=== PATIENT | male | born 1945 | race Caucasian/White ===

== ENCOUNTER → 2017-10-16 14:14 | Outpatient (CLI) | payer OTHER, MEDICARE, SELFPAY ==
[2017-10-16 16:21] LABS: Absolute Neutrophil Count 2.8 X10^3/uL (2.0-7.7); Basophil# 0.02 X10^3/uL; Basophil% 0.5 % (0-1); Eosinophil# 0.13 X10^3/uL; Hematocrit 41.5 % (40-54); Hemoglobin 13.9 g/dl (13.0-16.5); Lymphocyte % 20.7 % (19-41); Mean Corp Hgb Conc 33.5 g/gl (32-36); Mean Corpuscular Hgb 29.8 pg (27.0-32.0); Mean Corpuscular Volume 88.9 fL (80-94); Mean Platelet Vol. 9.4 fl (6.2-12.0); Monocyte# 0.48 X10^3/uL; Monocyte% 11.1 % (0-10); Neutrophil % 64.5 % (47-70); Platelet Count 232 K/mm3 (150-450); RBC Distribution Width CV 12.9 % (11.6-14.6); RBC Distribution Width SD 41.5 fl (35.1-43.9); Red Blood Count 4.67 M/mm3 (4.6-6.2); White Blood Count 4.3 K/mm3 (4.4-11.0)
[2017-10-16 16:22] LABS: POSITIVE COUNT NO; POSITIVE DIFFERENTIAL NO; POSITIVE MORPHOLOGY NO
[2017-10-16 16:47] LABS: AST(SGOT) 19 U/L (15-37); Alanine Aminotransfer ALT/SGPT 27 U/L (16-61); Albumin, Serum 3.6 g/dL (3.2-5.0); Alkaline Phosphatase 62 U/L (45-117); Anion Gap 8 (5-15); BUN 16 mg/dL (7-18); BUN/Creat Ratio 16.2 RATIO (10-20); Calcium,Total 8.7 mg/dL (8.5-10.1); Chloride 110 mmol/L (98-107); Creatinine, Serum 0.99 mg/dL (0.70-1.30); EST Glomerular Filtration Rate 79 mL/min (>60); Est Glom Filt Rate - Afr Amer 96 mL/min (>60); Globulin 3.5 g/dL (2.2-4.2); Glucose 104 mg/dL (74-106); Potassium 3.7 mmol/L (3.5-5.1); Protein, Total 7.1 g/dL (6.4-8.2); Sodium Level 140 mmol/L (136-145); Thyroid Stim Hormone (TSH) 0.13 uIU/mL (0.358-3.74)
[2017-10-17 10:00] LABS: Vitamin D,25 Hydroxy 25.1 ng/mL (29.95-100.01)
== END ==
PROVIDERS: Family Provider Family Medicine Geriatric Medicine; PCP Family Medicine Geriatric Medicine; Visit Provider Family Medicine Geriatric Medicine
DX: E55.9 Vitamin D deficiency, unspecified (principal); R53.83 Other fatigue
CPT/HCPCS: 36415; 80053; 82306; 84443; 85025

== ENCOUNTER 2017-10-19 15:37 | Emergency (ER) | payer OTHER, MEDICARE, SELFPAY ==
[2017-10-19 15:37] VITALS: BP 152/96; PULSE 114; RESP 16; TEMP 37; O2SAT 100; BMI 22.8
--- NOTE | 2017-10-19 15:43 | ED.VISSUMM ---
- ER Visit Summary Date of Service: 10/19/17 Chief Complaint: Left second finger laceration History of Present Illness: The patient is a 72 M presents to the emergency department with left second finger laceration. The patient is right-hand dominant. He was working with a back grinder and it slipped. It incised the dorsum of his left index finger over the mid phalanges. He states that it would not stop bleeding. His tetanus is up-to-date. The patient has had prior tracheostomy. He denies any other injury. The patient is otherwise healthy. Physical Examination: Patient has a 1 cm full-thickness laceration the dorsum. It does not involve the joint. Extension is preserved. Sensation is preserved to light touch. There is no injury to the nailbed. Test Results: [] Emergency Department Course and Treatment: Laceration was cleaned and prepped in a sterile fashion. It was anesthetized with lidocaine locally. It was irrigated with 250 cc of normal saline. It was explored. There is no evidence of tendinous involvement. It was closed with 4 simple 5-0 suture. Patient tolerated this without issue. Bacitracin dressing was applied. He will be discharged home with wound care instructions. Treatment Plan: [] Disposition: Discharge Impression: 1. 1 cm left second finger laceration with repair This note was generated with [employer] dictation software. It may contain incorrect words, spelling, and punctuation that were not noted in review of the chart prior to signing ED Disposition - Plan for ED Patient: Chief Complaint: Laceration Instructions: ED Laceration Hand Referrals: Andreas Evangelista Chi, MD [Primary Care Provider] - 7 Days for suture removal
== END 2017-10-19 16:15 | disposition home or self-care (01) ==
LOC: ED 15:46
PROVIDERS: Emergency Provider Emergency Medicine; Family Provider Family Medicine Geriatric Medicine; PCP Family Medicine Geriatric Medicine
DX: S61.211A Laceration without foreign body of left index finger without damage to nail, initial encounter (principal); I10 Essential (primary) hypertension; E78.00 Pure hypercholesterolemia, unspecified; Z79.899 Other long term (current) drug therapy; W29.8XXA Contact with other powered hand tools and household machinery, initial encounter; Y93.89 Activity, other specified; Y92.009 Unspecified place in unspecified non-institutional (private) residence as the place of occurrence of the external cause; Y99.8 Other external cause status
CPT/HCPCS: 12001; 99283

== ENCOUNTER → 2018-04-23 10:55 | Outpatient (CLI) | payer OTHER, MEDICARE, SELFPAY ==
[2018-04-23 12:42] LABS: Absolute Lymphocyte Count 1.14 X10^3/ul (0.83-4.51); Absolute Neutrophil Count 2.5 X10^3/uL (2.0-7.7); Basophil# 0.04 X10^3/uL; Basophil% 0.9 % (0-1); Eosinophil# 0.11 X10^3/uL; Eosinophils% 2.5 % (0-5); Hematocrit 42.4 % (40-54); Lymphocyte # 1.14 X10^3/ul (4.0); Lymphocyte % 25.6 % (19-41); Mean Corpuscular Hgb 29.9 pg (27.0-32.0); Mean Corpuscular Volume 90.4 fL (80-94); Mean Platelet Vol. 10.1 fl (6.2-12.0); Monocyte# 0.64 X10^3/uL; Monocyte% 14.4 % (0-10); Neutrophil # 2.51 X10^3/uL (2.7-7.7); Neutrophil % 56.4 % (47-70); Platelet Count 246 K/mm3 (150-450); RBC Distribution Width CV 13.7 % (11.6-14.6); Red Blood Count 4.69 M/mm3 (4.6-6.2); White Blood Count 4.5 K/mm3 (4.4-11.0)
[2018-04-23 12:48] LABS: POSITIVE COUNT NO; POSITIVE DIFFERENTIAL NO; POSITIVE MORPHOLOGY NO
[2018-04-23 12:55] LABS: BUN 13 mg/dL (7-18); Creatinine, Serum 0.97 mg/dL (0.70-1.30); Glucose 94 mg/dL (74-106)
[2018-04-23 12:56] LABS: ALB/GLOB Ratio 1.1 RATIO (0.9-2.4); AST(SGOT) 25 U/L (15-37); Alanine Aminotransfer ALT/SGPT 28 U/L (16-61); Albumin, Serum 3.7 g/dL (3.2-5.0); Alkaline Phosphatase 68 U/L (45-117); Anion Gap 9 (5-15); BUN/Creat Ratio 13.4 RATIO (10-20); Calcium,Total 8.6 mg/dL (8.5-10.1); Chloride 111 mmol/L (98-107); EST Glomerular Filtration Rate 81 mL/min (>60); Est Glom Filt Rate - Afr Amer 97 mL/min (>60); Globulin 3.5 g/dL (2.2-4.2); Potassium 4.1 mmol/L (3.5-5.1); Protein, Total 7.2 g/dL (6.4-8.2); Sodium Level 145 mmol/L (136-145); Thyroid Stim Hormone (TSH) 0.11 uIU/mL (0.358-3.74); Vitamin D,25 Hydroxy 20.7 ng/mL (29.95-100.01)
== END ==
PROVIDERS: Family Provider Family Medicine Geriatric Medicine; PCP Family Medicine Geriatric Medicine; Visit Provider Family Medicine Geriatric Medicine
DX: E55.9 Vitamin D deficiency, unspecified (principal); R53.83 Other fatigue
CPT/HCPCS: 36415; 80053; 82306; 84443; 85025

== ENCOUNTER 2018-05-28 17:33 | Emergency (ER) | payer OTHER, MEDICARE, SELFPAY ==
[2018-05-28 17:34] VITALS: BP 134/92; PULSE 109; RESP 20; TEMP 36.9; O2SAT 97; BMI 220.2
--- NOTE | 2018-05-28 17:46 | RAD_ITS ---
STUDY: X-RAY - RIGHT SHOULDER REASON FOR EXAM: Male, 73 years old. Pain, decreased range of motion TECHNIQUE: 4 view(s) of the shoulder. COMPARISON: None. FINDINGS: There is moderate degenerative arthrosis of the glenohumeral articulation. There is degenerative arthrosis of the acromioclavicular joint without inferior osseous spur formation. Normal acromion. Normal humeral head and visualized proximal humerus. The soft tissue structures are unremarkable. Normal visualized pulmonary apex. RAD/Shoulder min 2 Views IMPRESSION: Degenerative arthrosis, no demonstrated fracture or suspicious osseous lesion Electronically Signed: Santo Gould MD at 18:32 EST , Service support ,
--- NOTE | 2018-05-28 17:46 | ED.VISSUMM ---
- ER Visit Summary Date of Service: 05/28/18 Chief Complaint: Right shoulder injury History of Present Illness: The patient is a 73 M mechanical fall 3 hours prior to arrival. Slipped on ice direct shoulder injury. No head or neck injury. No loss of conscious. Pain worse with movement. History of jaw fracture in the past. No history of gastric ulcers or kidney injury. 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 No chest pains or shortness of breath. No nausea or vomiting. Physical Examination: General: Alert and oriented ?3, no acute distress HEENT: Normocephalic, atraumatic. Moist mucosa membranes Neck: supple, nontender. Tracheostomy orifice patent clean, dry, intact Cardiovascular: Regular rate and rhythm, no murmurs Respiratory: Normal breath sounds, symmetric, no distress Abdomen: Soft, nontender, nondistended Extremities: Right upper extremity: No deformities. There is tender palpation of the AC joint. No proximal shoulder pain. Passive full range of motion of the shoulder. No elbow pain. Skin intact. Neurovascular intact distally. Neuro: no focal neurological deficits. Test Results: Right shoulder x-ray: No fracture or dislocation. AC joint aligned Emergency Department Course and Treatment: Patient tender at the AC joint. X-ray shoulder including clavicle reviewed shows no fracture dislocation. Discussed with patient likely grade 1 strain. Shoulder sling. Was given Motrin and tramadol for comfort. Ice was placed. Discussed removing sling 3-4 times a day with movement. Prescription for symptom control and follow-up with his PCP. OARRS report check. Treatment Plan: [] Disposition: Discharged Impression: 1. Right acromioclavicular ligament sprain This note was generated with [employer] dictation software. It may contain incorrect words, spelling, and punctuation that were not noted in review of the chart prior to signing ED Disposition - Plan for ED Patient: Disposition: Home or Assisted Living Diagnosis: Sprain of right acromioclavicular joint, initial encounter Instructions: ED Sprain AC Joint Prescriptions: traMADol [Ultram] 50 mg PO Q6H PRN PRN 3 Days #12 tablet PRN Reason: Pain Ibuprofen [Motrin] 400 mg PO Q6H PRN #20 tablet PRN Reason: Pain Referrals: Andreas Evangelista Chi, MD [Primary Care Provider] - 5-7 Days
[2018-05-28] MEDS: Ibuprofen 200 MG Tablet 400 MG PO (18:00)
[2018-05-28] MEDS: traMADol 50 MG Tablet PO (18:01)
== END 2018-05-28 18:23 | disposition home or self-care (01) ==
PROVIDERS: Emergency Provider Emergency Medicine; Family Provider Family Medicine Geriatric Medicine; PCP Family Medicine Geriatric Medicine
DX: S43.51XA Sprain of right acromioclavicular joint, initial encounter (principal); K21.9 Gastro-esophageal reflux disease without esophagitis; E78.00 Pure hypercholesterolemia, unspecified; Z85.21 Personal history of malignant neoplasm of larynx; Z79.899 Other long term (current) drug therapy; W00.0XXA Fall on same level due to ice and snow, initial encounter; Y93.89 Activity, other specified; Y92.89 Other specified places as the place of occurrence of the external cause; Y99.8 Other external cause status
CPT/HCPCS: 73030; 99284

== ENCOUNTER → 2018-10-22 | Outpatient (CLI) | payer OTHER, MEDICARE, SELFPAY ==
[2018-10-22 12:48] LABS: Absolute Lymphocyte Count 1.03 X10^3/ul (0.83-4.51); Absolute Neutrophil Count 3.2 X10^3/uL (2.0-7.7); Basophil# 0.03 X10^3/uL; Basophil% 0.6 % (0-1); Eosinophil# 0.11 X10^3/uL; Eosinophils% 2.2 % (0-5); Hematocrit 40.3 % (40-54); Hemoglobin 13.2 g/dl (13.0-16.5); Lymphocyte # 1.03 X10^3/ul (4.0); Lymphocyte % 20.4 % (19-41); Mean Corp Hgb Conc 32.8 g/gl (32-36); Mean Corpuscular Hgb 28.9 pg (27.0-32.0); Mean Corpuscular Volume 88.4 fL (80-94); Mean Platelet Vol. 10.4 fl (6.2-12.0); Monocyte# 0.72 X10^3/uL; Monocyte% 14.2 % (0-10); Neutrophil # 3.16 X10^3/uL (2.7-7.7); Neutrophil % 62.4 % (47-70); Platelet Count 254 K/mm3 (150-450); RBC Distribution Width CV 14.2 % (11.6-14.6); RBC Distribution Width SD 45.9 fl (35.1-43.9); Red Blood Count 4.56 M/mm3 (4.6-6.2); White Blood Count 5.1 K/mm3 (4.4-11.0)
[2018-10-22 12:52] LABS: POSITIVE COUNT NO; POSITIVE DIFFERENTIAL NO; POSITIVE MORPHOLOGY NO
[2018-10-22 13:06] LABS: Vitamin D,25 Hydroxy 16.5 ng/mL (29.95-100.01)
[2018-10-22 13:09] LABS: AST(SGOT) 19 U/L (15-37); Alanine Aminotransfer ALT/SGPT 28 U/L (16-61); Albumin, Serum 3.6 g/dL (3.2-5.0); Alkaline Phosphatase 87 U/L (45-117); Anion Gap 5 (5-15); BUN 16 mg/dL (7-18); BUN/Creat Ratio 15.8 RATIO (10-20); Calcium,Total 8.7 mg/dL (8.5-10.1); Chloride 110 mmol/L (98-107); Creatinine, Serum 1.01 mg/dL (0.70-1.30); EST Glomerular Filtration Rate 77 mL/min (>60); Est Glom Filt Rate - Afr Amer 93 mL/min (>60); Globulin 3.7 g/dL (2.2-4.2); Glucose 98 mg/dL (74-106); Potassium 4.1 mmol/L (3.5-5.1); Protein, Total 7.3 g/dL (6.4-8.2); Sodium Level 139 mmol/L (136-145); Thyroid Stim Hormone (TSH) < 0.01 uIU/mL (0.358-3.74)
== END | disposition home or self-care (01) ==
PROVIDERS: Family Provider Family Medicine Geriatric Medicine; PCP Family Medicine Geriatric Medicine; Visit Provider Family Medicine Geriatric Medicine
DX: E55.9 Vitamin D deficiency, unspecified (principal); R53.83 Other fatigue
CPT/HCPCS: 36415; 80053; 82306; 84443; 85025

== ENCOUNTER → 2019-04-26 11:34 | Outpatient (CLI) | payer OTHER, MEDICARE, SELFPAY ==
[2019-04-26 13:01] LABS: Absolute Lymphocyte Count 1.04 X10^3/uL (0.83-4.51); Absolute Neutrophil Count 6.5 X10^3/uL (2.0-7.7); Basophil# 0.07 X10^3/uL; Basophil% 0.8 % (0-1); Eosinophil# 0.13 X10^3/uL; Eosinophils% 1.5 % (0-5); Hematocrit 42.3 % (40-54); Hemoglobin 13.6 g/dL (13.0-16.5); Lymphocyte # 1.04 X10^3/ul (4.0); Lymphocyte % 12.2 % (19-41); Mean Corp Hgb Conc 32.2 g/dL (32-36); Mean Corpuscular Hgb 28.5 pg (27.0-32.0); Mean Corpuscular Volume 88.5 fL (80-94); Mean Platelet Vol. 10.7 fl (6.2-12.0); Monocyte% 9.4 % (0-10); NRBC Flagged by Analyzer 0 % (0-5); Neutrophil # 6.45 X10^3/uL (2.7-7.7); Platelet Count 244 K/mm3 (150-450); RBC Distribution Width CV 13.6 % (11.6-14.6); RBC Distribution Width SD 44.1 fl (35.1-43.9); Red Blood Count 4.78 M/mm3 (4.6-6.2); White Blood Count 8.5 K/mm3 (4.4-11.0)
[2019-04-26 13:26] LABS: Vitamin D,25 Hydroxy 18.1 ng/mL (29.95-100.01)
[2019-04-26 13:34] LABS: ALB/GLOB Ratio 0.9 RATIO (0.9-2.4); AST(SGOT) 20 U/L (15-37); Alanine Aminotransfer ALT/SGPT 27 U/L (16-61); Albumin, Serum 3.7 g/dL (3.2-5.0); Alkaline Phosphatase 80 U/L (45-117); Anion Gap 5 (5-15); BUN 14 mg/dL (7-18); Calcium,Total 8.8 mg/dL (8.5-10.1); Chloride 108 mmol/L (98-107); Creatinine, Serum 1.08 mg/dL (0.70-1.30); EST Glomerular Filtration Rate 71 mL/min (>60); Est Glom Filt Rate - Afr Amer 86 mL/min (>60); Globulin 3.9 g/dL (2.2-4.2); Glucose 91 mg/dL (74-106); PSA,Total - Annual Screen 7.53 ng/mL (0.00-4.00); Potassium 4.2 mmol/L (3.5-5.1); Protein, Total 7.6 g/dL (6.4-8.2); Sodium Level 140 mmol/L (136-145); Thyroid Stim Hormone (TSH) 0.12 uIU/mL (0.358-3.74)
== END ==
PROVIDERS: Family Provider Family Medicine Geriatric Medicine; PCP Family Medicine Geriatric Medicine; Visit Provider Family Medicine Geriatric Medicine
DX: E55.9 Vitamin D deficiency, unspecified (principal); R53.83 Other fatigue; Z12.5 Encounter for screening for malignant neoplasm of prostate
CPT/HCPCS: 36415; 80053; 82306; 84153; 84443; 85025; G0103

== ENCOUNTER 2019-05-08 13:52 | Observation (INO) | payer OTHER, MEDICARE, SELFPAY ==
[2019-05-08] VITALS (23 sets, daily range): BP systolic 92–174; BP diastolic 64–125; PULSE 72–118; RESP 13–28; TEMP 36.2–37.1; O2SAT 91–99; BMI 23.3; BMI 22.0; BMI 21.9
--- NOTE | 2019-05-08 13:54 | RAD_ITS ---
STUDY: X-RAY CHEST REASON FOR EXAM: Male, 74 years old. Aspiration TECHNIQUE: Frontal view of the chest COMPARISON: 11/07/2017 FINDINGS: There is no radiodense foreign body. There is linear opacity in the lower lobes which likely represents atelectasis. The lungs are otherwise clear. There are no pleural effusions. There is no pneumothorax. The heart is normal in size. The visualized osseous structures are within normal limits. RAD/Chest 1 View (Portable) IMPRESSION: Linear opacity in the lower lobes which likely represent atelectasis. Otherwise, clear lungs. No radiodense foreign body. Electronically Signed: Deepak Barrow, at 14:18 EST Tel , Service support ,
--- NOTE | 2019-05-08 14:07 | CT_ITS ---
We are attempting to reach an attending provider to discuss findings. An addendum with communication details will be sent when the communication is complete. STUDY: CT CHEST WITHOUT CONTRAST REASON FOR EXAM: Male, 74 years old. Evaluate for foreign body (piece of tracheostomy tube RADIATION DOSAGE (If Supplied By Facility): CTDIvol = ( 10.19 ) mGy, DLP = ( 346.19 ) mGycm TECHNIQUE: Transaxial imaging was performed without the administration of intravenous contrast material. Coronal and sagittal reformatted images were created. Individualized dose optimization techniques were used for this CT. COMPARISON: 05/10/2017. FINDINGS: There is a tracheostomy tube in place. There is a 1 cm cylindrical foreign body in the right lower lobe bronchus which likely represents a piece of the patient''s tracheostomy tube. There are mild emphysematous changes. There is dependent opacity noted in the lower lobes which likely represents atelectasis. There are no pleural effusions. There is no pneumothorax. The heart and pericardium are within normal limits. There are coronary artery calcifications. There is no thoracic lymphadenopathy. There is no evidence of thoracic aortic aneurysm. Images through the upper abdomen demonstrate a small hiatal hernia. There are no destructive osseous lesions. CT/Chest without Contrast IMPRESSION: 1 cm cylindrical foreign body in the right lower lobe bronchus which likely represents a piece of the patient''s tracheostomy tube. Dependent opacity in the lower lobes which likely represents atelectasis. Otherwise, clear lungs. Coronary artery disease. Small hiatal hernia. Electronically Signed: Deepak Barrow, at 15:12 EST Tel , Service support ,
--- NOTE | 2019-05-08 14:16 | ED.VISSUMM ---
- ER Visit Summary Date of Service: 05/08/19 Chief Complaint: Aspirated foreign body History of Present Illness: The patient is a 74 M who comes in stating that he aspirated a foreign body into his bronchus. 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 He states that he aspirated into his airway. He has a history of throat cancer and has had this since 2010. He states he took a breath then and it went down into his airway. He feels some pain on the right side of his chest. Is worse when he breathes in. He has been producing a lot of phlegm through his stoma in his neck. This is never happened before. Physical Examination: Vital signs are reviewed. HEENT exam reveals a stoma in the neck with a lot of mucus surrounding. There is no bleeding. His heart is tachycardic and regular without murmurs. Lungs have wheezing on the right-hand side only. His abdomen is soft nontender. Extremities have no edema. GCS 15. Normal strength and sensation bilaterally. Test Results: Chest x-ray shows no evidence of foreign body. CT chest without contrast reveals the foreign body in the right lower lobe bronchus Emergency Department Course and Treatment: Patient's airway is being maintained. His saturations are normal. No fevers at this time. I spoke with Dr. Castro and he requested the patient be admitted to the hospitalist and he will arrange to have a bronchoscopy completed Treatment Plan: [] Disposition: Admit Impression: Right lower lobe bronchus foreign body This note was generated with [employer] dictation software. It may contain incorrect words, spelling, and punctuation that were not noted in review of the chart prior to signing ED Disposition - Plan for ED Patient: Referrals: Andreas Evangelista Chi, MD [Primary Care Provider] -
--- NOTE | 2019-05-08 15:45 | PCM.HP.STD ---
<Yovani Lewis - Last Filed: 05/08/19 15:45> Problem List (1) Foreign body in airway Status: Acute (2) Tracheostomy complication Status: Acute (3) Laryngeal cancer Status: Chronic (4) Hypothyroidism Status: Chronic (5) HLD (hyperlipidemia) Status: Chronic History of Present Illness Date of Admission: 05/08/19 Chief Complaint: foreign body in airway The patient is a 74 year old M with pmhx of laryngeal cancer in remission s/p laryngectomy and transesophageal tracheostomy placement (in remission since 2010), also with hx of HLD, hypothyroidism, who presented to the ER with a foreign body in the airway. The patient has a size 12 trach that was functioning normally when it spontaneously came loose and went down his trachea when he took a breath while going about his day. This was approximately 1/2 hour prior to coming to the ER. The part in his bronchi is the long plastic blue lumen that broke off of the string. He is tolerating the foreign body for the time being. He has no SOB and no increased cough. He does have some right sided chest pain when he takes a deep breath. He is resting comfortably in bed and is able to talk through his trach. His surgeon is Dr. Herrera at [facility]. He has not smoked since 2013. [] Past Medical History Past Medical History (Chronic Problems): Chronic Problems Laryngeal cancer (Chronic) Hypothyroidism (Chronic) HLD (hyperlipidemia) (Chronic) Allergies amoxicillin Allergy (Verified 05/08/19 13:55) Rash Penicillins Allergy (Verified 05/08/19 13:55) Unknown Sulfa (Sulfonamide Antibiotics) Allergy (Verified 05/08/19 13:55) BP drops Home Medications: Ambulatory Orders Medication Instructions Recorded Atorvastatin Calcium [Lipitor] 40 mg PO QHS 05/10/17 Levothyroxine [Synthroid] 88 mcg PO DAILY 05/10/17 Omeprazole 40 mg PO DAILY 05/10/17 Ibuprofen [Motrin] 400 mg PO Q6H PRN #20 tablet 05/28/18 Surgical History: - - tracheostomy, laryngectomy Psychiatric History: No pertinent psych hx Lives: Spouse/ Significant Other Smoking Status: Former smoker Tobacco Use: Non-smoker Alcohol: None Drugs: None - *Family History Maternal History Items: No pertinent history - denies cancer, heart disease, stroke Paternal History Items: Cancer Review of Systems Constitutional: Denies: Chills, Fever, Weight Change HEENT: Denies: Head Aches, Sinus Congestion, Sinus Drainage Cardiovascular: Denies: Chest Pain, Palpitations Respiratory: Reports: Pleuritic Pain. Denies: Cough, Shortness of Breath, Shortness of breath at rest, Sputum production Gastrointestinal: Denies: Abdominal Pain, Nausea, Vomiting Genitourinary: Denies: Dysuria Musculoskeletal: Denies: Joint Pain, Joint Tenderness Skin: Denies: Rash, Wounds Neurological: Denies: Numbness, Tingling, Focal weakness Psychiatric: Denies: Anxiety, Depression, Homicidal Ideations, Suicidal Ideations Hematologic/ Lymphatic: Denies: Easy Bruising, Easy Bleeding VTE Information - Inpt Only VTE Present on Admission: No VTE Mechan Device Prophylaxis: None VTE Pharm Prophylaxis ordered?: Yes Patient Problems: Active and Suspected Problems Foreign body in airway (Acute) Tracheostomy complication (Acute) - Physical Exam Vitals/I&O's: Vital Signs Temp Pulse Resp BP Pulse Ox 97.9 F 103 H 14 135/104 H 94 05/08/19 13:52 05/08/19 15:10 05/08/19 15:10 05/08/19 15:10 05/08/19 15:10 Oxygen Delivery Method Room Air Weight: 151 lb 7.321 oz Body Mass Index (BMI) 23.3 General: Alert, Oriented x3, Cooperative HEENT: Atraumatic, PERRLA, EOMI, Normocephalic, - - tracheostomy Neck: Supple, No JVD, Negative Carotid Bruits Lungs: Clear to auscultation, Normal air movement Cardiovascular: Regular rate, No murmurs Abdomen: Bowel Sounds Present, Soft, Non Tender Extremities: No edema, Capillary Refill Less than 3 Seconds Skin: No rashes, No breakdown Musculoskeletal: No Tenderness to Palpation of Joints or Extremities Neurological: Cranial nerves II-XII grossly intact Psych/Mental Status: Normal Affect, Appropriate, Alert and oriented to time, place, person, mood and affect Assessment/Plan All Active Problems Foreign body in airway (Acute) Tracheostomy complication (Acute) 1. Foreign body in airway - confirmed via ct. This is the long blue plastic lumen that broke off of his transesophageal trach. He has chest pain with deep breath (right side). Pulmonary medicine consulted for removal. Respiratory status is stable at this time. Pt will be placed in the ICU in the meantime. 2. Hx Laryngeal cancer - s/p laryngectomy - follows surgeon Dr. Herrera at [facility]. In remission since 2013. 3. Hypothyroidism, hld - oral meds on hold for OR DVT ppx: SCDs This patient was seen by Yovani Lewis PA-C under the supervision of Dr. Mathews <Bryce Mathews - Last Filed: 05/08/19 16:17> History of Present Illness The patient is a 74 year old M was doing well and then part of his tracheostomy apparatus broke off and went into his lungs. Patient brought in sample to show what actually went into his lungs not the actual part that broke off. Patient does not have any shortness of breath but he does have some right-sided chest pain when he takes in a deep breath. This is never happened to him before. Pulmonary team, with Dr. Castro, was contacted and though the patient is stable at this time he was advised that this be removed soon as possible. He is mobilizing the endoscopy team to be present and the patient admitted to the ICU for further monitoring. [] Past Medical History Allergies amoxicillin Allergy (Verified 05/08/19 13:55) Rash Penicillins Allergy (Verified 05/08/19 13:55) Unknown Sulfa (Sulfonamide Antibiotics) Allergy (Verified 05/08/19 13:55) BP drops Surgical History: - Psychiatric History: No pertinent psych hx Lives: Spouse/ Significant Other Smoking Status: Former smoker Tobacco Use: Non-smoker Alcohol: None Drugs: None - *Family History Maternal History Items: No pertinent history Review of Systems Constitutional: Denies: Chills, Fever, Weight Change HEENT: Denies: Head Aches, Sinus Congestion, Sinus Drainage Cardiovascular: Reports: Chest Pain - With respirations on the right side. Denies: Palpitations Respiratory: Reports: Pleuritic Pain. Denies: Cough, Shortness of Breath, Shortness of breath at rest, Sputum production Gastrointestinal: Denies: Abdominal Pain, Nausea Genitourinary: Denies: Dysuria Musculoskeletal: Denies: Joint Pain, Joint Tenderness Skin: Denies: Rash, Wounds Neurological: Denies: Focal weakness, Numbness, Tingling Psychiatric: Denies: Anxiety, Depression, Homicidal Ideations, Suicidal Ideations Hematologic/ Lymphatic: Denies: Easy Bruising, Easy Bleeding - Physical Exam Vitals/I&O's: Vital Signs Temp Pulse Resp BP Pulse Ox 36.6 C 96 20 H 140/104 H 97 05/08/19 13:52 05/08/19 15:53 05/08/19 15:53 05/08/19 15:53 05/08/19 15:53 Oxygen Flow Rate (L/min) 3 Oxygen Delivery Method Trach Collar Weight: 68.7 kg Body Mass Index (BMI) 23.3 Assessment/Plan Patient seen and examined independently. Data reviewed. I agree with the above note by the physician surgical assistant. 1. Foreign body in airway: Patient had a blue plastic piece that broke off and is in his bronchus currently. Currently stable at this time but given its location and potential for further complications it is advised that this be removed soon as possible. Contacted Dr. Castro about getting this removed today and he is currently mobilizing the endoscopy team to come in and so that he may do a bronchoscopy later this afternoon and evening to remove it. In the meantime, patient will be admitted to the ICU for further monitoring. Patient will be n.p.o. in the interim. Code Visit OBSV E&M: 13613 Initial observation care L3
[2019-05-08 17:09] LABS: Absolute Lymphocyte Count 0.95 X10^3/uL (0.83-4.51); Absolute Neutrophil Count 6.6 X10^3/uL (2.0-7.7); Basophil# 0.05 X10^3/uL; Basophil% 0.6 % (0-1); Eosinophil# 0.07 X10^3/uL; Eosinophils% 0.9 % (0-5); Hemoglobin 14.4 g/dL (13.0-16.5); Lymphocyte # 0.95 X10^3/ul (4.0); Lymphocyte % 11.7 % (19-41); Mean Corp Hgb Conc 32.7 g/dL (32-36); Mean Corpuscular Hgb 28.6 pg (27.0-32.0); Mean Corpuscular Volume 87.5 fL (80-94); Mean Platelet Vol. 9.6 fl (6.2-12.0); Monocyte# 0.51 X10^3/uL; Monocyte% 6.3 % (0-10); NRBC Flagged by Analyzer 0 % (0-5); Neutrophil # 6.55 X10^3/uL (2.7-7.7); Neutrophil % 80.3 % (47-70); Platelet Count 289 K/mm3 (150-450); RBC Distribution Width CV 13.3 % (11.6-14.6); RBC Distribution Width SD 42.5 fl (35.1-43.9); Red Blood Count 5.03 M/mm3 (4.6-6.2); White Blood Count 8.2 K/mm3 (4.4-11.0)
[2019-05-08] MEDS: 0.9% Normal Saline 1,000 ML 15 ML IV (17:10)
[2019-05-08 17:13] LABS: Partial Thromboplast Time 35.2 Seconds (24.1-36.2); Prothrombin Time (Protime)PT. 13.2 SECONDS (11.7-14.9)
[2019-05-08] MEDS: Lidocaine 2% Jelly 1 APPLIC Tube (17:15)
[2019-05-08] MEDS: fentaNYL 100 MCG/2 ML Ampul IV (17:17)
[2019-05-08] MEDS: Midazolam 5 MG/ML Syringe IV (17:17)
[2019-05-08 17:20] LABS: Anion Gap 6 (5-15); BUN 13 mg/dL (7-18); BUN/Creat Ratio 12.1 RATIO (10-20); Calcium,Total 8.9 mg/dL (8.5-10.1); Chloride 110 mmol/L (98-107); Creatinine, Serum 1.07 mg/dL (0.70-1.30); EST Glomerular Filtration Rate 72 mL/min (>60); Est Glom Filt Rate - Afr Amer 87 mL/min (>60); Estimated Creatinine Clearance 56.11 ml/min; Glucose 100 mg/dL (74-106); Potassium 3.9 mmol/L (3.5-5.1); Sodium Level 142 mmol/L (136-145)
--- NOTE | 2019-05-08 17:24 | CON.PCM_ITS ---
Problem List (1) Foreign body in airway Status: Acute (2) Tracheostomy complication Status: Acute Qualifiers: Tracheostomy complication: other Qualified Code(s): J95.09 - Other tracheostomy complication (3) Laryngeal cancer Status: Chronic (4) Hypothyroidism Status: Chronic (5) HLD (hyperlipidemia) Status: Chronic Reason for Consult Date of Consultation: 05/08/19 Reason for Consultation: Foreign body History of Present Illness: The patient is a 74 year old M, with past medical history listed below, who presented [facility] 05/08/2019 secondary to aspirating a foreign body into his bronchus. Patient has a tracheoesophageal prosthesis and stated he had aspirated into his airway. This is not happened previously. Patient states he had throat cancer and had a laryngectomy in 2010. Patient states he took a breath and it went down into his airway. Patient had felt some pain on the right side of his chest that was worse with inhalation. Patient had noted some increased phlegm through the stoma. In the ER, patient was noted to have some mucus around the stoma. No bleeding was reported. Patient was tachycardic. Patient had some wheezing on the right side. Patient had a chest x-ray that was unremarkable, but CT scan of the chest shows a foreign body in the right lower lobe bronchus. Bronchoscopy was originally planned for 9 AM tomorrow, but after review from the hospitalist, emergent removal was noted. On my arrival, patient was doing well on trach collar. Patient states he does not use supplemental oxygen at baseline. Patient had had more secretions, but s tates otherwise he was comfortable. Patient did have a sensation of something in his right chest. Patient did not have any nausea or vomiting associated with this event. Patient otherwise has been of his usual health. Review of systems otherwise negative from a constitutional, HEENT, respiratory, cardiovascular, GI, genitourinary, musculoskeletal, skin, neurologic, psychiatric and hematologic system unless stated above. Past Medical History Past Medical History (Chronic Problems): Chronic Problems Laryngeal cancer (Chronic) Hypothyroidism (Chronic) HLD (hyperlipidemia) (Chronic) Allergies amoxicillin Allergy (Verified 05/08/19 13:55) Rash Penicillins Allergy (Verified 05/08/19 13:55) Unknown Sulfa (Sulfonamide Antibiotics) Allergy (Verified 05/08/19 13:55) BP drops Home Medications: Ambulatory Orders Medication Instructions Recorded Atorvastatin Calcium [Lipitor] 40 mg PO QHS 05/10/17 Levothyroxine [Synthroid] 88 mcg PO DAILY 05/10/17 Omeprazole 40 mg PO DAILY 05/10/17 Ibuprofen [Motrin] 400 mg PO Q6H PRN #20 tablet 05/28/18 Surgical History: - Psychiatric History: No pertinent psych hx Lives: Spouse/ Significant Other Smoking Status: Former smoker Tobacco Use: Non-smoker Alcohol: None Drugs: None - *Family History Maternal History Items: No pertinent history Paternal History Items: Cancer Review of Systems Comment: See HPI Patient Problems: Active and Suspected Problems Foreign body in airway (Acute) Tracheostomy complication (Acute) Objective: All imaging was personally reviewed. Chest x-ray was relatively unremarkable, but CT scan did show a right lower lobe foreign body. Patient was given 2 mg of Versed and 50 mcg of fentanyl following informed consent. Lidocaine was introduced into the airway and foreign body was removed. Total procedure time 5 minutes. See procedure report for further details. - Physical Exam Vitals/I&O's: Vital Signs Temp Pulse Resp BP Pulse Ox 36.6 C 96 20 H 140/104 H 97 05/08/19 13:52 05/08/19 15:53 05/08/19 15:53 05/08/19 15:53 05/08/19 15:53 Oxygen Flow Rate (L/min) 3 Oxygen Delivery Method Trach Collar Weight: 65.5 kg Body Mass Index (BMI) 21.9 General: Alert, Oriented x3, Cooperative, No apparent distress, Well developed, Well nourished, - - Able to vocalize with finger obstruction HEENT: Atraumatic, PERRLA, EOMI, Normocephalic, - - No scleral icterus or injection noted Oral: Moist Mucosa, No Gingival or Mucosal Lesions/ Ulcerations Neck: Supple, No JVD, No Nodes, Trachea Midline, - - Tracheotomy was clean, dry and intact Lungs: No rhonchi, No rales, Diminished, Wheezes - Right base Cardiovascular: Regular rate, Regular Rhythm, Normal S1, Normal S2, No murmurs, No rub noted, No Gallop Abdomen: Bowel Sounds Present, Soft, Non Tender, Non-Distended Extremities: No clubbing, No cyanosis, No edema, Capillary Refill Less than 3 Seconds Skin: No rashes, No breakdown Musculoskeletal: No Tenderness to Palpation of Joints or Extremities Lymphatic: No Cervical, Supraclavicular, or Inguinal Adenopathy Neurological: Cranial nerves II-XII grossly intact, Neuro grossly intact, Motor Exam 5/5 strength throughout Psych/Mental Status: Alert and oriented to time, place, person, mood and affect Laboratory Results 05/08/19 16:45: WBC 8.2, RBC 5.03, Hgb 14.4, Hct 44.0, MCV 87.5, MCH 28.6, MCHC 32.7, RDW Std Deviation 42.5, RDW Coeff of Chucho 13.3, Plt Count 289, MPV 9.6, Immature Gran % (Auto) 0.200, Neut % (Auto) 80.3 H, Lymph % (Auto) 11.7 L, [place] % (Auto) 6.3, Eos % (Auto) 0.9, Baso % (Auto) 0.6, Absolute Neuts (auto) 6.6, Absolute Lymphs (auto) 0.95, Nucleated RBC % 0 05/08/19 16:45: PT 13.2, INR 1.0, APTT 35.2 05/08/19 16:45: Sodium 142, Potassium 3.9, Chloride 110 H, Carbon Dioxide 26.0, Anion Gap 6, BUN 13, Creatinine 1.07, Estim Creat Clear Calc 56.11, Est GFR (MDRD) Af Amer 87, Est GFR (MDRD) Non-Af 72, BUN/Creatinine Ratio 12.1, Glucose 100, Calcium 8.9 Current Medications Sodium Chloride () 1,000 mls @ 15 mls/hr IV .Q48H SOILA Clinical Impression(s) from Imaging Studies Chest X-Ray 05/08/19 13:54 IMPRESSION: Linear opacity in the lower lobes which likely represent atelectasis. Otherwise, clear lungs. No radiodense foreign body. Electronically Signed: Deepak Barrow, at 14:18 EST Tel , Service support , Chest CT 05/08/19 14:07 IMPRESSION: 1 cm cylindrical foreign body in the right lower lobe bronchus which likely represents a piece of the patient''s tracheostomy tube. Dependent opacity in the lower lobes which likely represents atelectasis. Otherwise, clear lungs. Coronary artery disease. Small hiatal hernia. Electronically Signed: Deepak Barrow, at 15:12 EST Tel , Service support , ADDENDUM: 05/08/19 1521 IMPRESSION: 1 cm cylindrical foreign body in the right lower lobe bronchus which likely represents a piece of the patient''s tracheostomy tube. Dependent opacity in the lower lobes which likely represents atelectasis. Otherwise, clear lungs. Coronary artery disease. Small hiatal hernia. N.B. : The above information has been verbally conveyed by Deepak Barrow to Miguel Coronel MD, on 05/08/2019 15:14:58 (ET). Electronically Signed: Deepak Barrow, at 15:12 EST Tel , Service support , Assessment/Plan All Active Problems Foreign body in airway (Acute) Tracheostomy complication (Acute) RECOMMENDATIONS: 1. Recover from conscious sedation 2. Consider initiation for aspiration pneumonia if patient develops fever 3. Okay to continue baseline medications from my perspective 4. Initiate as needed bronchodilators IMPRESSIONS: 1. Aspiration of foreign body Foreign body removed easily and without complication. Patient may have some bronchospasm for which bronchodilators can be used, but doubt aspiration pneumonia. Could place patient on antibiotics, but if does not develop fever will likely do okay. Patient needs to be recovered from the bronchoscopy. 2. Hypothyroidism/hyperlipidemia/GERD/history of laryngeal cancer Complicates care, management, recovery and prognosis. Code Visit Inpatient E&M: 64127 Init Hosp L2
--- NOTE | 2019-05-08 18:14 | NURSING ---
1710 - Dr. Castro and endo staff occupational therapist's at bedside for bronchoscopy 1717 - 2 mg versed IVP and 50 mcg fentanyl IVP given by this RN per physician order 1722 - Bronchoscopy complete with foreign object removed per Dr. Castro, pt tolerated well, on 3L through trach collar, VS stable 1800 - Pt awake, but drowsy, follows commands, answers questions appropriately, able to cough and deep breathe, VS remain stable
[2019-05-09] VITALS (12 sets, daily range): BP systolic 97–147; BP diastolic 63–88; PULSE 61–93; RESP 10–21; TEMP 36.7; O2SAT 93–99
--- NOTE | 2019-05-09 06:48 | PCM.PN.INT ---
Subjective: Patient did well overnight. No acute issues were reported. Patient is reporting that he is back to his baseline. Patient denies any productive cough overnight. No fevers been reported. Patient was able to take some p.o. soup overnight and tolerated well. General: Alert, Oriented x3, Cooperative, No apparent distress, Well developed, Well nourished, - - Thin build. HEENT: Atraumatic, PERRLA, EOMI, Normocephalic, - - No scleral icterus or injection noted Oral: Moist Mucosa, No Gingival or Mucosal Lesions/ Ulcerations Neck: Supple, No JVD, No Nodes, Trachea Midline, - - Tracheostomy is clean, dry and intact Lungs: Clear to auscultation, Normal air movement, No rhonchi, No wheeze, No rales, - - Symmetric expansion. No dullness to percussion. Cardiovascular: Regular rate, Regular Rhythm, Normal S1, Normal S2, No murmurs, No rub noted, No Gallop Abdomen: Bowel Sounds Present, Soft, Non Tender, Non-Distended Extremities: No clubbing, No cyanosis, No edema Skin: No rashes, No breakdown Musculoskeletal: No Tenderness to Palpation of Joints or Extremities Lymphatic: No Cervical, Supraclavicular, or Inguinal Adenopathy Neurological: Cranial nerves II-XII grossly intact, Neuro grossly intact, Motor Exam 5/5 strength throughout Psych/Mental Status: Alert and oriented to time, place, person, mood and affect Vital Signs Temp Pulse Resp BP Pulse Ox 36.7 C 62 10 L 99/66 94 05/09/19 00:00 05/09/19 06:00 05/09/19 06:00 05/09/19 06:00 05/09/19 06:00 Oxygen Flow Rate (L/min) 3 Oxygen Delivery Method Room Air Weight: 61.7 kg Body Mass Index (BMI) 21.9 Intake and Output for Last 24 Hours 05/07/19 05/08/19 05/09/19 23:59 23:59 23:59 Intake Total 577.25 / 577.25 213.5 / 213.5 Output Total 570 / 570 270 / 270 Balance 7.25 / 7.25 -56.5 / -56.5 Labs (Last 48 Hours) 01/11/20 01/11/20 01/11/20 16:45 16:45 16:45 WBC 8.2 RBC 5.03 Hgb 14.4 Hct 44.0 MCV 87.5 MCH 28.6 MCHC 32.7 RDW Std Deviation 42.5 RDW Coeff of Chucho 13.3 Plt Count 289 MPV 9.6 Immature Gran % (Auto) 0.200 Neut % (Auto) 80.3 H Lymph % (Auto) 11.7 L [place] % (Auto) 6.3 Eos % (Auto) 0.9 Baso % (Auto) 0.6 Absolute Neuts (auto) 6.6 Absolute Lymphs (auto) 0.95 Nucleated RBC % 0 PT 13.2 INR 1.0 APTT 35.2 Sodium 142 Potassium 3.9 Chloride 110 H Carbon Dioxide 26.0 Anion Gap 6 BUN 13 Creatinine 1.07 Estim Creat Clear Calc 56.11 Est GFR (MDRD) Af Amer 87 Est GFR (MDRD) Non-Af 72 BUN/Creatinine Ratio 12.1 Glucose 100 Calcium 8.9 Clinical Impression(s) from Imaging Studies Chest X-Ray 05/08/19 13:54 IMPRESSION: Linear opacity in the lower lobes which likely represent atelectasis. Otherwise, clear lungs. No radiodense foreign body. Electronically Signed: Deepak Barrow, at 14:18 EST Tel , Service support , Chest CT 05/08/19 14:07 IMPRESSION: 1 cm cylindrical foreign body in the right lower lobe bronchus which likely represents a piece of the patient''s tracheostomy tube. Dependent opacity in the lower lobes which likely represents atelectasis. Otherwise, clear lungs. Coronary artery disease. Small hiatal hernia. Electronically Signed: Deepak Barrow, at 15:12 EST Tel , Service support , ADDENDUM: 05/08/19 1521 IMPRESSION: 1 cm cylindrical foreign body in the right lower lobe bronchus which likely represents a piece of the patient''s tracheostomy tube. Dependent opacity in the lower lobes which likely represents atelectasis. Otherwise, clear lungs. Coronary artery disease. Small hiatal hernia. N.B. : The above information has been verbally conveyed by Deepak Barrow to Miguel Coronel MD, on 05/08/2019 15:14:58 (ET). Electronically Signed: Deepak Barrow, at 15:12 EST Tel , Service support , Medical Necessity - Tobacco Use Smoking Status: Former smoker Tobacco Use: Non-smoker Assessment/Plan All Active Problems Foreign body in airway (Acute) Tracheostomy complication (Acute) RECOMMENDATIONS: 1. Okay to resume regular diet this morning 2. No antibiotics or bronchodilators required on discharge 3. Okay to continue baseline medications from my perspective 4. Okay to discharge from my perspective IMPRESSIONS: 1. Aspiration of foreign body Foreign body removed easily and without complication. Patient is not had any bronchospasm or fever overnight. Likely no indication for steroids, bronchodilators or antibiotics from a respiratory perspective. Okay to discharge. No pulmonary follow-up is indicated. 2. Hypothyroidism/hyperlipidemia/GERD/history of laryngeal cancer Complicates care, management, recovery and prognosis. Okay to resume baseline medications. Code Visit Inpatient E&M: 59668 Subs Hosp L2
--- NOTE | 2019-05-09 08:50 | PCM.DC ---
- Discharge Diagnoses Current Active Problems: Current Active and Chronic Problems Foreign body in airway (Acute) Tracheostomy complication (Acute) Laryngeal cancer (Chronic) Hypothyroidism (Chronic) HLD (hyperlipidemia) (Chronic) You will use the following diet at home:: No restrictions Your food should be the consistency of: Regular Your liquids should be the consistency of: Regular/Thin Discharge Activity: Return to Normal Activity Allergies/Adverse Reactions: Allergies amoxicillin Allergy (Verified 05/08/19 13:55) Rash Penicillins Allergy (Verified 05/08/19 13:55) Unknown Sulfa (Sulfonamide Antibiotics) Allergy (Verified 05/08/19 13:55) BP drops Medications to take at Discharge Atorvastatin Calcium [Lipitor] 40 mg PO QHS 05/10/17 Levothyroxine [Synthroid] 88 mcg PO DAILY 05/10/17 Omeprazole 40 mg PO DAILY 05/10/17 Ibuprofen [Motrin] 400 mg PO Q6H PRN #20 tablet 05/28/18 Primary Care Physician: Andreas Evangelista Chi, MD [Primary Care Provider] - Please follow up with your Primary Care Physician in: 1-2 weeks Test Results: Test results from this visit will be discussed in further detail at your follow-up appointment, if applicable. Please Follow Up With: Dr. Herrera - your [facility] surgeon When: 1-2 weeks Proposed Discharge Date: 05/09/19
--- NOTE | 2019-05-09 12:08 | PCM.DC.SUM ---
<Yovani Lewis - Last Filed: 05/09/19 12:08> Discharge Date and Diagnosis Date of Admission: 05/08/19 Date of Discharge: 05/09/19 - Primary Discharge Diagnosis Foreign body in airway Tracheostomy Laryngeal cancer in remission s/p laryngectomy Former nicotine abuse hypothyroidism hld - Secondary Discharge Diagnosis Chronic Problems Laryngeal cancer (Chronic) Hypothyroidism (Chronic) HLD (hyperlipidemia) (Chronic) Hospital Course and Treatment Imaging Results: RAD/Chest 1 View (Portable) IMPRESSION: Linear opacity in the lower lobes which likely represent atelectasis. Otherwise, clear lungs. No radiodense foreign body. CT/Chest without Contrast IMPRESSION: 1 cm cylindrical foreign body in the right lower lobe bronchus which likely represents a piece of the patient''s tracheostomy tube. Dependent opacity in the lower lobes which likely represents atelectasis. Otherwise, clear lungs. Coronary artery disease. Small hiatal hernia. Consultation: Matthew - pulmonology Operations: None Procedures: Bronchoscopy Summary of Care Provided: Hospital Course: The patient is a 74 year old M with pmhx notable for tracheostomy due to prior laryngeal cancer s/p laryngectomy in remission who presented to the ER with c/o foreign body in the lungs. He took an inspiratory breath and his tracheostomy device came loose and went down his trachea. He had no respiratory distress. He had mild chest pain on inspiration. Presence of the foreign body was confirmed with CT. He was admitted to the ICU. That night he underwent bronchoscopy with successful retrieval. He remained stable following this. He had no evidence of aspiration pneumonia. He was discharged home in stable condition. He will need follow up with his PCP in 1-2 week and his surgeon in 1-2 weeks. This patient was seen by Yovani Lewis PA-C under the supervision of Dr. Brooks[] - Physical Exam Vitals/I&O's: Vital Signs Temp Pulse Resp BP Pulse Ox 98.1 F 93 21 H 147/85 H 97 05/09/19 00:00 05/09/19 09:00 05/09/19 09:00 05/09/19 09:00 05/09/19 09:00 Oxygen Flow Rate (L/min) 3 Oxygen Delivery Method Room Air Weight: 136 lb 0.403 oz Body Mass Index (BMI) 21.9 Intake and Output for Last 24 Hours 05/07/19 05/08/19 05/09/19 23:59 23:59 23:59 Intake Total 577.25 / 577.25 267.25 / 267.25 Output Total 570 / 570 270 / 270 Balance 7.25 / 7.25 -2.75 / -2.75 General: Alert, Oriented x3, Cooperative HEENT: Atraumatic, PERRLA, EOMI, Normocephalic Neck: Supple, No JVD, Negative Carotid Bruits Lungs: Normal air movement, No rales - BL bases Cardiovascular: Regular rate, No murmurs Abdomen: Bowel Sounds Present, Soft, Non Tender Extremities: No edema, Capillary Refill Less than 3 Seconds Skin: No rashes, No breakdown Musculoskeletal: No Tenderness to Palpation of Joints or Extremities Neurological: Cranial nerves II-XII grossly intact Psych/Mental Status: Normal Affect, Appropriate, Alert and oriented to time, place, person, mood and affect Laboratory Results 05/08/19 16:45: WBC 8.2, RBC 5.03, Hgb 14.4, Hct 44.0, MCV 87.5, MCH 28.6, MCHC 32.7, RDW Std Deviation 42.5, RDW Coeff of Chucho 13.3, Plt Count 289, MPV 9.6, Immature Gran % (Auto) 0.200, Neut % (Auto) 80.3 H, Lymph % (Auto) 11.7 L, [place] % (Auto) 6.3, Eos % (Auto) 0.9, Baso % (Auto) 0.6, Absolute Neuts (auto) 6.6, Absolute Lymphs (auto) 0.95, Nucleated RBC % 0 05/08/19 16:45: PT 13.2, INR 1.0, APTT 35.2 05/08/19 16:45: Sodium 142, Potassium 3.9, Chloride 110 H, Carbon Dioxide 26.0, Anion Gap 6, BUN 13, Creatinine 1.07, Estim Creat Clear Calc 56.11, Est GFR (MDRD) Af Amer 87, Est GFR (MDRD) Non-Af 72, BUN/Creatinine Ratio 12.1, Glucose 100, Calcium 8.9 Discharge Diet: No Restrictions Discharge Activity: Return to Normal Activity Home Medications: Medications to take at Discharge Atorvastatin Calcium [Lipitor] 40 mg PO QHS 05/10/17 Levothyroxine [Synthroid] 88 mcg PO DAILY 05/10/17 Omeprazole 40 mg PO DAILY 05/10/17 Ibuprofen [Motrin] 400 mg PO Q6H PRN #20 tablet 05/28/18 Primary Care Physician: Andreas Evangelista Chi, MD [Primary Care Provider] - Please follow up with your Primary Care Physician in: 1-2 weeks Please Follow Up With: Dr. Herrera - your [facility] surgeon When: 1-2 weeks Disposition: Home Minutes spent on discharge:: 35 Patient Condition:: Stable Medical Necessity - Tobacco Use Smoking Status: Former smoker Tobacco Use: Non-smoker Meaningful Use Info Meaningful Use Diagnoses (Choose all that apply): None applicable <Destinee Brooks E - Last Filed: 05/09/19 13:02> Discharge Date and Diagnosis - Secondary Discharge Diagnosis Chronic Problems Laryngeal cancer (Chronic) Hypothyroidism (Chronic) HLD (hyperlipidemia) (Chronic) Hospital Course and Treatment Summary of Care Provided: Hospitalist note: Discharge summary above reviewed and I concur with the above discharge treatment plan. Patient presented to the emergency room complaining that there is a foreign body went down to his tracheostomy tube. He mentioned that he took a breath and his tracheostomy came loose and went down to his trachea. He had no significant ocular distress or shortness of breath. CT scan chest done and revealed 1 cm cylindrical foreign body in the right lower lobe bronchus. Patient was admitted to ICU, underwent bronchoscopy with removal of the foreign body. Afterwards, patient did very well, respiratory status remained stable. There was no evidence of pneumonia. His routine blood work was unremarkable. Patient discharged home in a stable medical condition, discharged on his previous home medications without any changes recommended from with PCP in 1 to 2 weeks. - Physical Exam General: Alert, Oriented x3, Cooperative, No apparent distress. HEENT: Atraumatic, PERRLA, EOMI. Neck: Supple, No JVD, Negative Carotid Bruits, Trachea Midline, Thyroid Normal, tracheostomy opening. Lungs: Clear to auscultation, Normal air movement, No rhonchi, No wheeze, No rales. Cardiovascular: Regular rate, Regular Rhythm, Normal S1, Normal S2, PMI Normal. Abdomen: Bowel Sounds Present, Soft, Non Tender, Non-Distended, No Hepato-splenomegaly. Extremities: No clubbing, No cyanosis, No edema Skin: No rashes, No breakdown Neurological: Cranial nerves are intact, neuro grossly intact Vital Signs are stable. This note was generated with [employer] dictation software. It may contain incorrect words, spelling, and punctuation that were not noted in checking the note before signing. - Physical Exam Vitals/I&O's: Vital Signs Temp Pulse Resp BP Pulse Ox 98.1 F 93 21 H 147/85 H 97 05/09/19 00:00 05/09/19 09:00 05/09/19 09:00 05/09/19 09:00 05/09/19 09:00 Oxygen Flow Rate (L/min) 3 Oxygen Delivery Method Room Air Weight: 136 lb 0.403 oz Body Mass Index (BMI) 21.9 Intake and Output for Last 24 Hours 05/07/19 05/08/19 05/09/19 23:59 23:59 23:59 Intake Total 577.25 / 577.25 267.25 / 267.25 Output Total 570 / 570 270 / 270 Balance 7.25 / 7.25 -2.75 / -2.75 Laboratory Results 05/08/19 16:45: WBC 8.2, RBC 5.03, Hgb 14.4, Hct 44.0, MCV 87.5, MCH 28.6, MCHC 32.7, RDW Std Deviation 42.5, RDW Coeff of Chucho 13.3, Plt Count 289, MPV 9.6, Immature Gran % (Auto) 0.200, Neut % (Auto) 80.3 H, Lymph % (Auto) 11.7 L, [place] % (Auto) 6.3, Eos % (Auto) 0.9, Baso % (Auto) 0.6, Absolute Neuts (auto) 6.6, Absolute Lymphs (auto) 0.95, Nucleated RBC % 0 05/08/19 16:45: PT 13.2, INR 1.0, APTT 35.2 05/08/19 16:45: Sodium 142, Potassium 3.9, Chloride 110 H, Carbon Dioxide 26.0, Anion Gap 6, BUN 13, Creatinine 1.07, Estim Creat Clear Calc 56.11, Est GFR (MDRD) Af Amer 87, Est GFR (MDRD) Non-Af 72, BUN/Creatinine Ratio 12.1, Glucose 100, Calcium 8.9 Disposition: Home Minutes spent on discharge:: 27 Patient Condition:: Stable Meaningful Use Info Meaningful Use Diagnoses (Choose all that apply): None applicable Code Visit OBSV E&M: 31912 Observation care discharge
--- NOTE | 2019-05-12 10:41 | OP.BRONCH_ITS ---
Patient Name: Madhav Shook Procedure Date: 05/08/2019 5:03 PM Date of : 1945 Age: 74 Procedure: Bronchoscopy Indications: Bronchus foreign body Providers: Tariq Castro MD Referring MD: Bryce Mathews DO Medicines: Lidocaine 2% Nebulizer 2.5 mL, Fentanyl 50 mcg IV, Midazolam 2 mg IV Complications: No immediate complications. Estimated blood loss: None. No pneumothorax Procedure: Pre-Anesthesia Assessment: - A History and Physical has been performed. The patient's medications, allergies and sensitivities have been reviewed. - The risks and benefits of the procedure and the sedation options and risks were discussed with the patient. All questions were answered and informed consent was obtained. - Patient identification and proposed procedure were verified prior to the procedure by the physician and the nurse. The procedure was verified in the procedure room at 17:10 PM. After I obtained informed consent, the scope was passed under direct vision. Throughout the procedure, the patient's blood pressure, pulse, and oxygen saturations were monitored continuously. The bronchoscope was introduced through the tracheostomy and advanced to the tracheobronchial tree. The procedure was accomplished without difficulty. The patient tolerated the procedure well. The total duration of the procedure was 0 hours and 5 minutes. Moderate Sedation: Moderate (conscious) sedation was administered by the endoscopy nurse and supervised by the endoscopist. The following parameters were monitored: oxygen saturation, heart rate, blood pressure, and response to care. Total physician intraservice time was 5 minutes. Findings: The endotracheal tube is well positioned via the tracheostomy. The visualized portion of the trachea is of normal caliber. The boaz is sharp. The tracheobronchial tree of the left lung was examined to at least the first subsegmental level. Bronchial mucosa and anatomy are normal; there are no endobronchial lesions, and no secretions. 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 The foreign body was successfully removed using alligator forceps. Impression: - Bronchus foreign body - The airway examination of the left lung was normal. 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 - Foreign body removal was successful. Recommendation: - Observe patient in ICU over night for observation. Procedure Code(s): --- Professional --- 48565, Bronchoscopy, rigid or flexible, including fluoroscopic guidance, when performed; with removal of foreign body Diagnosis Code(s): --- Professional --- T17.508A, Unspecified foreign body in bronchus causing other injury, initial encounter CPT copyright 2017 [employer]. All rights reserved. The codes documented in this report are preliminary and upon cosmetics demonstrator review may be revised to meet current compliance requirements. MD Tariq Jeffery MD 05/08/2019 5:39:56 PM This report has been signed electronically. Number of Addenda: 0 Note Initiated On: 05/08/2019 5:03 PM
== END 2019-05-09 09:40 | disposition home or self-care (01) ==
LOC: ED 14:22 → ICU 16:22
PROVIDERS: Internal Medicine Critical Care Medicine; Physician Assistant; Emergency Provider Emergency Medicine; Family Provider Family Medicine Geriatric Medicine; PCP Family Medicine Geriatric Medicine; Visit Provider Hospitalist
PROC: 0BJ08ZZ Inspection of Tracheobronchial Tree, Via Natural or Artificial Opening Endoscopic (ICD-10-PCS; CPT 31622; principal; 2019-05-08 17:00)
DX: J95.09 Other tracheostomy complication (principal); T17.598A Other foreign object in bronchus causing other injury, initial encounter; X58.XXXA Exposure to other specified factors, initial encounter; Y83.8 Other surgical procedures as the cause of abnormal reaction of the patient, or of later complication, without mention of misadventure at the time of the procedure; E78.5 Hyperlipidemia, unspecified; E03.9 Hypothyroidism, unspecified; Z79.899 Other long term (current) drug therapy; Z85.819 Personal history of malignant neoplasm of unspecified site of lip, oral cavity, and pharynx; Z87.891 Personal history of nicotine dependence; I25.10 Atherosclerotic heart disease of native coronary artery without angina pectoris; K44.9 Diaphragmatic hernia without obstruction or gangrene; R40.2410 Glasgow coma scale score 13-15, unspecified time
CPT/HCPCS: 31635; 71045; 71250; 80048; 85025; 85610; 85730; 99152; 99153; 99218; 99283; J7030; A4216; G0378

== ENCOUNTER 2019-05-16 22:29 | Emergency (ER) | payer OTHER, MEDICARE, SELFPAY ==
[2019-05-08 16:31] VITALS: BMI 21.9
[2019-05-16 22:29] VITALS: BP 150/89; PULSE 99; RESP 18; TEMP 37.2; O2SAT 95; BMI 22.0
--- NOTE | 2019-05-16 23:01 | ED.DCSUM_ITS ---
- ER Visit Summary Date of Service: 05/16/19 Chief Complaint: [Fall with laceration to right hand] History of Present Illness: The patient is a 74 M [presents to the emergency sustaining a fall on the ice this evening. Patient states that he caught himself with his right hand and left elbow and rolled onto his back. He did not strike his head. He denies neck pain. He denies chest pain. Denies abdominal pain. He has been ambulatory since. Patient is up-to-date on tetanus. Patient has history of hypothyroidism prior history of laryngeal cancer.] Physical Examination: [HEENT-PERRLA, EOMI. Cranial nerves II through XII grossly intact. TMs clear. Mucous membranes moist. No adenopathy. No external evidence of trauma to his head. He has no C-spine tenderness on palpation. Patient does have a tracheostomy. Cardiovascular-regular rate and rhythm without murmur or ectopy Lungs-clear to auscultation, chest wall stable without crepitus or subcu emphysema Abdomen-normoactive bowel sounds, soft, nontender, no rebound or rigidity, no peritoneal signs. Extremities-intact ?4, normal range of motion, normal pulses. Right hand- patient has a 2 cm flap-like superficial laceration over the thenar eminence at the base of the right hand. He has no bony tenderness on exam. There is no deformity. He is neurovascular intact distally. Left forearm-patient has a very superficial abrasion to the proximal posterior forearm and elbow with no bony tenderness on exam. Abnormal range of motion. Neurovascular intact.] Test Results: [None indicated] Emergency Department Course and Treatment: [Duration repair-wound sterilely draped and prepped. Wound anesthetized locally with 1% lidocaine total of 4 cc. Wound cleansed with Shur-Clens and irrigated with copious saline. Using 5-0 nylon a total of 3 single ruptured sutures placed with good wound edge approximation. Patient tired procedure well. Clean dressing applied.] Treatment Plan: [Suture removal in 10 days with primary care physician. Patient advised to return if increasing pain, redness, swelling, purulent drainage, or conditions worsen anyway.] Disposition: [Discharged home in stable condition.] Impression: [Mechanical fall Right hand laceration 2 cm-simple repair] This note was generated with [employer] software. It may contain incorrect words, spelling, and punctuation that were not noted in review of the chart prior to signing ED Disposition - Plan for ED Patient: Referrals: Andreas Evangelista Chi, MD [Primary Care Provider] -
--- NOTE | 2019-05-16 23:04 | ED.DEP ---
ED Disposition - Plan for ED Patient: Instructions: LACERATION, Hand Referrals: Andreas Evangelista Chi, MD [Primary Care Provider] - 10 Day for suture removal
[2019-05-16 23:12] VITALS: RESP 16
== END 2019-05-16 23:13 | disposition home or self-care (01) ==
LOC: ED 22:50
PROVIDERS: Emergency Provider Emergency Medicine; PCP Family Medicine Geriatric Medicine
DX: S61.411A Laceration without foreign body of right hand, initial encounter (principal); E03.9 Hypothyroidism, unspecified; Z85.21 Personal history of malignant neoplasm of larynx; Z79.899 Other long term (current) drug therapy; W00.0XXA Fall on same level due to ice and snow, initial encounter; Y93.01 Activity, walking, marching and hiking; Y92.89 Other specified places as the place of occurrence of the external cause; Y99.8 Other external cause status
CPT/HCPCS: 12001; 99282

== ENCOUNTER → 2019-06-08 | Outpatient (CLI) | payer OTHER, MEDICARE, SELFPAY ==
[2019-05-16 22:29] VITALS: BMI 22.0
--- NOTE | 2019-06-08 | PROSBIL_PTH ---
PATIENT: CORA PRESTON LOC: [facility] U#:[id number] AGE/SX: 74/M ROOM: RE06/08/[address]: Dr. Brendan Russell MD : 1945 BED: DIS: 06/08/2019 SPEC #: [id number] RECD: 06/08/19 11:23 STATUS: PRUDENCIO RECinthya #: [id number] JORGE ALBERTO: 06/08/19 00:[address]: Brendan Russell DEPT: SURGICAL PATHOLOGY RECD BY: César Avila ENTERED: 06/08/19 14:02 SP TYPE: PROST BX GONZALO DR: Dr. Andreas Evangelista MD Tissues: A - PROSTATE RIGHT B - PROSTATE RIGHT C - PROSTATE RIGHT D - PROSTATE LEFT E - PROSTATE LEFT F - PROSTATE LEFT Procedures: PROSTATE BX HEADER OPERATION: Prostate biopsy PRE-OP DIAGNOSIS: Elevated PSA TISSUE SUBMITTED: A - Right apex, B - Right mid, C - Right base, D - Left apex, E - Left mid, F - Left base MICROSCOPIC DIAGNOSIS A. Right prostate, apex, core biopsy: Prostatic adenocarcinoma. Donaldo grade: 3+3=6 Number of cores involved: 1/1 Proportion of tissue involved: ~70% Perineural invasion: Not identified. Greatest tumor length: 0.8 cm B. Right prostate, mid, core biopsy: Prostatic adenocarcinoma. Milton grade: 3+4=7 Number of cores involved: 2/2 Proportion of tissue involved: >95% Perineural invasion: Present. Greatest tumor length: 1.1 cm C. Right prostate, base, core biopsy: Prostatic adenocarcinoma. Milton grade: 3+4=7 Number of cores involved: 2/2 Proportion of tissue involved: ~80% Perineural invasion: Present. Greatest tumor length: 1.1 cm D. Left prostate, apex, core biopsy: Prostatic tissue, negative for malignancy. E. Left prostate, mid, core biopsy: Prostatic tissue, negative for malignancy. F. Left prostate, base, core biopsy: Prostatic tissue, negative for malignancy. KRISTIN:lilly 06/09/19 COMMENT Case has been reviewed in consultation with Dr. Orr who concurs with the above diagnosis. IDC:AM MICROSCOPIC DESCRIPTION Slides are reviewed. GROSS DESCRIPTION A - Received is one container designated prostate, right apex. The specimen consists of one elongated fragment of light andrew-white soft tissue measuring 1.3 cm in length and 0.1 cm in diameter. The specimen is totally submitted in one cassette. B - Received is one container designated prostate, right mid. The specimen consists of two elongated fragments of light andrew-white soft tissue each measuring 1.5 cm in length and 0.1 cm in diameter. The specimen is totally submitted in one cassette. C - Received is one container designated prostate, right base. The specimen consists of two elongated fragments of light andrew-white soft tissue each measuring 1.5 cm in length and 0.1 cm in diameter. The specimen is totally submitted in one cassette. D - Received is one container designated prostate, left apex. The specimen consists of one elongated fragment of light andrew-white soft tissue measuring 1.5 cm in length and 0.1 cm in diameter. The specimen is totally submitted in one cassette. E - Received is one container designated prostate, left mid. The specimen consists of two elongated fragments of light andrew-white soft tissue each measuring 1.5 cm in length and 0.1 cm in diameter. The specimen is totally submitted in one cassette. F - Received is one container designated prostate, left base. The specimen consists of two elongated fragments of light andrew-white soft tissue measuring 0.8 and 1.7 cm in length and 0.1 cm in diameter. The specimen is totally submitted in one cassette. / SJ:rg 06/08/19 TC:0 CPT: G0146
== END | disposition home or self-care (01) ==
PROVIDERS: PCP Family Medicine Geriatric Medicine; Visit Provider Urology
DX: R97.20 Elevated prostate specific antigen [PSA] (principal)
CPT/HCPCS: 88305; G0416

== ENCOUNTER 2019-07-14 08:59 | Day surgery (SDC) | payer OTHER, MEDICARE, SELFPAY ==
[2019-07-14] VITALS (7 sets, daily range): BP systolic 113–133; BP diastolic 63–90; PULSE 70–84; RESP 16–18; TEMP 36.3–37.1; O2SAT 94–96; BMI 22.6
[2019-07-14] MEDS: Lactated Ringers 1,000 ML 100 ML IV (09:25)
[2019-07-14] MEDS: Cefazolin 2 GM in 0.9% Normal Saline 100 ML IV (09:58)
--- NOTE | 2019-07-14 10:12 | DCINST_ITS ---
Discharge Diet: Light diet - advance as tolerated Discharge Activity: Return to Normal Activity Additional Activity Instructions:: Please be aware that pain medications may cause nausea. You should typically eat light foods as you take your pain medication. Pain medication may cause constipation, if this is a problem for you, please discuss with your doctor. Allergies/Adverse Reactions: Allergies amoxicillin Allergy (Verified 07/14/19 09:16) Rash Penicillins Allergy (Verified 07/14/19 09:16) Unknown Sulfa (Sulfonamide Antibiotics) Allergy (Verified 07/14/19 09:16) BP drops Medications to take at Discharge Atorvastatin Calcium [Lipitor] 40 mg PO QHS 05/10/17 Levothyroxine [Synthroid] 88 mcg PO DAILY 05/10/17 Omeprazole 40 mg PO DAILY 05/10/17 Ibuprofen [Motrin] 400 mg PO Q6H PRN #20 tablet 05/28/18 Tamsulosin HCl [Flomax] 0.4 mg PO DAILY 07/07/19 Primary Care Physician: Andreas Evangelista Chi, MD [Primary Care Provider] - Test Results: Test results from this visit will be discussed in further detail at your follow- up appointment, if applicable. Please Follow Up With: Brendan Russell MD When: in 2 weeks, please call to make an appointment.
--- NOTE | 2019-07-14 10:15 | PCM.OPRPT ---
Report of Operation Date of Procedure: 07/14/19 Pre-Operative Diagnosis: Prostate cancer Post-Operative Diagnosis: Same Surgery/Procedure Performed:: Transrectal ultrasound peritoneal placement of gold fiducial markers, transrectal ultrasound-guided placement of spacer organ at gel risk. Description of Surgical Findings:: Patient is a male with prostate cancer who is elected to undergo radiation therapy. Today he presents for an outpatient procedure for placement of gold fiducial markers for radiation planning and also placement of spacer organ at risk gel matrix. Patient was advised as to the risk and benefits to the procedure including the risk of bleeding, migration of the gold markers, infection, the risk of anesthesia, the risk of treatment of his prostate cancer with radiation and associated risks of radiation therapy for prostate cancer. We also discussed the risk that the gel matrix may not offer protection as discussed. Patient was given ample time to answer all his questions and he signed a consent form before taken back for procedure. Patient was taken back to the operating room after induction of anesthesia he was placed in dorsolithotomy position. A digital rectal exam was performed. The perineum was shaved prepped and draped in the usual sterile fashion. His legs were placed in high lithotomy. We then placed a ultrasound probe, biplanar into the rectum and performed ultrasonography of the prostate evaluating the prostate anatomy the apex, the base, the Denonvilliers' fascia was identified, and the seminal vesicles. The first gold fiducial marker was then introduced through the perineum into the prostate at the right base the stylette within the needle was pushed and the gold fiducial marker was deployed and then the entire needle was removed intact. Ultrasound was then used to confirm the placement of the first fiducial marker. Subsequently 2 more fiducial markers were placed in the same technique at the left base and left apex. The spacer gel matrix was then prepared in the back table using the glass unloading equipment tender's instructions. Once the matrix was prepared we used a needle bevel down with a marker and came into the midline peritoneum below the prostate until entered into the space of Denonvilliers' fascia. A small injection of normal saline was used to confirm our location in the midline prostate above the rectum. And then over a course of 10 to 12 seconds, 10 cc of the gel matrix was slowly injected into the space between the prostate and the rectum and there was separation of the rectum off the prostate creating a 1.5 cm gap between the rectum and the prostate. The entire needle and preparation was then removed ultrasonography was again performed to confirm the placement of the gel matrix in the appropriate position. The patient's anesthetic was reversed patient was cleaned taken out of stirrups and taken back to the recovery room in good condition. Type of Anesthesia:: Local MAC Drains: none - Admit VTE Documentation VTE Present on Admission: No VTE Mechan Device Prophylaxis: SCD's
== END 2019-07-14 12:55 | disposition home or self-care (01) ==
LOC: SDC 08:59 → AC 09:01
PROVIDERS: PCP Family Medicine Geriatric Medicine; Referring Provider Urology; Visit Provider Urology
PROC: (CPT 55874; principal; 2019-07-14 11:00)
DX: C61 Malignant neoplasm of prostate (principal); N40.3 Nodular prostate with lower urinary tract symptoms; K21.9 Gastro-esophageal reflux disease without esophagitis; E03.9 Hypothyroidism, unspecified; E78.00 Pure hypercholesterolemia, unspecified; Z85.21 Personal history of malignant neoplasm of larynx; Z79.899 Other long term (current) drug therapy; Z87.891 Personal history of nicotine dependence
CPT/HCPCS: 55874; 55876; J7120

== ENCOUNTER → 2019-07-27 | Outpatient (CLI) | payer OTHER, MEDICARE, SELFPAY ==
[2019-07-14 09:17] VITALS: BMI 22.6
[2019-07-26 10:31] LABS: Absolute Lymphocyte Count 0.86 X10^3/uL (0.83-4.51); Absolute Neutrophil Count 2.8 X10^3/uL (2.0-7.7); Basophil# 0.05 X10^3/uL; Basophil% 1.1 % (0-1); Eosinophil# 0.14 X10^3/uL; Eosinophils% 3.2 % (0-5); Hemoglobin 13.9 g/dL (13.0-16.5); Lymphocyte # 0.86 X10^3/ul (4.0); Lymphocyte % 19.7 % (19-41); Mean Corp Hgb Conc 33.1 g/dL (32-36); Mean Corpuscular Volume 90.5 fL (80-94); Mean Platelet Vol. 10.2 fl (6.2-12.0); Monocyte# 0.51 X10^3/uL; Monocyte% 11.7 % (0-10); NRBC Flagged by Analyzer 0 % (0-5); Neutrophil % 64.1 % (47-70); Platelet Count 207 K/mm3 (150-450); RBC Distribution Width CV 13.8 % (11.6-14.6); RBC Distribution Width SD 44.6 fl (35.1-43.9); Red Blood Count 4.64 M/mm3 (4.6-6.2); White Blood Count 4.4 K/mm3 (4.4-11.0)
[2019-07-26 11:02] LABS: Creatinine, Serum 1.03 mg/dL (0.70-1.30); EST Glomerular Filtration Rate 75 mL/min (>60); Est Glom Filt Rate - Afr Amer 91 mL/min (>60); PSA,Total- Diagnostic 7.36 ng/mL (0.0-4.0)
--- NOTE | 2019-07-27 14:33 | CT_ITS ---
STUDY: CT PELVIS WITH CONTRAST REASON FOR EXAM: Male, 74 years old. Prostate cancer, radiation treatment planning RADIATION DOSAGE (If Supplied By Facility): CTDIvol = ( 23.57 ) mGy, DLP = ( 755.14 ) mGycm TECHNIQUE: Transaxial imaging of the pelvis was performed without oral contrast. Was administered intravenously. Individualized dose optimization techniques were used for this CT. COMPARISON: None. FINDINGS: The prostate measures 3.6 cm by 4.8 cm. Metallic seeds are seen within the prostate. Central calcifications are seen. This causes indentation at the bladder base. The bladder itself is unremarkable. Small amount of free fluid is seen in the cul-de-sac. Normal visualized small intestine. There appears to be diffuse circumferential wall thickening of the rectum. There is no pelvic lymphadenopathy or mass lesion. There is diffuse atherosclerotic calcification of the pelvic arteries. There is a left inguinal hernia containing fat. There are diffuse degenerative changes of the visualized lumbar spine. CT/CT Pelvis W/CONT Therapy IMPRESSION: Enlargement of the prostate with indentation at the bladder base. Central prostatic calcifications. Metallic seeds are seen within the prostate. Diffuse circumferential wall thickening of the rectum. Small amount of free fluid is seen in the pelvis. Electronically Signed: Calvin Lima, at 15:12 EDT , Service support ,
== END | disposition home or self-care (01) ==
LOC: CT 14:32
PROVIDERS: PCP Family Medicine Geriatric Medicine; Referring Provider Radiology Radiation Oncology; Visit Provider Radiology Radiation Oncology
DX: Z01.818 Encounter for other preprocedural examination (principal); C61 Malignant neoplasm of prostate
CPT/HCPCS: 36415; 51600; 72193; 82565; 84153; 85025; Q9965; Q9967

== ENCOUNTER → 2019-08-26 | Outpatient (CLI) | payer OTHER, MEDICARE, SELFPAY ==
[2019-07-14 09:17] VITALS: BMI 22.6
[2019-08-26 13:38] LABS: Absolute Lymphocyte Count 0.52 X10^3/uL (0.83-4.51); Absolute Neutrophil Count 3.1 X10^3/uL (2.0-7.7); Basophil# 0.04 X10^3/uL; Basophil% 0.9 % (0-1); Eosinophil# 0.13 X10^3/uL; Hematocrit 41.4 % (40-54); Hemoglobin 13.3 g/dL (13.0-16.5); Lymphocyte # 0.52 X10^3/ul (4.0); Lymphocyte % 11.8 % (19-41); Mean Corp Hgb Conc 32.1 g/dL (32-36); Mean Corpuscular Hgb 28.5 pg (27.0-32.0); Mean Corpuscular Volume 88.7 fL (80-94); Mean Platelet Vol. 10.4 fl (6.2-12.0); Monocyte# 0.53 X10^3/uL; NRBC Flagged by Analyzer 0 % (0-5); Neutrophil # 3.14 X10^3/uL (2.7-7.7); Neutrophil % 71.4 % (47-70); POSITIVE DIFFERENTIAL YES; Platelet Count 205 K/mm3 (150-450); RBC Distribution Width SD 45.1 fl (35.1-43.9); Red Blood Count 4.67 M/mm3 (4.6-6.2); White Blood Count 4.4 K/mm3 (4.4-11.0)
[2019-08-26 13:56] LABS: Differential Indicated SCAN CRITERIA MET
[2019-08-26 14:33] LABS: Anisocytosis RARE; Platelet Estimate ADEQUATE (ADEQ); Red Cell Morphology N CHROM NORMAL (NORM C&C)
== END | disposition home or self-care (01) ==
LOC: LABSPEC 12:54
PROVIDERS: PCP Family Medicine Geriatric Medicine; Referring Provider Radiology Radiation Oncology; Visit Provider Radiology Radiation Oncology
DX: C61 Malignant neoplasm of prostate (principal)
CPT/HCPCS: 85025

== ENCOUNTER → 2019-10-26 | Outpatient (CLI) | payer OTHER, MEDICARE, SELFPAY ==
[2019-07-14 09:17] VITALS: BMI 22.6
[2019-10-26 12:09] LABS: Absolute Lymphocyte Count 0.48 X10^3/uL (0.83-4.51); Absolute Neutrophil Count 2.8 X10^3/uL (2.0-7.7); Basophil# 0.04 X10^3/uL; Eosinophil# 0.11 X10^3/uL; Eosinophils% 2.7 % (0-5); Hemoglobin 12.7 g/dL (13.0-16.5); Lymphocyte # 0.48 X10^3/ul (4.0); Lymphocyte % 11.9 % (19-41); Mean Corp Hgb Conc 32.6 g/dL (32-36); Mean Corpuscular Hgb 29.6 pg (27.0-32.0); Mean Corpuscular Volume 90.9 fL (80-94); Mean Platelet Vol. 10.6 fl (6.2-12.0); Monocyte# 0.59 X10^3/uL; Monocyte% 14.6 % (0-10); NRBC Flagged by Analyzer 0 % (0-5); Neutrophil # 2.81 X10^3/uL (2.7-7.7); Neutrophil % 69.6 % (47-70); POSITIVE DIFFERENTIAL YES; Platelet Count 198 K/mm3 (150-450); RBC Distribution Width CV 14.5 % (11.6-14.6); RBC Distribution Width SD 48.9 fl (35.1-43.9); Red Blood Count 4.29 M/mm3 (4.6-6.2)
[2019-10-26 12:12] LABS: Differential Indicated SCAN CRITERIA MET
[2019-10-26 12:22] LABS: Vitamin D,25 Hydroxy 31.5 ng/mL
[2019-10-26 12:42] LABS: ALB/GLOB Ratio 1.1 RATIO (0.9-2.4); AST(SGOT) 16 U/L (15-37); Alanine Aminotransfer ALT/SGPT 22 U/L (16-61); Albumin, Serum 3.8 g/dL (3.2-5.0); Alkaline Phosphatase 74 U/L (45-117); Anion Gap 6 (5-15); BUN 24 mg/dL (7-18); Calcium,Total 8.8 mg/dL (8.5-10.1); Chloride 113 mmol/L (98-107); Creatinine, Serum 1.09 mg/dL (0.70-1.30); EST Glomerular Filtration Rate 70 mL/min (>60); Est Glom Filt Rate - Afr Amer 85 mL/min (>60); Globulin 3.6 g/dL (2.2-4.2); Glucose 74 mg/dL (74-106); Potassium 4.2 mmol/L (3.5-5.1); Protein, Total 7.4 g/dL (6.4-8.2); Sodium Level 144 mmol/L (136-145); Thyroid Stim Hormone (TSH) 0.78 uIU/mL (0.358-3.74)
[2019-10-28 10:23] LABS: Pathologist Review Reviewed
== END | disposition home or self-care (01) ==
LOC: POLAB3 10:58
PROVIDERS: Family Provider Family Medicine Geriatric Medicine; PCP Family Medicine Geriatric Medicine; Visit Provider Family Medicine Geriatric Medicine
DX: E03.9 Hypothyroidism, unspecified (principal); E55.9 Vitamin D deficiency, unspecified; R53.83 Other fatigue
CPT/HCPCS: 36415; 80053; 82306; 84443; 85025

== ENCOUNTER 2020-02-27 15:01 | Inpatient (IN) | payer OTHER, MEDICARE, SELFPAY ==
[2019-07-14 09:17] VITALS: BMI 22.6
[2020-02-27 15:02] VITALS: BP 103/70; PULSE 102; RESP 19; TEMP 36.2; O2SAT 98; BMI 22.8
--- NOTE | 2020-02-27 15:40 | EKG12_ITS ---
Test Reason : SOB Blood Pressure : / mmHG Vent. Rate : 088 BPM Atrial Rate : 088 BPM P-R Int : 146 ms QRS Dur : 092 ms QT Int : 378 ms P-R-T Axes : 061 042 034 degrees QTc Int : 457 ms Normal sinus rhythm Normal ECG Confirmed by MAGGIE CHOU, BO ([id number]), editor publications AZALIA TELLEZ ([id number]) on 02/29/2020 11:30:46 AM Referred By: EJ Confirmed By:BO SERRANO MD
--- NOTE | 2020-02-27 15:40 | RAD_ITS ---
STUDY: X-RAY CHEST REASON FOR EXAM: Male, 75 years old. increased shortness of breath, stoma du to CA TECHNIQUE: Single frontal view of the chest. COMPARISON: 05/08/2019 FINDINGS: Clips in the neck. Left basilar atelectasis. There is no demonstrated pleural abnormality. Normal size heart. Normal mediastinum and jinny. Normal visualized pulmonary arteries. Normal visualized aortic arch and descending thoracic aorta. Normal visualized thoracic spine. Normal visualized ribs, clavicles, and shoulders. There is no demonstrated abnormality of the visualized soft tissue structures of the upper abdomen. RAD/Chest 1 View (Portable) IMPRESSION: Left basilar atelectasis. Electronically Signed: Luis Taylor MD at 17:07 EST Tel , Service support ,
--- NOTE | 2020-02-27 15:42 | ED.DCSUM_ITS ---
- ER Visit Summary Date of Service: 02/27/20 Chief Complaint: Increased sputum production. I feel like crap History of Present Illness: The patient is a 75 M history of COPD but not on oxygen at home also prior laryngeal CA with a tracheostomy and prostate CA. Patient states for the last week or so he has been generally weak and increased sputum production but he said it is clear. He denies any fever or chills. Denies any chest pain or abdominal pain. Said some mild diarrhea but no vomiting. His is in the emergency department tonight also and she is known Covid positive. Physical Examination: Elderly male vital signs are stable. Pulse ox 98% on room air no hypoxia. Afebrile. Does not look septic or toxic. H EENT exam unremarkable moist with membranes. Neck no lymphadenopathy. Nontender. Tracheostomy. Clear sputum production from the trach. No hemoptysis. Lungs coarse breath sounds bilaterally. Heart regular rhythm rate about 100 no murmur. Abdomen soft nontender normal bowel sounds no peritoneal signs. Moving all 4 extremities. Calves nontender no edema. Neurologically is awake alert moving all 4 extremities without any motor deficits. Test Results: CBC shows a white count 2.9 hemoglobin 13. Base of unremarkable electrolytes unremarkable normal gap creatinine. Chest x-ray chronic changes no acute process atelectasis read both by myself the radiologist a portable chest x-ray 1 view. EKG sinus rhythm rate 88 no acute change from prior EKG from 2018. Emergency Department Course and Treatment: Older male with known COPD and tracheostomy. Prior laryngeal CA. Complaining of increased sputum production. Said he just generally does not feel well. Denies any dysuria. Treatment Plan: Due to the patient's continued hypoxia he is in need of O2 I will speak to hospitalist about admission. Disposition: admit Impression: Viarl syndrome Covid with hypoxia History of COPD with tracheostomy This note was generated with [employer] dictation software. It may contain incorrect words, spelling, and punctuation that were not noted in review of the chart prior to signing ED Disposition - Plan for ED Patient: Referrals: Andreas Evangelista Chi, MD [Primary Care Provider] -
[2020-02-27 16:13] VITALS: BP 106/67; PULSE 81; RESP 12; TEMP 36.2; O2SAT 88; O2SAT 97; O2SAT 98
[2020-02-27] MEDS: 0.9% Normal Saline 1,000 ML 1000 ML IV (16:18)
[2020-02-27 16:31] LABS: Absolute Lymphocyte Count 0.32 X10^3/uL (0.83-4.51); Absolute Neutrophil Count 2.2 X10^3/uL (2.0-7.7); Basophil# 0.01 X10^3/uL; Basophil% 0.3 % (0-1); Eosinophil# 0.03 X10^3/uL; Hematocrit 40.3 % (40-54); Lymphocyte # 0.32 X10^3/ul (4.0); Mean Corp Hgb Conc 32.3 g/dL (32-36); Mean Corpuscular Hgb 29.7 pg (27.0-32.0); Mean Corpuscular Volume 92.2 fL (80-94); Monocyte# 0.39 X10^3/uL; Monocyte% 13.4 % (0-10); NRBC Flagged by Analyzer 0 % (0-5); Neutrophil # 2.15 X10^3/uL (2.7-7.7); POSITIVE DIFFERENTIAL YES; Platelet Count 168 K/mm3 (150-450); RBC Distribution Width CV 13.2 % (11.6-14.6); Red Blood Count 4.37 M/mm3 (4.6-6.2); White Blood Count 2.9 K/mm3 (4.4-11.0)
[2020-02-27 16:40] LABS: Differential Indicated SCAN CRITERIA MET
[2020-02-27 16:47] LABS: Anion Gap 4 (5-15); BUN 14 mg/dL (7-18); BUN/Creat Ratio 12.5 RATIO (10-20); Calcium,Total 8.6 mg/dL (8.5-10.1); Chloride 111 mmol/L (98-107); Creatinine, Serum 1.12 mg/dL (0.70-1.30); EST Glomerular Filtration Rate 68 mL/min (>60); Est Glom Filt Rate - Afr Amer 82 mL/min (>60); Estimated Creatinine Clearance 54.84 ml/min; Glucose 93 mg/dL (74-106); Potassium 3.9 mmol/L (3.5-5.1); Sodium Level 140 mmol/L (136-145)
[2020-02-27 17:14] VITALS: BP 119/74; PULSE 81; RESP 18; O2SAT 100
[2020-02-27 18:49] VITALS: BP 151/89; PULSE 93; RESP 17; TEMP 37.1; O2SAT 96
--- NOTE | 2020-02-27 19:29 | HP.PCM_ITS ---
Problem List (1) Pneumonia due to COVID-19 virus Status: Acute (2) Laryngeal cancer Status: Chronic (3) Hypothyroidism Status: Chronic (4) HLD (hyperlipidemia) Status: Chronic History of Present Illness Date of Admission: 02/27/20 Chief Complaint: Increased sputum production through tracheostomy opening, shortness of breath. The patient is a 75 year old M with past medical history as mentioned above presented to the emergency room because of increased sputum production through the tracheostomy opening as well as shortness of breath. Her symptoms started 4 days ago with increasing phlegm production through the tracheostomy tube, clear sputum, associated with mild shortness of breath, mainly exertional, aggravated by more activity and relieved with rest and no other associated symptoms. He denied fever or chills. He reported generalized body aches and pains as well as malaise. His was diagnosed with COVID-19 and she was admitted to the hospital today. He had a history of laryngeal cancer status post laryngectomy, tracheostomy which was removed and now, he is in remission. He had a history of hypothyroidism and he has been on levothyroxine. He had a history of prostate cancer status post placement of gold fiducial markers on June, and he has been following up with urology. In the emergency department, patient was afebrile, blood pressure arterial stable, pulse ox was 88% on room air upon arrival, currently requiring 6 L of oxygen through trach collar. Routine blood work was remarkable for leukopenia and lymphopenia, otherwise normal. Chest x- ray revealed questionable bilateral basilar infiltrate, more prominent on the left base versus atelectasis. COVID-19 PCR came back positive. He is being admitted acute COVID-19 infection and acute hypoxic respiratory failure. Past Medical History Past Medical History (Chronic Problems): Chronic Problems Laryngeal cancer (Chronic) Hypothyroidism (Chronic) HLD (hyperlipidemia) (Chronic) Allergies amoxicillin Allergy (Verified 02/27/20 15:02) Rash Penicillins Allergy (Verified 02/27/20 15:02) Unknown Sulfa (Sulfonamide Antibiotics) Allergy (Verified 02/27/20 15:02) BP drops Home Medications: Ambulatory Orders Medication Instructions Recorded Atorvastatin Calcium [Lipitor] 40 mg PO QHS 05/10/17 Levothyroxine [Synthroid] 75 mcg PO DAILY 05/10/17 Omeprazole 40 mg PO DAILY 01/13/18 Doxazosin Mesylate [Cardura] 2 mg PO BID 02/27/20 Surgical History: - - Laryngectomy. Tracheostomy. Psychiatric History: No pertinent psych hx Lives: Spouse/ Significant Other Smoking Status: Former smoker Alcohol: None Drugs: None - *Family History Maternal History Items: No pertinent history Paternal History Items: Cancer Review of Systems Constitutional: Reports: Anorexia, Malaise, Weakness. Denies: Chills, Fever Eyes: Denies: Blurred vision, Double vision, Drainage, Redness HEENT: Denies: Difficulty Hearing, Ear Pain, Eye Pain, Nasal Congestion, Sore Throat Cardiovascular: Denies: Chest Pain, Chest Pressure, Edema, Heaviness, Palpitations, Syncope Respiratory: Reports: Cough, Shortness of Breath, Sputum production. Denies: Wheezing Gastrointestinal: Denies: Abdominal Pain, Constipation, Diarrhea, Nausea, Vomiting Genitourinary: Denies: Dysuria, Frequency, Hematuria Musculoskeletal: Denies: Arm Pain, Back Pain, Foot Pain Skin: Denies: Dryness, Rash Neurological: Denies: Balance problems, Double vision, Slurred speech, Confusion, Headaches, Incoordination Psychiatric: Denies: Anxiety, Depression Endocrine: Denies: Change in Body Habitus, Polydipsia, Polyuria VTE Information - Inpt Only VTE Present on Admission: No VTE Mechan Device Prophylaxis: None VTE Pharm Prophylaxis ordered?: Yes Patient Problems: Active and Suspected Problems Pneumonia due to COVID-19 virus (Acute) - Physical Exam Vitals/I&O's: Vital Signs Temp Pulse Resp BP Pulse Ox 98.7 F 93 17 151/89 H 96 02/27/20 18:49 02/27/20 18:49 02/27/20 18:49 02/27/20 18:49 02/27/20 18:49 Oxygen Flow Rate (L/min) 6 Oxygen Delivery Method Simple Mask Weight: 150 lb Body Mass Index (BMI) 22.8 Intake and Output for Last 24 Hours 02/25/20 02/26/20 02/27/20 23:59 23:59 22:59 Intake Total 1000 / 1000 Balance 1000 / 1000 General: Alert, Oriented x3, Cooperative, No apparent distress HEENT: Atraumatic, PERRLA, EOMI, Normocephalic, - - Tracheostomy opening, no tube Oral: Moist Mucosa, No Gingival or Mucosal Lesions/ Ulcerations Neck: Supple, No JVD, Negative Carotid Bruits, Trachea Midline, Thyroid Normal Size and Texture Lungs: Clear to auscultation, Normal air movement, No rhonchi, No wheeze, No rales, Diminished Cardiovascular: Regular rate, Regular Rhythm, Normal S1, Normal S2, PMI Normal Abdomen: Bowel Sounds Present, Soft, Non Tender, Non-Distended, No Hepato- splenomegaly Extremities: No clubbing, No cyanosis, No edema Skin: No rashes Lymphatic: No Cervical, Supraclavicular, or Inguinal Adenopathy Neurological: Cranial nerves II-XII grossly intact, Motor Exam 5/5 strength throughout Psych/Mental Status: Normal Affect, Appropriate, Alert and oriented to time, place, person, mood and affect Laboratory Results 02/27/20 16:00: COVID-19 (GABRIELLA) Detected 02/27/20 16:15: WBC 2.9 L, RBC 4.37 L, Hgb 13.0, Hct 40.3, MCV 92.2, MCH 29.7, MCHC 32.3, RDW Std Deviation 45.0 H, RDW Coeff of Chucho 13.2, Plt Count 168, MPV 11.0, Immature Gran % (Auto) 0.300, Neut % (Auto) 74.0 H, Lymph % (Auto) 11.0 L, [place] % (Auto) 13.4 H, Eos % (Auto) 1.0, Baso % (Auto) 0.3, Absolute Neuts (auto) 2.2, Absolute Lymphs (auto) 0.32 L, Nucleated RBC % 0, Diff Path Review August02/27/20 16:15: Sodium 140, Potassium 3.9, Chloride 111 H, Carbon Dioxide 25.0, Anion Gap 4 L, BUN 14, Creatinine 1.12, Estim Creat Clear Calc 54.84, Est GFR (MDRD) Af Amer 82, Est GFR (MDRD) Non-Af 68, BUN/Creatinine Ratio 12.5, Glucose 93, Calcium 8.6 Clinical Impression(s) from Imaging Studies Chest X-Ray 02/27/20 15:40 IMPRESSION: Left basilar atelectasis. Electronically Signed: Luis Taylor MD at 17:07 EST Tel , Service support , Assessment/Plan All Active Problems Pneumonia due to COVID-19 virus (Acute) This is a 75 years old male patient presented to the emergency room because of increased sputum production through tracheostomy opening, malaise and shortness of breath and he tested positive for COVID-19, found to have questionable bilateral basilar infiltrate and he is being admitted for treatment. #1 acute COVID-19 infection: Chest x-ray reviewed, showed questionable bilateral basilar infiltrate versus atelectasis, more prominent on the left base. Currently, patient is on oxygen at 6 L by trach collar. EKG reviewed, was unremarkable. Plan: Admit to [facility] COVID-19 floor, isolation precautions, start IV Decadron, continue oxygen by trach collar, infectious disease and pulmonology consult, check serum troponin, BNP, CPK, D-dimer, LDH, LFT, procalcitonin, repeat CBC and BMP after tomorrow, PT OT evaluation and treatment. #2 acute hypoxic respiratory failure: Patient not on home oxygen, he does have tracheostomy opening. Currently, he is on oxygen by trach collar at 6 L. Plan as above. #3 history of laryngeal cancer: Status post laryngectomy, in remission, stable. #4 history of prostate cancer: status post placement of gold fiducial markers on June, and he has been following up with urology. #5 hypothyroidism: Stable, continue levothyroxine. #6 hyperlipidemia: Continue statins. #7 CODE STATUS: Full code, patient wanted endotracheal intubation, mechanical ventilation and CPR. #8 DVT prophylaxis: Subcu Lovenox. This note was generated with [employer] dictation software. It may contain incorrect words, spelling, and punctuation that were not noted in checking the note before signing. Inpatient E&M: 93771 Init Hosp L3
[2020-02-27 20:54] VITALS: BMI 21.8
[2020-02-27 21:01] VITALS: BP 142/78; PULSE 82; RESP 18; TEMP 37.2; O2SAT 98
[2020-02-27 21:06] VITALS: BMI 21.9
[2020-02-27 21:46] LABS: AST(SGOT) 22 U/L (15-37); Alanine Aminotransfer ALT/SGPT 28 U/L (16-61); Albumin, Serum 3.6 g/dL (3.2-5.0); Alkaline Phosphatase 74 U/L (45-117); CPK Total, Creatine Kinase 133 U/L (39-308); Globulin 3.8 g/dL (2.2-4.2); LDH 249 U/L (87-241); Protein, Total 7.4 g/dL (6.4-8.2)
[2020-02-27 22:00] LABS: Procalcitonin < 0.01 ng/mL (0.00-0.09)
[2020-02-27 22:16] LABS: BNP,B-Type NATRIURETIC PEPTIDE 22.6 pg/mL (0-100); Prothrombin Time (Protime)PT. 13.1 SECONDS (11.7-14.9)
[2020-02-27 22:19] LABS: D-Dimer Quantitative (DVT/PE) 1.19 FEU/ug/m (0.27-0.49)
[2020-02-27] MEDS: Doxazosin 1 MG Tablet 2 MG PO (23:39)
[2020-02-27] MEDS: dexAMETHasone 10 MG/ML Vial 6 MG IV (23:40)
[2020-02-27] MEDS: Enoxaparin 40 MG/0.4 ML Syringe SC (23:40)
[2020-02-27] MEDS: 0.9% Saline Lock 10 ML Syringe IV (23:40)
[2020-02-27 23:47] VITALS: BP 103/69; PULSE 85; RESP 20; TEMP 37.1; O2SAT 94
[2020-02-28] VITALS (8 sets, daily range): BP systolic 101–132; BP diastolic 62–77; PULSE 72–95; RESP 18–24; TEMP 36.7–36.9; O2SAT 91–98
[2020-02-28] MEDS: Enoxaparin 40 MG/0.4 ML Syringe SC ×2 (09:58→23:23)
[2020-02-28] MEDS: Pantoprazole Sodium 40 MG Tablet PO (09:58)
--- NOTE | 2020-02-28 10:29 | NURSING ---
cps in and attempting to suction pt's stoma. pt reports that feels like is plugged up unable to ease the feeling of this and pt attempted to clear on own. spo2 when off o2 88% on ra. pt now with humdity to trach collar at 6l and up to 94% while on. pt a&ox3 and denies pain
[2020-02-28] MEDS: dexAMETHasone 10 MG/ML Vial 6 MG IV (10:48)
[2020-02-28] MEDS: Doxazosin 1 MG Tablet 2 MG PO ×2 (10:48→23:24)
[2020-02-28] MEDS: Levothyroxine 75 MCG Tablet PO (10:48)
--- NOTE | 2020-02-28 11:20 | CASEMGMT ---
RN VAISHALI spoke with patient's for initial transition planning/care coordination assessment. HAI TOM introduced self and role at [facility]. willing to participate in assessment and is able to answer all questions appropriately. Care providers, pharmacy, and demographics verified. wishes for patient to discharge home, denies need for home health at this time. states she has no further needs or concerns at this time. CM to follow for discharge planning needs that may arise. PCP: Jean Carlos Specialists: none Preferred Pharmacy: [facility] with [facility] retail at discharge Insurance: MM, [facility] Prescription Benefit: yes Living Will/HPOA: none LNOK: Living Arrangements: Patient lives with and grandson in a 1 story home with no steps to enter. Patient is independent at home. Transportation: self, , grandson DME/HHC: denies any DME for patient. Would like [employer] for DME if patient will need home oxygen at discharge. Disposition Plan: Patient to discharge home with family support and follow-up plans in place. Sherri FRENCH, RN, CM
[2020-02-28 12:18] LABS: Pathologist Review Reviewed
--- NOTE | 2020-02-28 13:35 | CON.PCM_ITS ---
Problem List (1) Pneumonia due to COVID-19 virus Status: Acute (2) Laryngeal cancer Status: Chronic (3) Hypothyroidism Status: Chronic Qualifiers: Hypothyroidism type: postoperative Qualified Code(s): E89.0 - Postprocedural hypothyroidism (4) HLD (hyperlipidemia) Status: Chronic Reason for Consult Date of Consultation: 02/28/20 Reason for Consultation: Shortness of breath, COVID-19 History of Present Illness: The patient is a 75 year old M, with past medical history listed below and known to me from hospitalization in April, who presented [facility] on 02/27/2020 secondary to increased sputum production and feeling like crap. Patient has had a history of laryngeal cancer and has a tracheotomy. Patient states for the last week or so he felt generalized weak and had increase sputum that he describes as clear. Patient denied any fevers or chills, chest pain or abdominal pain. Patient has had some loose bowel movements, but no vomiting. Patient states his had suspected Covid positive earlier in the week. On presentation to the ER, patient was 98% on room air. CBC showed no leukocytosis and electrolytes were relatively unremarkable. Chest x-ray showed some atelectasis in the bilateral bases. Patient reportedly desaturated with ambulation, so was admitted to the floor for further evaluation. Patient reports that he became sick approximately 6 days ago. Patient states that his has been sick since Friday and is also admitted at this time. Patient does carry a diagnosis of COPD, but he is unclear on the exact severity of his disease. Patient did have a tracheostomy in the past for laryngeal cancer and currently uses a speaking valve. Patient states he has had to clean this out frequently to help with phonation. Patient does report occasional headaches. Overall, patient feels subjectively unchanged since being admitted. Review of systems otherwise negative from a constitutional, HEENT, respiratory, cardiovascular, GI, genitourinary, musculoskeletal, skin, neurologic, psyc hiatric and hematologic system unless stated above. Past Medical History Past Medical History (Chronic Problems): Chronic Problems Laryngeal cancer (Chronic) Hypothyroidism (Chronic) HLD (hyperlipidemia) (Chronic) Allergies amoxicillin Allergy (Verified 02/27/20 15:02) Rash Penicillins Allergy (Verified 02/27/20 15:02) Unknown Sulfa (Sulfonamide Antibiotics) Allergy (Verified 02/27/20 15:02) BP drops Home Medications: Ambulatory Orders Medication Instructions Recorded Atorvastatin Calcium [Lipitor] 40 mg PO DAILY 05/10/17 Levothyroxine [Synthroid] 75 mcg PO DAILY 05/10/17 Omeprazole 40 mg PO DAILY 05/10/17 Doxazosin Mesylate [Cardura] 2 mg PO BID 02/27/20 Surgical History: - - Laryngectomy. Tracheostomy. Psychiatric History: No pertinent psych hx Lives: Spouse/ Significant Other Smoking Status: Former smoker Alcohol: None Drugs: None - *Family History Maternal History Items: No pertinent history Paternal History Items: Cancer Review of Systems Comment: See HPI Patient Problems: Active and Suspected Problems Pneumonia due to COVID-19 virus (Acute) - Physical Exam Vitals/I&O's: Vital Signs Temp Pulse Resp BP Pulse Ox 36.8 C 95 20 H 110/64 97 02/28/20 10:45 02/28/20 10:45 02/28/20 10:45 02/28/20 10:45 02/28/20 10:45 Oxygen Flow Rate (L/min) 5 Oxygen Delivery Method Trach Collar Weight: 65.2 kg Body Mass Index (BMI) 21.8 Intake and Output for Last 24 Hours 02/27/20 02/27/20 02/28/20 00:59 23:59 23:59 Intake Total 220 / 220 Balance 220 / 220 General: Alert, Oriented x3, Cooperative, No apparent distress, - - Unable to vocalize secondary to clogged valve HEENT: PERRLA, EOMI, Normocephalic Oral: Moist Mucosa, No Gingival or Mucosal Lesions/ Ulcerations Neck: Supple, No JVD, No Nodes, - - Tracheotomy Lungs: No rales, Rhonchi - Right greater than left, Wheezes - right base Cardiovascular: Regular rate, Regular Rhythm, Normal S1, Normal S2, No murmurs, No rub noted, No Gallop Abdomen: Bowel Sounds Present, Soft, Non Tender, Non-Distended Extremities: No clubbing, No cyanosis, No edema, Capillary Refill Less than 3 Seconds Skin: No rashes, No breakdown Musculoskeletal: No Tenderness to Palpation of Joints or Extremities Lymphatic: No Cervical, Supraclavicular, or Inguinal Adenopathy Neurological: Cranial nerves II-XII grossly intact, Neuro grossly intact, Motor Exam 5/5 strength throughout Psych/Mental Status: Alert and oriented to time, place, person, mood and affect Laboratory Results 02/27/20 16:00: COVID-19 (GABRIELLA) Detected 02/27/20 16:15: WBC 2.9 L, RBC 4.37 L, Hgb 13.0, Hct 40.3, MCV 92.2, MCH 29.7, MCHC 32.3, RDW Std Deviation 45.0 H, RDW Coeff of Chucho 13.2, Plt Count 168, MPV 11.0, Immature Gran % (Auto) 0.300, Neut % (Auto) 74.0 H, Lymph % (Auto) 11.0 L, [place] % (Auto) 13.4 H, Eos % (Auto) 1.0, Baso % (Auto) 0.3, Absolute Neuts (auto) 2.2, Absolute Lymphs (auto) 0.32 L, Nucleated RBC % 0, Diff Path Review Reviewed 02/27/20 16:15: Sodium 140, Potassium 3.9, Chloride 111 H, Carbon Dioxide 25.0, Anion Gap 4 L, BUN 14, Creatinine 1.12, Estim Creat Clear Calc 54.84, Est GFR (MDRD) Af Amer 82, Est GFR (MDRD) Non-Af 68, BUN/Creatinine Ratio 12.5, Glucose 93, Calcium 8.6 02/27/20 16:15: PT 13.1, INR 1.0, D-Dimer Quant (PE/DVT) 1.19 H* 02/27/20 16:15: Total Bilirubin 0.40, Direct Bilirubin 0.10, AST 22, ALT 28, Alkaline Phosphatase 74, Lactate Dehydrogenase 249 H, Total Creatine Kinase 133, Troponin I < 0.015, Total Protein 7.4, Albumin 3.6, Globulin 3.8 02/27/20 16:15: B-Natriuretic Peptide 22.6 02/27/20 16:15: Procalcitonin < 0.01 Current Medications Acetaminophen (Acetaminophen 325 Mg Tablet) 650 mg PO Q6H PRN PRN PRN Reason: Pain Score 1-10/Temp > 100.7 F Albuterol Sulfate (Albuterol Sulfate 18 Gm Inhaler (200 Puffs)) 2 puff IH Q4H PRN PRN PRN Reason: Shortness of breath, wheezing Atorvastatin Calcium (Atorvastatin Calcium 40 Mg Tablet) 40 mg PO QHS SOILA Last Admin: 02/28/20 00:57 Dose: Not Given Documented by: Dexamethasone Sodium Phosphate (Dexamethasone 10 Mg/Ml Vial) 6 mg IV DAILY [facility] Last Admin: 02/28/20 10:48 Dose: 6 mg Documented by: Doxazosin Mesylate (Doxazosin 1 Mg Tablet) 2 mg PO BID [facility] Last Admin: 02/28/20 10:48 Dose: 2 mg Documented by: Enoxaparin Sodium (Enoxaparin 40 Mg/0.4 Ml Syringe) 40 mg SC BID [facility] Last Admin: 02/28/20 09:58 Dose: 40 mg Documented by: Levothyroxine Sodium (Levothyroxine 75 Mcg Tablet) 75 mcg PO DAILY [facility] Last Admin: 02/28/20 10:48 Dose: 75 mcg Documented by: Miscellaneous Information (Inhaler, Assist Devices 1 Each Spacer) 1 each INHALATION PRN PRN PRN Reason: WITH ALBUTEROL MDI Ondansetron HCl (Ondansetron 4 Mg/2 Ml Vial) 4 mg IV Q8H PRN PRN PRN Reason: NAUSEA/VOMITING Pantoprazole Sodium (Pantoprazole Sodium 40 Mg Tablet) 40 mg PO DAILY [facility] Last Admin: 02/28/20 09:58 Dose: 40 mg Documented by: Senna/Docusate Sodium (Senna/Docusate Sodium 1 Tablet) 2 tablet PO BID PRN PRN PRN Reason: Constipation Sodium Chloride (0.9% Saline Lock 10 Ml Syringe) 10 - 40 ml IV UD PRN PRN Reason: SALINE FLUSH Last Admin: 02/27/20 23:40 Dose: 10 ml Documented by: Zolpidem Tartrate (Zolpidem Tartrate 5 Mg Tablet) 5 mg PO QHS PRN PRN PRN Reason: INSOMNIA Clinical Impression(s) from Imaging Studies Chest X-Ray 02/27/20 15:40 IMPRESSION: Left basilar atelectasis. Electronically Signed: Luis Taylor MD at 17:07 EST Tel , Service support , Assessment/Plan All Active Problems Pneumonia due to COVID-19 virus (Acute) RECOMMENDATIONS: 1. Continue anticoagulation and decadron 2. Defer Remdesivir and convalescent serum to infectious disease 3. Await ENT recommendations on valve 4. Wean oxygen as tolerated 5. Continue moisture to avoid mucous plugging. Consider initiation of mucolytic IMPRESSIONS: 1. Acute Hypoxic Respiratory Insufficiency secondary to COVID-19 pneumonia Patient with acute COVID-19 infection and need for supplemental oxygen. Patient is appropriate anticoagulation and Decadron therapy. Given onset less than 2 weeks ago, patient may be a candidate for remdesivir and convalescent serum, but will defer to infectious disease. Respiratory management will be complicated given his history of laryngectomy and use of a speaking valve. This can easily become clogged with secretions and lead to adverse events. Patient is adverse to removal, but ENT will be consulted. Continue with aggressive pulmonary toileting. 2. Laryngeal cancer s/p Laryngectomy Patient with a valve to allow for phonation. This is currently obstructed and the patient wishes to use tweezers to clean it. This may need to be removed, but the patient is resistant. Concern for obstruction given probable increased secretions. Patient should be monitored with continuous pulse ox if it is left in place. Will consult ENT for an opinion. 3. Advanced age/Hyperlipidemia/Hypothyroidism Complicates care, managment, recovery and prognosis. Ok to continue bas lenny medications from my perspective. Inpatient E&M: 25290 Init Hosp L3
--- NOTE | 2020-02-28 16:09 | PCM.PN.HOSP ---
Patient Problems: Active and Suspected Problems Pneumonia due to COVID-19 virus (Acute) Subjective: Patient seen and examined. He had no active complaints. He says shortness of breath was getting better. Systems otherwise negative. He is on 4 L of oxygen. Vitals/I&O's: Vital Signs Temp Pulse Resp BP Pulse Ox 98.0 F 89 24 H 115/76 95 02/28/20 14:15 02/28/20 14:15 02/28/20 14:15 02/28/20 14:15 02/28/20 14:15 Oxygen Flow Rate (L/min) 4 Oxygen Delivery Method Trach Collar Weight: 143 lb 11.862 oz Body Mass Index (BMI) 21.8 Intake and Output for Last 24 Hours 02/27/20 02/27/20 02/28/20 00:59 23:59 23:59 Intake Total 580 / 580 Balance 580 / 580 General: Alert, Oriented x3, Cooperative, No apparent distress HEENT: Atraumatic, PERRLA, EOMI, Normocephalic, - - Has a tracheostomy in place. Receiving oxygen via trach. Oral: Dry Mucosa Neck: Supple, No JVD, Negative Carotid Bruits Lungs: - - Diabetes resolved bibasilarly. No wheezing or crackles. On 4 L of oxygen via trach. Cardiovascular: Regular rate, Regular Rhythm, Normal S1, Normal S2, No murmurs Abdomen: Bowel Sounds Present, Soft, Non Tender Extremities: No clubbing, No cyanosis, No edema, Capillary Refill Less than 3 Seconds Skin: No rashes, No breakdown Musculoskeletal: No Tenderness to Palpation of Joints or Extremities Lymphatic: No Cervical, Supraclavicular, or Inguinal Adenopathy Neurological: Cranial nerves II-XII grossly intact, Neuro grossly intact, Motor Exam 5/5 strength throughout Psych/Mental Status: Normal Affect, Appropriate, Alert and oriented to time, place, person, mood and affect Laboratory Results 02/27/20 16:00: COVID-19 (GABRIELLA) Detected 02/27/20 16:15: WBC 2.9 L, RBC 4.37 L, Hgb 13.0, Hct 40.3, MCV 92.2, MCH 29.7, MCHC 32.3, RDW Std Deviation 45.0 H, RDW Coeff of Chucho 13.2, Plt Count 168, MPV 11.0, Immature Gran % (Auto) 0.300, Neut % (Auto) 74.0 H, Lymph % (Auto) 11.0 L, [place] % (Auto) 13.4 H, Eos % (Auto) 1.0, Baso % (Auto) 0.3, Absolute Neuts (auto) 2.2, Absolute Lymphs (auto) 0.32 L, Nucleated RBC % 0, Diff Path Review Reviewed 02/27/20 16:15: Sodium 140, Potassium 3.9, Chloride 111 H, Carbon Dioxide 25.0, Anion Gap 4 L, BUN 14, Creatinine 1.12, Estim Creat Clear Calc 54.84, Est GFR (MDRD) Af Amer 82, Est GFR (MDRD) Non-Af 68, BUN/Creatinine Ratio 12.5, Glucose 93, Calcium 8.6 02/27/20 16:15: PT 13.1, INR 1.0, D-Dimer Quant (PE/DVT) 1.19 H* 02/27/20 16:15: Total Bilirubin 0.40, Direct Bilirubin 0.10, AST 22, ALT 28, Alkaline Phosphatase 74, Lactate Dehydrogenase 249 H, Total Creatine Kinase 133, Troponin I < 0.015, Total Protein 7.4, Albumin 3.6, Globulin 3.8 02/27/20 16:15: B-Natriuretic Peptide 22.6 02/27/20 16:15: Procalcitonin < 0.01 02/28/20 14:48: Blood Type Pending Diagnostic Data Chest X-Ray 02/27/20 15:40 IMPRESSION: Left basilar atelectasis. Electronically Signed: Luis Taylor MD at 17:07 EST Tel , Service support , Current Medications Acetaminophen (Acetaminophen 325 Mg Tablet) 650 mg PO Q6H PRN PRN PRN Reason: Pain Score 1-10/Temp > 100.7 F Albuterol Sulfate (Albuterol Sulfate 18 Gm Inhaler (200 Puffs)) 2 puff IH Q4H PRN PRN PRN Reason: Shortness of breath, wheezing Atorvastatin Calcium (Atorvastatin Calcium 40 Mg Tablet) 40 mg PO QHS [facility] Last Admin: 02/28/20 00:57 Dose: Not Given Documented by: Dexamethasone (Dexamethasone 4 Mg Tablet) 6 mg PO DAILY [facility] Stop: 03/07/20 10:01 Doxazosin Mesylate (Doxazosin 1 Mg Tablet) 2 mg PO BID [facility] Last Admin: 02/28/20 10:48 Dose: 2 mg Documented by: Enoxaparin Sodium (Enoxaparin 40 Mg/0.4 Ml Syringe) 40 mg SC BID [facility] Last Admin: 02/28/20 09:58 Dose: 40 mg Documented by: Remdesivir 100 mg/ Sodium (Chloride) 250 mls @ 125 mls/hr IV DAILY [facility]; Protocol Stop: 03/03/20 11:59 Remdesivir 200 mg/ Sodium (Chloride) 250 mls @ 125 mls/hr IV [facility]; Protocol Stop: 02/28/20 17:59 Levothyroxine Sodium (Levothyroxine 75 Mcg Tablet) 75 mcg PO DAILY [facility] Last Admin: 02/28/20 10:48 Dose: 75 mcg Documented by: Miscellaneous Information (Inhaler, Assist Devices 1 Each Spacer) 1 each INHALATION PRN PRN PRN Reason: WITH ALBUTEROL MDI Ondansetron HCl (Ondansetron 4 Mg/2 Ml Vial) 4 mg IV Q8H PRN PRN PRN Reason: NAUSEA/VOMITING Pantoprazole Sodium (Pantoprazole Sodium 40 Mg Tablet) 40 mg PO DAILY [facility] Last Admin: 02/28/20 09:58 Dose: 40 mg Documented by: Senna/Docusate Sodium (Senna/Docusate Sodium 1 Tablet) 2 tablet PO BID PRN PRN PRN Reason: Constipation Sodium Chloride (0.9% Saline Lock 10 Ml Syringe) 10 - 40 ml IV UD PRN PRN Reason: SALINE FLUSH Last Admin: 02/27/20 23:40 Dose: 10 ml Documented by: Zolpidem Tartrate (Zolpidem Tartrate 5 Mg Tablet) 5 mg PO QHS PRN PRN PRN Reason: INSOMNIA STROKE Vital Signs/Narrative: Vital Signs Temp Pulse Resp BP Pulse Ox 02/28/20 14:15 98.0 F 89 24 H 115/76 95 Medical Necessity - Tobacco Use Smoking Status: Former smoker Assessment/Plan All Active Problems Pneumonia due to COVID-19 virus (Acute) # Acute hypoxic respiratory failure due to COVID 19 infection Currently on 4 L of oxygen. Pulmonology on board. Oxygen to maintain saturation above 90%. On PO Decadron. On breathing treatments with bronchodilators. #COVID 19 infection: As above. D-dimer was elevated so we will check CT of the chest. #History of laryngeal cancer s/p laryngectomy: Has trach in place. Stable. #Hypothyroidism: On Synthroid #Hyperlipidemia: On statins. #History of prostate cancer: S/p placement of gold fiducial markers ED June 2019 and has been following up with urology. #DVT prophylaxis: Lovenox #CODE STATUS: Full code Inpatient E&M: 18339 Subs Hosp L3
--- NOTE | 2020-02-28 16:16 | CT_ITS ---
STUDY: CTA CHEST REASON FOR EXAM: Male, 75 years old. COVID, ELEVATED D-DIMER, LARYNGEAL CA-LARYNGECTOMY, PROSTATE CA RADIATION DOSAGE (If Supplied By Facility): CTDIvol = ( 4.975 ) mGy, DLP = ( 248.91 ) mGycm TECHNIQUE: The examination was performed with the intravenous administration of IV 100mL [id number]. Post-processing of the angiographic images was performed, with multiplanar reformation and 3D reconstruction. Individualized dose optimization techniques were used for this CT. COMPARISON: Chest x-ray 02/27/[address] chest 05/08/2019 FINDINGS: Normal enhancement of the main pulmonary artery and right and left pulmonary arteries. Normal enhancement of the bilateral peripheral pulmonary arteries. There is no demonstrated pulmonary embolism. Normal thoracic aorta and visualized great vessels. There is no demonstrated aortic dissection. Normal heart and pericardium. Calcific coronary artery disease. Normal mediastinum. Normal hilar regions. 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 Small segment of tracheostomy tube is noted near the tracheostomy site. Previously noted fragment in the right lower bronchus is no longer evident. Lungs are hyperaerated. There is bibasilar subsegmental atelectasis. Centrilobular and paraseptal emphysema noted. Small residual interstitial infiltrate in the right upper lobe. Bibasilar interstitial infiltrates have resolved. Normal pleura. Normal chest wall structures. Normal osseous structures. Normal visualized upper abdomen. CT/CTA Chest W/WO Contrast IMPRESSION: Small nonspecific interstitial infiltrate right upper lobe. Follow-up recommended in 3 months. COPD. New Small trach tube noted in tracheostomy. Coronary artery disease. Electronically Signed: Kingsley Harrison MD at 19:00 EST , Service support ,
--- NOTE | 2020-02-28 17:35 | PCM.PN.BLA ---
Progress Note Asked to see the patient the request of Dr. 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 He is done well with his tracheoesophageal puncture for years. He was admitted with COVID-19 for shortness of breath and fatigue. Physical exam: A photograph of the patient's prosthesis was sent from the patient's room. His stoma is wide open. There is no crusting surrounding the stoma. The TEP valve is in place and seated perfectly. There is some dried mucus at the opening of the valve. A: s/p total laryngectomy with a TEP for phonation COVID 19 P: I would leave the valve in place. He should continue to clean the valve on his own as he does regularly. If the valve becomes non functional because of secretions, I would leave it in place (even though he will be aphonic) and he could then have it changed once he is out of the hospital and no longer contagious. To remove the valve at this point would require him to be aphonic, and we would have to sew a red rubber catheter in to keep the fistula open (this would require rigid esophagoscopy in the OR). Please call with any questions or concerns. STROKE Vital Signs/Narrative: Vital Signs Temp Pulse Resp BP Pulse Ox 02/28/20 14:15 98.0 F 89 24 H 115/76 95
--- NOTE | 2020-02-28 20:18 | PCM.HP.ID ---
Problem List (1) Pneumonia due to COVID-19 virus Status: Acute Reason for Consult: covid Consulted by: Dr. Brooks History of Present Illness: The patient is a 75 year old M with h/o laryngeal cancer, s/p trach, presented with sx starting 02/21 with fever, headache, cough, SOB, aches, and diarrhea. No change in taste or smell. also sick and in H. Hypoxic, admitted on dex. Feeling a little better today. Full ROS performed and neg except as noted above. - Medical History Past Medical History (Chronic Problems): Chronic Problems Laryngeal cancer (Chronic) Hypothyroidism (Chronic) HLD (hyperlipidemia) (Chronic) Allergies/Adverse Reactions: Allergies amoxicillin Allergy (Verified 02/27/20 15:02) Rash Penicillins Allergy (Verified 02/27/20 15:02) Unknown Sulfa (Sulfonamide Antibiotics) Allergy (Verified 02/27/20 15:02) BP drops Home Medications: Ambulatory Orders Medication Instructions Recorded Atorvastatin Calcium [Lipitor] 40 mg PO DAILY 05/10/17 Levothyroxine [Synthroid] 75 mcg PO DAILY 05/10/17 Omeprazole 40 mg PO DAILY 05/10/17 Doxazosin Mesylate [Cardura] 2 mg PO BID 02/27/20 - Social History SMOKING STATUS:: Former smoker Vital Signs Temp Pulse Resp BP Pulse Ox 98.5 F 77 18 132/70 H 92 02/28/20 16:15 02/28/20 16:15 02/28/20 16:15 02/28/20 16:15 02/28/20 16:15 Oxygen Flow Rate (L/min) 4 Oxygen Delivery Method Room Air Weight: 65.2 kg Body Mass Index (BMI) 21.8 Laboratory Tests Past 24 Hrs 02/27/20 02/27/20 02/27/20 16:15 16:15 16:15 Diff Path Review Reviewed PT 13.1 INR 1.0 D-Dimer Quant (PE/DVT) 1.19 H* Total Bilirubin 0.40 Direct Bilirubin 0.10 AST 22 ALT 28 Alkaline Phosphatase 74 Lactate Dehydrogenase 249 H Total Creatine Kinase 133 Troponin I < 0.015 B-Natriuretic Peptide Total Protein 7.4 Albumin 3.6 Globulin 3.8 Procalcitonin Blood Type 02/27/20 02/27/20 02/28/20 16:15 16:15 14:48 Diff Path Review PT INR D-Dimer Quant (PE/DVT) Total Bilirubin Direct Bilirubin AST ALT Alkaline Phosphatase Lactate Dehydrogenase Total Creatine Kinase Troponin I B-Natriuretic Peptide 22.6 Total Protein Albumin Globulin Procalcitonin < 0.01 Blood Type O POSITIVE - Other Studies Radiology: [] reviewed Other Studies: [] Route of nutrition/ use of supplements: [] Nutritional Intake: [] IV Site: [] Mann Catheter: [] - Physical Exam General: Alert, Oriented x3, Cooperative, No apparent distress HEENT: Atraumatic, PERRLA, EOMI Neck: Supple, - - tracheostomy in place Lungs: Diminished Cardiovascular: Regular rate, Regular Rhythm Abdomen: Soft, Non Tender, Non-Distended Extremities: No edema Skin: No rashes IV Site: Peripheral, without redness Musculoskeletal: No Tenderness to Palpation of Joints or Extremities Neurological: Cranial nerves II-XII grossly intact - Assessment/Plan Antibiotics: [] Assessment/Plan: [] Active and Suspected Problems Pneumonia due to COVID-19 virus (Acute) Hypoxic, on 6L. On lovenox 40mg bid for proph with elevated d-dimer. Reviewed EUA and discussed risks/benefits of convalescent plasma, we agree to start it. Will also start remdesivir. Cont dex, will change to po. Will follow, thank you
[2020-02-28] MEDS: Atorvastatin Calcium 40 MG Tablet PO (23:23)
[2020-02-28] MEDS: 0.9% Saline Lock 10 ML Syringe IV (23:24)
[2020-02-29 01:37] VITALS: BP 120/74; PULSE 68; RESP 18; TEMP 36.8; O2SAT 95
[2020-02-29 06:40] VITALS: BP 105/64; PULSE 66; RESP 16; TEMP 36.6; O2SAT 97
[2020-02-29 07:41] LABS: Hematocrit 36.7 % (40-54); Hemoglobin 11.9 g/dL (13.0-16.5); Mean Corp Hgb Conc 32.4 g/dL (32-36); Mean Corpuscular Hgb 29.2 pg (27.0-32.0); Mean Platelet Vol. 10.6 fl (6.2-12.0); Platelet Count 155 K/mm3 (150-450); RBC Distribution Width SD 43.5 fl (35.1-43.9); Red Blood Count 4.08 M/mm3 (4.6-6.2); White Blood Count 5.4 K/mm3 (4.4-11.0)
[2020-02-29 08:08] LABS: ALB/GLOB Ratio 0.9 RATIO (0.9-2.4); AST(SGOT) 16 U/L (15-37); Alanine Aminotransfer ALT/SGPT 23 U/L (16-61); Alkaline Phosphatase 62 U/L (45-117); Anion Gap 6 (5-15); BUN 17 mg/dL (7-18); BUN/Creat Ratio 19.9 RATIO (10-20); Calcium,Total 8.5 mg/dL (8.5-10.1); Chloride 113 mmol/L (98-107); Creatinine, Serum 0.85 mg/dL (0.70-1.30); EST Glomerular Filtration Rate 93 mL/min (>60); Est Glom Filt Rate - Afr Amer 113 mL/min (>60); Estimated Creatinine Clearance 69.25 ml/min; Globulin 3.4 g/dL (2.2-4.2); Glucose 103 mg/dL (74-106); Potassium 3.7 mmol/L (3.5-5.1); Protein, Total 6.4 g/dL (6.4-8.2); Sodium Level 143 mmol/L (136-145)
[2020-02-29] MEDS: Enoxaparin 40 MG/0.4 ML Syringe SC ×2 (08:28→21:47)
[2020-02-29] MEDS: dexAMETHasone 4 MG Tablet 6 MG PO (08:28)
[2020-02-29] MEDS: Levothyroxine 75 MCG Tablet PO (08:29)
[2020-02-29] MEDS: Pantoprazole Sodium 40 MG Tablet PO (08:29)
[2020-02-29] MEDS: Doxazosin 1 MG Tablet 2 MG PO ×2 (08:29→21:47)
--- NOTE | 2020-02-29 08:55 | PN_ITS ---
Patient Problems: Active and Suspected Problems Pneumonia due to COVID-19 virus (Acute) Subjective: Overall feels subjectively unchanged compared to previous. Patient did receive convalescent serum overnight and tolerated this well. Patient was also initiated on remdesivir and denies any side effects. Patient was seen by ENT a nd it was determined that the valve will stay in place. - Physical Exam Vitals/I&O's: Vital Signs Temp Pulse Resp BP Pulse Ox 36.6 C 66 16 105/64 97 02/29/20 06:40 02/29/20 06:40 02/29/20 06:40 02/29/20 06:40 02/29/20 06:40 Oxygen Flow Rate (L/min) 4 Oxygen Delivery Method Trach Collar Weight: 65.2 kg Body Mass Index (BMI) 21.8 Intake and Output for Last 24 Hours 02/27/20 02/28/20 02/29/20 23:59 23:59 23:59 Intake Total 830 / 830 350 / 350 Output Total 200 / 200 Balance 830 / 630 150 / 150 General: Alert, Oriented x3, Cooperative, No apparent distress, - - Thin build. Better vocalization today. HEENT: Atraumatic, PERRLA, EOMI, Normocephalic, - - No scleral icterus or injection noted Oral: Moist Mucosa, No Gingival or Mucosal Lesions/ Ulcerations Neck: Supple, No JVD, No Nodes, - - Tracheotomy clean, dry and intact Lungs: No wheeze, No rales, Diminished, Rhonchi - Scattered Cardiovascular: Regular rate, Regular Rhythm, Normal S1, Normal S2, No murmurs, No rub noted, No Gallop Abdomen: Bowel Sounds Present, Soft, Non Tender, Non-Distended Extremities: No clubbing, No cyanosis, No edema, Capillary Refill Less than 3 Seconds Skin: No rashes, No breakdown Musculoskeletal: No Tenderness to Palpation of Joints or Extremities Lymphatic: No Cervical, Supraclavicular, or Inguinal Adenopathy Neurological: Cranial nerves II-XII grossly intact, Neuro grossly intact, Motor Exam 5/5 strength throughout Psych/Mental Status: Alert and oriented to time, place, person, mood and affect Laboratory Results 02/27/20 16:15: Diff Path Review Reviewed 02/28/20 14:48: Blood Type O POSITIVE 02/29/20 06:45: WBC 5.4, RBC 4.08 L, Hgb 11.9 L, Hct 36.7 L, MCV 90.0, MCH 29.2, MCHC 32.4, RDW Std Deviation 43.5, RDW Coeff of Chucho 13.0, Plt Count 155, MPV 10.6 02/29/20 06:45: Sodium 143, Potassium 3.7, Chloride 113 H, Carbon Dioxide 24.0, Anion Gap 6, BUN 17, Creatinine 0.85, Estim Creat Clear Calc 69.25, Est GFR (MDRD) Af Amer 113, Est GFR (MDRD) Non-Af 93, BUN/Creatinine Ratio 19.9, Glucose 103, Calcium 8.5, Total Bilirubin 0.30, AST 16, ALT 23, Alkaline Phosphatase 62, Total Protein 6.4, Albumin 3.0 L, Globulin 3.4, Albumin/Globulin Ratio 0.9 Current Medications Acetaminophen (Acetaminophen 325 Mg Tablet) 650 mg PO Q6H PRN PRN PRN Reason: Pain Score 1-10/Temp > 100.7 F Albuterol Sulfate (Albuterol Sulfate 18 Gm Inhaler (200 Puffs)) 2 puff IH Q4H PRN PRN PRN Reason: Shortness of breath, wheezing Atorvastatin Calcium (Atorvastatin Calcium 40 Mg Tablet) 40 mg PO QHS [facility] Last Admin: 02/28/20 23:23 Dose: 40 mg Documented by: Dexamethasone (Dexamethasone 4 Mg Tablet) 6 mg PO DAILY [facility] Stop: 03/07/20 10:01 Last Admin: 02/29/20 08:28 Dose: 6 mg Documented by: Doxazosin Mesylate (Doxazosin 1 Mg Tablet) 2 mg PO BID [facility] Last Admin: 02/29/20 08:29 Dose: 2 mg Documented by: Enoxaparin Sodium (Enoxaparin 40 Mg/0.4 Ml Syringe) 40 mg SC BID [facility] Last Admin: 02/29/20 08:28 Dose: 40 mg Documented by: Remdesivir 100 mg/ Sodium (Chloride) 250 mls @ 125 mls/hr IV DAILY [facility]; Protocol Stop: 03/03/20 11:59 Levothyroxine Sodium (Levothyroxine 75 Mcg Tablet) 75 mcg PO DAILY [facility] Last Admin: 02/29/20 08:29 Dose: 75 mcg Documented by: Miscellaneous Information (Inhaler, Assist Devices 1 Each Spacer) 1 each INHALATION PRN PRN PRN Reason: WITH ALBUTEROL MDI Ondansetron HCl (Ondansetron 4 Mg/2 Ml Vial) 4 mg IV Q8H PRN PRN PRN Reason: NAUSEA/VOMITING Pantoprazole Sodium (Pantoprazole Sodium 40 Mg Tablet) 40 mg PO DAILY [facility] Last Admin: 02/29/20 08:29 Dose: 40 mg Documented by: Senna/Docusate Sodium (Senna/Docusate Sodium 1 Tablet) 2 tablet PO BID PRN PRN PRN Reason: Constipation Sodium Chloride (0.9% Saline Lock 10 Ml Syringe) 10 - 40 ml IV UD PRN PRN Reason: SALINE FLUSH Last Admin: 02/28/20 23:24 Dose: 10 ml Documented by: Zolpidem Tartrate (Zolpidem Tartrate 5 Mg Tablet) 5 mg PO QHS PRN PRN PRN Reason: INSOMNIA Clinical Impression(s) from Imaging Studies Chest CTA 02/28/20 16:16 IMPRESSION: Small nonspecific interstitial infiltrate right upper lobe. Follow-up recommended in 3 months. COPD. New Small trach tube noted in tracheostomy. Coronary artery disease. Electronically Signed: Kingsley Harrison MD at 19:00 EST , Service support , Medical Necessity - Tobacco Use Smoking Status: Former smoker Assessment/Plan All Active Problems Pneumonia due to COVID-19 virus (Acute) RECOMMENDATIONS: 1. Continue anticoagulation, remdesivir and decadron 2. Monitor oxygenation with recent plasma and secretions with valve 3. Increase activity as tolerated 4. Wean oxygen as tolerated 5. Continue moisture to avoid mucous plugging. Consider initiation of mucolytic such as mucinex IMPRESSIONS: 1. Acute Hypoxic Respiratory Insufficiency secondary to COVID-19 pneumonia Patient with acute COVID-19 infection and need for supplemental oxygen. Patient is appropriate anticoagulation and Decadron therapy. Patient received serum overnight. Monitor for 24 hours for possible decompensation. Respiratory management will be complicated given his history of laryngectomy and use of a speaking valve. Valve evaluated by ENT and will remain in place. Continue with aggressive pulmonary toileting. 2. Laryngeal cancer s/p Laryngectomy Patient with a valve to allow for phonation. ENT aware and plan is to keep in place. 3. Advanced age/Hyperlipidemia/Hypothyroidism Complicates care, managment, recovery and prognosis. Ok to continue baseline medications from my perspective. Inpatient E&M: 71843 Subs Hosp L2
--- NOTE | 2020-02-29 11:10 | PCM.PN.ID ---
Patient Problems: Active and Suspected Problems Pneumonia due to COVID-19 virus (Acute) Subjective: Feels like a million kline! Off O2, no fever, no n/v/d. - Physical Exam Vitals/I&O's: Vital Signs Temp Pulse Resp BP Pulse Ox 97.9 F 66 16 105/64 97 02/29/20 06:40 02/29/20 06:40 02/29/20 06:40 02/29/20 06:40 02/29/20 06:40 Oxygen Flow Rate (L/min) 4 Oxygen Delivery Method Room Air Weight: 65.2 kg Body Mass Index (BMI) 21.8 Intake and Output for Last 24 Hours 02/27/20 02/28/20 02/29/20 23:59 23:59 23:59 Intake Total 830 / 830 350 / 350 Output Total 200 / 200 Balance 830 / 630 150 / 150 General: Alert, Cooperative, No apparent distress Lungs: Clear to auscultation, Diminished Cardiovascular: Regular rate, Regular Rhythm Abdomen: Soft, Non Tender, Non-Distended Skin: No rashes Laboratory Results 02/27/20 16:15: Diff Path Review Reviewed 02/28/20 14:48: Blood Type O POSITIVE 02/29/20 06:45: WBC 5.4, RBC 4.08 L, Hgb 11.9 L, Hct 36.7 L, MCV 90.0, MCH 29.2, MCHC 32.4, RDW Std Deviation 43.5, RDW Coeff of Chucho 13.0, Plt Count 155, MPV 10.6 02/29/20 06:45: Sodium 143, Potassium 3.7, Chloride 113 H, Carbon Dioxide 24.0, Anion Gap 6, BUN 17, Creatinine 0.85, Estim Creat Clear Calc 69.25, Est GFR (MDRD) Af Amer 113, Est GFR (MDRD) Non-Af 93, BUN/Creatinine Ratio 19.9, Glucose 103, Calcium 8.5, Total Bilirubin 0.30, AST 16, ALT 23, Alkaline Phosphatase 62, Total Protein 6.4, Albumin 3.0 L, Globulin 3.4, Albumin/Globulin Ratio 0.9 Current Medications Acetaminophen (Acetaminophen 325 Mg Tablet) 650 mg PO Q6H PRN PRN PRN Reason: Pain Score 1-10/Temp > 100.7 F Albuterol Sulfate (Albuterol Sulfate 18 Gm Inhaler (200 Puffs)) 2 puff IH Q4H PRN PRN PRN Reason: Shortness of breath, wheezing Atorvastatin Calcium (Atorvastatin Calcium 40 Mg Tablet) 40 mg PO QHS [facility] Last Admin: 02/28/20 23:23 Dose: 40 mg Documented by: Dexamethasone (Dexamethasone 4 Mg Tablet) 6 mg PO DAILY [facility] Stop: 03/07/20 10:01 Last Admin: 02/29/20 08:28 Dose: 6 mg Documented by: Doxazosin Mesylate (Doxazosin 1 Mg Tablet) 2 mg PO BID [facility] Last Admin: 02/29/20 08:29 Dose: 2 mg Documented by: Enoxaparin Sodium (Enoxaparin 40 Mg/0.4 Ml Syringe) 40 mg SC BID [facility] Last Admin: 02/29/20 08:28 Dose: 40 mg Documented by: Remdesivir 100 mg/ Sodium (Chloride) 250 mls @ 125 mls/hr IV DAILY [facility]; Protocol Stop: 03/03/20 11:59 Last Admin: 02/29/20 10:29 Dose: 125 mls/hr Documented by: Levothyroxine Sodium (Levothyroxine 75 Mcg Tablet) 75 mcg PO DAILY [facility] Last Admin: 02/29/20 08:29 Dose: 75 mcg Documented by: Miscellaneous Information (Inhaler, Assist Devices 1 Each Spacer) 1 each INHALATION PRN PRN PRN Reason: WITH ALBUTEROL MDI Ondansetron HCl (Ondansetron 4 Mg/2 Ml Vial) 4 mg IV Q8H PRN PRN PRN Reason: NAUSEA/VOMITING Pantoprazole Sodium (Pantoprazole Sodium 40 Mg Tablet) 40 mg PO DAILY [facility] Last Admin: 02/29/20 08:29 Dose: 40 mg Documented by: Senna/Docusate Sodium (Senna/Docusate Sodium 1 Tablet) 2 tablet PO BID PRN PRN PRN Reason: Constipation Sodium Chloride (0.9% Saline Lock 10 Ml Syringe) 10 - 40 ml IV UD PRN PRN Reason: SALINE FLUSH Last Admin: 02/28/20 23:24 Dose: 10 ml Documented by: Zolpidem Tartrate (Zolpidem Tartrate 5 Mg Tablet) 5 mg PO QHS PRN PRN PRN Reason: INSOMNIA Medical Necessity - Tobacco Use Smoking Status: Former smoker Route of nutrition/ use of supplements: [] Nutritional Intake: [] IV Site: [] Mann Catheter: [] - Assessment/Plan Antibiotics: [] Assessment/Plan: [] Active and Suspected Problems Pneumonia due to COVID-19 virus (Acute) On lovenox 40mg bid for proph with elevated d-dimer. 02/27 started remdesivir and got plasma. On dex. Feels great. On RA now, was 6L yesterday. Ok for d/c home to complete 10 days total dex. Will follow, d/w nursing
--- NOTE | 2020-02-29 11:34 | PN_ITS ---
Patient Problems: Active and Suspected Problems Pneumonia due to COVID-19 virus (Acute) Subjective: Patient seen and examined. He feels much better today. He is off oxygen and saturating well on room air. Review of systems otherwise negative. He has remained hemodynamically stable. He is on day 2 of remdesivir. Vitals/I&O's: Vital Signs Temp Pulse Resp BP Pulse Ox 97.9 F 66 16 105/64 97 02/29/20 06:40 02/29/20 06:40 02/29/20 06:40 02/29/20 06:40 02/29/20 06:40 Oxygen Flow Rate (L/min) 4 Oxygen Delivery Method Room Air Weight: 143 lb 11.862 oz Body Mass Index (BMI) 21.8 Intake and Output for Last 24 Hours 02/27/20 02/28/20 02/29/20 23:59 23:59 23:59 Intake Total 830 / 830 350 / 350 Output Total 200 / 200 Balance 830 / 630 150 / 150 General: Alert, Oriented x3, Cooperative, No apparent distress HEENT: Atraumatic, PERRLA, EOMI, Normocephalic, - - Has a tracheostomy in place. on room air Oral: Dry Mucosa Neck: Supple, No JVD, Negative Carotid Bruits Lungs: - - clear to auscultation. No wheezes or crackles. On room air. Cardiovascular: Regular rate, Regular Rhythm, Normal S1, Normal S2, No murmurs Abdomen: Bowel Sounds Present, Soft, Non Tender Extremities: No clubbing, No cyanosis, No edema, Capillary Refill Less than 3 S econds Skin: No rashes, No breakdown Musculoskeletal: No Tenderness to Palpation of Joints or Extremities Lymphatic: No Cervical, Supraclavicular, or Inguinal Adenopathy Neurological: Cranial nerves II-XII grossly intact, Neuro grossly intact, Motor Exam 5/5 strength throughout Psych/Mental Status: Normal Affect, Appropriate, Alert and oriented to time, place, person, mood and affect Laboratory Results 02/27/20 16:15: Diff Path Review Reviewed 02/28/20 14:48: Blood Type O POSITIVE 02/29/20 06:45: WBC 5.4, RBC 4.08 L, Hgb 11.9 L, Hct 36.7 L, MCV 90.0, MCH 29.2, MCHC 32.4, RDW Std Deviation 43.5, RDW Coeff of Chucho 13.0, Plt Count 155, MPV 10.6 02/29/20 06:45: Sodium 143, Potassium 3.7, Chloride 113 H, Carbon Dioxide 24.0, Anion Gap 6, BUN 17, Creatinine 0.85, Estim Creat Clear Calc 69.25, Est GFR (MDRD) Af Amer 113, Est GFR (MDRD) Non-Af 93, BUN/Creatinine Ratio 19.9, Glucose 103, Calcium 8.5, Total Bilirubin 0.30, AST 16, ALT 23, Alkaline Phosphatase 62, Total Protein 6.4, Albumin 3.0 L, Globulin 3.4, Albumin/Globulin Ratio 0.9 Diagnostic Data Chest X-Ray 02/27/20 15:40 IMPRESSION: Left basilar atelectasis. Electronically Signed: Luis Taylor MD at 17:07 EST Tel , Service support , Chest CTA 02/28/20 16:16 IMPRESSION: Small nonspecific interstitial infiltrate right upper lobe. Follow-up recommended in 3 months. COPD. New Small trach tube noted in tracheostomy. Coronary artery disease. Electronically Signed: Kingsley Harrison MD at 19:00 EST , Service support , Current Medications Acetaminophen (Acetaminophen 325 Mg Tablet) 650 mg PO Q6H PRN PRN PRN Reason: Pain Score 1-10/Temp > 100.7 F Albuterol Sulfate (Albuterol Sulfate 18 Gm Inhaler (200 Puffs)) 2 puff IH Q4H PRN PRN PRN Reason: Shortness of breath, wheezing Atorvastatin Calcium (Atorvastatin Calcium 40 Mg Tablet) 40 mg PO QHS [facility] Last Admin: 02/28/20 23:23 Dose: 40 mg Documented by: Dexamethasone (Dexamethasone 4 Mg Tablet) 6 mg PO DAILY [facility] Stop: 03/07/20 10:01 Last Admin: 02/29/20 08:28 Dose: 6 mg Documented by: Doxazosin Mesylate (Doxazosin 1 Mg Tablet) 2 mg PO BID [facility] Last Admin: 02/29/20 08:29 Dose: 2 mg Documented by: Enoxaparin Sodium (Enoxaparin 40 Mg/0.4 Ml Syringe) 40 mg SC BID [facility] Last Admin: 02/29/20 08:28 Dose: 40 mg Documented by: Remdesivir 100 mg/ Sodium (Chloride) 250 mls @ 125 mls/hr IV DAILY [facility]; Protocol Stop: 03/03/20 11:59 Last Admin: 02/29/20 10:29 Dose: 125 mls/hr Documented by: Levothyroxine Sodium (Levothyroxine 75 Mcg Tablet) 75 mcg PO DAILY [facility] Last Admin: 02/29/20 08:29 Dose: 75 mcg Documented by: Miscellaneous Information (Inhaler, Assist Devices 1 Each Spacer) 1 each INHALATION PRN PRN PRN Reason: WITH ALBUTEROL MDI Ondansetron HCl (Ondansetron 4 Mg/2 Ml Vial) 4 mg IV Q8H PRN PRN PRN Reason: NAUSEA/VOMITING Pantoprazole Sodium (Pantoprazole Sodium 40 Mg Tablet) 40 mg PO DAILY [facility] Last Admin: 02/29/20 08:29 Dose: 40 mg Documented by: Senna/Docusate Sodium (Senna/Docusate Sodium 1 Tablet) 2 tablet PO BID PRN PRN PRN Reason: Constipation Sodium Chloride (0.9% Saline Lock 10 Ml Syringe) 10 - 40 ml IV UD PRN PRN Reason: SALINE FLUSH Last Admin: 02/28/20 23:24 Dose: 10 ml Documented by: Zolpidem Tartrate (Zolpidem Tartrate 5 Mg Tablet) 5 mg PO QHS PRN PRN PRN Reason: INSOMNIA Medical Necessity - Tobacco Use Smoking Status: Former smoker Assessment/Plan All Active Problems Pneumonia due to COVID-19 virus (Acute) # Acute hypoxic respiratory failure due to COVID 19 infection * on room air. * Oxygen to maintain saturation above 90%. * On PO Decadron. * On breathing treatments with bronchodilators. * on remdesivir. Today is day 2 of 5; will need to complete 5 day course. * received convalescent plasma overnight. #COVID 19 infection: As above. D-dimer was elevated. CTA of the chest was negative for PE #History of laryngeal cancer s/p laryngectomy: Has trach in place. Stable. #Hypothyroidism: On Synthroid #Hyperlipidemia: On statins. #History of prostate cancer: S/p placement of gold fiducial markers ED June 2019 and has been following up with urology. stable. #DVT prophylaxis: Lovenox #CODE STATUS: Full code Inpatient E&M: 78307 Subs Hosp L2
[2020-02-29 12:40] VITALS: BP 125/73; PULSE 86; RESP 18; TEMP 36.5; O2SAT 94
[2020-02-29 17:44] VITALS: BP 115/67; PULSE 69; RESP 18; TEMP 36.9; O2SAT 93
[2020-02-29 21:00] VITALS: O2SAT 94
[2020-02-29] MEDS: Atorvastatin Calcium 40 MG Tablet PO (21:47)
[2020-02-29 22:00] VITALS: BP 109/66; PULSE 83; RESP 16; TEMP 36.8; O2SAT 94
[2020-03-01 04:00] VITALS: BP 106/71; PULSE 65; RESP 16; TEMP 36.6; O2SAT 98
[2020-03-01 07:26] LABS: Hematocrit 37.7 % (40-54); Mean Corp Hgb Conc 31.8 g/dL (32-36); Mean Corpuscular Hgb 28.7 pg (27.0-32.0); Mean Corpuscular Volume 90.2 fL (80-94); Mean Platelet Vol. 10.4 fl (6.2-12.0); Platelet Count 161 K/mm3 (150-450); RBC Distribution Width CV 13.2 % (11.6-14.6); Red Blood Count 4.18 M/mm3 (4.6-6.2); White Blood Count 5.1 K/mm3 (4.4-11.0)
[2020-03-01 08:14] LABS: ALB/GLOB Ratio 0.8 RATIO (0.9-2.4); AST(SGOT) 17 U/L (15-37); Alanine Aminotransfer ALT/SGPT 24 U/L (16-61); Albumin, Serum 2.9 g/dL (3.2-5.0); Alkaline Phosphatase 61 U/L (45-117); Anion Gap 6 (5-15); BUN 26 mg/dL (7-18); BUN/Creat Ratio 31.4 RATIO (10-20); Calcium,Total 8.2 mg/dL (8.5-10.1); Chloride 111 mmol/L (98-107); Creatinine, Serum 0.83 mg/dL (0.70-1.30); EST Glomerular Filtration Rate 96 mL/min (>60); Est Glom Filt Rate - Afr Amer 116 mL/min (>60); Estimated Creatinine Clearance 70.92 ml/min; Globulin 3.5 g/dL (2.2-4.2); Glucose 94 mg/dL (74-106); Potassium 3.7 mmol/L (3.5-5.1); Protein, Total 6.4 g/dL (6.4-8.2); Sodium Level 142 mmol/L (136-145)
[2020-03-01 08:36] VITALS: O2SAT 96
[2020-03-01] MEDS: Pantoprazole Sodium 40 MG Tablet PO (09:03)
[2020-03-01] MEDS: Doxazosin 1 MG Tablet 2 MG PO (09:03)
[2020-03-01] MEDS: 0.9% Saline Lock 10 ML Syringe IV (09:03)
[2020-03-01] MEDS: dexAMETHasone 4 MG Tablet 6 MG PO (09:03)
[2020-03-01] MEDS: Enoxaparin 40 MG/0.4 ML Syringe SC (09:03)
[2020-03-01] MEDS: Levothyroxine 75 MCG Tablet PO (09:03)
[2020-03-01 09:12] VITALS: BP 116/73; PULSE 77; RESP 18; TEMP 36.7; O2SAT 98
--- NOTE | 2020-03-01 10:26 | DCINST_ITS ---
- Discharge Diagnoses Current Active Problems: Current Active and Chronic Problems Pneumonia due to COVID-19 virus (Acute) Laryngeal cancer (Chronic) Hypothyroidism (Chronic) HLD (hyperlipidemia) (Chronic) You will use the following diet at home:: Cardiac Your food should be the consistency of: Regular Your liquids should be the consistency of: Regular/Thin Discharge Activity: Return to Normal Activity Weight Bearing Status: Weight bearing as tolerated Call your doctor if you observe: Fever of 101 or Higher, Shortness of breath, Chest pain, Increased palpitations (irregular heartbeat) Instructions: Pneumonia Allergies/Adverse Reactions: Allergies amoxicillin Allergy (Verified 02/27/20 15:02) Rash Penicillins Allergy (Verified 02/27/20 15:02) Unknown Sulfa (Sulfonamide Antibiotics) Allergy (Verified 02/27/20 15:02) BP drops Medications to take at Discharge Atorvastatin Calcium [Lipitor] 40 mg PO DAILY 05/10/17 Levothyroxine [Synthroid] 75 mcg PO DAILY 05/10/17 Omeprazole 40 mg PO DAILY 05/10/17 Doxazosin Mesylate [Cardura] 2 mg PO BID 02/27/20 Dexamethasone [Decadron] 6 mg PO DAILY #6 tab 03/01/20 The following prescriptions were given: Dexamethasone [Decadron] 6 mg PO DAILY #6 tab Transmission Status: Pending to [facility] Primary Care Physician: Andreas Evangelista Chi, MD [Primary Care Provider] - Please follow up with your Primary Care Physician in: 1-2 weeks Test Results: Test results from this visit will be discussed in further detail at your follow- up appointment, if applicable. Proposed Discharge Date: 03/01/20
--- NOTE | 2020-03-01 10:30 | DS.PCM_ITS ---
Discharge Date and Diagnosis - Problem List Patient Problems: Active and Suspected Problems Pneumonia due to COVID-19 virus (Acute) Date of Admission: 02/27/20 Date of Discharge: 03/01/20 - Primary Discharge Diagnosis Acute Problems: Active Problems Pneumonia due to COVID-19 virus (Acute) COVID 19 infection Acute hypoxic respiratory insufficiency - Secondary Discharge Diagnosis Chronic Problems: Chronic Problems Laryngeal cancer (Chronic) Hypothyroidism (Chronic) HLD (hyperlipidemia) (Chronic) Hospital Course and Treatment Imaging Results: Diagnostic Data Chest X-Ray 02/27/20 15:40 IMPRESSION: Left basilar atelectasis. Electronically Signed: Luis Taylor MD at 17:07 EST Tel , Service support , Chest CTA 02/28/20 16:16 IMPRESSION: Small nonspecific interstitial infiltrate right upper lobe. Follow-up recommended in 3 months. COPD. New Small trach tube noted in tracheostomy. Coronary artery disease. Electronically Signed: Kingsley Harrison MD at 19:00 EST , Service support , pulmonology infectious disease Operations: None Procedures: None Summary of Care Provided: The patient is a 75 year old M with a PMH of laryngeal cancer s/p trachestomy, hypothyroidism and hyperlipidemia. He was admitted through the ED on 02/27/2020 with a complaint of increased sputum production through his tracheostomy opening as well as worsening shortness of breath, symptoms were started 4 days prior to admission. He had no assisted fever or chills but did report generalized body pains and aches as well as malaise. had been diagnosed with Covid. On admission, he was afebrile and pulse ox was 88% on room air and he required 6 L of oxygen. CBC showed leukopenia and lymphopenia and chest x-ray showed questionable basilar infiltrates bilaterally. Covid test done was negative. He was admitted and managed for acute hypoxic respiratory failure due to COVID-19 infection. Pulmonology and ID were consulted. Patient received convalescent plasma and also started on IV remdesivir. CTA of the chest done on account of elevated D-dimer was negative for PE. Patient shortness of breath gradually resolved he was weaned off of oxygen. Patient's symptoms resolved and he remained stable. He was discharged home on 03/01/2020. He was saturating at 93% on room air with ambulation and 96% at rest, and so didnt require home oxygen. Patient was encouraged to continue self isolate until 03/12/2020 to complete a 14-day period of self-isolation since diagnosis of Covid. Patient seen and examined prior to discharge. He had no complaints. Review of symptoms otherwise negative. Labs and vitals reviewed. Home medication reviewed and reconciled. O/E: Vital Signs Temp Pulse Resp BP Pulse Ox 97.9 F 71 18 109/69 96 03/01/20 12:38 03/01/20 12:38 03/01/20 12:38 03/01/20 12:38 03/01/20 12:39 [] General: Alert, Oriented x3, Cooperative, No apparent distress HEENT: Atraumatic, PERRLA, EOMI, Normocephalic, - - Has a tracheostomy in place. on room air Oral: Dry Mucosa Neck: Supple, No JVD, Negative Carotid Bruits Lungs: - - clear to auscultation. No wheezes or crackles. On room air. Cardiovascular: Regular rate, Regular Rhythm, Normal S1, Normal S2, No murmurs Abdomen: Bowel Sounds Present, Soft, Non Tender Extremities: No clubbing, No cyanosis, No edema, Capillary Refill Less than 3 Seconds Skin: No rashes, No breakdown Musculoskeletal: No Tenderness to Palpation of Joints or Extremities Lymphatic: No Cervical, Supraclavicular, or Inguinal Adenopathy Neurological: Cranial nerves II-XII grossly intact, Neuro grossly intact, Motor Exam 5/5 strength throughout Psych/Mental Status: Normal Affect, Appropriate, Alert and oriented to time, place, person, mood and affect Plan is for discharge home today. Patient Problems: Active and Suspected Problems Pneumonia due to COVID-19 virus (Acute) - Physical Exam Vitals/I&O's: Vital Signs Temp Pulse Resp BP Pulse Ox 98.1 F 77 18 116/73 98 03/01/20 09:12 03/01/20 09:12 03/01/20 09:12 03/01/20 09:12 03/01/20 09:12 Oxygen Flow Rate (L/min) 4 Oxygen Delivery Method Room Air Weight: 143 lb 11.862 oz Body Mass Index (BMI) 21.8 Intake and Output for Last 24 Hours 02/28/20 02/29/20 03/01/20 23:59 23:59 23:59 Intake Total 830 / 830 1460 / 2160 950 / 950 Output Total 200 / 200 Balance 830 / 630 1260 / 1960 950 / 950 Laboratory Results 03/01/20 07:05: WBC 5.1, RBC 4.18 L, Hgb 12.0 L, Hct 37.7 L, MCV 90.2, MCH 28.7, MCHC 31.8 L, RDW Std Deviation 44.0 H, RDW Coeff of Chucho 13.2, Plt Count 161, MPV 10.4 03/01/20 07:05: Sodium 142, Potassium 3.7, Chloride 111 H, Carbon Dioxide 25.0, Anion Gap 6, BUN 26 H, Creatinine 0.83, Estim Creat Clear Calc 70.92, Est GFR (MDRD) Af Amer 116, Est GFR (MDRD) Non-Af 96, BUN/Creatinine Ratio 31.4 H, Glucose 94, Calcium 8.2 L, Total Bilirubin 0.30, AST 17, ALT 24, Alkaline Phosphatase 61, Total Protein 6.4, Albumin 2.9 L, Globulin 3.5, Albumin/Globulin Ratio 0.8 L Current Medications Acetaminophen (Acetaminophen 325 Mg Tablet) 650 mg PO Q6H PRN PRN PRN Reason: Pain Score 1-10/Temp > 100.7 F Albuterol Sulfate (Albuterol Sulfate 18 Gm Inhaler (200 Puffs)) 2 puff IH Q4H PRN PRN PRN Reason: Shortness of breath, wheezing Atorvastatin Calcium (Atorvastatin Calcium 40 Mg Tablet) 40 mg PO QHS [facility] Last Admin: 02/29/20 21:47 Dose: 40 mg Documented by: Dexamethasone (Dexamethasone 4 Mg Tablet) 6 mg PO DAILY [facility] Stop: 03/07/20 10:01 Last Admin: 03/01/20 09:03 Dose: 6 mg Documented by: Doxazosin Mesylate (Doxazosin 1 Mg Tablet) 2 mg PO BID [facility] Last Admin: 03/01/20 09:03 Dose: 2 mg Documented by: Enoxaparin Sodium (Enoxaparin 40 Mg/0.4 Ml Syringe) 40 mg SC BID [facility] Last Admin: 03/01/20 09:03 Dose: 40 mg Documented by: Remdesivir 100 mg/ Sodium (Chloride) 250 mls @ 125 mls/hr IV DAILY [facility]; Protocol Stop: 03/03/20 11:59 Last Infusion: 02/29/20 13:21 Dose: Infused Documented by: Levothyroxine Sodium (Levothyroxine 75 Mcg Tablet) 75 mcg PO DAILY [facility] Last Admin: 03/01/20 09:03 Dose: 75 mcg Documented by: Miscellaneous Information (Inhaler, Assist Devices 1 Each Spacer) 1 each INHALATION PRN PRN PRN Reason: WITH ALBUTEROL MDI Ondansetron HCl (Ondansetron 4 Mg/2 Ml Vial) 4 mg IV Q8H PRN PRN PRN Reason: NAUSEA/VOMITING Pantoprazole Sodium (Pantoprazole Sodium 40 Mg Tablet) 40 mg PO DAILY [facility] Last Admin: 03/01/20 09:03 Dose: 40 mg Documented by: Senna/Docusate Sodium (Senna/Docusate Sodium 1 Tablet) 2 tablet PO BID PRN PRN PRN Reason: Constipation Sodium Chloride (0.9% Saline Lock 10 Ml Syringe) 10 - 40 ml IV UD PRN PRN Reason: SALINE FLUSH Last Admin: 03/01/20 09:03 Dose: 10 ml Documented by: Zolpidem Tartrate (Zolpidem Tartrate 5 Mg Tablet) 5 mg PO QHS PRN PRN PRN Reason: INSOMNIA Discharge Diet: Low fat/ Low Cholesterol Discharge Activity: Return to Normal Activity Weight Bearing Status: Weight bearing as tolerated Call your doctor if you observe: Fever of 101 or Higher, Shortness of breath, Chest pain, Increased palpitations (irregular heartbeat) Home Medications: Medications to take at Discharge Atorvastatin Calcium [Lipitor] 40 mg PO DAILY 05/10/17 Levothyroxine [Synthroid] 75 mcg PO DAILY 05/10/17 Omeprazole 40 mg PO DAILY 05/10/17 Doxazosin Mesylate [Cardura] 2 mg PO BID 02/27/20 Dexamethasone [Decadron] 6 mg PO DAILY #6 tab 03/01/20 Following Prescriptions Were Given to Patient: Dexamethasone [Decadron] 6 mg PO DAILY #6 tab Transmission Status: Received by [facility] Primary Care Physician: Andreas Evagnelista Chi, MD [Primary Care Provider] - Please follow up with your Primary Care Physician in: 1-2 weeks Patient Instructions: Pneumonia Disposition: Home Minutes spent on discharge:: 40 Patient Condition:: Stable Medical Necessity - Tobacco Use Smoking Status: Former smoker Meaningful Use Info Meaningful Use Diagnoses (Choose all that apply): None applicable Inpatient E&M: 34468 Disch Hosp
--- NOTE | 2020-03-01 10:56 | CASEMGMT ---
Addendum entered by Sherri Thompson 03/01/20 13:00: Pt does not qualify for ambulatory oxygen at this time. Pt ready for d/c. Pooja VALLES CM Original Note: Per Rosibel VALLES, pt has been up in room in no distress with good sats. Pt is on room air. Per therapy, pt is independent in room and no therapy recommended. Pt to be discharged today. Pooja VALLES CM
--- NOTE | 2020-03-01 11:12 | PHA.DC.MC ---
Pharmacy Service has performed discharge medication reconciliation and counseling for this patient. Called into patient room to academic counselor patient due to COVID diagnosis. The patient was counseled on the following discharge medications and changes in medications for homegoing were reviewed. 1. Decadron The Reason for Use, instructions for use, and potential side effects were reviewed for all new medications. The patient's questions regarding all of their medications were answered. The patient demonstrated some understanding but would benefit from further education and reinforcement. Home Medications Atorvastatin Calcium [Lipitor] 40 mg PO DAILY 05/10/17 Levothyroxine [Synthroid] 75 mcg PO DAILY 05/10/17 Omeprazole 40 mg PO DAILY 05/10/17 Doxazosin Mesylate [Cardura] 2 mg PO BID 02/27/20 Dexamethasone [Decadron] 6 mg PO DAILY #6 tab 03/01/20 The patient's discharge medication list was reviewed for discrepancies and discrepancies were resolved.
[2020-03-01 12:38] VITALS: BP 109/69; PULSE 71; RESP 18; TEMP 36.6; O2SAT 96
[2020-03-01 12:39] VITALS: O2SAT 93; O2SAT 96
[2020-03-01 16:00] VITALS: BP 116/65; PULSE 76; RESP 18; TEMP 36.7; O2SAT 96
--- NOTE | 2020-03-02 15:50 | CASEMGMT ---
RN CM Discharge F/U Phone Call LACE: 11 Strata: 3 Discharge date: 03/01/2020 Call date: 03/02/2020 Call time: [phone] Attempted to reach pt without success at this time, message left for pt to call this RN CM back if/when able. SStaten RN CM Admission dx: COVID, COPD flare
== END 2020-03-01 20:43 | disposition home or self-care (01) | DRG 177 ==
LOC: ED 15:55 → PCU 21:26
PROVIDERS: Internal Medicine Infectious Disease; Admitting Provider Hospitalist; Emergency Provider Emergency Medicine; PCP Family Medicine Geriatric Medicine; Visit Provider Student in an Organized Health Care Education/Training Program
DX: U07.1 COVID-19 (principal); J12.89 Other viral pneumonia; J96.01 Acute respiratory failure with hypoxia; J44.0 Chronic obstructive pulmonary disease with (acute) lower respiratory infection; Z85.21 Personal history of malignant neoplasm of larynx; Z93.0 Tracheostomy status; Z85.46 Personal history of malignant neoplasm of prostate; E03.9 Hypothyroidism, unspecified; E78.5 Hyperlipidemia, unspecified; Z87.891 Personal history of nicotine dependence
CPT/HCPCS: 36415; 71045; 71275; 80048; 80053; 80076; 82550; 83615; 83880; 84145; 84484; 85025; 85027; 85379; 85610; 86900; 86901; 87635; 93005; 97110; 97166; 97535; 97802; 99285; J7030; J7040; J7050; Q9967; A4216; U0002

== ENCOUNTER → 2020-04-03 | Outpatient (CLI) | payer OTHER, MEDICARE, SELFPAY ==
[2020-04-03 15:27] LABS: PSA,Total- Diagnostic < 0.01 ng/mL (0.0-4.0)
== END | disposition home or self-care (01) ==
LOC: LAB 13:41
PROVIDERS: PCP Family Medicine Geriatric Medicine; Referring Provider Urology; Visit Provider Urology
DX: C61 Malignant neoplasm of prostate (principal)
CPT/HCPCS: 36415; 84153

== ENCOUNTER → 2020-04-27 10:32 | Outpatient (CLI) | payer OTHER, MEDICARE, SELFPAY ==
[2020-04-27 12:23] LABS: Absolute Lymphocyte Count 0.64 X10^3/uL (0.83-4.51); Absolute Neutrophil Count 2.9 X10^3/uL (2.0-7.7); Basophil# 0.05 X10^3/uL; Basophil% 1.2 % (0-1); Eosinophil# 0.15 X10^3/uL; Eosinophils% 3.5 % (0-5); Hematocrit 37.2 % (40-54); Hemoglobin 12.2 g/dL (13.0-16.5); Lymphocyte # 0.64 X10^3/ul (4.0); Lymphocyte % 15.1 % (19-41); Mean Corp Hgb Conc 32.8 g/dL (32-36); Mean Corpuscular Hgb 29.5 pg (27.0-32.0); Mean Corpuscular Volume 90.1 fL (80-94); Mean Platelet Vol. 10.8 fl (6.2-12.0); Monocyte# 0.46 X10^3/uL; Monocyte% 10.9 % (0-10); NRBC Flagged by Analyzer 0 % (0-5); Neutrophil # 2.92 X10^3/uL (2.7-7.7); Neutrophil % 69.1 % (47-70); Platelet Count 220 K/mm3 (150-450); RBC Distribution Width CV 14.3 % (11.6-14.6); Red Blood Count 4.13 M/mm3 (4.6-6.2); White Blood Count 4.2 K/mm3 (4.4-11.0)
[2020-04-27 12:42] LABS: Vitamin D,25 Hydroxy 9.9 ng/mL
[2020-04-27 12:45] LABS: ALB/GLOB Ratio 1.1 RATIO (0.9-2.4); AST(SGOT) 19 U/L (15-37); Alanine Aminotransfer ALT/SGPT 28 U/L (16-61); Albumin, Serum 3.8 g/dL (3.2-5.0); Alkaline Phosphatase 70 U/L (45-117); Anion Gap 6 (5-15); BUN 19 mg/dL (7-18); BUN/Creat Ratio 17.6 RATIO (10-20); Calcium,Total 9.2 mg/dL (8.5-10.1); Chloride 109 mmol/L (98-107); Creatinine, Serum 1.08 mg/dL (0.70-1.30); EST Glomerular Filtration Rate 71 mL/min (>60); Est Glom Filt Rate - Afr Amer 86 mL/min (>60); Globulin 3.6 g/dL (2.2-4.2); Glucose 93 mg/dL (74-106); Potassium 4.1 mmol/L (3.5-5.1); Protein, Total 7.4 g/dL (6.4-8.2); Sodium Level 141 mmol/L (136-145); Thyroid Stim Hormone (TSH) 1.23 uIU/mL (0.358-3.74)
== END ==
PROVIDERS: PCP Family Medicine Geriatric Medicine; Visit Provider Family Medicine Geriatric Medicine
DX: E55.9 Vitamin D deficiency, unspecified (principal); R53.83 Other fatigue
CPT/HCPCS: 36415; 80053; 82306; 84443; 85025

== ENCOUNTER 2020-06-28 14:03 | Observation (INO) | payer OTHER, MEDICARE, SELFPAY ==
[2020-06-28] VITALS (10 sets, daily range): BP systolic 93–153; BP diastolic 59–97; PULSE 58–124; RESP 16–21; TEMP 36.1–36.9; O2SAT 94–98; BMI 22.2; BMI 21.0; BMI 21.1
--- NOTE | 2020-06-28 14:31 | CT_ITS ---
STUDY: CT BRAIN WITHOUT CONTRAST REASON FOR EXAM: Male, 75 years old. Fall RADIATION DOSAGE (If Supplied By Facility): CTDIvol = ( 44.99 ) mGy, DLP = ( 880.47 ) mGycm TECHNIQUE: Transaxial CT imaging of the brain was performed without administration of intravenous contrast material. Individualized dose optimization techniques were used for this CT. COMPARISON: 01/13/2012 FINDINGS: Focal posterior scalp swelling/hematoma. Left periorbital soft tissue injury laterally with slight focal subcutaneous emphysema. Normal calvarium. Prominent ventricles and extra-axial spaces with atrophy. Mild white matter microangiopathic ischemic changes of the cerebral hemispheres. Normal basal ganglia and thalami. Normal brainstem. Normal cerebellum. There is no intracranial hemorrhage. There are no findings of an acute ischemic infarction. Normal visualized paranasal sinuses. CT/Brain/Head without Contrast IMPRESSION: Age-related changes of the brain. Focal posterior scalp swelling/hematoma. Left periorbital soft tissue injury laterally with slight focal subcutaneous emphysema. Electronically Signed: Shahriar Cline DO at 16:25 EST Tel [phone], Service support ,
--- NOTE | 2020-06-28 14:32 | CT_ITS ---
STUDY: CT CERVICAL SPINE WITHOUT CONTRAST REASON FOR EXAM: Male, 75 years old. Fall, neck pain RADIATION DOSAGE (If Supplied By Facility): CTDIvol = ( 13.40 ) mGy, DLP = ( 270.30 ) mGycm TECHNIQUE: High resolution transaxial imaging was performed without contrast material. Sagittal and coronal images were reconstructed. Individualized dose optimization techniques were used for this CT. COMPARISON: None FINDINGS: Normal craniovertebral junction. Normal anterior atlantoaxial articulation. Normal odontoid process. Normal vertebral bodies and posterior osseous elements. C2-3: Normal endplates. Normal disc height and morphology. Degenerative left facet hypertrophy. Normal central canal and intervertebral neuroforamina. C3-4: Normal endplates. Normal disc height and morphology. Normal central canal. Facet hypertrophy and uncovertebral spurring narrowing the intervertebral neuroforamina, left more than right. C4-5: Mild spurring at the endplates. Grade 1 spondylolisthesis. Normal disc height and morphology. Normal central canal. Facet hypertrophy and uncovertebral spurring narrowing the left intervertebral neural foramen. C5-6: Mild spurring at the endplates. Slightly narrowed disc height with possible small central disc protrusion. Normal central canal. Uncovertebral spurring narrowing the intervertebral neuroforamina. C6-7: Mild spurring at the endplates. Narrowed disc height. Mild posterior spurring protruding into the central canal. Uncovertebral spurring narrowing the intervertebral neuroforamina. C7-T1: Normal endplates. Normal disc height and morphology. Normal central canal and intervertebral neuroforamina. Normal visualized soft tissue structures. There is a tracheostomy tube in place. CT/Spine Cervical without Contras IMPRESSION: Degenerative changes and discogenic disease as noted of the cervical spine. Electronically Signed: Shahriar Cline DO at 16:19 EST Tel [phone], Service support ,
--- NOTE | 2020-06-28 14:32 | EKG12_ITS ---
Test Reason : FALL Blood Pressure : / mmHG Vent. Rate : 085 BPM Atrial Rate : 085 BPM P-R Int : 122 ms QRS Dur : 088 ms QT Int : 368 ms P-R-T Axes : 003 031 031 degrees QTc Int : 437 ms Normal sinus rhythm Normal ECG Confirmed by APOLONIA CHOU, RUIZ ([id number]), makeup editor AZALIA TELLEZ ([id number]) on 07/03/2020 2:18:02 PM Referred By: MEIR Confirmed By:RUIZ BARKSDALE MD
[2020-06-28 14:57] LABS: Absolute Neutrophil Count 2.3 X10^3/uL (2.0-7.7); Basophil# 0.04 X10^3/uL; Basophil% 1.1 % (0-1); Eosinophil# 0.19 X10^3/uL; Eosinophils% 5.1 % (0-5); Hematocrit 37.3 % (40-54); Hemoglobin 12.1 g/dL (13.0-16.5); Lymphocyte % 18.9 % (19-41); Mean Corp Hgb Conc 32.4 g/dL (32-36); Mean Corpuscular Hgb 29.2 pg (27.0-32.0); Mean Corpuscular Volume 89.9 fL (80-94); Mean Platelet Vol. 10.5 fl (6.2-12.0); Monocyte# 0.51 X10^3/uL; Monocyte% 13.7 % (0-10); NRBC Flagged by Analyzer 0 % (0-5); Neutrophil # 2.25 X10^3/uL (2.7-7.7); Neutrophil % 60.7 % (47-70); Platelet Count 248 K/mm3 (150-450); RBC Distribution Width CV 13.2 % (11.6-14.6); RBC Distribution Width SD 43.2 fl (35.1-43.9); Red Blood Count 4.15 M/mm3 (4.6-6.2); White Blood Count 3.7 K/mm3 (4.4-11.0)
[2020-06-28 15:06] LABS: Anion Gap 5 (5-15); BUN 16 mg/dL (7-18); BUN/Creat Ratio 15.7 RATIO (10-20); Calcium,Total 9.4 mg/dL (8.5-10.1); Chloride 109 mmol/L (98-107); Creatinine, Serum 1.02 mg/dL (0.70-1.30); EST Glomerular Filtration Rate 76 mL/min (>60); Est Glom Filt Rate - Afr Amer 92 mL/min (>60); Estimated Creatinine Clearance 58.77 ml/min; Glucose 102 mg/dL (74-106); Potassium 3.5 mmol/L (3.5-5.1); Sodium Level 141 mmol/L (136-145)
--- NOTE | 2020-06-28 16:00 | RAD_ITS ---
STUDY: X-RAY - LEFT SHOULDER REASON FOR EXAM: Male, 75 years old. Fall TECHNIQUE: 2 view(s) of the shoulder. COMPARISON: None. FINDINGS: Elevated humerus at the glenohumeral articulation. Rotator cuff injury cannot be excluded. Mild degenerative changes at acromioclavicular joint. Normal acromion. Normal humeral head and visualized proximal humerus. The soft tissue structures are unremarkable. Normal visualized pulmonary apex. RAD/Shoulder min 2 Views IMPRESSION: Elevated humerus at the glenohumeral articulation. Rotator cuff injury cannot be excluded. Mild degenerative changes at acromioclavicular joint. Electronically Signed: Shahriar Cline DO at 16:28 EST Tel [phone], Service support ,
--- NOTE | 2020-06-28 17:12 | ED.DCSUM_ITS ---
- ER Visit Summary Date of Service: 06/28/20 Chief Complaint: Syncopal episode History of Present Illness: The patient is a 75 M presenting after syncopal episode. Patient states he was getting his her medications. The next thing he remembers he woke up on the floor. He denies any chest pain or shor tness of breath preceding this. Denies lightheadedness or dizziness. He has a laceration to his left face and posterior scalp. He is not on anticoagulants. He was diagnosed with Covid in February and has since recovered. Physical Examination: Vitals are stable. Patient is afebrile. Alert no acute distress. HEENT exam posterior scalp hematoma with 1 cm laceration, 2 cm stellate laceration left face Neck is nontender Lungs are clear and equal bilaterally. Heart is regular rate and rhythm. Abdomen is soft nontender nondistended. Extremities mild anterior left shoulder tenderness with active full range of motion Skin is warm and dry. No focal neurologic deficit. Remainder of exam is unremarkable. Emergency Department Course and Treatment: EKG is sinus rhythm rate of 85 with no acute ischemic changes. CT head shows age-related changes of the brain. Focal posterior scalp swelling/hematoma. Left periorbital soft tissue injury laterally with slight focal subcutaneous emphysema. CT neck shows no fracture. Left shoulder x-ray shows no fracture, rotator cuff injury not excluded. CBC, chemistries unremarkable. Troponin is negative. Laceration was irrigated and repaired. 5, 3-0 simple sutures were placed in posterior scalp. Bleeding is controlled. 5, 5-0 simple sutures were placed in the left face. He was given Adacel IM. Due to his syncopal episode, discussed with hospitalist for observation. Disposition: Admission Impression: Syncopal episode, posterior scalp hematoma, posterior scalp laceration, left face laceration, laceration repair This note was generated with [employer]ir[employer] dictation software. It may contain incorrect words, spelling, and punctuation that were not noted in review of the chart prior to signing ED Disposition - Plan for ED Patient: Referrals: Andreas Evangelista Chi, MD [Primary Care Provider] -
[2020-06-28] MEDS: Diphth,Pertuss(Acell),Tet Vac 0.5 ML Vial IM (17:41)
--- NOTE | 2020-06-28 17:42 | HP.PCM_ITS ---
<Eugenia Davis - Last Filed: 06/28/20 18:02> Problem List (1) Syncope Status: Acute (2) Laceration of head Status: Acute (3) Laceration of face without complication Status: Acute (4) Hypothyroidism Status: Chronic (5) HLD (hyperlipidemia) Status: Chronic (6) History of laryngeal cancer Status: Acute (7) History of prostate cancer Status: Acute History of Present Illness Date of Admission: 06/28/20 Chief Complaint: syncope, facial and head lacerations The patient is a 75 year old M who presents today following a syncopal episode. Patient also presents with a facial laceration to the left lateral eye and posterior head. Patient reports that these syncopal episodes have happened a couple times over the past 3 to 4 months. Patient denies dizziness or auras prior to syncopal episodes. Patient reports after for syncopal episode approximately 3 months ago his PCP changed his prostate medications but patient continues to be syncopal. Patient denies fatigue, weight loss, fever, chills, nausea, insert after vomiting. Past Medical History Past Medical History (Chronic Problems): Chronic Problems Hypothyroidism (Chronic) HLD (hyperlipidemia) (Chronic) Allergies amoxicillin Allergy (Verified 06/28/20 14:10) Rash Penicillins Allergy (Verified 06/28/20 14:10) Unknown Sulfa (Sulfonamide Antibiotics) Allergy (Verified 06/28/20 14:10) BP drops Home Medications: Ambulatory Orders Medication Instructions Recorded Atorvastatin Calcium [Lipitor] 40 mg PO DAILY 05/10/17 Levothyroxine [Synthroid] 75 mcg PO DAILY 05/10/17 Omeprazole 40 mg PO DAILY 06/28/20 Tamsulosin HCl [Flomax] 0.4 mg PO BID 06/28/20 Surgical History: - - Laryngectomy. Tracheostomy. Psychiatric History: No pertinent psych hx Lives: Spouse/ Significant Other Smoking Status: Former smoker Alcohol: None - Quit drinking 5 years ago Drugs: None - *Family History Maternal History Items: No pertinent history Paternal History Items: Cancer Review of Systems Constitutional: Denies: Chills, Fever, Weight Change, Fatigue HEENT: Denies: Head Aches, Sinus Congestion, Sinus Drainage Cardiovascular: Reports: Light Headedness - After coughing fit, Syncope - A couple of times over past 3 to 4 months. Denies: Chest Pain, Palpitations Respiratory: Reports: Cough - Chronic due to laryngectomy and tracheostomy. Denies: Shortness of Breath, Shortness of breath at rest, Sputum production Gastrointestinal: Denies: Abdominal Pain, Nausea, Vomiting Genitourinary: Denies: Dysuria Musculoskeletal: Denies: Joint Pain, Joint Tenderness Skin: Denies: Rash, Wounds - Laceration to left lateral thigh and posterior head , sutured in ER Neurological: Denies: Balance problems, Blurred vision, Confusion, Focal weakness, Headaches, Incoordination, Numbness, Tingling Psychiatric: Denies: Anxiety, Depression, Homicidal Ideations, Suicidal Ideations Hematologic/ Lymphatic: Denies: Easy Bruising, Easy Bleeding VTE Information - Inpt Only VTE Present on Admission: No VTE Mechan Device Prophylaxis: None VTE Pharm Prophylaxis ordered?: No Reason prophylaxis not ordered:: Treatment Not Indicated Patient Problems: Active and Suspected Problems Syncope (Acute) Laceration of head (Acute) Laceration of face without complication (Acute) History of prostate cancer (Acute) History of laryngeal cancer (Acute) - Physical Exam Vitals/I&O's: Vital Signs Temp Pulse Resp BP Pulse Ox 98.5 F 88 16 127/86 H 94 06/28/20 14:05 06/28/20 16:27 06/28/20 16:27 06/28/20 16:27 06/28/20 16:27 Oxygen Delivery Method Room Air Weight: 146 lb 6.191 oz Body Mass Index (BMI) 22.2 General: Alert, Oriented x3, Cooperative HEENT: Atraumatic, PERRLA, EOMI, Normocephalic Neck: Supple, No JVD, Negative Carotid Bruits Lungs: Clear to auscultation, Normal air movement Cardiovascular: Regular rate, Regular Rhythm, Normal S1, Normal S2, No murmurs Abdomen: Bowel Sounds Present, Soft, Non Tender Extremities: No edema, Capillary Refill Less than 3 Seconds Skin: No rashes, No breakdown, Ulcer/ Wound - Left lateral eye and posterior head, sutured in ER Musculoskeletal: No Tenderness to Palpation of Joints or Extremities Neurological: Cranial nerves II-XII grossly intact Psych/Mental Status: Normal Affect, Appropriate Laboratory Results 06/28/20 : WBC 3.7 L, RBC 4.15 L, Hgb 12.1 L, Hct 37.3 L, MCV 89.9, MCH 29.2, MCHC 32.4, RDW Std Deviation 43.2, RDW Coeff of Chucho 13.2, Plt Count 248, MPV 10.5, Immature Gran % (Auto) 0.500, Neut % (Auto) 60.7, Lymph % (Auto) 18.9 L, Marshall % (Auto) 13.7 H, Eos % (Auto) 5.1 H, Baso % (Auto) 1.1 H, Absolute Neuts (auto) 2.3, Absolute Lymphs (auto) 0.70 L, Nucleated RBC % 0 06/28/20 : Sodium 141, Potassium 3.5, Chloride 109 H, Carbon Dioxide 27.0, Anion Gap 5, BUN 16, Creatinine 1.02, Estim Creat Clear Calc 58.77, Est GFR (MDRD) Af Amer 92, Est GFR (MDRD) Non-Af 76, BUN/Creatinine Ratio 15.7, Glucose 102, Calcium 9.4, Troponin I < 0.015 Assessment/Plan All Active Problems Syncope (Acute) Laceration of head (Acute) Laceration of face without complication (Acute) History of prostate cancer (Acute) History of laryngeal cancer (Acute) Pneumonia due to COVID-19 virus (Acute) 1. Syncope?we will admit for observation. Echocardiogram, physical and Occupational Therapy eval, and cardiac enzymes series ordered. Patient will be placed on telemetry. 2. Laceration to left lateral eye and posterior head?sutured in ER. Received tetanus booster in ER. 3. Lipidemia?stable. Continue atorvastatin. 4. Hypothyroidism-stable. Continue levothyroxine. 5. History of prostate cancer?continue Flomax. 6. History of laryngeal cancer, status post laryngectomy DVT prophylaxis?not indicated This patient was seen by MINA Mathur under the supervision of Dr. Mathews. <Bryce Mathews - Last Filed: 06/28/20 18:36> History of Present Illness The patient is a 75 year old M was on the ground. Patient was getting some medicine for his in the kitchen and the next thing he knows he is on the other side of the room not knowing how he got there. Patient was in the room but unable to tell him any details about what happened. He is unsure if he tripped over something. He had no warning when this event occurred. He did hit his head and sustained lacerations which were sutured in the emergency room. He has had other episodes and has hit his head and other times other episodes where he did feel that he was falling and feeling dizzy but he denies feeling dizzy with this episode. Patient's had some recent changes to his prostate medications which he had been on doxycycline and it was felt to be causing his dizziness and vertigo and that was stopped. Patient states that he has been eating and drinking well and has been putting on weight. [] Past Medical History Allergies amoxicillin Allergy (Verified 06/28/20 14:10) Rash Penicillins Allergy (Verified 06/28/20 14:10) Unknown Sulfa (Sulfonamide Antibiotics) Allergy (Verified 06/28/20 14:10) BP drops Surgical History: - Psychiatric History: No pertinent psych hx Lives: Spouse/ Significant Other Smoking Status: Former smoker Alcohol: None Drugs: None - *Family History Maternal History Items: No pertinent history Paternal History Items: Cancer Review of Systems Constitutional: Denies: Chills, Fever, Weight Change, Fatigue HEENT: Denies: Head Aches, Sinus Congestion, Sinus Drainage Cardiovascular: Reports: Light Headedness, Syncope. Denies: Chest Pain, Palpitations Respiratory: Reports: Cough. Denies: Shortness of Breath, Shortness of breath at rest, Sputum production Gastrointestinal: Denies: Abdominal Pain, Nausea, Vomiting Genitourinary: Denies: Dysuria Musculoskeletal: Denies: Joint Pain, Joint Tenderness Skin: Denies: Rash, Wounds Neurological: Denies: Balance problems, Blurred vision, Confusion, Focal weakness, Headaches, Incoordination, Numbness, Tingling Psychiatric: Denies: Anxiety, Depression, Homicidal Ideations, Suicidal Ideations Hematologic/ Lymphatic: Denies: Easy Bruising, Easy Bleeding VTE Information - Inpt Only VTE Present on Admission: No VTE Mechan Device Prophylaxis: None VTE Pharm Prophylaxis ordered?: No Reason prophylaxis not ordered:: Treatment Not Indicated - Physical Exam Vitals/I&O's: Vital Signs Temp Pulse Resp BP Pulse Ox 36.1 C L 104 H 16 148/95 H 97 06/28/20 17:49 06/28/20 17:49 06/28/20 17:49 06/28/20 17:49 06/28/20 17:49 Oxygen Delivery Method Room Air Weight: 66.4 kg Body Mass Index (BMI) 22.2 General: Alert, Cooperative, - - Patient frequently suctioning his tracheostomy and mouth. HEENT: Atraumatic, PERRLA, EOMI, Normocephalic Neck: Supple, Negative Carotid Bruits, - - Tracheostomy site clean and intact. Lungs: Clear to auscultation, Normal air movement Cardiovascular: Regular rate, Regular Rhythm, Normal S1, Normal S2 Abdomen: Bowel Sounds Present, Soft, Non Tender Extremities: No edema, No Calf Tenderness Skin: No rashes, No breakdown Musculoskeletal: No Tenderness to Palpation of Joints or Extremities, No Muscle Wasting Neurological: Cranial nerves II-XII grossly intact, Motor Exam 5/5 strength throughout Psych/Mental Status: Normal Affect, Appropriate Laboratory Results 06/28/20 : WBC 3.7 L, RBC 4.15 L, Hgb 12.1 L, Hct 37.3 L, MCV 89.9, MCH 29.2, MCHC 32.4, RDW Std Deviation 43.2, RDW Coeff of Chucho 13.2, Plt Count 248, MPV 10.5, Immature Gran % (Auto) 0.500, Neut % (Auto) 60.7, Lymph % (Auto) 18.9 L, Marshall % (Auto) 13.7 H, Eos % (Auto) 5.1 H, Baso % (Auto) 1.1 H, Absolute Neuts (auto) 2.3, Absolute Lymphs (auto) 0.70 L, Nucleated RBC % 0 06/28/20 : Sodium 141, Potassium 3.5, Chloride 109 H, Carbon Dioxide 27.0, Anion Gap 5, BUN 16, Creatinine 1.02, Estim Creat Clear Calc 58.77, Est GFR (MDRD) Af Amer 92, Est GFR (MDRD) Non-Af 76, BUN/Creatinine Ratio 15.7, Glucose 102, Calcium 9.4, Troponin I < 0.015 Clinical Impression(s) from Imaging Studies Brain CT 06/28/20 14:31 IMPRESSION: Age-related changes of the brain. Focal posterior scalp swelling/hematoma. Left periorbital soft tissue injury laterally with slight focal subcutaneous emphysema. Electronically Signed: Shahriar Cline DO at 16:25 EST Tel [phone], Service support , Cervical Spine CT 06/28/20 14:32 IMPRESSION: Degenerative changes and discogenic disease as noted of the cervical spine. Electronically Signed: Shahriar ClineDO at 16:19 EST Tel [phone], Service support , Shoulder X-Ray 06/28/20 16:00 IMPRESSION: Elevated humerus at the glenohumeral articulation. Rotator cuff injury cannot be excluded. Mild degenerative changes at acromioclavicular joint. Electronically Signed: Shahriarherminia Cline DO at 16:28 EST Tel [phone], Service support , Assessment/Plan Patient seen and examined independently. Data reviewed. I agree with the above note by the nurse practitioner. 1. Syncope Unclear if this is actual syncopal episode or if the patient had a mechanical fall and had concussion and antecedent amnesia or some arrhythmia. Plan: * Check orthostats * Hold tamsulosin * Check EEG though the likelihood of this being seizure is low * Telemetry * Echocardiogram * Patient may need further cardiac monitoring upon discharge. 2. Head laceration In place in the emergency room and did receive a tetanus booster Plan: Patient will need to have these removed in about 7 to 10 days 3. VTE prophylaxis: Not indicated patient is observation status 4. Advanced care planning: Discussed with patient. Patient wished to be full CODE STATUS. OBSV E&M: 42615 Initial observation care L3
--- NOTE | 2020-06-28 18:57 | ECHOD_ITS ---
Reason For Study: SYNCOPE Procedure This was a 2D Doppler, Color Flow transthoracic echocardiogram. The study was technically difficult. Exam performed portable in patient room. Left Ventricle Normal LV size. The estimated ejection fraction is 55-60 %. Left ventricular systolic function is normal. Right Ventricle Normal right ventricle. Normal systolic function. Atria Normal left atrium. Normal right atrium. Mitral Valve There is moderate mitral annular calcification. Tricuspid Valve Normal tricuspid valve. Aortic Valve Normal aortic valve. Pulmonic Valve The pulmonic valve is not well visualized. Great Vessels Normal aortic root. Pericardium/Pleural There is no pericardial constriction. MMode/2D Measurements & Calculations LVIDd: 3.8 cm IVSd: 0.75 cm Ao root diam: 3.3 cm LVIDs: 2.7 cm LVPWd: 0.77 cm RVDd: 3.5 cm FS: 29.8 % LAV(MOD-bp): 28.2 ml LVAd ap4: 29.7 cm2 SV(MOD-sp4): 53.7 ml LAV(MOD-bp) Indexed: 16.2 ml/m2 EDV(MOD-sp4): 92.9 ml LAV(MOD-sp2): 34.7 ml EDV(sp4-el): 96.0 ml LAV(MOD-sp4): 22.9 ml LVAs ap4: 18.4 cm2 ESV(MOD-sp4): 39.2 ml ESV(sp4-el): 40.7 ml EF(MOD-sp4): 57.8 % EF(sp4-el): 57.6 % SV(sp4-el): 55.3 ml LA A4 area: 11.4 cm2 LA dimension(2D): 2.9 cm RA A4 area: 11.5 cm2 Doppler Measurements & Calculations Lat Peak E' Obie: 9.8 cm/sec Med Peak E' Obie: 7.8 cm/sec MV V2 max: 121.0 cm/sec MV max P.9 mmHg MV V2 mean: 72.9 cm/sec MV mean P.3 mmHg MV V2 VTI: 25.1 cm Ao V2 max: 143.0 cm/sec LV V1 max: 136.1 cm/sec TR max obie: 230.9 cm/sec Ao max P.2 mmHg LV V1 max P.4 mmHg TR max P.3 mmHg MV P1/2t-pr_phl: 57.6 msec Interpretation Summary The estimated ejection fraction is 55-60 %. There is moderate mitral annular calcification. There is no pericardial constriction. Left ventricular systolic function is normal. Ordering Physician: Eugenia Davis Performed By: Krista Acosta RDCS, RVT
--- NOTE | 2020-06-28 19:31 | NURSING ---
Pt c/o feeling funny when stood up
--- NOTE | 2020-06-28 19:39 | NURSING ---
attempted to look at back of pt head to visualize the lac but dried blood prevented from seeing it. Attempted to wash pt hair and be able to see the wound. Pt c/o that his head was hurting to much. Will soak it again later
[2020-06-28] MEDS: Acetaminophen 325 MG Tablet 650 MG PO (19:47)
[2020-06-29] VITALS (10 sets, daily range): BP systolic 66–136; BP diastolic 40–84; PULSE 57–109; RESP 16–18; TEMP 36.3–36.9; O2SAT 92–97
[2020-06-29] MEDS: Levothyroxine 75 MCG Tablet PO (05:23)
--- NOTE | 2020-06-29 05:33 | PCM.PN.BLA ---
Progress Note Patient with a significant orthostasis. Normal saline 500 mL bolus and then 100 mL/h for 1 L. STROKE Vital Signs/Narrative: Vital Signs Temp Pulse Pulse Pulse Pulse Resp BP 06/29/20 05:20 97.7 F L 71 71 94 102 H 18 131/76 H 06/29/20 03:19 57 L BP BP BP Pulse Ox 06/29/20 05:20 131/76 H 118/73 66/40 L 97 06/29/20 03:19
[2020-06-29] MEDS: 0.9% Normal Saline 1,000 ML 100 ML IV ×2 (06:00→16:10)
--- NOTE | 2020-06-29 09:09 | TELEMED_ITS ---
[facility] Tele[facility] has confirmed receipt of a request for visit. This document confirms receipt of the order initiating the consult. To find the results of the consultation, please view the patient's reports for the scanned Telemed Consult.
[2020-06-29] MEDS: Pantoprazole Sodium 40 MG Tablet PO (09:33)
--- NOTE | 2020-06-29 12:38 | PCM.PROGNOTE ---
Patient Problems: Active and Suspected Problems Syncope (Acute) Laceration of head (Acute) Subjective: Chief complaint: Follow-up after admission for syncope, found to have orthostatic hypotension, closed head trauma and scalp/left cheek laceration. Patient seen and examined. No acute events overnight. Today, he is feeling better. He denies any dizziness. Denied chest pain or shortness of breath. He states that he was standing yesterday and also, he passed out. Today, orthostatic vitals are still positive. Other vital signs are stable. - Physical Exam Vitals/I&O's: Vital Signs Temp Pulse Resp BP Pulse Ox 98 F 84 16 128/66 H 95 06/29/20 12:28 06/29/20 12:17 06/29/20 12:28 06/29/20 12:17 06/29/20 12:28 Oxygen Delivery Method Room Air Weight: 138 lb 7.205 oz Body Mass Index (BMI) 21.0 Orthostatic Vital Signs Start: 06/28/20 19:29 Freq: 0600 Status: Active Protocol: Activity Type Activity Date Activity User E-Sign Co-Sign Detail Recorded Client Recorded Date Recorded By Document 06/29/20 12:17 DS [id number] 06/29/20 12:23 DS 06/29/20 12:17 Orthostatic Vitals Standing -Blood Pressure (90/60-120/80) 89/55 L -Extremity Use Left Arm -Pulse Rate (60-100) 109 H Sitting -Blood Pressure (90/60-120/80) 110/59 L -Extremity Use Left Arm -Pulse Rate (60-100) 93 Lying -Blood Pressure (90/60-120/80) 128/66 H -Extremity Use Left Arm -Pulse Rate (60-100) 84 Intake and Output for Last 24 Hours 06/27/20 06/28/20 06/29/20 23:59 23:59 23:59 Intake Total 120 / 120 1040 / 1040 Output Total 400 / 400 500 / 500 Balance -280 / -280 540 / 540 General: Oriented x3, Cooperative, No apparent distress, - - Traumatic, scalp and left cheek laceration. HEENT: PERRLA, EOMI, Normocephalic Oral: Moist Mucosa, No Gingival or Mucosal Lesions/ Ulcerations Neck: Supple, No JVD, Negative Carotid Bruits, Trachea Midline, Thyroid Normal Size and Texture, - - Tracheostomy opening. Lungs: Clear to auscultation, No wheeze, No rales, Diminished, Rhonchi Cardiovascular: Regular rate, Regular Rhythm, Normal S1, Normal S2, PMI Normal Abdomen: Bowel Sounds Present, Soft, Non Tender, Non-Distended, No Hepato-splenomegaly Extremities: No clubbing, No cyanosis, No edema Skin: No rashes, No breakdown Lymphatic: No Cervical, Supraclavicular, or Inguinal Adenopathy Neurological: Cranial nerves II-XII grossly intact, Motor Exam 5/5 strength throughout Psych/Mental Status: Normal Affect, Appropriate, Alert and oriented to time, place, person, mood and affect Laboratory Results 06/28/20 20:45: Troponin I < 0.015 06/28/20 23:40: Troponin I < 0.015 06/28/20 : WBC 3.7 L, RBC 4.15 L, Hgb 12.1 L, Hct 37.3 L, MCV 89.9, MCH 29.2, MCHC 32.4, RDW Std Deviation 43.2, RDW Coeff of Chucho 13.2, Plt Count 248, MPV 10.5, Immature Gran % (Auto) 0.500, Neut % (Auto) 60.7, Lymph % (Auto) 18.9 L, Russell % (Auto) 13.7 H, Eos % (Auto) 5.1 H, Baso % (Auto) 1.1 H, Absolute Neuts (auto) 2.3, Absolute Lymphs (auto) 0.70 L, Nucleated RBC % 0 06/28/20 : Sodium 141, Potassium 3.5, Chloride 109 H, Carbon Dioxide 27.0, Anion Gap 5, BUN 16, Creatinine 1.02, Estim Creat Clear Calc 58.77, Est GFR (MDRD) Af Amer 92, Est GFR (MDRD) Non-Af 76, BUN/Creatinine Ratio 15.7, Glucose 102, Calcium 9.4, Troponin I < 0.015 Clinical Impression(s) from Imaging Studies Brain CT 06/28/20 14:31 IMPRESSION: Age-related changes of the brain. Focal posterior scalp swelling/hematoma. Left periorbital soft tissue injury laterally with slight focal subcutaneous emphysema. Electronically Signed: Shahriar Cline DO at 16:25 EST Tel [phone], Service support , Cervical Spine CT 06/28/20 14:32 IMPRESSION: Degenerative changes and discogenic disease as noted of the cervical spine. Electronically Signed: Shahriar DO Son at 16:19 EST Tel [phone], Service support , Shoulder X-Ray 06/28/20 16:00 IMPRESSION: Elevated humerus at the glenohumeral articulation. Rotator cuff injury cannot be excluded. Mild degenerative changes at acromioclavicular joint. Electronically Signed: Shahriar Cline DO at 16:28 EST Tel [phone], Service support , Current Medications Acetaminophen (Acetaminophen 325 Mg Tablet) 650 mg PO Q6H PRN PRN PRN Reason: Pain Score 1-10/Temp > 100.7 F Last Admin: 06/28/20 19:47 Dose: 650 mg Documented by: Atorvastatin Calcium (Atorvastatin Calcium 40 Mg Tablet) 40 mg PO QHS [facility] Sodium Chloride () 1,000 mls @ 100 mls/hr IV .Q10H [facility] Stop: 06/29/20 16:30 Last Admin: 06/29/20 06:00 Dose: 100 mls/hr Documented by: Levothyroxine Sodium (Levothyroxine 75 Mcg Tablet) 75 mcg PO DAILY@0600 [facility] Last Admin: 06/29/20 05:23 Dose: 75 mcg Documented by: Melatonin (Melatonin 3 Mg Tablet) 3 mg PO QHS PRN PRN PRN Reason: INSOMNIA Ondansetron HCl (Ondansetron 4 Mg/2 Ml Vial) 4 mg IV Q8H PRN PRN PRN Reason: NAUSEA/VOMITING Pantoprazole Sodium (Pantoprazole Sodium 40 Mg Tablet) 40 mg PO DAILY [facility] Last Admin: 06/29/20 09:33 Dose: 40 mg Documented by: Sodium Chloride (0.9% Saline Lock 10 Ml Syringe) 10 - 40 ml IV UD PRN PRN Reason: SALINE FLUSH Medical Necessity - Tobacco Use Smoking Status: Former smoker Tobacco Use: Cigarettes Assessment/Plan All Active Problems Syncope (Acute) Laceration of head (Acute) This is a 75 years old male patient presented to the emergency room because of syncope, found to have orthostatic hypotension, had closed head trauma with scalp laceration and he was admitted for evaluation and treatment. #1 syncope: Attributed to orthostatic hypotension. Blood pressure dropped significantly upon standing. Other vital signs are stable. EKG revealed normal sinus rhythm, normal LA interval, normal QRS, no evidence of acute segment changes or cardiac arrhythmias. CT scan brain showed no acute findings. CT scan cervical spine showed no acute fracture or dislocation. Patient has been receiving IV fluids. Plan: 2D echocardiogram, monitoring, repeat orthostatic vitals tomorrow, anticipate discharge home tomorrow if blood pressure improves. #2 closed head trauma/scalp and left cheek laceration: Secondary to fall because of syncope. Imaging study of CT scan brain and CT scan cervical spine showed no acute findings. Scalp and face lacerations was sutured, no active bleeding. #3 hypothyroidism: Stable, continue levothyroxine. #4 hyperlipidemia: Continue statins. #5 benign prostatic hypertrophy: Stable, continue Flomax. #6 history of laryngeal cancer: Status post radiation treatment, post tracheostomy. Stable, in remission. #7 history of prostate cancer: Status post radiation treatment, stable. #8 DVT prophylaxis: Subcu Lovenox. This note was generated with panpan dictation software. It may contain incorrect words, spelling, and punctuation that were not noted in checking the note before signing. OBSV E&M: 30314 Subsequent observation care L2
--- NOTE | 2020-06-29 16:03 | CASEMGMT ---
HAI TOM to room with AGUIRRE form, explanation done-pt voiced understanding, and signed AGUIRRE form at this time. Original to chart and pt declined copy at this time. Pt voices no further questions/concerns/needs. SStaten HAI TOM
[2020-06-29] MEDS: Tamsulosin HCl 0.4 MG Capsule PO (16:11)
[2020-06-29] MEDS: Atorvastatin Calcium 40 MG Tablet PO (21:02)
[2020-06-30 03:00] VITALS: PULSE 83
[2020-06-30 03:30] VITALS: BP 136/75; PULSE 77; RESP 16; TEMP 36.5; O2SAT 93
[2020-06-30 06:00] VITALS: BP 101/64; BP 131/76; BP 133/75; PULSE 106; PULSE 79; PULSE 90
[2020-06-30] MEDS: Levothyroxine 75 MCG Tablet PO (06:30)
[2020-06-30 07:09] VITALS: PULSE 69
[2020-06-30 07:15] VITALS: O2SAT 92
[2020-06-30] MEDS: Tamsulosin HCl 0.4 MG Capsule PO (08:12)
[2020-06-30] MEDS: Pantoprazole Sodium 40 MG Tablet PO (08:12)
--- NOTE | 2020-06-30 08:15 | DCINST_ITS ---
- Discharge Diagnoses Current Active Problems: Current Active and Chronic Problems Syncope (Acute) Laceration of head (Acute) History of prostate cancer (Chronic) History of laryngeal cancer (Chronic) Hypothyroidism (Chronic) HLD (hyperlipidemia) (Chronic) You will use the following diet at home:: Regular Your food should be the consistency of: Regular Discharge Activity: Return to Normal Activity Weight Bearing Status: Weight bearing as tolerated Call your doctor if you observe: Fever of 101 or Higher, Shortness of breath, Dizziness, Fainting spells, Chest pain, Increased palpitations (irregular heartbeat), Calf discomfort, Uncontrolled pain Allergies/Adverse Reactions: Allergies amoxicillin Allergy (Verified 06/28/20 14:10) Rash Penicillins Allergy (Verified 06/28/20 14:10) Unknown Sulfa (Sulfonamide Antibiotics) Allergy (Verified 06/28/20 14:10) BP drops Medications to take at Discharge Atorvastatin Calcium [Lipitor] 40 mg PO DAILY 05/10/17 Levothyroxine [Synthroid] 75 mcg PO DAILY 05/10/17 Omeprazole 40 mg PO DAILY 06/28/20 Tamsulosin HCl [Flomax] 0.4 mg PO BID 06/28/20 Primary Care Physician: Andreas Evangelista Chi, MD [Primary Care Provider] - Please follow up with your Primary Care Physician in: 1 week. Test Results: Test results from this visit will be discussed in further detail at your follow- up appointment, if applicable.
[2020-06-30 09:06] VITALS: BP 120/75; PULSE 84; RESP 14; TEMP 37; O2SAT 94
--- NOTE | 2020-06-30 09:43 | PHA.DC.MR ---
Pharmacy Service has performed discharge medication reconciliation for this patient. No new medications issued at time of discharge. medications reviewed are from previously reported home medications. Home Medications Atorvastatin Calcium [Lipitor] 40 mg PO DAILY 05/10/17 Levothyroxine [Synthroid] 75 mcg PO DAILY 05/10/17 Omeprazole 40 mg PO DAILY 06/28/20 Tamsulosin HCl [Flomax] 0.4 mg PO BID 06/28/20 The patient's discharge medication list was reviewed for discrepancies and discrepancies were resolved.
--- NOTE | 2020-06-30 10:08 | DS.PCM_ITS ---
Discharge Date and Diagnosis - Problem List Patient Problems: Active and Suspected Problems Syncope (Acute) Laceration of head (Acute) Date of Admission: 06/28/20 Date of Discharge: 06/30/20 - Primary Discharge Diagnosis Acute Problems: Active Problems #1 syncopal episode. #2 orthostatic hypotension. #3 closed head trauma/scalp and left cheek laceration, sutured. - Secondary Discharge Diagnosis Chronic Problems: Chronic Problems History of prostate cancer (Chronic) History of laryngeal cancer (Chronic) Hypothyroidism (Chronic) HLD (hyperlipidemia) (Chronic) Hospital Course and Treatment Imaging Results: Clinical Impression(s) from Imaging Studies Brain CT 06/28/20 14:31 IMPRESSION: Age-related changes of the brain. Focal posterior scalp swelling/hematoma. Left periorbital soft tissue injury laterally with slight focal subcutaneous emphysema. Electronically Signed: Shahriar Cline DO at 16:25 EST Tel [phone], Service support , Cervical Spine CT 06/28/20 14:32 IMPRESSION: Degenerative changes and discogenic disease as noted of the cervical spine. Electronically Signed: Shahriar Cline DO at 16:19 EST Tel [phone], Service support , Shoulder X-Ray 06/28/20 16:00 IMPRESSION: Elevated humerus at the glenohumeral articulation. Rotator cuff injury cannot be excluded. Mild degenerative changes at acromioclavicular joint. Electronically Signed: Shahriar Cline DO at 16:28 EST Tel [phone], Service support , Operations: None Procedures: 2-D Echocardiogram, Electroencephalogram, EKG Summary of Care Provided: Patient seen and examined on day of discharge and appeared to be stable to be discharged home. He had no symptoms. He had no more syncopal episodes, denies dizziness or lightheadedness. He has been ambulating. Repeat orthostatic vitals revealed blood pressure went down from 130 down to 100 but he was asymptomatic, not tachycardic. Other vital signs were stable. The patient is a 75 year old M presented to the emergency room because of syncope and he was found to have orthostatic hypotension also found to have head trauma with laceration of the scalp and left cheek. The syncopal episode attributed to orthostatic hypotension. Initial orthostatic vitals revealed that the blood pressure dropped significantly. EKG revealed normal sinus rhythm, normal NV interval, normal QRS, no evidence of acute ischemic changes or cardiac arrhythmias. CT scan brain showed no acute findings. CT scan cervical spine showed no acute fractures or dislocations. Patient was treated with IV fluids. 2D echocardiogram done and showed ejection fraction of 55 to 60%. EEG was done and was normal without evidence of epileptic focus or abnormalities. Repeat orthostatic vitals on the day of discharge reviewed as above. Patient had no symptoms during that time. He felt better. Patient discharged home in a stable medical condition, discharged on his same previous medications without any changes, instructed to ambulate slowly, go slow when going from sitting to standing position, recommended follow-up with PCP in 1 week. Patient Problems: Active and Suspected Problems Syncope (Acute) Laceration of head (Acute) - Physical Exam Vitals/I&O's: Vital Signs Temp Pulse Resp BP Pulse Ox 98.6 F 84 14 120/75 94 06/30/20 09:06 06/30/20 09:06 06/30/20 09:06 06/30/20 09:06 06/30/20 09:06 Oxygen Delivery Method Room Air Weight: 138 lb 7.205 oz Body Mass Index (BMI) 21.0 Orthostatic Vital Signs Start: 06/28/20 19:29 Freq: 0600 Status: Active Protocol: Activity Type Activity Date Activity User E-Sign Co-Sign Detail Recorded Client Recorded Date Recorded By Document 06/30/20 06:00 MY [id number] 06/30/20 06:33 MY 06/30/20 06:00 Orthostatic Vitals Standing -Blood Pressure (90/60-120/80) 101/64 -Extremity Use Left Arm -Pulse Rate (60-100) 106 H Sitting -Blood Pressure (90/60-120/80) 133/75 H -Extremity Use Left Arm -Pulse Rate (60-100) 90 Lying -Blood Pressure (90/60-120/80) 131/76 H -Extremity Use Left Arm -Pulse Rate (60-100) 79 Intake and Output for Last 24 Hours 06/28/20 06/29/20 06/30/20 23:59 23:59 23:59 Intake Total 120 / 120 2440 / 2560 1240 / 1240 Output Total 400 / 400 500 / 1750 1850 / 1850 Balance -280 / -280 1940 / 810 -610 / -610 General: Alert, Oriented x3, Cooperative, No apparent distress HEENT: Atraumatic, PERRLA, EOMI, Normocephalic, - - Tracheostomy opening. Oral: Moist Mucosa, No Gingival or Mucosal Lesions/ Ulcerations Neck: Supple, No JVD, Negative Carotid Bruits, Trachea Midline, Thyroid Normal Size and Texture Lungs: No rhonchi, No wheeze, No rales, Diminished, Rhonchi Cardiovascular: Regular rate, Regular Rhythm, Normal S1, Normal S2, PMI Normal Abdomen: Bowel Sounds Present, Soft, Non Tender, Non-Distended, No Hepato- splenomegaly Extremities: No clubbing, No cyanosis, No edema Skin: No rashes, No breakdown Lymphatic: No Cervical, Supraclavicular, or Inguinal Adenopathy Neurological: Cranial nerves II-XII grossly intact, Neuro grossly intact Psych/Mental Status: Normal Affect, Appropriate Current Medications Acetaminophen (Acetaminophen 325 Mg Tablet) 650 mg PO Q6H PRN PRN PRN Reason: Pain Score 1-10/Temp > 100.7 F Last Admin: 06/28/20 19:47 Dose: 650 mg Documented by: Atorvastatin Calcium (Atorvastatin Calcium 40 Mg Tablet) 40 mg PO QHS [facility] Last Admin: 06/29/20 21:02 Dose: 40 mg Documented by: Enoxaparin Sodium (Enoxaparin 40 Mg/0.4 Ml Syringe) 40 mg SC DAILY [facility] Levothyroxine Sodium (Levothyroxine 75 Mcg Tablet) 75 mcg PO DAILY@0600 [facility] Last Admin: 06/30/20 06:30 Dose: 75 mcg Documented by: Melatonin (Melatonin 3 Mg Tablet) 3 mg PO QHS PRN PRN PRN Reason: INSOMNIA Ondansetron HCl (Ondansetron 4 Mg/2 Ml Vial) 4 mg IV Q8H PRN PRN PRN Reason: NAUSEA/VOMITING Pantoprazole Sodium (Pantoprazole Sodium 40 Mg Tablet) 40 mg PO DAILY [facility] Last Admin: 06/30/20 08:12 Dose: 40 mg Documented by: Sodium Chloride (0.9% Saline Lock 10 Ml Syringe) 10 - 40 ml IV UD PRN PRN Reason: SALINE FLUSH Tamsulosin HCl (Tamsulosin Hcl 0.4 Mg Capsule) 0.4 mg PO BID@0830,1730 [facility] Last Admin: 06/30/20 08:12 Dose: 0.4 mg Documented by: Discharge Activity: Return to Normal Activity Weight Bearing Status: Weight bearing as tolerated Call your doctor if you observe: Fever of 101 or Higher, Shortness of breath, Dizziness, Fainting spells, Chest pain, Increased palpitations (irregular heartbeat), Calf discomfort, Uncontrolled pain Home Medications: Medications to take at Discharge Atorvastatin Calcium [Lipitor] 40 mg PO DAILY 05/10/17 Levothyroxine [Synthroid] 75 mcg PO DAILY 05/10/17 Omeprazole 40 mg PO DAILY 06/28/20 Tamsulosin HCl [Flomax] 0.4 mg PO BID 06/28/20 Primary Care Physician: Andreas Evangelista Chi, MD [Primary Care Provider] - Please follow up with your Primary Care Physician in: 1 week. Disposition: Home Minutes spent on discharge:: 27 Patient Condition:: Stable Medical Necessity - Tobacco Use Smoking Status: Former smoker Tobacco Use: Cigarettes Meaningful Use Info Meaningful Use Diagnoses (Choose all that apply): None applicable OBSV E&M: 84110 Observation care discharge
== END 2020-06-30 08:16 | disposition home or self-care (01) ==
LOC: ED 14:58 → PCU 17:44
PROVIDERS: Emergency Provider Emergency Medicine; PCP Family Medicine Geriatric Medicine; Visit Provider Hospitalist
DX: I95.1 Orthostatic hypotension (principal); S01.01XA Laceration without foreign body of scalp, initial encounter; S01.412A Laceration without foreign body of left cheek and temporomandibular area, initial encounter; W19.XXXA Unspecified fall, initial encounter; Y93.9 Activity, unspecified; Y92.9 Unspecified place or not applicable; Y99.9 Unspecified external cause status; Z23 Encounter for immunization; E03.9 Hypothyroidism, unspecified; E78.5 Hyperlipidemia, unspecified; Z87.891 Personal history of nicotine dependence; Z86.16 Personal history of COVID-19; Z85.21 Personal history of malignant neoplasm of larynx; Z85.46 Personal history of malignant neoplasm of prostate; Z79.899 Other long term (current) drug therapy; N40.0 Benign prostatic hyperplasia without lower urinary tract symptoms; Z92.3 Personal history of irradiation
CPT/HCPCS: 12001; 12011; 36415; 70450; 72125; 73030; 80048; 84484; 85025; 90471; 90715; 93005; 93306; 95819; 96360; 96361; 97162; 97166; 97530; 97802; 99218; 99285; J7030; J7040; G0378

== ENCOUNTER → 2020-10-04 15:46 | Outpatient (CLI) | payer OTHER, MEDICARE, SELFPAY ==
[2020-06-28 18:40] VITALS: BMI 21.0
[2020-10-04 16:41] LABS: PSA,Total- Diagnostic < 0.01 ng/mL (0.0-4.0)
== END ==
PROVIDERS: PCP Family Medicine Geriatric Medicine; Visit Provider Urology
DX: C61 Malignant neoplasm of prostate (principal)
CPT/HCPCS: 36415; 84153

== ENCOUNTER → 2020-11-01 14:45 | Outpatient (CLI) | payer OTHER, MEDICARE, SELFPAY ==
[2020-06-28 18:40] VITALS: BMI 21.0
[2020-11-01 17:18] LABS: Absolute Lymphocyte Count 0.76 X10^3/uL (0.83-4.51); Basophil# 0.04 X10^3/uL; Basophil% 1.2 % (0-1); Eosinophil# 0.16 X10^3/uL; Eosinophils% 4.7 % (0-5); Hematocrit 40.4 % (40-54); Lymphocyte # 0.76 X10^3/ul (0.83-4.51); Lymphocyte % 22.4 % (19-41); Mean Corp Hgb Conc 32.2 g/dL (32-36); Mean Corpuscular Hgb 28.4 pg (27.0-32.0); Mean Corpuscular Volume 88.4 fL (80-94); Mean Platelet Vol. 10.4 fl (6.2-12.0); Monocyte# 0.48 X10^3/uL; Monocyte% 14.2 % (0-10); NRBC Flagged by Analyzer 0 % (0-5); Neutrophil # 1.95 X10^3/uL (2.7-7.7); Neutrophil % 57.5 % (47-70); Platelet Count 221 K/mm3 (150-450); RBC Distribution Width SD 45.1 fl (35.1-43.9); Red Blood Count 4.57 M/mm3 (4.6-6.2); White Blood Count 3.4 K/mm3 (4.4-11.0)
[2020-11-01 17:33] LABS: Vitamin D,25 Hydroxy 21.4 ng/mL
[2020-11-01 17:38] LABS: AST(SGOT) 17 U/L (15-37); Alanine Aminotransfer ALT/SGPT 22 U/L (16-61); Albumin, Serum 3.7 g/dL (3.2-5.0); Alkaline Phosphatase 91 U/L (45-117); Anion Gap 5 (5-15); BUN 19 mg/dL (7-18); BUN/Creat Ratio 17.9 RATIO (10-20); Chloride 110 mmol/L (98-107); Creatinine, Serum 1.06 mg/dL (0.70-1.30); EST Glomerular Filtration Rate 72 mL/min (>60); Est Glom Filt Rate - Afr Amer 87 mL/min (>60); Globulin 3.8 g/dL (2.2-4.2); Glucose 84 mg/dL (74-106); Potassium 3.8 mmol/L (3.5-5.1); Protein, Total 7.5 g/dL (6.4-8.2); Sodium Level 141 mmol/L (136-145)
== END ==
PROVIDERS: PCP Family Medicine Geriatric Medicine; Visit Provider Family Medicine Geriatric Medicine
DX: E55.9 Vitamin D deficiency, unspecified (principal); R53.83 Other fatigue
CPT/HCPCS: 36415; 80053; 82306; 84443; 85025

== ENCOUNTER → 2021-04-02 15:36 | Outpatient (CLI) | payer OTHER, MEDICARE, SELFPAY ==
[2021-04-02 16:58] LABS: PSA,Total- Diagnostic < 0.01 ng/mL (0.0-4.0)
== END ==
PROVIDERS: PCP Family Medicine Geriatric Medicine; Referring Provider Urology; Visit Provider Urology
DX: C61 Malignant neoplasm of prostate (principal)
CPT/HCPCS: 36415; 84153

== ENCOUNTER 2021-04-29 19:40 | Emergency (ER) | payer OTHER, MEDICARE, SELFPAY ==
[2021-04-29 19:43] VITALS: BP 141/77; PULSE 94; RESP 19; TEMP 37.6; O2SAT 92; BMI 23.6
[2021-04-29 19:49] VITALS: O2SAT 92
--- NOTE | 2021-04-29 20:00 | CT_ITS ---
EXAMINATION : Head CT w/out contrast HISTORY : head injury COMPARISON : None. TECHNIQUE : Multiple contiguous axial images were obtained from the skull base to the vertex without intravenous contrast. A radiation dose optimization technique was used for this scan. FINDINGS : There is no evidence for acute intracranial hemorrhage, mass effect, or midline shift. There is no extra-axial fluid collection. There are periventricular white matter changes consistent with chronic microvascular ischemic disease. There is sulcal widening and ventricular enlargement consistent with cerebral atrophy. There is normal brooks-white differentiation, without CT evidence of acute ischemia or infarct. The skull base and calvarium are unremarkable. The orbits are unremarkable. The paranasal sinuses are clear. The mastoid air cells are well-aerated. The soft tissues are unremarkable. CT/Brain/Head without Contrast IMPRESSION: No acute intracranial abnormality. Chronic involutional and ischemic changes of the brain. Electronically Signed: Ronny Martinez MD at 21:32 EST Tel , Service support ,
--- NOTE | 2021-04-29 20:00 | EKG12_ITS ---
Test Reason : DYSRHYTHMIA Blood Pressure : / mmHG Vent. Rate : 098 BPM Atrial Rate : 098 BPM P-R Int : 166 ms QRS Dur : 072 ms QT Int : 348 ms P-R-T Axes : 060 029 -09 degrees QTc Int : 444 ms Normal sinus rhythm INCOMPLETE RIGHT BUNDLE BRANCH BLOCK, NONSPECIFIC ST-SEGMENT ABNORMALITY Abnormal ECG Confirmed by APOLONIA CHOU, RUIZ ([id number]), metropolitan editor NIKKY NEGRO ([id number]) on 05/02/2021 10:39:17 AM Referred By: TARA Confirmed By:RUIZ BARKSDALE MD
--- NOTE | 2021-04-29 20:00 | CT_ITS ---
STUDY: CT CERVICAL SPINE WITHOUT CONTRAST REASON FOR EXAM: Male, 76 years old. neck pain RADIATION DOSAGE (If Supplied By Facility): CTDIvol = ( 17.58 ) mGy, DLP = ( 409.37 ) mGycm TECHNIQUE: High resolution transaxial imaging was performed without contrast material. Sagittal and coronal images were reconstructed. Individualized dose optimization techniques were used for this CT. COMPARISON: 06/28/2020. FINDINGS: Normal craniovertebral junction. Normal anterior atlantoaxial articulation. Normal odontoid process. Normal cervical lordosis. No demonstrated fracture. C2-3: Normal disc height and morphology. Normal central canal. Foramina are patent. C3-4: Normal disc height and morphology. Normal central canal. Severe left foraminal stenosis due to uncinate and facet hypertrophy. C4-5: Disc space narrowing. 5 mm degenerative anterolisthesis, mildly increased from the prior study. No demonstrated fracture.. Normal central canal. Severe left foraminal stenosis due to uncinate and facet hypertrophy. C5-6: Normal disc height and morphology. Normal central canal. Foramina are patent. C6-7: Disc space narrowing. Normal central canal. Mild foraminal encroachment due to uncinate hypertrophy. C7-T1: Normal disc height and morphology. Normal central canal. Foramina are patent. Normal visualized soft tissue structures. CT/Spine Cervical without Contras IMPRESSION: No evidence of cervical trauma. Degenerative anterolisthesis at C4-5, increased from prior. Mild degenerative changes detailed above. Electronically Signed: Kiya Mejía MD at 22:28 EST Tel , Service support ,
[2021-04-29 20:15] VITALS: O2SAT 90
[2021-04-29 20:27] LABS: Absolute Neutrophil Count 2.9 X10^3/uL (2.0-7.7); Basophil# 0.02 X10^3/uL; Basophil% 0.5 % (0-1); Eosinophil# 0.06 X10^3/uL; Eosinophils% 1.5 % (0-5); Hematocrit 39.4 % (40-54); Lymphocyte % 9.7 % (19-41); Mean Corpuscular Hgb 28.8 pg (27.0-32.0); Mean Corpuscular Volume 87.4 fL (80-94); Mean Platelet Vol. 10.1 fl (6.2-12.0); Monocyte# 0.76 X10^3/uL; Monocyte% 18.5 % (0-10); NRBC Flagged by Analyzer 0 % (0-5); Neutrophil # 2.86 X10^3/uL (2.7-7.7); Neutrophil % 69.6 % (47-70); POSITIVE DIFFERENTIAL YES; Platelet Count 177 K/mm3 (150-450); RBC Distribution Width SD 45.1 fl (35.1-43.9); Red Blood Count 4.51 M/mm3 (4.6-6.2); White Blood Count 4.1 K/mm3 (4.4-11.0)
[2021-04-29 20:36] LABS: Differential Indicated SCAN CRITERIA MET
--- NOTE | 2021-04-29 20:40 | RAD_ITS ---
STUDY: X-RAY CHEST REASON FOR EXAM: Male, 76 years old. syncope TECHNIQUE: Single AP portable view of the chest. COMPARISON: 02/27/2020. FINDINGS: The lungs are clear and expanded. There is no demonstrated pleural abnormality. Normal size heart. Normal mediastinum and jinny. Normal visualized pulmonary arteries. Normal visualized aortic arch and descending thoracic aorta. Normal visualized thoracic spine. Normal visualized ribs, clavicles, and shoulders. There is no demonstrated abnormality of the visualized soft tissue structures of the upper abdomen. RAD/Chest 1 View (Portable) IMPRESSION: Normal x-ray examination of the chest. Electronically Signed: Kiya Mejía MD at 22:32 EST Tel , Service support ,
[2021-04-29 20:45] LABS: Prothrombin Time (Protime)PT. 12.9 SECONDS (11.7-14.9)
[2021-04-29 20:48] LABS: Anion Gap 8 (5-15); BUN 12 mg/dL (7-18); BUN/Creat Ratio 12.5 RATIO (10-20); Chloride 110 mmol/L (98-107); Creatinine, Serum 0.96 mg/dL (0.70-1.30); EST Glomerular Filtration Rate 81 mL/min (>60); Est Glom Filt Rate - Afr Amer 98 mL/min (>60); Estimated Creatinine Clearance 63.33 ml/min; Glucose 95 mg/dL (74-106); Potassium 3.7 mmol/L (3.5-5.1); Sodium Level 142 mmol/L (136-145); Troponin-I HS 4 pg/mL (3.0-78.0)
--- NOTE | 2021-04-29 20:51 | EDS_ITS ---
HPI HPI - Fall History of Present Illness Chief Complaint: Fall Narrative Narrative: 76-year-old male with history of syncope presenting after an episode of syncope. Patient states that he was walking in the kitchen trying to get to the bathroom and he had an episode of syncope. He fell and hit his head. He believes he lost consciousness. He complains of left sided neck and shoulder pain. He also has some upper back pain. Patient states he was otherwise well prior to this. He denies any lightheadedness, dizziness, visual complaints currently. Patient does have a history of laryngeal cancer and has a stoma but is not having any difficulty with breathing. He is able to communicate with me easily. He denies lower back pain or abdominal pain. He is able to move all 4 extremities. PFSH PFS Medical History History of laryngeal cancer History of prostate cancer HLD (hyperlipidemia) Hypothyroidism Home Medications atorvastatin 40 mg PO DAILY 05/10/17 [History Last Taken 06/28/20] levothyroxine 75 mcg PO DAILY 05/10/17 [History Last Taken 06/28/20] omeprazole 40 mg PO DAILY 06/28/20 [History Last Taken 06/28/20] tamsulosin 0.4 mg PO DAILY 06/28/20 [History Last Taken 06/28/20] Allergy/AdvReac Type Severity Reaction Status Date / Time amoxicillin Allergy Rash Verified 04/29/21 19:41 Penicillins Allergy Unknown Verified 04/29/21 19:41 Sulfa (Sulfonamide Allergy BP drops Verified 04/29/21 19:41 Antibiotics) Social History Smoking Status: Former smoker ROS ROS ED Constitutional Constitutional ED: Denies chills, fever(s) or subjective Eyes Eyes: Denies blurry vision or diplopia ENT ENT ED: Denies rhinorrhea or sore throat Cardiovascular Cardiovascular: Denies chest pain or palpitations Respiratory/Chest Respiratory/Chest: Denies cough or dyspnea Gastrointestinal Gastrointestinal: Denies abdominal pain or nausea Genitourinary Genitourinary ED: Denies dysuria or hematuria Musculoskeletal Musculoskeletal: Reports back pain and neck pain Integumentary Reports other Details: Contusion to left occiput ; Denies rash Neurologic Neurologic: Denies headache(s) or weakness EXAM Physical Exam Const Vital Signs: 04/29/21 19:43 04/29/21 19:49 04/29/21 20:15 Temperature 99.6 F H Temperature Source Oral Pulse Rate 94 Respiratory Rate 19 H Respiratory Effort Normal Non-Labored Respiratory Depth Normal Respiratory Pattern Normal Blood Pressure 141/77 H Blood Pressure Mean 98 Pulse Ox 92 92 90 Oxygen Delivery Method Room Air Room Air Room Air 04/29/21 22:05 Temperature Temperature Source Pulse Rate 109 H Respiratory Rate 18 Respiratory Effort Respiratory Depth Respiratory Pattern Blood Pressure 129/90 H Blood Pressure Mean 103 Pulse Ox 90 Oxygen Delivery Method Room Air Positive well nourished General Appearance ED: NAD HEENT Reports normocephalic HEENT Narrative: 4 cm hematoma to the left occiput. No laceration. No facial bone trauma. No hemotympanum. Eyes PERRL and EOMs intact bilaterally Neck full ROM Neck Narrative: No midline spinal tenderness, deformity, step-off Resp normal respiratory effort and clear to auscultation bilaterally Cardio regular rate and regular rhythm GI Palpation: soft Extremity normal to inspection, full ROM and normal capillary refill Neuro oriented x3, CN's II-XII intact bilaterally, moves all extremities and no sensory deficits noted Sensorium / Orientation: alert Psych mental status grossly normal and thought process normal Skin Skin Narrative: As documented above MDM MDM MDM Narrative Medical decision making narrative: Patient with history of syncope presents after syncopal episode. He did hit his head and he believes he lost consciousness. I obtained an EKG and on my interpretation this is a sinus rhythm with a ventricular rate of 90 bpm without sign of ischemic change or dysrhythmia. CBC shows he is lymphopenic and leukopenic however is always like this. PT/INR normal. Kidney function is normal. Electrolytes normal. High- sensitivity troponin is normal. Urinalysis negative. No drugs or alcohol in his system. Chest x-ray my interpretation shows no acute cardiopulmonary process and radiologist agree. CT brain and cervical spine are negative for acute findings. After negative work-up patient was able to stand up and ambulate without difficulty. Patient does state that he has had syncope before but he does not know the cause. Based on his work-up I do not believe he needs to stay in hospital for this. He will follow-up with his primary care physician outpatient. Impression: 1. Syncope 2. Cephalhematoma 3. Cervical strain Lab Data Attestation: I reviewed the patient's lab results. Labs: Laboratory Results - last 24 hr 04/29/21 04/29/21 04/29/21 19:50 19:50 19:50 WBC 4.1 L RBC 4.51 L Hgb 13.0 Hct 39.4 L MCV 87.4 MCH 28.8 MCHC 33.0 RDW Std Deviation 45.1 H RDW Coeff of [place]uch[place] 14.0 Plt Count 177 MPV 10.1 Immature Gran % (Auto) 0.200 Neut % (Auto) 69.6 Lymph % (Auto) 9.7 L [place] % (Auto) 18.5 H Eos % (Auto) 1.5 Baso % (Auto) 0.5 Absolute Neuts (auto) 2.9 Absolute Lymphs (auto) 0.40 L Nucleated RBC % 0 Differential Comment SCANNED Diff Path Review May foll PT 12.9 INR 1.0 Sodium 142 Potassium 3.7 Chloride 110 H Carbon Dioxide 24.0 Anion Gap 8 BUN 12 Creatinine 0.96 Estim Creat Clear Calc 63.33 Est GFR (MDRD) Af Amer 98 Est GFR (MDRD) Non-Af 81 BUN/Creatinine Ratio 12.5 Glucose 95 Calcium 9.0 Troponin I High Sens 4 Urine Color Urine Clarity Urine pH Ur Specific [place] Urine Protein Urine Glucose (UA) Urine Ketones Urine Occult Blood Urine Nitrite Urine Bilirubin Urine Urobilinogen Ur Leukocyte Esterase Urine RBC Urine WBC Ur Squamous Epith Cells Urine Bacteria Urine Mucus Urine Opiates Screen Urine Methadone Screen Ur Barbiturates Screen Ur Phencyclidine Scrn Ur Amphetamines Screen U Methamphetamin-MDMA U Benzodiazepines Scrn Urine Cocaine Screen U Cannabinoids Screen Ur Drug Screen Comment Ethyl Alcohol 04/29/21 04/29/21 04/29/21 21:25 21:30 21:30 WBC RBC Hgb Hct MCV MCH MCHC RDW Std Deviation RDW Coeff of [place] Plt Count MPV Immature Gran % (Auto) Neut % (Auto) Lymph % (Auto) [place] % (Auto) Eos % (Auto) Baso % (Auto) Absolute Neuts (auto) Absolute Lymphs (auto) Nucleated RBC % Differential Comment Diff Path Review PT INR Sodium Potassium Chloride Carbon Dioxide Anion Gap BUN Creatinine Estim Creat Clear Calc Est GFR (MDRD) Af Amer Est GFR (MDRD) Non-Af BUN/Creatinine Ratio Glucose Calcium Troponin I High Sens Urine Color Yellow Urine Clarity Clear Urine pH 7.0 Ur Specific [place] 1.020 Urine Protein Negative Urine Glucose (UA) Normal Urine Ketones 5 H Urine Occult Blood 10 H Urine Nitrite Negative Urine Bilirubin Negative Urine Urobilinogen Normal Ur Leukocyte Esterase Negative Urine RBC 0 SEEN Urine WBC 0 SEEN Ur Squamous Epith Cells 0 SEEN Urine Bacteria 0 SEEN Urine Mucus 0 SEEN Urine Opiates Screen NEGATIVE Urine Methadone Screen NEGATIVE Ur Barbiturates Screen NEGATIVE Ur Phencyclidine Scrn NEGATIVE Ur Amphetamines Screen NEGATIVE U Methamphetamin-MDMA NEGATIVE U Benzodiazepines Scrn NEGATIVE Urine Cocaine Screen NEGATIVE U Cannabinoids Screen NEGATIVE Ur Drug Screen Comment Ethyl Alcohol < 3.0 Radiography Diagnostic Testing: Clinical Impression(s) from Imaging Studies Brain CT 04/29/21 20:00 IMPRESSION: No acute intracranial abnormality. Chronic involutional and ischemic changes of the brain. Electronically Signed: Ronny Martinez MD at 21:32 EST Tel , Service support , Cervical Spine CT 04/29/21 20:00 IMPRESSION: No evidence of cervical trauma. Degenerative anterolisthesis at C4-5, increased from prior. Mild degenerative changes detailed above. Electronically Signed: Kiya Mejía MD at 22:28 EST Tel , Service support , Chest X-Ray 04/29/21 20:40 IMPRESSION: Normal x-ray examination of the chest. Electronically Signed: Kiya Mejía MD at 22:32 EST Tel , Service support , Discharge Plan Triage Chief Complaint: Fall ED Provider: hSiv Sutton Dx/Rx/DC Orders Instructions: ED Hematoma, ED Fainting, Uncertain Cause Prescriptions: No Action atorvastatin 40 MG tablet 40 mg PO DAILY RF: 0 levothyroxine 100 MCG tablet 75 mcg PO DAILY RF: 0 omeprazole 40 MG capsule,delayed release(DR/EC) 40 mg PO DAILY RF: 0 tamsulosin 0.4 MG capsule 0.4 mg PO DAILY RF: 0 Primary Care Provider: Andreas Evangelista Chi Referrals: Andreas Evangelista Chi, MD [Primary Care Provider] - Disposition Disposition: Home, Self Care
[2021-04-29 21:21] LABS: Differential Comment SCANNED
[2021-04-29 21:34] LABS: Bacteria 0 SEEN /hpf (None Seen); Mucous, Urine 0 SEEN /hpf (<or=2+); Red Blood Cells-Urine 0 SEEN /hpf (0-5); Squamous Epithelial Cells - UA 0 SEEN /hpf (0-5); White Blood Cells 0 SEEN /hpf (0-5)
[2021-04-29 21:48] LABS: Color, Urine Yellow (Yellow); Glucose, Dipstick Normal (Normal); Ketone-Dipstick 5 mg/dl (Negative); Leukocyte Esterase-Dipstick Negative /ul (Negative); Nitrite-Dipstick Negative (Negative); Occult Blood-Urine 10 /ul (Negative); Protein-Dipstick Negative (Negative); Urine Bilirubin Dipstick Negative (Negative); Urine Clarity Clear (Clear); Urine Urobilinogen Normal (Normal)
[2021-04-29 21:53] LABS: Amphetamine Urine VISTA NEGATIVE (<1000 ng/mL); Barbiturate Urine VISTA NEGATIVE (< 200 ng/mL); Benzodiazepine Urine VISTA NEGATIVE (< 200 ng/mL); Cocaine Urine VISTA NEGATIVE (< 300 ng/mL); Ecstacy Urine VISTA NEGATIVE (< 500 ng/mL); Methadone Urine VISTA NEGATIVE (< 300 ng/mL); PCP Urine VISTA NEGATIVE (< 25 ng/mL); THC Urine VISTA NEGATIVE (< 50 ng/mL); Vista UDS pH Range 7
[2021-04-29 22:01] LABS: Alcohol, Blood (Medical)-Serum < 3.0 mg/dL
[2021-04-29 22:05] VITALS: BP 129/90; PULSE 109; RESP 18; O2SAT 90
[2021-04-29] MEDS: Morphine 4 MG/ML Syringe IV (22:34)
[2021-04-29] MEDS: Ondansetron 4 MG/2 ML Vial IV (22:34)
[2021-04-30 14:09] LABS: Pathologist Review Reviewed
== END 2021-04-29 23:30 | disposition home or self-care (01) ==
PROVIDERS: Emergency Provider Student in an Organized Health Care Education/Training Program; PCP Family Medicine Geriatric Medicine; Visit Provider Student in an Organized Health Care Education/Training Program
DX: R55 Syncope and collapse (principal); S06.2X9A Diffuse traumatic brain injury with loss of consciousness of unspecified duration, initial encounter; S16.1XXA Strain of muscle, fascia and tendon at neck level, initial encounter; Z87.891 Personal history of nicotine dependence; M54.9 Dorsalgia, unspecified; W19.XXXA Unspecified fall, initial encounter; E78.5 Hyperlipidemia, unspecified; Y93.01 Activity, walking, marching and hiking; Y99.9 Unspecified external cause status; Y92.89 Other specified places as the place of occurrence of the external cause; E03.9 Hypothyroidism, unspecified; Z79.899 Other long term (current) drug therapy; Z79.890 Hormone replacement therapy
CPT/HCPCS: 36415; 70450; 71045; 72125; 80048; 80307; 81001; 82077; 84484; 85025; 85610; 93005; 96374; 96375; 99285; A4216; J2405

== ENCOUNTER 2021-05-03 13:04 | Outpatient (CLI) | payer OTHER, MEDICARE, SELFPAY ==
[2021-05-03 17:08] LABS: Absolute Lymphocyte Count 0.56 X10^3/uL (0.83-4.51); Absolute Neutrophil Count 3.6 X10^3/uL (2.0-7.7); Basophil# 0.02 X10^3/uL; Basophil% 0.4 % (0-1); Eosinophil# 0.07 X10^3/uL; Eosinophils% 1.5 % (0-5); Hematocrit 39.5 % (40-54); Lymphocyte # 0.56 X10^3/ul (0.83-4.51); Mean Corp Hgb Conc 32.9 g/dL (32-36); Mean Corpuscular Volume 88.2 fL (80-94); Mean Platelet Vol. 10.5 fl (6.2-12.0); Monocyte# 0.47 X10^3/uL; NRBC Flagged by Analyzer 0 % (0-5); Neutrophil # 3.55 X10^3/uL (2.7-7.7); Neutrophil % 75.9 % (47-70); POSITIVE DIFFERENTIAL YES; Platelet Count 212 K/mm3 (150-450); RBC Distribution Width CV 14.4 % (11.6-14.6); RBC Distribution Width SD 46.2 fl (35.1-43.9); Red Blood Count 4.48 M/mm3 (4.6-6.2); White Blood Count 4.7 K/mm3 (4.4-11.0)
[2021-05-03 17:11] LABS: Differential Indicated SCAN CRITERIA MET
[2021-05-03 17:29] LABS: Vitamin D,25 Hydroxy 23.1 ng/mL
[2021-05-03 17:56] LABS: ALB/GLOB Ratio 0.9 RATIO (0.9-2.4); AST(SGOT) 22 U/L (15-37); Alanine Aminotransfer ALT/SGPT 38 U/L (16-61); Albumin, Serum 3.4 g/dL (3.2-5.0); Alkaline Phosphatase 86 U/L (45-117); Anion Gap 8 (5-15); BUN 12 mg/dL (7-18); BUN/Creat Ratio 13.4 RATIO (10-20); Calcium,Total 8.8 mg/dL (8.5-10.1); Chloride 108 mmol/L (98-107); EST Glomerular Filtration Rate 88 mL/min (>60); Est Glom Filt Rate - Afr Amer 106 mL/min (>60); Globulin 3.9 g/dL (2.2-4.2); Glucose 95 mg/dL (74-106); Protein, Total 7.3 g/dL (6.4-8.2); Sodium Level 140 mmol/L (136-145)
[2021-05-03 19:16] LABS: Anisocytosis RARE; Platelet Estimate ADEQUATE (ADEQ); Red Cell Morphology N CHROM NORMAL (NORM C&C)
== END 2021-05-03 23:59 | disposition short-term general hospital (02) ==
LOC: POLAB3 13:06
PROVIDERS: PCP Family Medicine Geriatric Medicine; Visit Provider Family Medicine Geriatric Medicine
DX: R53.83 Other fatigue (principal); E55.9 Vitamin D deficiency, unspecified
CPT/HCPCS: 36415; 80053; 82306; 84443; 85025

== ENCOUNTER 2021-06-04 15:02 | Outpatient (CLI) | payer OTHER, MEDICARE, SELFPAY ==
[2021-06-04 15:17] LABS: Bacteria 0 SEEN /hpf (None Seen); Mucous, Urine 0 SEEN /hpf (<or=2+); Red Blood Cells-Urine 0 SEEN /hpf (0-5)
[2021-06-04 15:26] LABS: Color, Urine Yellow (Yellow); Glucose, Dipstick Normal (Normal); Ketone-Dipstick 5 mg/dl (Negative); Leukocyte Esterase-Dipstick 25 /ul (Negative); Nitrite-Dipstick Negative (Negative); Occult Blood-Urine Negative /ul (Negative); Protein-Dipstick Negative (Negative); Urine Bilirubin Dipstick Negative (Negative); Urine Clarity Clear (Clear); Urine Urobilinogen 1 mg/dl (Normal)
[2021-06-04 15:43] LABS: Squamous Epithelial Cells - UA 0-5 SEEN /hpf (0-5); White Blood Cells 0-5 SEEN /hpf (0-5)
== END 2021-06-04 23:59 | disposition home or self-care (01) ==
LOC: LABSPEC 15:05
PROVIDERS: PCP Family Medicine Geriatric Medicine; Visit Provider Physician Assistant Surgical
DX: R10.9 Unspecified abdominal pain (principal)
CPT/HCPCS: 81001; 87086

== ENCOUNTER 2021-06-05 13:05 | Outpatient (CLI) | payer OTHER, MEDICARE, SELFPAY ==
--- NOTE | 2021-06-05 13:32 | RAD_ITS ---
EXAM: XR LUMBOSACRAL SPINE COMPLETE WITH FLEXION/EXTENSION, 6 OR MORE VIEWS : 1945 CLINICAL INDICATION: LOW BACK PAIN TECHNIQUE: Lateral, frontal, oblique and lateral flexion/extension views of the lumbar spine and sacrum. This report was created using [employer] technology. COMPARISON: None. FINDINGS: VERTEBRAE: There is no significant change in alignment with flexion or extension views. There is minimal posterior spondylolisthesis of L4 and L5 of 5 mm. Preserved vertebral body height. No fracture. Preservation of the normal lumbar lordosis. No significant facet arthropathy. DISC SPACES: There is disc space narrowing at L2-3, L3-4 and L4-5. GASTROINTESTINAL TRACT: Unremarkable as visualized. Included bowel gas pattern is non-obstructive. RAD/L/S Spine Comp/w Bending Views IMPRESSION: Degenerative changes with disc space narrowing. There is minimal posterior spondylolisthesis of L4 and L5 which does not change with flexion or extension views. There is no acute osseous abnormality. at 0121 Reported and signed by: Uri Acosta MD Electronically Signed: Uri Acosta MD at 1:20 EST ,
[2021-06-05 13:42] LABS: Absolute Neutrophil Count 3.4 X10^3/uL (2.0-7.7); Basophil# 0.04 X10^3/uL; Basophil% 0.8 % (0-1); Eosinophil# 0.13 X10^3/uL; Eosinophils% 2.7 % (0-5); Hematocrit 37.6 % (40-54); Hemoglobin 12.2 g/dL (13.0-16.5); Lymphocyte % 14.7 % (19-41); Mean Corp Hgb Conc 32.4 g/dL (32-36); Mean Corpuscular Volume 89.3 fL (80-94); Mean Platelet Vol. 10.9 fl (6.2-12.0); Monocyte# 0.53 X10^3/uL; Monocyte% 11.1 % (0-10); NRBC Flagged by Analyzer 0 % (0-5); Neutrophil # 3.36 X10^3/uL (2.7-7.7); Neutrophil % 70.5 % (47-70); Platelet Count 204 K/mm3 (150-450); RBC Distribution Width CV 14.5 % (11.6-14.6); RBC Distribution Width SD 46.7 fl (35.1-43.9); Red Blood Count 4.21 M/mm3 (4.6-6.2); White Blood Count 4.8 K/mm3 (4.4-11.0)
[2021-06-05 14:11] LABS: Anion Gap 6 (5-15); BUN 12 mg/dL (7-18); BUN/Creat Ratio 14.6 RATIO (10-20); Calcium,Total 8.9 mg/dL (8.5-10.1); Chloride 109 mmol/L (98-107); Creatinine, Serum 0.82 mg/dL (0.70-1.30); EST Glomerular Filtration Rate 97 mL/min (>60); Est Glom Filt Rate - Afr Amer 117 mL/min (>60); Glucose 87 mg/dL (74-106); Potassium 3.8 mmol/L (3.5-5.1); Sodium Level 142 mmol/L (136-145)
== END 2021-06-05 23:59 | disposition home or self-care (01) ==
PROVIDERS: PCP Family Medicine Geriatric Medicine; Referring Provider Family Medicine Geriatric Medicine; Visit Provider Family Medicine Geriatric Medicine
DX: R53.83 Other fatigue (principal); M54.50 Low back pain, unspecified
CPT/HCPCS: 36415; 72114; 80048; 85025

== ENCOUNTER 2021-06-07 08:38 | Outpatient (CLI) | payer OTHER, MEDICARE, SELFPAY ==
--- NOTE | 2021-06-07 08:40 | CDU_ITS ---
Reason For Study: syncope Rt. Velocities/BP Lt. Velocities/BP Prox CCA 74.7/8.2 cm/sec. Prox CCA 102.1/19.9 cm/sec. Mid CCA 82.5/18.6 cm/sec. Mid CCA 177.7/44.4 cm/sec. Dist CCA 89.0/21.2 cm/sec. Dist CCA 198.2/53.3 cm/sec. Prox ICA 70.8/17.3 cm/sec. Prox ICA 88.2/15.2 cm/sec. Mid ICA 73.4/25.2 cm/sec. Mid ICA 165.2/42.4 cm/sec. Dist ICA 94.3/38.2 cm/sec. Dist ICA 132.3/38.0 cm/sec. Rt. ICA/CCA = 1.1. Lt. ICA/CCA = .9. Prox ECA 69.5/5.6 cm/sec. Prox ECA 130.1/13.8 cm/sec. Rt. Vert. 48.6/16.0 cm/sec. Lt. Vert. 67.4/27.3 cm/sec. Right Extracranial There is heterogeneous, smooth atherosclerotic plaque noted in the right common carotid artery. There is heterogeneous, irregular atherosclerotic plaque noted in the right internal carotid artery. There is heterogeneous, irregular atherosclerotic plaque noted in the right external carotid artery. Antegrade flow is noted in the right vertebral artery. Left Extracranial There is heterogeneous, irregular atherosclerotic plaque noted in the left common carotid artery. There is heterogeneous, irregular atherosclerotic plaque noted in the left internal carotid artery. There is heterogeneous, irregular atherosclerotic plaque noted in the left external carotid artery. Antegrade flow is noted in the left vertebral artery. Procedure Carotid Duplex [id number]. This is a Carotid Duplex examination using B-mode, color flow and specral Doppler. The exam was diagnostic. Exam performed in department. Difficult study due to tracheotomy. VL/Carotid Duplex Ultrasound Interpretation Summary Irregular calcific plaque with shadowing at the proximal right internal carotid artery with less than 50% stenosis Less than 50% stenosis right external carotid artery Irregular calcific plaque within the distal left common carotid artery with inc reased velocities 298 cm/s flow. Irregular calcific plaque within the mid left internal carotid artery with 50 t o 69% stenosis. Less than 50% stenosis left external carotid artery Patent and antegrade vertebral arteries bilaterally Ordering Physician: Ammon Brady Performed By: Michael Paz RVT
== END 2021-06-07 23:59 | disposition home or self-care (01) ==
LOC: PSN 08:40
PROVIDERS: PCP Family Medicine Geriatric Medicine; Referring Provider Internal Medicine Cardiovascular Disease; Visit Provider Internal Medicine Cardiovascular Disease
DX: R55 Syncope and collapse (principal)
CPT/HCPCS: 93225; 93226; 93880

== ENCOUNTER 2021-06-13 14:31 | Outpatient (CLI) | payer OTHER, MEDICARE, SELFPAY ==
[2021-06-13 15:31] LABS: Absolute Lymphocyte Count 0.61 X10^3/uL (0.83-4.51); Absolute Neutrophil Count 3.8 X10^3/uL (2.0-7.7); Basophil# 0.05 X10^3/uL; Basophil% 0.9 % (0-1); Eosinophil# 0.13 X10^3/uL; Eosinophils% 2.5 % (0-5); Hematocrit 38.7 % (40-54); Hemoglobin 12.9 g/dL (13.0-16.5); Lymphocyte # 0.61 X10^3/ul (0.83-4.51); Lymphocyte % 11.5 % (19-41); Mean Corp Hgb Conc 33.3 g/dL (32-36); Mean Corpuscular Hgb 29.8 pg (27.0-32.0); Mean Corpuscular Volume 89.4 fL (80-94); Mean Platelet Vol. 10.4 fl (6.2-12.0); Monocyte# 0.65 X10^3/uL; Monocyte% 12.3 % (0-10); NRBC Flagged by Analyzer 0 % (0-5); Neutrophil # 3.84 X10^3/uL (2.7-7.7); Neutrophil % 72.4 % (47-70); Platelet Count 234 K/mm3 (150-450); RBC Distribution Width CV 14.2 % (11.6-14.6); RBC Distribution Width SD 46.1 fl (35.1-43.9); Red Blood Count 4.33 M/mm3 (4.6-6.2); White Blood Count 5.3 K/mm3 (4.4-11.0)
[2021-06-13 15:41] LABS: Anion Gap 5 (5-15); BUN 9 mg/dL (7-18); BUN/Creat Ratio 8.7 RATIO (10-20); Calcium,Total 8.6 mg/dL (8.5-10.1); Chloride 108 mmol/L (98-107); Creatinine, Serum 1.04 mg/dL (0.70-1.30); EST Glomerular Filtration Rate 74 mL/min (>60); Est Glom Filt Rate - Afr Amer 89 mL/min (>60); Glucose 107 mg/dL (74-106); Potassium 3.8 mmol/L (3.5-5.1); Sodium Level 140 mmol/L (136-145)
== END 2021-06-13 23:59 | disposition home or self-care (01) ==
LOC: POLAB3 14:33
PROVIDERS: PCP Family Medicine Geriatric Medicine; Visit Provider Family Medicine Geriatric Medicine
DX: G93.40 Encephalopathy, unspecified (principal)
CPT/HCPCS: 36415; 80048; 85025

== ENCOUNTER 2021-07-10 16:08 | Outpatient (CLI) | payer OTHER, MEDICARE, SELFPAY ==
[2021-07-10 16:20] LABS: Bacteria 0 SEEN /hpf (None Seen); Mucous, Urine 0 SEEN /hpf (<or=2+); Red Blood Cells-Urine 0 SEEN /hpf (0-5); Squamous Epithelial Cells - UA 0 SEEN /hpf (0-5); White Blood Cells 0 SEEN /hpf (0-5)
[2021-07-10 17:25] LABS: Color, Urine Yellow (Yellow); Glucose, Dipstick Normal (Normal); Ketone-Dipstick Negative (Negative); Leukocyte Esterase-Dipstick Negative /ul (Negative); Nitrite-Dipstick Negative (Negative); Occult Blood-Urine Negative /ul (Negative); Protein-Dipstick Negative (Negative); Urine Bilirubin Dipstick Negative (Negative); Urine Clarity Clear (Clear); Urine Urobilinogen Normal (Normal)
[2021-07-10 17:30] LABS: Hematocrit 40.8 % (40-54); Hemoglobin 13.5 g/dL (13.0-16.5); Mean Corp Hgb Conc 33.1 g/dL (32-36); Mean Corpuscular Hgb 29.9 pg (27.0-32.0); Mean Corpuscular Volume 90.3 fL (80-94); Mean Platelet Vol. 10.6 fl (6.2-12.0); Platelet Count 244 K/mm3 (150-450); RBC Distribution Width CV 13.9 % (11.6-14.6); Red Blood Count 4.52 M/mm3 (4.6-6.2); White Blood Count 4.8 K/mm3 (4.4-11.0)
[2021-07-10 17:45] LABS: Anion Gap 4 (5-15); BUN 16 mg/dL (7-18); BUN/Creat Ratio 16.6 RATIO (10-20); Calcium,Total 9.2 mg/dL (8.5-10.1); Chloride 110 mmol/L (98-107); Creatinine, Serum 0.96 mg/dL (0.70-1.30); EST Glomerular Filtration Rate 80 mL/min (>60); Est Glom Filt Rate - Afr Amer 97 mL/min (>60); Glucose 104 mg/dL (74-106); Sodium Level 140 mmol/L (136-145)
== END 2021-07-10 23:59 | disposition home or self-care (01) ==
LOC: LAB 16:10
PROVIDERS: PCP Family Medicine Geriatric Medicine; Referring Provider Nurse Practitioner Family; Visit Provider Nurse Practitioner Family
DX: R55 Syncope and collapse (principal)
CPT/HCPCS: 36415; 80048; 81001; 85027

== ENCOUNTER 2021-07-23 08:13 | Outpatient (CLI) | payer OTHER, MEDICARE, SELFPAY | END 2021-07-23 23:59 | disposition home or self-care (01) | LOC: PSN 08:14 | PROVIDERS: PCP Family Medicine Geriatric Medicine; Visit Provider Family Medicine Geriatric Medicine | DX: R55 Syncope and collapse (principal) | CPT/HCPCS: 95819 ==

== ENCOUNTER → 2021-09-13 | Outpatient (CLI) | payer MEDICARE, SELFPAY ==
--- NOTE | 2021-09-13 06:24 | MRI_ITS ---
We are attempting to reach an attending provider to discuss findings. An addendum with communication details will be sent when the communication is complete. EXAM: MR HEAD WITHOUT AND WITH INTRAVENOUS CONTRAST CLINICAL INDICATION: Syncopal episodes and lightheadedness. TECHNIQUE: Multiplanar and multisequence MR images of the brain were obtained without and with intravenous contrast. This report was created using [employer] report generation technology. CONTRAST: 13 mL of IV Dotarem. COMPARISON: CT head without contrast 04/29/2021. FINDINGS: BRAIN AND EXTRA-AXIAL SPACES: No diffusion restriction to suspect acute or subacute ischemic infarcts throughout the brain parenchyma. Few tiny T2 FLAIR hyperintensity foci in the white matter of the cerebral hemispheres are chronic white matter ischemic changes. No midline shift and no mass effects. Following IV contrast administration, there are no abnormal enhancing lesions intraaxially and extra-axially. No intra- or extra-axial hemorrhage. SELLA: Unremarkable. Normal sella turcica, pituitary gland, infundibular stalk, optic chiasm and hypothalamus. AUDITORY SYSTEM: Unremarkable. The internal auditory canals are patent. BONES/JOINTS: Unremarkable. No discrete lytic or blastic abnormalities. SINUSES: Unremarkable as visualized. Clear. MASTOID AIR CELLS: Unremarkable as visualized. Clear. ORBITS: Unremarkable as visualized. Both globes, extraocular muscles, optic nerves and retrobulbar fat appear unremarkable. VASCULATURE: Focal T2 dark intensity in the intradural segment of the left vertebral artery adjacent to the medulla is hyperintense on T1. This did not enhance with IV contrast. MRI/Brain W/WO Contrast IMPRESSION: 1. No MRI evidence of acute or subacute ischemic infarct or intracranial mass. 2. Small nonenhancing T1 hyperintensity involving a portion of the intradural segment of the left vertebral artery adjacent the medulla is dark on T2. There is no corresponding calcification on CT head scan of 04/29/2021. Exact etiology is unknown at this time. Possibilities include partially thrombosed saccular aneurysm or thrombosed dissecting aneurysm. 3. Small chronic white matter ischemic changes in both cerebral hemispheres. 4. No abnormal enhancing lesions intraaxially and extra-axially. RECOMMENDATION: CTA head for further evaluation of the abnormal left vertebral artery. Electronically Signed: Pantera Maria MD at 10:26 EDT ,
[2021-09-13 06:55] LABS: CREATININE FINGERSTICK 1.1 mg/dL (0.70-1.30); EGFR FINGERSTICK > 60.0000 mL/min (>60)
--- NOTE | 2021-09-13 12:32 | CT_ITS ---
STUDY: CTA OF THE BRAIN REASON FOR EXAM: Male, 76 years old. Suspicious abnormal MRI nonenhancing T1 hyperintensity involving the left vertebral artery adjacent the medulla uncertain for thrombosed saccular aneurysm or thrombosed dissecting aneurysm. For further evaluation. RADIATION DOSAGE (If Supplied By Facility): CTDIvol = ( 16.52 ) mGy, DLP = ( 437.84 ) mGycm TECHNIQUE: CT angiography was performed with a multi-detector CT scanner. Data acquisition was obtained from the skull base through the vertex following intravenous administration of 100 mL of ISOVUE-370. MIP images were reconstructed from the axial data set. Post-processing of the angiographic images was performed, with multiplanar reformation and 3D reconstruction. Individualized dose optimization techniques were used for this CT. COMPARISON: None. FINDINGS: Normal bilateral petrous carotid arteries. Minimal nonocclusive calcified plaques in the right cavernous carotid artery with a normal supraclinoid bifurcation. Normal left cavernous carotid artery with a normal supraclinoid bifurcation. Normal right A1 segment of the anterior cerebral artery. Normal left A1 segment of the anterior cerebral artery. Normal intact anterior communicating artery (ACOM). Normal bilateral A2 segments of the anterior cerebral arteries. Normal right M1 and M2 segments of the middle cerebral arteries, with a normal M1 bifurcation. Normal left M1 and M2 segments of the middle cerebral arteries, with a normal M1 bifurcation. Normal right posterior communicating artery (PCOM). Normal left posterior communicating artery (PCOM). Normal bilateral vertebral arteries. Normal basilar artery with a normal basilar bifurcation. The visualized bilateral superior cerebellar (SCA) arteries are normal. Normal bilateral P1, P2 and visualized P3 segments of the posterior cerebral arteries. There is no demonstrated aneurysm of the [place] of [place]. There is no demonstrated abnormality of the visualized brain. IMPRESSION: Normal CTA head without suspicious intracranial aneurysm, saccular or fusiform type or dissecting type particularly along the left vertebral artery adjacent the medulla. The abnormal T1 hyperintensity seen on MRI was flow related artifact. Electronically Signed: Pantera Maria MD at 14:34 EDT , EXAM: CT HEAD WITHOUT INTRAVENOUS CONTRAST CLINICAL INDICATION: Abnormal T1 hyperintensity of the left vertebral artery on the MRI brain.? Thrombosed vertebral artery saccular aneurysm or thrombosed dissecting vertebral artery aneurysm. TECHNIQUE: Multiple axial images were obtained of the head without intravenous contrast. This CT exam was performed using one or more of the following dose reduction techniques: automated exposure control, adjustment of the mA and/or kV according to patient size, and/or use of iterative reconstruction technique. This report was created using [employer] technology. RADIATION DOSE: CTDIvol = 44.99 mGy, DLP = 869.23 mGy-cm COMPARISON: CT head without contrast 06/28/2020. CTA head 09/13/2021. FINDINGS: BRAIN AND EXTRA-AXIAL SPACES: See below. BONES/JOINTS: Unremarkable. No discrete lytic or blastic abnormalities. VASCULATURE: Prominent left vertebral artery a adjacent the medulla is normal dominant left vertebral artery. SINUSES: Unremarkable as visualized. Clear. MASTOID AIR CELLS: Unremarkable. Clear. ORBITS: Visualized globes, extraocular muscles, optic nerves and retrobulbar fat appear unremarkable. CT/CTA Head W/WO Contrast IMPRESSION: 1. No CT evidence of intracranial bleeding, acute ischemic infarct or acute intracranial abnormality. 2. No abnormal calcifications of the left vertebral artery. 3. Prominent intradural segment of the left vertebral artery is adjacent the medulla is due to dominant left vertebral artery proximal to the origin of the left PICA when correlated with the CTA head of 09/13/2021. The MRI T1 hyperintensity of the left vertebral artery was flow related artifact. 4. No interval change when compared to 06/28/2020. Electronically Signed: Pantera Maria MD at 14:39 EDT ,
== END | disposition home or self-care (01) ==
PROVIDERS: PCP Family Medicine Geriatric Medicine; Visit Provider Psychiatry & Neurology Neurology
DX: R55 Syncope and collapse (principal); I77.74 Dissection of vertebral artery; R42 Dizziness and giddiness
CPT/HCPCS: 70496; 70553; A9575; Q9967

== ENCOUNTER → 2021-10-11 | Outpatient (CLI) | payer MEDICARE, SELFPAY ==
[2021-10-11 10:41] LABS: PSA,Total- Diagnostic < 0.01 ng/mL (0.0-4.0)
== END | disposition home or self-care (01) ==
LOC: LAB 09:31
PROVIDERS: PCP Family Medicine Geriatric Medicine; Visit Provider Urology
DX: C61 Malignant neoplasm of prostate (principal)
CPT/HCPCS: 36415; 84153

== ENCOUNTER → 2021-11-07 | Outpatient (CLI) | payer MEDICARE, SELFPAY ==
[2021-11-07 15:56] LABS: Absolute Neutrophil Count 3.1 X10^3/uL (2.0-7.7); Basophil# 0.05 X10^3/uL; Basophil% 1.1 % (0-1); Eosinophil# 0.16 X10^3/uL; Eosinophils% 3.4 % (0-5); Hematocrit 36.3 % (40-54); Hemoglobin 11.7 g/dL (13.0-16.5); Lymphocyte % 17.2 % (19-41); Mean Corp Hgb Conc 32.2 g/dL (32-36); Mean Corpuscular Hgb 28.8 pg (27.0-32.0); Mean Corpuscular Volume 89.4 fL (80-94); Mean Platelet Vol. 10.6 fl (6.2-12.0); Monocyte# 0.54 X10^3/uL; Monocyte% 11.6 % (0-10); NRBC Flagged by Analyzer 0 % (0-5); Neutrophil # 3.09 X10^3/uL (2.7-7.7); Neutrophil % 66.5 % (47-70); Platelet Count 223 K/mm3 (150-450); RBC Distribution Width CV 14.2 % (11.6-14.6); RBC Distribution Width SD 46.4 fl (35.1-43.9); Red Blood Count 4.06 M/mm3 (4.6-6.2); White Blood Count 4.7 K/mm3 (4.4-11.0)
[2021-11-07 16:22] LABS: Vitamin D,25 Hydroxy 20.2 ng/mL
[2021-11-07 16:32] LABS: ALB/GLOB Ratio 1.1 RATIO (0.9-2.4); AST(SGOT) 16 U/L (15-37); Alanine Aminotransfer ALT/SGPT 20 U/L (16-61); Albumin, Serum 3.6 g/dL (3.2-5.0); Alkaline Phosphatase 84 U/L (45-117); Anion Gap 4 (5-15); BUN 10 mg/dL (7-18); Calcium,Total 8.7 mg/dL (8.5-10.1); Chloride 111 mmol/L (98-107); Creatinine, Serum 0.83 mg/dL (0.70-1.30); EST Glomerular Filtration Rate 95 mL/min (>60); Est Glom Filt Rate - Afr Amer 115 mL/min (>60); Globulin 3.4 g/dL (2.2-4.2); Glucose 90 mg/dL (74-106); Potassium 3.5 mmol/L (3.5-5.1); Sodium Level 141 mmol/L (136-145)
== END | disposition home or self-care (01) ==
LOC: POLAB3 15:33
PROVIDERS: PCP Family Medicine Geriatric Medicine; Visit Provider Family Medicine Geriatric Medicine
DX: R53.83 Other fatigue (principal); E55.9 Vitamin D deficiency, unspecified
CPT/HCPCS: 36415; 80053; 82306; 84443; 85025

== ENCOUNTER 2021-11-20 13:26 | Inpatient (IN) | payer MEDICARE, SELFPAY ==
[2021-11-20 13:27] VITALS: BP 116/101; PULSE 70; RESP 16; TEMP 36.6; O2SAT 99; BMI 21.2
--- NOTE | 2021-11-20 13:55 | RAD_ITS ---
STUDY: X-RAY - PELVIS AND RIGHT HIP REASON FOR EXAM: Male, 76 years old. Injury TECHNIQUE: 3 views of the pelvis and hip. COMPARISON: None. FINDINGS: Contrast is seen within the rectosigmoid colon from prior oral contrast ingestion. Normal visualized soft tissue structures. There is narrowing with cortical sclerosis and osteophyte formation of the sacroiliac joint consistent with degenerative osteoarthritic changes. Normal bilateral superior and inferior pubic rami. Normal pubic symphysis. Normal bilateral ischial tuberosities. Nondisplaced right intertrochanteric fracture. Normal acetabulum. There is mild articular joint space narrowing of the hip. RAD/HIP, UNI W/ Pelvis 2-3 Views IMPRESSION: Nondisplaced right intertrochanteric fracture. Electronically Signed: Calvin Lima MD at 14:58 EDT ,
--- NOTE | 2021-11-20 13:55 | RAD_ITS ---
STUDY: X-RAY - RIGHT SHOULDER REASON FOR EXAM: Male, 76 years old. Fall/injury TECHNIQUE: 4 view(s) of the shoulder. COMPARISON: None. FINDINGS: There is moderate degenerative arthrosis of the glenohumeral articulation. There is degenerative arthrosis of the acromioclavicular joint without inferior osseous spur formation. Normal acromion. Normal humeral head and visualized proximal humerus. Decreased distance between the humeral head and the acromion suggestive of rotator cuff pathology. Surgical clips are seen in the cervical region most likely secondary to prior thyroid surgery. Normal visualized pulmonary apex. RAD/Shoulder min 2 Views IMPRESSION: Degenerative changes. No fracture or dislocation. Decreased space between the humeral head and acromion suggestive of rotator cuff pathology. Electronically Signed: Calvin Lima MD at 15:01 EDT ,
--- NOTE | 2021-11-20 13:58 | ED.VIS.FALL ---
HPI HPI - Fall History of Present Illness Chief Complaint: Lower Extremity Injury Informant: patient Occured/Mechanism Occurred: Today Mechanism/Context: Yes other see narrative below Narrative: Jumped off of the bed of a pickup truck, ended up falling as a result of not doing this properly and landed on his right side injuring his right hip, knee, and right shoulder. Usually ambulates: Without assistance Pain/Injury Location: mainly R hip & shoulder Current Severity: Mild Maximum Severity: Severe Worsened by: trying to WB RLE, moving Relieved by: remaining still Associated Symptoms Associated Symptoms: Positive for Loss of function (RLE) and Inability to ambulate; Negative for Parasthesias, Weakness, Loss of consciousness or Amnesia Narrative Narrative: As a result of this fall, unable to bear any weight on his right lower extremity, instead of calling EMS a family member lifted him up and put him in a car and brought him in here. Also injured his right shoulder which he is having trouble moving, he states his knee is just scraped and that is not really bothering him. [facility] Medical History History of laryngeal cancer History of prostate cancer HLD (hyperlipidemia) Hypothyroidism Orthostatic hypotension Pneumonia due to COVID-19 virus (02/27/20) Home Medications atorvastatin 40 mg tablet 40 mg PO DAILY cholesterol 05/10/17 [History Last Taken 06/28/20] omeprazole 40 mg capsule,delayed release 40 mg PO DAILY GERD 06/28/20 [History Last Taken 06/28/20] tamsulosin 0.4 mg capsule 0.4 mg PO DAILY PROSTATE 06/28/20 [History Last Taken 06/28/20] levothyroxine 75 mcg tablet 50 mcg PO DAILY 05/30/21 [History Last Taken Unknown] midodrine 10 mg tablet 10 mg PO BID 11/05/21 [History Last Taken Unknown] Allergy/AdvReac Type Severity Reaction Status Date / Time Penicillins Allergy UNKNOWN Verified 11/20/21 13:29 Sulfa (Sulfonamide Allergy BP drops Verified 11/20/21 13:29 Antibiotics) amoxicillin AdvReac Rash Verified 11/20/21 13:29 Family History Other Cancer Surgical History History of bronchoscopy (2019) History of laryngectomy History of tracheostomy Social History Smoking Status: Former smoker second hand exposure: No alcohol intake: never what type of physical activity do you participate in: none seatbelt use: always ROS ROS ED Constitutional Constitutional ED: Denies chills or fever(s) Eyes Eyes: Denies change in vision or diplopia ENT ENT ED: Denies rhinorrhea or sore throat Cardiovascular Cardiovascular: Denies chest pain or palpitations Respiratory/Chest Respiratory/Chest: Denies cough or dyspnea Gastrointestinal Gastrointestinal: Denies abdominal pain, diarrhea, nausea or vomiting Genitourinary Genitourinary ED: Denies dysuria or hematuria Musculoskeletal Musculoskeletal: Reports extremity pain; Denies back pain or neck pain Integumentary Denies abscess or rash Neurologic Neurologic: Denies headache(s), paresthesias or weakness Psychiatric Psychiatric: Denies anxiety or suicidal thoughts EXAM Physical Exam Const Vital Signs: 11/20/21 13:27 Temperature 98 F Temperature Source Temporal Pulse Rate 70 Respiratory Rate 16 Blood Pressure 116/101 H Blood Pressure Mean 106 Pulse Ox 99 Oxygen Delivery Method Room Air Positive well nourished and well developed General Appearance ED: well developed and NAD HEENT Reports moist mucous membranes normocephalic and atraumatic Eyes PERRL and EOMs intact bilaterally Neck full ROM and supple Neck Narrative: Chronic tracheostomy present, no signs of infection or excessive secretions. Resp normal respiratory effort and clear to auscultation bilaterally Cardio regular rate, regular rhythm and no murmurs Rate: Negative for tachycardic GI non-tender and non-distended Auscultation: normoactive bowel sounds Palpation: soft Back/Spine no CVA tenderness General Back: other FROM Extremity Extremity Narrative: Tender to right greater trochanter. Nontender throughout the rest of the right lower extremity, which is shortened and slightly externally rotated. Painful range of motion of the right hip joint. Limited range of motion of the right shoulder he is able to move a little, he has proximal humerus tenderness no acromioclavicular joint tenderness. No deformities. No other areas of tenderness throughout the extremities. General Extremety ED: Yes tenderness; Negative for edema or pulses abnormal General Extremity: Negative for edema or pulses abnormal Neuro oriented x3, CN's II-XII intact bilaterally and no sensory deficits noted Sensorium / Orientation: awake and alert Motor Exam: strength 5/5 throughout Skin no rashes or lesions noted and no wounds MDM MDM MDM Narrative Medical decision making narrative: Three-view x-ray series of the right hip and pelvis show a nondisplaced intertrochanteric hip fracture. Radiology in agreement. 4 view x-ray series of his right shoulder show no acute fracture or dislocation, could be a traumatic bursitis here or rotator cuff injury as well, or simply a contusion. Discussed with Dr. Farrell regarding the hip, will admit to hospitalist for medical clearance for possible ORIF tomorrow. Lab Data Attestation: I reviewed the patient's lab results. Labs: Laboratory Results - last 24 hr 11/20/21 11/20/21 14:03 14:03 WBC 8.6 RBC 4.11 L Hgb 12.0 L Hct 37.0 L MCV 90.0 MCH 29.2 MCHC 32.4 RDW Std Deviation 47.3 H RDW Coeff of Chucho 14.3 Plt Count 212 MPV 10.6 Immature Gran % (Auto) 0.400 Neut % (Auto) 82.3 H Lymph % (Auto) 7.1 L Rutherford % (Auto) 8.8 Eos % (Auto) 0.8 Baso % (Auto) 0.6 Absolute Neuts (auto) 7.1 Absolute Lymphs (auto) 0.61 L Nucleated RBC % 0 Sodium 139 Potassium 4.1 Chloride 108 H Carbon Dioxide 23.0 Anion Gap 8 BUN 14 Creatinine 1.05 Estim Creat Clear Calc 53.76 Est GFR (MDRD) Af Amer 88 Est GFR (MDRD) Non-Af 73 BUN/Creatinine Ratio 13.3 Glucose 107 H Calcium 8.9 Radiography Diagnostic Testing: Clinical Impression(s) from Imaging Studies Hip/Pelvis X-Ray 11/20/21 13:55 IMPRESSION: Nondisplaced right intertrochanteric fracture. Electronically Signed: Calvin Lima MD at 14:58 EDT , Shoulder X-Ray 11/20/21 13:55 IMPRESSION: Degenerative changes. No fracture or dislocation. Decreased space between the humeral head and acromion suggestive of rotator cuff pathology. Electronically Signed: Calvin Lima MD at 15:01 EDT , Discharge Plan Dx/Rx/DC Orders Clinical Impression: Closed nondisplaced intertrochanteric fracture of right femur, Injury of right shoulder, Accidental fall Disposition Disposition: Acute Care Hospital [facility]
[2021-11-20] MEDS: Morphine 2 MG/ML Syringe IV ×4 (14:03→18:24)
[2021-11-20 14:15] LABS: Absolute Lymphocyte Count 0.61 X10^3/uL (0.83-4.51); Absolute Neutrophil Count 7.1 X10^3/uL (2.0-7.7); Basophil# 0.05 X10^3/uL; Basophil% 0.6 % (0-1); Eosinophil# 0.07 X10^3/uL; Eosinophils% 0.8 % (0-5); Lymphocyte # 0.61 X10^3/ul (0.83-4.51); Lymphocyte % 7.1 % (19-41); Mean Corp Hgb Conc 32.4 g/dL (32-36); Mean Corpuscular Hgb 29.2 pg (27.0-32.0); Mean Platelet Vol. 10.6 fl (6.2-12.0); Monocyte# 0.75 X10^3/uL; Monocyte% 8.8 % (0-10); NRBC Flagged by Analyzer 0 % (0-5); Neutrophil # 7.06 X10^3/uL (2.7-7.7); Neutrophil % 82.3 % (47-70); Platelet Count 212 K/mm3 (150-450); RBC Distribution Width CV 14.3 % (11.6-14.6); RBC Distribution Width SD 47.3 fl (35.1-43.9); Red Blood Count 4.11 M/mm3 (4.6-6.2); White Blood Count 8.6 K/mm3 (4.4-11.0)
[2021-11-20 14:29] LABS: Anion Gap 8 (5-15); BUN 14 mg/dL (7-18); BUN/Creat Ratio 13.3 RATIO (10-20); Calcium,Total 8.9 mg/dL (8.5-10.1); Chloride 108 mmol/L (98-107); Creatinine, Serum 1.05 mg/dL (0.70-1.30); EST Glomerular Filtration Rate 73 mL/min (>60); Est Glom Filt Rate - Afr Amer 88 mL/min (>60); Estimated Creatinine Clearance 53.76 ml/min; Glucose 107 mg/dL (74-106); Potassium 4.1 mmol/L (3.5-5.1); Sodium Level 139 mmol/L (136-145)
--- NOTE | 2021-11-20 15:09 | NURSING ---
DR REID FOR DR BOONE
[2021-11-20 15:13] VITALS: BP 137/89; PULSE 69; RESP 15; TEMP 36.4; O2SAT 99
--- NOTE | 2021-11-20 15:16 | NURSING ---
MED SURG FRANKLIN RT HIP FX
--- NOTE | 2021-11-20 15:20 | HP.PCM_ITS ---
Documented by User: MINA Mathur 11/20/21 15:38 HPI - General General Date of Admission: 11/20/21 Date of Service: 11/20/21 Chief Complaint: Right femur fracture HPI Narrative CORA PRESTON, is a 76 M who presents falling a fall. Patient jumped from a truck bed and landed odd and fell. Patient reported shoulder and hip pain and was unable to walk. Family that was with him lifted him into the truck and brought him to the ER. Patient reports a history of prostate and laryngeal cancer, HLD, Hypothyroidism, and Orthostatic hypotension. Patient has a stoma s/p laryngeal cancer. ON LICENSE OF [facility] Medical History History of laryngeal cancer History of prostate cancer HLD (hyperlipidemia) Hypothyroidism Orthostatic hypotension Pneumonia due to COVID-19 virus (02/27/20) Home Medications atorvastatin 40 mg tablet 40 mg PO DAILY cholesterol 05/10/17 [History Last Taken 06/28/20] omeprazole 40 mg capsule,delayed release 40 mg PO DAILY GERD 06/28/20 [History Last Taken 06/28/20] tamsulosin 0.4 mg capsule 0.4 mg PO DAILY PROSTATE 06/28/20 [History Last Taken 06/28/20] levothyroxine 75 mcg tablet 50 mcg PO DAILY 05/30/21 [History Last Taken Unknown] midodrine 10 mg tablet 10 mg PO BID 11/05/21 [History Last Taken Unknown] Allergy/AdvReac Type Severity Reaction Status Date / Time Penicillins Allergy UNKNOWN Verified 11/20/21 13:29 Sulfa (Sulfonamide Allergy BP drops Verified 11/20/21 13:29 Antibiotics) amoxicillin AdvReac Rash Verified 11/20/21 13:29 Family History Other Cancer Surgical History History of bronchoscopy (2019) History of laryngectomy History of tracheostomy Social History Smoking Status: Former smoker second hand exposure: No alcohol intake: never what type of physical activity do you participate in: none seatbelt use: always ROS Constitutional Constitutional: Denies anorexia, change in weight, chills, fatigue, fever(s) or malaise Cardiovascular Cardiovascular: Denies chest pain, edema or palpitations Respiratory/Chest Respiratory/Chest: Denies cough, shortness of breath at rest, shortness of breath with exertion or wheezing Gastrointestinal Gastrointestinal: Denies abdominal pain, constipation, diarrhea, nausea or vomiting Genitourinary Genitourinary: Denies dysuria Musculoskeletal Musculoskeletal: Reports extremity pain, joint pain and limited range of motion; Denies back pain, joint stiffness or joint swelling Integumentary Integumentary: Denies dry skin Neurologic Neurologic: Denies abnormal gait, abnormal speech, confusion, dizziness or focal weakness Psychiatric Psychiatric: Denies anxiety or depression Endocrine Endocrinology: Denies change in body appearance Hematologic/Lymphatic Hematologic/Lymphatic: Denies anemia Vital Signs Vital Signs Vital Signs: 11/20/21 13:27 11/20/21 15:13 Temperature 98 F 97.6 F L Temperature Source Temporal Temporal Pulse Rate 70 69 Respiratory Rate 16 15 Blood Pressure 116/101 H 137/89 H Blood Pressure Mean 106 105 Pulse Ox 99 99 Oxygen Delivery Method Room Air Room Air Weight Weight: 140 lb Body Mass Index (BMI) 21.2 Physical Exam Const alert, oriented x3 and no apparent distress HEENT normocephalic and head/scalp atraumatic Throat: other Other Details: stoma present Eyes conjunctivae normal and no scleral icterus Neck supple General: trachea midline and other Stoma present status post laryngeal cancer Resp normal respiratory effort, normal air movement and clear to auscultation bilaterally Cardio regular rate, regular rhythm, S1 normal heart sound, S2 normal heart sound and peripheral pulses 2+ throughout GI normal to inspection, nondistended, normoactive bowel sounds, soft to palpation and non-tender Extremity normal capillary refill Right Lower Extremity: hip joint inspection (externally rotated), palpation (Tender), ROM (limited) and neurovascular exam (intact) Skin Skin Narrative: Patient has multiple abrasions to right leg and right arm secondary to fall Neuro no focal motor deficits and no sensory deficits noted Psych thought process normal, cooperative and affect normal Results Lab / Micro Data Result Diagrams: 11/20/21 14:03 11/20/21 14:03 Labs: Laboratory Results - last 24 hr 11/20/21 14:03: WBC 8.6, RBC 4.11 L, Hgb 12.0 L, Hct 37.0 L, MCV 90.0, MCH 29.2, MCHC 32.4, RDW Std Deviation 47.3 H, RDW Coeff of Chucho 14.3, Plt Count 212, MPV 10.6, Immature Gran % (Auto) 0.400, Neut % (Auto) 82.3 H, Lymph % (Auto) 7.1 L, Yell % (Auto) 8.8, Eos % (Auto) 0.8, Baso % (Auto) 0.6, Absolute Neuts (auto) 7.1, Absolute Lymphs (auto) 0.61 L, Nucleated RBC % 0 11/20/21 14:03: Sodium 139, Potassium 4.1, Chloride 108 H, Carbon Dioxide 23.0, Anion Gap 8, BUN 14, Creatinine 1.05, Estim Creat Clear Calc 53.76, Est GFR (MDRD) Af Amer 88, Est GFR (MDRD) Non-Af 73, BUN/Creatinine Ratio 13.3, Glucose 107 H, Calcium 8.9 Radiology Impression Hip/Pelvis X-Ray 11/20/21 13:55 IMPRESSION: Nondisplaced right intertrochanteric fracture. Electronically Signed: Calvin Lima MD at 14:58 EDT , Shoulder X-Ray 11/20/21 13:55 IMPRESSION: Degenerative changes. No fracture or dislocation. Decreased space between the humeral head and acromion suggestive of rotator cuff pathology. Electronically Signed: Calvin Lima MD at 15:01 EDT , Assessment & Plan Assessment/Plan (1) Closed nondisplaced intertrochanteric fracture of right femur: (2) Injury of right shoulder: (3) Accidental fall: PLAN: Plan 1. Closed nondisplaced intertrochanteric fracture of right femur secondary to accidental fall -Admit to [facility] -Orthopedics consulted, case discussed with Dr. Farrell by ER physician -CBC and BMP ordered a.m. -Regular diet, n.p.o. at midnight -PT and OT to eval and treat following surgery -Graduated pain management regimen ordered 2. Hyperlipidemia -Continue atorvastatin 3. Hypothyroidism -Continue levothyroxine 4. Orthostatic hypotension -Continue midodrine 5. History of prostate cancer -Continue tamsulosin DVT prophylaxis-SCDs This patient was seen by MINA Mathur under the supervision of Dr. Gallegos. 30 minutes spent in clinical coordination of patient's plan of care. Documented by User: Dr. Marcos Gallegos MD 11/20/21 17:16 HPI - General General Date of Admission: 11/20/21 ON LICENSE OF [facility] Medical History History of laryngeal cancer History of prostate cancer HLD (hyperlipidemia) Hypothyroidism Orthostatic hypotension Pneumonia due to COVID-19 virus (02/27/20) Home Medications atorvastatin 40 mg tablet 40 mg PO DAILY cholesterol 05/10/17 [History Last Taken 06/28/20] omeprazole 40 mg capsule,delayed release 40 mg PO DAILY GERD 06/28/20 [History Last Taken 06/28/20] tamsulosin 0.4 mg capsule 0.4 mg PO DAILY PROSTATE 06/28/20 [History Last Taken 06/28/20] levothyroxine 75 mcg tablet 50 mcg PO DAILY 05/30/21 [History Last Taken Unkno wn] midodrine 10 mg tablet 10 mg PO BID 11/05/21 [History Last Taken Unknown] Allergy/AdvReac Type Severity Reaction Status Date / Time Penicillins Allergy UNKNOWN Verified 11/20/21 13:29 Sulfa (Sulfonamide Allergy BP drops Verified 11/20/21 13:29 Antibiotics) amoxicillin AdvReac Rash Verified 11/20/21 13:29 Family History Other Cancer Surgical History History of bronchoscopy (2019) History of laryngectomy History of tracheostomy Social History Smoking Status: Former smoker second hand exposure: No alcohol intake: never what type of physical activity do you participate in: none seatbelt use: always Results Lab / Micro Data Result Diagrams: 11/20/21 14:03 11/20/21 14:03 Assessment & Plan Assessment/Plan (1) Closed nondisplaced intertrochanteric fracture of right femur: (2) Injury of right shoulder: (3) Accidental fall: Charges/Coding Addendum Addendum: Addendum: Dr. Gallegos I personally examined the patient and reviewed the chart. I agree with the above. 76-year-old male jumped out of the back of his truck and landed wrong and now has a nondisplaced intertrochanteric fracture on the right. Otherwise he is doing well denies any significant pain unless he tries to move his leg. Denies hitting his head. He does have a history of laryngeal cancer and is status post a laryngectomy. He can have regular diet however he just does not do well with meat. Plan for operative repair in the morning. Clinical time spent in all aspects of patient care: 35 minutes Visit Charges Inpatient E&M: 96193 Init Hosp L2
[2021-11-20 16:30] VITALS: BP 140/82; PULSE 62; RESP 20; TEMP 36.6; O2SAT 93; O2SAT 96; BMI 22.8
--- NOTE | 2021-11-20 16:48 | EKG12_ITS ---
Test Reason : PRE-OP Blood Pressure : / mmHG Vent. Rate : 075 BPM Atrial Rate : 075 BPM P-R Int : 144 ms QRS Dur : 082 ms QT Int : 410 ms P-R-T Axes : 048 040 030 degrees QTc Int : 457 ms Normal sinus rhythm Increased R/S ratio in V1, consider early transition or posterior infarct Abnormal ECG Confirmed by APOLONIA CHOU, RUIZ ([id number]), editor sound AZALIA TELLEZ ([id number]) on 11/22/2021 12:53:35 PM Referred By: FRANKLIN Confirmed By:RUIZ BARKSDALE MD
--- NOTE | 2021-11-20 17:25 | RAD_ITS ---
STUDY: X-RAY CHEST REASON FOR EXAM: Male, 76 years old. Hip fracture. TECHNIQUE: Single AP portable view of the chest. COMPARISON: 04/29/2021. FINDINGS: The lungs are well-expanded. There is no acute infiltrate or mass. Linear atelectasis is seen at both lung bases. There is no demonstrated pleural abnormality. Normal size heart. Normal mediastinum and jinny. Normal visualized pulmonary arteries. There is atherosclerotic calcification of the aortic arch with tortuosity. No osseous changes. Intravenous surgical clips in the anterior neck. There is no demonstrated abnormality of the visualized soft tissue structures of the upper abdomen. RAD/Chest 1 View (Portable) IMPRESSION: Bibasilar atelectasis without acute abnormality or other interval change. Electronically Signed: Konrad Nogueira DO at 18:22 EDT ,
[2021-11-20] MEDS: Ondansetron 4 MG/2 ML Vial IV (18:24)
[2021-11-20] MEDS: Acetaminophen 325 MG Tablet 650 MG PO (18:26)
[2021-11-20] MEDS: Midodrine HCl 5 MG Tablet 10 MG PO (18:32)
[2021-11-20] MEDS: 0.9% Normal Saline 1,000 ML 999 ML IV (21:19)
[2021-11-20] MEDS: 0.9% Normal Saline 1,000 ML 100 ML IV (22:17)
[2021-11-20 22:38] VITALS: BP 136/80; PULSE 68; RESP 18; TEMP 36.6; O2SAT 94
[2021-11-21] VITALS (10 sets, daily range): BP systolic 108–148; BP diastolic 60–85; PULSE 74–102; RESP 14–24; TEMP 36.6–37.3; O2SAT 91–99; BMI 22.8
[2021-11-21] MEDS: Acetaminophen 325 MG Tablet 650 MG PO (04:35)
[2021-11-21] MEDS: Levothyroxine 50 MCG Tablet PO (04:35)
[2021-11-21] MEDS: Morphine 2 MG/ML Syringe IV ×4 (04:36→23:53)
[2021-11-21 06:05] LABS: Absolute Lymphocyte Count 0.39 X10^3/uL (0.83-4.51); Absolute Neutrophil Count 4.9 X10^3/uL (2.0-7.7); Basophil# 0.02 X10^3/uL; Basophil% 0.3 % (0-1); Eosinophil# 0.06 X10^3/uL; Hematocrit 31.7 % (40-54); Lymphocyte # 0.39 X10^3/ul (0.83-4.51); Lymphocyte % 6.5 % (19-41); Mean Corp Hgb Conc 31.5 g/dL (32-36); Mean Corpuscular Hgb 28.9 pg (27.0-32.0); Mean Corpuscular Volume 91.6 fL (80-94); Mean Platelet Vol. 10.5 fl (6.2-12.0); Monocyte# 0.68 X10^3/uL; Monocyte% 11.3 % (0-10); NRBC Flagged by Analyzer 0 % (0-5); Neutrophil # 4.86 X10^3/uL (2.7-7.7); Neutrophil % 80.6 % (47-70); POSITIVE DIFFERENTIAL YES; Platelet Count 166 K/mm3 (150-450); RBC Distribution Width CV 14.5 % (11.6-14.6); RBC Distribution Width SD 48.8 fl (35.1-43.9); Red Blood Count 3.46 M/mm3 (4.6-6.2)
[2021-11-21 06:22] LABS: Differential Indicated SCAN CRITERIA MET
[2021-11-21 06:44] LABS: Anion Gap 5 (5-15); BUN 14 mg/dL (7-18); BUN/Creat Ratio 17.3 RATIO (10-20); Calcium,Total 7.7 mg/dL (8.5-10.1); Chloride 113 mmol/L (98-107); Creatinine, Serum 0.81 mg/dL (0.70-1.30); EST Glomerular Filtration Rate 99 mL/min (>60); Est Glom Filt Rate - Afr Amer 119 mL/min (>60); Estimated Creatinine Clearance 74.67 ml/min; Glucose 108 mg/dL (74-106); Sodium Level 140 mmol/L (136-145)
[2021-11-21 06:59] LABS: Thyroid Stim Hormone (TSH) 0.25 uIU/mL (0.358-3.74)
--- NOTE | 2021-11-21 08:06 | PCM.PN.HOSP ---
Subjective Subjective Follow-up for right femur intertrochanteric fracture. Objective Data Objective Data Vital Signs: Vital Signs Temp Pulse Resp BP Pulse Ox O2 Del Method 98.0 F 87 20 H 132/82 H 97 Room Air 11/21/21 05:00 11/21/21 05:00 11/21/21 05:00 11/21/21 05:00 11/21/21 05:00 11/21/21 05:00 Oxygen Delivery Method Room Air Weight: 150 lb Body Mass Index (BMI) 22.8 Intake & Output: Intake and Output for Last 24 Hours 11/19/21 11/20/21 11/21/21 23:59 23:59 23:59 Intake Total 1315.7 / 1315.7 Output Total 550 / 550 500 / 500 Balance 765.7 / 765.7 -500 / -500 Lab / Micro Data Result Diagrams: 11/21/21 05:35 11/21/21 05:35 Labs: Laboratory Results - last 24 hr 11/20/21 14:03: WBC 8.6, RBC 4.11 L, Hgb 12.0 L, Hct 37.0 L, MCV 90.0, MCH 29.2, MCHC 32.4, RDW Std Deviation 47.3 H, RDW Coeff of Chucho 14.3, Plt Count 212, MPV 10.6, Immature Gran % (Auto) 0.400, Neut % (Auto) 82.3 H, Lymph % (Auto) 7.1 L, [place] % (Auto) 8.8, Eos % (Auto) 0.8, Baso % (Auto) 0.6, Absolute Neuts (auto) 7.1, Absolute Lymphs (auto) 0.61 L, Nucleated RBC % 0 11/20/21 14:03: Sodium 139, Potassium 4.1, Chloride 108 H, Carbon Dioxide 23.0, Anion Gap 8, BUN 14, Creatinine 1.05, Estim Creat Clear Calc 53.76, Est GFR (MDRD) Af Amer 88, Est GFR (MDRD) Non-Af 73, BUN/Creatinine Ratio 13.3, Glucose 107 H, Calcium 8.9 11/21/21 05:35: WBC 6.0, RBC 3.46 L, Hgb 10.0 L, Hct 31.7 L, MCV 91.6, MCH 28.9, MCHC 31.5 L, RDW Std Deviation 48.8 H, RDW Coeff of [place]uch[place] 14.5, Plt Count 166, MPV 10.5, Immature Gran % (Auto) 0.300, Neut % (Auto) 80.6 H, Lymph % (Auto) 6.5 L, [place] % (Auto) 11.3 H, Eos % (Auto) 1.0, Baso % (Auto) 0.3, Absolute Neuts (auto) 4.9, Absolute Lymphs (auto) 0.39 L, Nucleated RBC % 0 11/21/21 05:35: Sodium 140, Potassium 4.0, Chloride 113 H, Carbon Dioxide 22.0, Anion Gap 5, BUN 14, Creatinine 0.81, Estim Creat Clear Calc 74.67, Est GFR (MDRD) Af Amer 119, Est GFR (MDRD) Non-Af 99, BUN/Creatinine Ratio 17.3, Glucose 108 H, Calcium 7.7 L 11/21/21 05:35: TSH 0.25 L 11/21/21 05:35: Blood Type O POSITIVE, Antibody Screen NEGATIVE Radiography Diagnostic Testing: Radiology Impression Hip/Pelvis X-Ray 11/20/21 13:55 IMPRESSION: Nondisplaced right intertrochanteric fracture. Electronically Signed: Calvin Lima MD at 14:58 EDT , Shoulder X-Ray 11/20/21 13:55 IMPRESSION: Degenerative changes. No fracture or dislocation. Decreased space between the humeral head and acromion suggestive of rotator cuff pathology. Electronically Signed: Calvin Lima MD at 15:01 EDT , Chest X-Ray 11/20/21 17:25 IMPRESSION: Bibasilar atelectasis without acute abnormality or other interval change. Electronically Signed: Konrad Nogueira DO at 18:22 EDT Reading Location ID and State: [facility] / [place] Tel [phone], Service support , Physical Exam Narrative Seen and examined. Prior to fall, patient can climb 2 flights of stairs and walk 3-4 blocks. Patient had fall in April but did not had major injury or trauma. No LOC General: Alert, Oriented x3, Cooperative HEENT: Laryngeal cancer status post tracheostomy. Deep voice. Atraumatic, PERRLA, EOMI, Normocephalic Oral: Deep oropharyngeal structures could not be visualized Neck: Supple, No JVD, Negative Carotid Bruits Lungs: Air entry diminished in bilateral lung bases. No crepitation/rhonchi Cardiovascular: Regular rate, Regular Rhythm, Normal S1, Normal S2, No murmurs Abdomen: Bowel Sounds Present, Soft, Non Tender, Non-Distended : No renal angle tenderness. No suprapubic tenderness. Extremities: No edema, Capillary Refill Less than 3 Seconds Skin: No rashes, No breakdown Musculoskeletal: Right groin, greater trochanter and buttock region tender. ROM severely restricted. RLE abducted and externally rotated. Neurological: Cranial nerves II-XII grossly intact, DTR 2+/4 and Symmetrical, Neuro grossly intact Psych/Mental Status: Normal Affect, Appropriate. Assessment & Plan Assessment/Plan (1) Closed nondisplaced intertrochanteric fracture of right femur: (2) Injury of right shoulder: (3) Accidental fall: PLAN: Plan 1. Closed nondisplaced intertrochanteric fracture of right femur secondary to accidental fall [facility]. Patient has good preop exercise capacity and an independent living, climbing of stairs. Met more than 4. NSQIP in the chart. Orthopedic surgeon Dr. Patrick Farrell consulted and patient is scheduled for surgery on 1529. -PT and OT to eval and treat following surgery -Graduated pain management regimen 2. Hyperlipidemia -Continue atorvastatin 3. Hypothyroidism -Continue levothyroxine 4. Orthostatic hypotension -Continue midodrine 5. 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 -Continue tamsulosin DVT prophylaxis-SCDs Clinical Impression(s) from Imaging Studies Hip/Pelvis X-Ray 11/20/21 13:55 IMPRESSION: Nondisplaced right intertrochanteric fracture. Electronically Signed: Calvin Lima MD at 14:58 EDT , Shoulder X-Ray 11/20/21 13:55 IMPRESSION: Degenerative changes. No fracture or dislocation. Decreased space between the humeral head and acromion suggestive of rotator cuff pathology. Chest X-Ray 11/20/21 17:25 IMPRESSION: Bibasilar atelectasis without acute abnormality or other interval change. Charges/Coding Visit Charges Inpatient E&M: 66460 Subs Hosp L2
[2021-11-21] MEDS: 0.9% Normal Saline 1,000 ML 100 ML IV ×3 (08:21→19:46)
[2021-11-21 08:22] LABS: Vitamin D,25 Hydroxy 20.3 ng/mL
--- NOTE | 2021-11-21 10:12 | CASEMGMT ---
HAI TOM Assessment: Face to Face with pt for initial transition planning/care coordination assessment. RN VAISHALI introduced self and role at [facility], pt voices understanding and consents to assessment. Pt is A/O x4 and answers all questions appropriately at this time. Pt lying in bed on RA in no distress. Nurse in room medicating him. Pt able to talk covering trach site. Care providers, pharmacy, and demographics verified/updated. Admitting Dx: hip fracture PCP: Jean Carlos Specialists: Brandon, neuro; Jose Antonio, cardio; throat surgeon at [facility] Preferred Pharmacy: [facility] [place] Insurance: [facility] Prescription Benefit: yes LW/HPOA: Pt denies having a LW/DPOA and denies need for info regarding AD. LNOK: Ledy Shook, ; Rosalie Soto, step dtr Living Arrangements: Pt lives with and grandson in a single story house with no steps to enter. Pt reports he was I in ADL's prior to hospitalization. Pt denies concerns at home. Transportation: Pt drives self and denies concerns with transportation. Pt is able to transport him to medical appts if needed. DME/HHC/SNF: Pt has grab bars in the bathroom, no other DME. Pt does not use AD to ambulate. Pt denies previous HHC or SNF stays. Pt states no concerns with going home at time of dc. He states he prefers to go home. Made him aware that [facility] will follow with him post surgery and working with therapy to see how he does. Discussed options post surgery. Pt states no further concerns/needs. CM to follow. Advised pt to ask CM if any further question/concerns/needs arise, voices understanding. Pt Goal: Home Plan: TBD, pending therapy post surgery.
[2021-11-21] MEDS: oxyCODONE 5 MG Tablet PO (10:14)
--- NOTE | 2021-11-21 11:18 | CONS.ORTHO ---
HPI Consult Data Date of Consult: 11/21/21 HPI Narrative Reason for Consultation: Right hip fracture status post fall HPI Narrative: CORA PRESTON, is a 76 M who presents to [facility] through the emergency department brought in by his family. Patient reportedly was at home when he jumped out of a back of a truck landed wrong and fell landing onto his right hip and right shoulder. Patient denies any loss of consciousness head or neck injuries. Patient states his shoulder has been sore, increased with motion. He did report that he had significant bursitis and problems with the shoulder prior to the fall. Patient was unable to weight-bear after the fall. Upon arrival emergency department as we determined patient did have an intertrochanteric fracture of the right hip. Patient reports no other previous injury to this hip in the past. Patient denies any other associated injury with the fall. Denies any neck or back pain. Patient does report that he has a stoma as result of laryngeal cancer. Patient has no other complaints at this time patient denies any history of recent illnesses. No history of bleeding or clotting disorders. No history of anesthesia complication [facility] Medical History History of laryngeal cancer History of prostate cancer HLD (hyperlipidemia) Hypothyroidism Orthostatic hypotension Pneumonia due to COVID-19 virus (02/27/20) Home Medications atorvastatin 40 mg tablet 40 mg PO DAILY cholesterol 05/10/17 [History Last Taken 06/28/20] omeprazole 40 mg capsule,delayed release 40 mg PO DAILY GERD 06/28/20 [History Last Taken 06/28/20] tamsulosin 0.4 mg capsule 0.4 mg PO DAILY PROSTATE 06/28/20 [History Last Taken 06/28/20] levothyroxine 75 mcg tablet 50 mcg PO DAILY 05/30/21 [History Last Taken Unknown] midodrine 10 mg tablet 10 mg PO BID 11/05/21 [History Last Taken Unknown] Allergy/AdvReac Type Severity Reaction Status Date / Time Penicillins Allergy UNKNOWN Verified 11/20/21 13:29 Sulfa (Sulfonamide Allergy BP drops Verified 11/20/21 13:29 Antibiotics) amoxicillin AdvReac Rash Verified 11/20/21 13:29 Family History Other Cancer Surgical History History of bronchoscopy (2020) History of laryngectomy History of tracheostomy Social History Smoking Status: Former smoker second hand exposure: No alcohol intake: never what type of physical activity do you participate in: none seatbelt use: always ROS Constitutional Constitutional: Reports systems reviewed and no addt'l complaints, except as documented Eyes Eyes: Reports systems reviewed and no addt'l complaints, except as documented ENT HEENT: Reports systems reviewed and no addt'l complaints, except as documented Cardiovascular Cardiovascular: Reports systems reviewed and no addt'l complaints, except as documented Respiratory/Chest Respiratory/Chest: Reports systems reviewed and no addt'l complaints, except as documented Gastrointestinal Gastrointestinal: Reports systems reviewed and no addt'l complaints, except as documented Musculoskeletal Musculoskeletal: Reports systems reviewed and no addt'l complaints, except as documented Integumentary Integumentary: Reports systems reviewed and no addt'l complaints, except as documented Neurologic Neurologic: Reports systems reviewed and no addt'l complaints, except as documented Hematologic/Lymphatic Hematologic/Lymphatic: Reports systems reviewed and no addt'l complaints, except as documented Allergic/Immunologic Allergic/Immunologic: Reports systems reviewed and no addt'l complaints, except as documented Vital Signs Vital Signs Vital Signs: 11/20/21 13:27 11/20/21 15:13 11/20/21 16:30 Temperature 98 F 97.6 F L 97.8 F Temperature Source Temporal Temporal Temporal Pulse Rate 70 69 62 Pulse Strength Respiratory Rate 16 15 20 H Respiratory Effort Respiratory Depth Respiratory Pattern Blood Pressure 116/101 H 137/89 H 140/82 H Blood Pressure Mean 106 105 101 Blood Pressure Source Monitor Blood Pressure Position Semi-Fowlers Blood Pressure Location Left Arm Pulse Ox 99 99 93 Oxygen Delivery Method Room Air Room Air Room Air 11/20/21 16:30 11/20/21 22:38 11/20/21 22:00 Temperature 97.8 F Temperature Source Oral Pulse Rate 68 Pulse Strength Normal (2+) Respiratory Rate 20 H 18 Respiratory Effort Respiratory Depth Respiratory Pattern Blood Pressure 136/80 H Blood Pressure Mean 98 Blood Pressure Source Monitor Blood Pressure Position Blood Pressure Location Pulse Ox 96 94 Oxygen Delivery Method Room Air Room Air 11/20/21 22:30 11/21/21 04:47 11/21/21 05:00 Temperature 98.0 F Temperature Source Oral Pulse Rate 87 Pulse Strength Respiratory Rate 20 H Respiratory Effort Respiratory Depth Respiratory Pattern Blood Pressure 132/82 H Blood Pressure Mean 98 Blood Pressure Source Monitor Blood Pressure Position Blood Pressure Location Pulse Ox 97 Oxygen Delivery Method Room Air Room Air Room Air 11/21/21 08:00 11/21/21 08:00 Temperature Temperature Source Pulse Rate Pulse Strength Normal (2+) Respiratory Rate Respiratory Effort Normal Non-Labored Respiratory Depth Normal Respiratory Pattern Normal Blood Pressure Blood Pressure Mean Blood Pressure Source Blood Pressure Position Blood Pressure Location Pulse Ox Oxygen Delivery Method Room Air Weight Weight: 68.039 kg Body Mass Index (BMI) 22.8 Physical Exam Narrative Upon entering the room I found patient sitting up in bed alert oriented. Patient does speak from a stoma. Patient was alert and oriented. Patient was in no obvious respiratory distress, speaking clearly from the stoma. Cranial nerves II through XII gross intact. Patient had no signs of trauma to head face neck. Patient had no pain to palpation to the cervical thoracic lumbar spine. Patient had no signs of trauma to the anterior posterior chest wall. Patient full range of motion of left shoulder elbow wrist and hand without pain. Patient's is right-hand dominant. There is abrasions noted to the posterior aspect of the right shoulder. There is no gross bony abnormality deformities. Passively I was able to elevate the arm to 120 degrees, and extend the arm to 95 degrees with complaint of pain. Actively patient was able to bring the arm with abduction to 110 degrees but a complaint of pain. There was a positive Neer's positive Lopez. Patient good flexion-extension of the elbow wrist and hand of the right arm. There is no signs of trauma to the abdomen. Patient has good range of motion of the left hip knee and ankle without pain. I did not attempt any active range of motion of the right hip. Patient did have good flexion-extension of the right knee. There was good flexion extension and internal and external rotation inversion eversion of the ankle without pain. No calf tenderness. There was no atrophic skin changes varicosities or edema of the lower extremities. Const alert and oriented x3 General Appearance: cooperative Eyes PERRL Resp normal respiratory effort Extremity normal capillary refill Neuro CN's II-XII intact bilaterally Psych mental status grossly normal Lab / Micro Data Result Diagrams: 11/21/21 05:35 11/21/21 05:35 Labs: Laboratory Results - last 24 hr 11/20/21 14:03: WBC 8.6, RBC 4.11 L, Hgb 12.0 L, Hct 37.0 L, MCV 90.0, MCH 29.2, MCHC 32.4, RDW Std Deviation 47.3 H, RDW Coeff of Chucho 14.3, Plt Count 212, MPV 10.6, Immature Gran % (Auto) 0.400, Neut % (Auto) 82.3 H, Lymph % (Auto) 7.1 L, [place] % (Auto) 8.8, Eos % (Auto) 0.8, Baso % (Auto) 0.6, Absolute Neuts (auto) 7.1, Absolute Lymphs (auto) 0.61 L, Nucleated RBC % 0 11/20/21 14:03: Sodium 139, Potassium 4.1, Chloride 108 H, Carbon Dioxide 23.0, Anion Gap 8, BUN 14, Creatinine 1.05, Estim Creat Clear Calc 53.76, Est GFR (MDRD) Af Amer 88, Est GFR (MDRD) Non-Af 73, BUN/Creatinine Ratio 13.3, Glucose 107 H, Calcium 8.9 11/21/21 05:35: WBC 6.0, RBC 3.46 L, Hgb 10.0 L, Hct 31.7 L, MCV 91.6, MCH 28.9, MCHC 31.5 L, RDW Std Deviation 48.8 H, RDW Coeff of Chucho 14.5, Plt Count 166, MPV 10.5, Immature Gran % (Auto) 0.300, Neut % (Auto) 80.6 H, Lymph % (Auto) 6.5 L, [place] % (Auto) 11.3 H, Eos % (Auto) 1.0, Baso % (Auto) 0.3, Absolute Neuts (auto) 4.9, Absolute Lymphs (auto) 0.39 L, Nucleated RBC % 0 11/21/21 05:35: Sodium 140, Potassium 4.0, Chloride 113 H, Carbon Dioxide 22.0, Anion Gap 5, BUN 14, Creatinine 0.81, Estim Creat Clear Calc 74.67, Est GFR (MDRD) Af Amer 119, Est GFR (MDRD) Non-Af 99, BUN/Creatinine Ratio 17.3, Glucose 108 H, Calcium 7.7 L 11/21/21 05:35: Vitamin D 25-Hydroxy 20.3 11/21/21 05:35: TSH 0.25 L 11/21/21 05:35: Blood Type O POSITIVE, Antibody Screen NEGATIVE Radiology Impression Hip/Pelvis X-Ray 11/20/21 13:55 IMPRESSION: Nondisplaced right intertrochanteric fracture. Electronically Signed: Calvin Lima MD at 14:58 EDT , Shoulder X-Ray 11/20/21 13:55 IMPRESSION: Degenerative changes. No fracture or dislocation. Decreased space between the humeral head and acromion suggestive of rotator cuff pathology. Electronically Signed: Calvin Lima MD at 15:01 EDT , Chest X-Ray 11/20/21 17:25 IMPRESSION: Bibasilar atelectasis without acute abnormality or other interval change. Electronically Signed: Konrad Nogueira DO at 18:22 EDT Reading Location ID and State: [facility] / [place] Tel [phone], Service support , Assessment & Plan Assessment/Plan (1) Closed nondisplaced intertrochanteric fracture of right femur: PLAN: Plan 1. Continue pain medications as prescribed 2. Remain n.p.o. 3. Dr. Farrell will be performing ORIF of a right hip fracture today 4. Continue ice to the right hip 5. Remain nonweightbearing 6. Continue SCDs
--- NOTE | 2021-11-21 15:34 | RAD_ITS ---
EXAM: XR RIGHT HIP WITH PELVIS WHEN PERFORMED, 1 VIEW CLINICAL INDICATION: FX TECHNIQUE: Frontal view of the right hip with pelvis when performed. This report was created using [employer] report generation technology. COMPARISON: None. FINDINGS: BONES/JOINTS: Intraoperative views were seen from placement of an intramedullary meseret and screw across a right femoral neck fracture. Alignment is anatomic. No destructive or sclerotic lesions. Note that overlapping bowel shadows may however obscure fine detail. Sacroiliac joint is unremarkable. No widening of the pubic symphysis. The articular structures are unremarkable. SOFT TISSUES: Unremarkable. No soft tissue swelling or gas. RAD/Hip 1 view with Pelvis IMPRESSION: ORIF of a right hip fracture. Electronically Signed: Uri Acosta MD at 23:24 EDT ,
[2021-11-21] MEDS: Cefazolin 1 GM/50 ML BAG IV ×2 (15:58→23:47)
--- NOTE | 2021-11-21 17:20 | OP.PCM_ITS ---
Operative Report Date of Procedure: 11/21/21 Preoperative diagnosis: Right hip mild displaced intertrochanteric fracture Postoperative diagnosis: Same Title of operation: Right hip open reduction internal fixation, intramedullary nail fixation, locked Surgeon: Dr. Patrick Farrell Elevator Service Technician: Heike Mathias PA-C Anesthesia: General Medications: Ancef 2 gm Indications for surgery: Patient is an 76-year-old male sustained a hip fracture yesterday. Patient and their family explained diagnosis and treatment options. Patient evaluated by the medical services. Patient did wish to have surgery. Appropriate informed consent obtained and signed. Findings: Patient had a mildly displaced intertrochanteric hip fracture. They underwent standard reduction, internal fixation using a [place] short gamma nail. X-rays taken throughout. chiropractic assistant, physician training program assistant, was utilized throughout the entire procedure. They were vital to the procedure from beginning to end. They help with patient transfer, patient padding and positioning, fracture reduction, maintenance of fracture reduction, internal fixation of implants, wound closure, bandage application, patient transfer. Without residential assistant, surgical time would have been significantly increased and surgical outcome could have been less optimal. Procedure: Patient was taken to the operating room. Placed under a general anesthetic and transferred to the operating table with the help of the training program assistant. With the help of the training program assistant patient was prepped and padded for surgery. Operative side foot was well-padded and placed in the traction boot. Uninjured lower extremity was abducted and flexed out of harms way. CHUCK hose and SCDs utilized. Fluoroscopy was brought in. With the help of the training program assistant and manipulation of the limb, reduction was nicely obtained as verified under AP lateral and oblique fluoroscopic images. . Operative hip/thigh was prepped padded draped in usual orthopedic sterile fashion for the procedure. Longitudinal incision was made just proximal to the greater trochanter. Taken through skin and subcutaneous tissue. Sharp awl was placed on the tip of the greater trochanter. Position verified under AP and lateral fluoroscopic images. This was then taken down inside the bone. Slightly bent ball-tipped guide meseret was then placed from the tip of the greater trochanter into the intra-medullary canal of the femur. Its position verified radiographically. Reamer was then done over the tip of this with the help of the training program assistant holding the soft tissue protector appropriately. Once reaming was done we placed the short 125? angle device over the guidepin. This was easily introduced. Guide meseret removed. Outrigger device was utilized to position a guidepin from the lateral cortex of the femur across the fracture site and into the femoral head in a good position centrally, as noted on AP lateral and oblique fluoroscopic images. This was measured. Appropriate reaming done. Appreciate length lag screw was placed from the lateral cortex of the femur into the femoral head. A small amount of the screw was noted to be protruding laterally as planned. No cartilage penetration of the femoral head noted on any x-ray. Fracture was then compressed with the outrigger device. Proximal cap screw was placed by the training program assistant seated down completely, confirmed, and then loosened one fourth turn. We then used the outrigger device to place distal cross locking screw under standard technique. This was confirmed to be of adequate length in good position on AP and lateral images. Outrigger device removed. Final set of AP and lateral proximal x-rays taken and saved. Incisions thoroughly irrigated. Closing by the training program assistant with deep 0 Vicryl, mid layer 0 Vicryl, inverted 2-0 Vicryl, skin chris. Puncture wounds closed with inverted 2-0 Vicryl and chris. Xeroform 4 x 4's ABD tape applied. Patient was awoken from their anesthetic, transferred back to their own bed with the help of the training program assistant and into recovery room in satisfactory condition. Patient will continue to be admitted to the hospital under the hospitalist service. This note was generated with [email or web address] dictation software. It may contain incorrect words, spelling, and punctuation that were not noted in checking the note before signing.
[2021-11-21] MEDS: Pantoprazole Sodium 40 MG Tablet PO (20:57)
[2021-11-21] MEDS: Tamsulosin HCl 0.4 MG Capsule PO (20:57)
[2021-11-22] VITALS (7 sets, daily range): BP systolic 92–115; BP diastolic 42–68; PULSE 74–89; RESP 16–18; TEMP 36.4–37.2; O2SAT 95–97
[2021-11-22] MEDS: 0.9% Normal Saline 1,000 ML 100 ML IV (06:05)
[2021-11-22] MEDS: Levothyroxine 50 MCG Tablet PO (06:06)
[2021-11-22 06:39] LABS: Absolute Lymphocyte Count 0.51 X10^3/uL (0.83-4.51); Absolute Neutrophil Count 4.1 X10^3/uL (2.0-7.7); Basophil# 0.03 X10^3/uL; Basophil% 0.5 % (0-1); Eosinophil# 0.04 X10^3/uL; Eosinophils% 0.7 % (0-5); Hematocrit 29.2 % (40-54); Hemoglobin 9.2 g/dL (13.0-16.5); Lymphocyte # 0.51 X10^3/ul (0.83-4.51); Mean Corp Hgb Conc 31.5 g/dL (32-36); Mean Corpuscular Volume 92.1 fL (80-94); Mean Platelet Vol. 11.2 fl (6.2-12.0); Monocyte# 0.96 X10^3/uL; NRBC Flagged by Analyzer 0 % (0-5); Neutrophil # 4.11 X10^3/uL (2.7-7.7); Neutrophil % 72.6 % (47-70); POSITIVE DIFFERENTIAL YES; Platelet Count 140 K/mm3 (150-450); RBC Distribution Width CV 14.1 % (11.6-14.6); Red Blood Count 3.17 M/mm3 (4.6-6.2); White Blood Count 5.7 K/mm3 (4.4-11.0)
[2021-11-22 06:40] LABS: Differential Indicated SCAN CRITERIA MET
[2021-11-22 06:52] LABS: Platelet Estimate SLT DEC (ADEQ)
[2021-11-22 07:19] LABS: Anion Gap 7 (5-15); BUN 8 mg/dL (7-18); BUN/Creat Ratio 10.4 RATIO (10-20); Calcium,Total 8.3 mg/dL (8.5-10.1); Chloride 111 mmol/L (98-107); Creatinine, Serum 0.77 mg/dL (0.70-1.30); EST Glomerular Filtration Rate 105 mL/min (>60); Est Glom Filt Rate - Afr Amer 127 mL/min (>60); Estimated Creatinine Clearance 60.48 ml/min; Glucose 97 mg/dL (74-106); Sodium Level 142 mmol/L (136-145); T4 Free Direct 1.34 ng/dL (0.76-1.46)
[2021-11-22] MEDS: oxyCODONE 5 MG Tablet PO ×2 (08:04→12:13)
[2021-11-22] MEDS: Cefazolin 1 GM/50 ML BAG IV (08:04)
[2021-11-22] MEDS: Aspirin 81 MG TAB.CHEW PO ×2 (10:01→21:08)
[2021-11-22] MEDS: Tamsulosin HCl 0.4 MG Capsule PO (10:02)
[2021-11-22] MEDS: Atorvastatin Calcium 40 MG Tablet PO (10:02)
[2021-11-22] MEDS: Pantoprazole Sodium 40 MG Tablet PO (10:02)
[2021-11-22] MEDS: Midodrine HCl 5 MG Tablet 10 MG PO ×2 (10:02→18:12)
--- NOTE | 2021-11-22 11:47 | CASEMGMT ---
Spoke with therapy, pt is limited by oxygen trach collar at this time for activity. RN CM to follow.
--- NOTE | 2021-11-22 12:04 | DCINST_ITS ---
Discharge Instructions Diet Discharge Diet: No restrictions Dressing / Incision Call your doctor if you observe: Fever of 101 or Higher, Coldness, Increased Pain, Numbness or Tingling, Change in Color, Inability to urinate, Inability to have a bowel movement, Shortness of breath, Dizziness, Fainting spells, Swelling in the ankles, Chest pain, Prolonged hiccupping, Increased palpitations (irregular heartbeat), Calf discomfort and Uncontrolled pain Follow Up Care Test Results: Test results from this visit will be discussed in further detail at your follow- up appointment, if applicable. Discharge Plan Admission Admit Date/Time: 11/20/21 15:19 Primary Reason for Your Visit: Acute right hip intertrochanteric fracture Attending Provider: Izaiah Ramos Primary Care Provider: Andreas Evangelista [employer] Providers: Marcos Gallegos ; Patrick Farrell Discharge Orders/Prescriptions Prescriptions: New sennosides-docusate sodium [Stool Softener-Stimulant Laxat] 8.6-50 mg Tablet 2 tab PO BID PRN PRN (Reason: Constipation) Qty: 0 0RF Rx Instructions: OTC oxycodone 5 mg Tablet 5 mg PO Q6H PRN PRN (Reason: Pain Score 6-10) 3 Days Qty: 10 0RF Continued levothyroxine 75 mcg tablet 50 mcg PO DAILY Label Comments: TAKE 1 TABLET ORALLY ONCE PER DAY FOR 90 DAYS midodrine 10 mg tablet 10 mg PO BID Rx Instructions: do not give last dose of day after 6PM or within 4 hrs of bedtime atorvastatin 40 MG tablet 40 mg PO DAILY omeprazole 40 MG capsule,delayed release(DR/EC) 40 mg PO DAILY Label Comments: TAKE ONE CAPSULE BY MOUTH ONCE DAILY tamsulosin 0.4 MG capsule 0.4 mg PO DAILY Referrals / Follow Up: Andreas Evangelista Chi, MD [Primary Care Provider] -
[2021-11-22] MEDS: Acetaminophen 325 MG Tablet 650 MG PO (12:14)
--- NOTE | 2021-11-22 12:23 | PN.HOSP_ITS ---
Objective Data Objective Data Vital Signs: Vital Signs Temp Pulse Resp BP Pulse Ox O2 Del Method O2 Flow Rate 98.9 F 88 18 115/46 L 96 Trach Collar 10 11/22/21 07:53 11/22/21 07:53 11/22/21 07:53 11/22/21 07:53 11/22/21 07:53 11/22/21 08:06 11/22/21 09:30 FiO2 50 11/22/21 00:07 Oxygen Flow Rate (L/min) 10 Oxygen Delivery Method Trach Collar Weight: 150 lb 0.005 oz Body Mass Index (BMI) 22.8 Intake & Output: Intake and Output for Last 24 Hours 11/20/21 11/21/21 11/22/21 23:59 23:59 23:59 Intake Total 1315.7 / 1315.7 2761.67 / 3561.67 2440 / 2440 Output Total 550 / 550 925 / 1525 1225 / 1225 Balance 765.7 / 765.7 1836.67 / 2036.67 1215 / 1215 Lab / Micro Data Result Diagrams: 11/22/21 05:55 11/22/21 05:55 Labs: Laboratory Results - last 24 hr 11/22/21 05:55: Sodium 142, Potassium 4.0, Chloride 111 H, Carbon Dioxide 24.0, Anion Gap 7, BUN 8, Creatinine 0.77, Estim Creat Clear Calc 60.48, Est GFR (MDRD) Af Amer 127, Est GFR (MDRD) Non-Af 105, BUN/Creatinine Ratio 10.4, Glucose 97, Calcium 8.3 L, Free T4 1.34 11/22/21 05:55: WBC 5.7, RBC 3.17 L, Hgb 9.2 L, Hct 29.2 L, MCV 92.1, MCH 29.0, MCHC 31.5 L, RDW Std Deviation 48.0 H, RDW Coeff of Chucho 14.1, Plt Count 140 L, MPV 11.2, Immature Gran % (Auto) 0.200, Neut % (Auto) 72.6 H, Lymph % (Auto) 9.0 L, [place] % (Auto) 17.0 H, Eos % (Auto) 0.7, Baso % (Auto) 0.5, Absolute Neuts (auto) 4.1, Absolute Lymphs (auto) 0.51 L, Nucleated RBC % 0, Platelet Estimate SLT DEC Radiography Diagnostic Testing: Radiology Impression Hip/Pelvis X-Ray 11/21/21 15:34 IMPRESSION: ORIF of a right hip fracture. Electronically Signed: Uri Acosta MD at 23:24 EDT Reading Location ID and State: [facility] / [place] Tel , Service support , Physical Exam Narrative Seen and examined. Patient on 10 L of oxygen through trach collar. No fever. Patient had surgery yesterday General: Alert, Oriented x3, Cooperative HEENT: Laryngeal cancer status post tracheostomy. Deep voice. Atraumatic, PERRLA, EOMI, Normocephalic Oral: Deep oropharyngeal structures could not be visualized Neck: Supple, No JVD, Negative Carotid Bruits Lungs: Air entry diminished in bilateral lung bases. Severe hypoxia. No crepitation/rhonchi Cardiovascular: Regular rate, Regular Rhythm, Normal S1, Normal S2, No murmurs Abdomen: Bowel Sounds Present, Soft, Non Tender, Non-Distended : No renal angle tenderness. No suprapubic tenderness. Extremities: No edema, Capillary Refill Less than 3 Seconds Skin: No rashes, No breakdown Musculoskeletal: Right hip surgical dressing is dry. Tiny dot on dressing. No acute tenderness. Neurological: Cranial nerves II-XII grossly intact, DTR 2+/4 and Symmetrical, Neuro grossly intact Psych/Mental Status: Normal Affect, Appropriate. Assessment & Plan Assessment/Plan (1) Closed nondisplaced intertrochanteric fracture of right femur: (2) Injury of right shoulder: (3) Accidental fall: PLAN: Plan 76-year-old male admitted after accidental fall resulting into right hip intertrochanteric fracture. No LOC 1. Closed, mildly displaced intertrochanteric fracture of right femur secondary to accidental fall. [facility] Patient has good preop exercise capacity and an independent living, climbing of stairs. Met more than 4. NSQIP in the chart. Orthopedic surgeon Dr. Patrick Farrell consulted. Patient had right hip ORIF, intramedullary nail fixation block. Fracture site was found mildly displaced during surgery. -PT and OT to eval and treat following surgery -Graduated pain management regimen 2. Acute hypoxic respiratory failure probably due to atelectasis. Patient does not have fever, leukocytosis, acute change in cough, sputum production. On 10 L of oxygen. Chest x-ray ordered. COVID-19 PCR and flu antigen ordered. Hyperlipidemia -Continue atorvastatin 3. Hypothyroidism -Continue levothyroxine 4. Orthostatic hypotension -Continue midodrine 5. 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 -Continue tamsulosin DVT prophylaxis-SCDs Laboratory Results 11/22/21 05:55: Sodium 142, Potassium 4.0, Chloride 111 H, Carbon Dioxide 24.0, Anion Gap 7, BUN 8, Creatinine 0.77, Estim Creat Clear Calc 60.48, Est GFR (MDRD) Af Amer 127, Est GFR (MDRD) Non-Af 105, BUN/Creatinine Ratio 10.4, Glucose 97, Calcium 8.3 L, Free T4 1.34 11/22/21 05:55: WBC 5.7, RBC 3.17 L, Hgb 9.2 L, Hct 29.2 L, MCV 92.1, MCH 29.0, MCHC 31.5 L, RDW Std Deviation 48.0 H, RDW Coeff of Chucho 14.1, Plt Count 140 L, MPV 11.2, Immature Gran % (Auto) 0.200, Neut % (Auto) 72.6 H, Lymph % (Auto) 9.0 L, [place] % (Auto) 17.0 H, Eos % (Auto) 0.7, Baso % (Auto) 0.5, Absolute Neuts (auto) 4.1, Absolute Lymphs (auto) 0.51 L, Nucleated RBC % 0, Platelet Estimate SLT DEC Clinical Impression(s) from Imaging Studies Hip/Pelvis X-Ray 11/20/21 13:55 IMPRESSION: Nondisplaced right intertrochanteric fracture. Electronically Signed: Calvin Lima MD at 14:58 EDT , Shoulder X-Ray 11/20/21 13:55 IMPRESSION: Degenerative changes. No fracture or dislocation. Decreased space between the humeral head and acromion suggestive of rotator cuff pathology. Chest X-Ray 11/20/21 17:25 IMPRESSION: Bibasilar atelectasis without acute abnormality or other interval change. Charges/Coding Visit Charges Inpatient E&M: 45924 Subs Hosp L2
--- NOTE | 2021-11-22 13:14 | PCM.PN.ORT ---
Subjective Subjective Patient is s/p right sided short intratrochanteric nail with Dr. Farrell 11/21/2021. Patient resting comfortably in bed. Rates pain 5-6/ 10 at rest. With movement 7-8/10. States taking oxycodone and Tylenol as needed and ice help to relieve pain. Patient has been up with therapy. Walking with the assit of a walker. Afebrile, no chest pain, shortness of breath, negative calf pain/ erythema, and no other signs of DVT. Objective Data Objective Data Vital Signs: Vital Signs Temp Pulse Resp BP Pulse Ox O2 Del Method O2 Flow Rate 98.9 F 88 18 115/46 L 96 Trach Collar 10 11/22/21 07:53 11/22/21 07:53 11/22/21 07:53 11/22/21 07:53 11/22/21 07:53 11/22/21 08:06 11/22/21 09:30 FiO2 50 11/22/21 00:07 Oxygen Flow Rate (L/min) 10 Oxygen Delivery Method Trach Collar Weight: 68.039 kg Body Mass Index (BMI) 22.8 Intake & Output: Intake and Output for Last 24 Hours 11/20/21 11/21/21 11/22/21 23:59 23:59 23:59 Intake Total 1315.7 / 1315.7 2761.67 / 3561.67 2440 / 2440 Output Total 550 / 550 925 / 1525 1225 / 1225 Balance 765.7 / 765.7 1836.67 / 2036.67 1215 / 1215 Lab / Micro Data Result Diagrams: 11/22/21 05:55 11/22/21 05:55 Labs: Laboratory Results - last 24 hr 11/22/21 05:55: Sodium 142, Potassium 4.0, Chloride 111 H, Carbon Dioxide 24.0, Anion Gap 7, BUN 8, Creatinine 0.77, Estim Creat Clear Calc 60.48, Est GFR (MDRD) Af Amer 127, Est GFR (MDRD) Non-Af 105, BUN/Creatinine Ratio 10.4, Glucose 97, Calcium 8.3 L, Free T4 1.34 11/22/21 05:55: WBC 5.7, RBC 3.17 L, Hgb 9.2 L, Hct 29.2 L, MCV 92.1, MCH 29.0, MCHC 31.5 L, RDW Std Deviation 48.0 H, RDW Coeff of Chucho 14.1, Plt Count 140 L, MPV 11.2, Immature Gran % (Auto) 0.200, Neut % (Auto) 72.6 H, Lymph % (Auto) 9.0 L, [place] % (Auto) 17.0 H, Eos % (Auto) 0.7, Baso % (Auto) 0.5, Absolute Neuts (auto) 4.1, Absolute Lymphs (auto) 0.51 L, Nucleated RBC % 0, Platelet Estimate SLT DEC Radiography Diagnostic Testing: Radiology Impression Hip/Pelvis X-Ray 11/21/21 15:34 IMPRESSION: ORIF of a right hip fracture. Electronically Signed: Uri Acosta MD at 23:24 EDT , Physical Exam Narrative Patient resting comfortably in bed No signs of acute distress Patient has trach collar at baseline currently 10 L of O2 through trach. right lower extremity Limb is warm to touch, Sensation intact throughout entire lower extremity, including saphenous, sural, superficial and deep peroneal, and tibial distribution. DP/PT pulses bounding. Dorsiflexion plantarflexion 5/5 Dressing small area of sanguinous drainage at most proximal incision. Calf nontender to palpation, no erythema, no edema. Negative Homans Assessment & Plan Assessment/Plan (1) Closed nondisplaced intertrochanteric fracture of right femur: PLAN: Patient is status post right sided short intertrochanteric nail with Dr. Farrell 11/21/2021 1. Will continue PT today . Weightbearing as tolerated 2. Patient will follow up for his post op appointment in 2 weeks. This will need to be arranged. 3. WBC WNL. 4. H/H .2: post operavtive anemia secondary to acute blood loss intraoperatively. Patient is asymptomatic at this time. No intraoperative complications. will continue to monitor. no acute interventions. Will defer to primary team 5. DVT prophylaxis : Aspirin 81 mg twice daily x4 weeks 6. Pain control: patient instructed to take tylenol 500mg 2 tablets TID scheduled. and oxycodone 1-2 tablets every 4-6 hours only as needed for pain control. 7. Okay for discharge from an orthopedic standpoint. Ultimately defer to primary team. 8. ok to remove post op dressing. post op day 5.
--- NOTE | 2021-11-22 14:03 | RAD_ITS ---
STUDY: X-RAY CHEST REASON FOR EXAM: Male, 76 years old. Severe hypoxia TECHNIQUE: Single AP portable view of the chest. COMPARISON: Comparison is made with prior study dated 11/20/2021. FINDINGS: Since prior study, there is progressive infiltrate in the left lower lobe. Stable increased linear markings at the right lung base. Normal size heart. Normal mediastinum and jinny. Normal visualized pulmonary arteries. There is atherosclerotic calcification of the aortic arch with tortuosity. There are degenerative changes of the visualized thoracic spine. Surgical clips are seen in the region of the thyroid gland. Normal visualized ribs, clavicles, and shoulders. There is no demonstrated abnormality of the visualized soft tissue structures of the upper abdomen. RAD/Chest 1 View (Portable) IMPRESSION: Progressive left lower lobe infiltrate. Stable increased linear markings at the right lung base. Electronically Signed: Calvin Lima MD at 14:37 EDT ,
--- NOTE | 2021-11-22 14:48 | CASEMGMT ---
HAI TOM in to pt room, pt and dtr present. Pt states 's staff was in the room and stated pt was released. Made her aware that pt is still requiring a bit of oxygen at this time. She states she has oxygen at home for her and she does not feel he needs it. States when he takes it off, he is fine. HAI TOM made aware that we will cont to follow him for dc planning.
[2021-11-22] MEDS: Ipratropium/Albuterol Sulfate 3 ML AMPUL.NEB INHALATION (19:45)
[2021-11-23] VITALS (8 sets, daily range): BP systolic 103–129; BP diastolic 46–71; PULSE 80–100; RESP 18–20; TEMP 36.7–37.4; O2SAT 96–99
[2021-11-23] MEDS: Levothyroxine 50 MCG Tablet PO (05:57)
[2021-11-23 05:58] LABS: Absolute Lymphocyte Count 0.48 X10^3/uL (0.83-4.51); Absolute Neutrophil Count 3.6 X10^3/uL (2.0-7.7); Basophil# 0.01 X10^3/uL; Basophil% 0.2 % (0-1); Eosinophil# 0.14 X10^3/uL; Eosinophils% 2.8 % (0-5); Hematocrit 25.9 % (40-54); Hemoglobin 8.3 g/dL (13.0-16.5); Lymphocyte # 0.48 X10^3/ul (0.83-4.51); Lymphocyte % 9.6 % (19-41); Mean Corpuscular Hgb 29.1 pg (27.0-32.0); Mean Corpuscular Volume 90.9 fL (80-94); Mean Platelet Vol. 11.1 fl (6.2-12.0); Monocyte# 0.79 X10^3/uL; Monocyte% 15.8 % (0-10); NRBC Flagged by Analyzer 0 % (0-5); Neutrophil # 3.57 X10^3/uL (2.7-7.7); Neutrophil % 71.4 % (47-70); POSITIVE DIFFERENTIAL YES; Platelet Count 133 K/mm3 (150-450); Red Blood Count 2.85 M/mm3 (4.6-6.2)
[2021-11-23 06:01] LABS: Differential Indicated SCAN CRITERIA MET
[2021-11-23 06:23] LABS: Anion Gap 5 (5-15); BUN 8 mg/dL (7-18); BUN/Creat Ratio 12.5 RATIO (10-20); Calcium,Total 8.4 mg/dL (8.5-10.1); Chloride 113 mmol/L (98-107); Creatinine, Serum 0.64 mg/dL (0.70-1.30); EST Glomerular Filtration Rate 129 mL/min (>60); Est Glom Filt Rate - Afr Amer 156 mL/min (>60); Estimated Creatinine Clearance 60.48 ml/min; Glucose 91 mg/dL (74-106); Platelet Estimate SLT DEC (ADEQ); Potassium 3.6 mmol/L (3.5-5.1); Sodium Level 142 mmol/L (136-145)
[2021-11-23] MEDS: Ipratropium/Albuterol Sulfate 3 ML AMPUL.NEB INHALATION ×2 (07:06→18:52)
[2021-11-23] MEDS: Acetaminophen 325 MG Tablet 650 MG PO ×2 (08:12→15:47)
[2021-11-23] MEDS: Aspirin 81 MG TAB.CHEW PO (08:13)
[2021-11-23] MEDS: Atorvastatin Calcium 40 MG Tablet PO ×2 (08:13)
[2021-11-23] MEDS: Pantoprazole Sodium 40 MG Tablet PO (08:13)
[2021-11-23] MEDS: Midodrine HCl 5 MG Tablet 10 MG PO ×2 (08:13→17:23)
[2021-11-23] MEDS: Tamsulosin HCl 0.4 MG Capsule PO (08:14)
--- NOTE | 2021-11-23 11:42 | CASEMGMT ---
Addendum entered by Yolanda Odell 11/23/21 12:15: Received returned call from Chloe at [facility], they can accept pt but pt has to have an appt with first. TC to 's office, they are closed for the day. Will call Friday if pt has dc'd. Green sheet on chart for oxygen and HHC. Pt is aware that he will need to see Dr. Evangelista's office prior to HHC starting. Original Note: Noted therapy note for today. HAI TOM in to pt room, pt and dtr in room as well. Pt sitting up in chair with trach collar on in no distress. Discussed HHC for homegoing, SN, PT and OT. Pt is agreeable to this. Discussed DME. Pt states they have a standard walker at home as well as two rollators and a FWW. Pt is agreeable to use FWW and statese he does not need DME. Provided local in network list for DME (oxygen) , pt chose [employer] as pt also uses [employer] for her oxygen. Discussed process of this on the weekend and patient and family verbalize understanding. Patient was provided a list of HHC providers including quality and resource use data and consistent with the patient?s preferred geographic region, medical needs, and insurance network. The patient?s preferred provider is [facility] HAI TOM called Chloe at [facility], referral made. Will await acceptance.
--- NOTE | 2021-11-23 13:16 | CT_ITS ---
We are attempting to reach an attending provider to discuss findings. An addendum with communication details will be sent when the communication is complete. STUDY: CTA CHEST REASON FOR EXAM: Male, 76 years old. Severe hypoxia, high suspicion of PE RADIATION DOSAGE (If Supplied By Facility): CTDIvol = ( 459.87 ) mGy, DLP = ( 15.10 ) mGycm TECHNIQUE: The examination was performed with the intravenous administration of IV 75mL Isovue-370. Post-processing of the angiographic images was performed, with multiplanar reformation and 3D reconstruction. Individualized dose optimization techniques were used for this CT. COMPARISON: 02/28/2020 FINDINGS: There is a tracheostomy in place. There are postsurgical changes within the anterior neck. There is dependent consolidation within the lower lobes, more pronounced on the right. There is minimal atelectasis and/or scarring within the right middle lobe and lingula. There are bilateral emphysematous changes. Normal enhancement of the main pulmonary artery and right and left pulmonary arteries. Normal enhancement of the bilateral peripheral pulmonary arteries. There are filling defects within segmental and subsegmental pulmonary arteries within the right middle lobe consistent with pulmonary emboli. There is atherosclerotic calcification of the aortic arch and descending thoracic aorta. There is no demonstrated aortic dissection. There are calcifications of the coronary arteries. The heart appears stable since the prior examination without evidence of right heart strain. Normal mediastinum. There is a mildly enlarged right hilar lymph node, slightly more pronounced than the prior examination. There are degenerative changes of thoracic spine. Normal visualized upper abdomen. CT/CTA Chest W/WO Contrast IMPRESSION: Pulmonary emboli within the right middle lobe. Emphysema. Bilateral dependent lower lobe consolidation. Atherosclerosis. Electronically Signed: May Aponte MD at 16:49 EDT ,
[2021-11-23] MEDS: 0.9% Saline Lock 10 ML Syringe IV ×3 (13:34→16:06)
--- NOTE | 2021-11-23 15:00 | PN.HOSP_ITS ---
Subjective Subjective Follow-up for acute hypoxic respiratory failure after surgery. Objective Data Objective Data Vital Signs: Vital Signs Temp Pulse Resp BP Pulse Ox O2 Del Method O2 Flow Rate 99.4 F H 99 18 103/56 L 98 Trach Collar 6 11/23/21 08:00 11/23/21 08:00 11/23/21 08:00 11/23/21 08:00 11/23/21 09:23 11/23/21 08:06 11/23/21 09:23 FiO2 50 11/22/21 19:45 Oxygen Flow Rate (L/min) 6 Oxygen Delivery Method Trach Collar Weight: 150 lb 0.005 oz Body Mass Index (BMI) 22.8 Intake & Output: Intake and Output for Last 24 Hours 11/21/21 11/22/21 11/23/21 23:59 23:59 23:59 Intake Total 2761.67 / 3561.67 2660 / 2660 386.75 / 386.75 Output Total 925 / 1525 2075 / 2075 850 / 850 Balance 1836.67 / 2036.67 585 / 585 -463.25 / -463.25 Lab / Micro Data Result Diagrams: 11/23/21 04:51 11/23/21 04:51 Labs: Laboratory Results - last 24 hr 11/22/21 13:05: COVID-19 ([facility]) Not Detected 11/23/21 04:51: WBC 5.0, RBC 2.85 L, Hgb 8.3 L, Hct 25.9 L, MCV 90.9, MCH 29.1, MCHC 32.0, RDW Std Deviation 47.0 H, RDW Coeff of Chucho 14.0, Plt Count 133 L, MPV 11.1, Immature Gran % (Auto) 0.200, Neut % (Auto) 71.4 H, Lymph % (Auto) 9.6 L, [place] % (Auto) 15.8 H, Eos % (Auto) 2.8, Baso % (Auto) 0.2, Absolute Neuts (auto) 3.6, Absolute Lymphs (auto) 0.48 L, Nucleated RBC % 0, Platelet Estimate SLT 11/23/21 04:51: Sodium 142, Potassium 3.6, Chloride 113 H, Carbon Dioxide 24.0, Anion Gap 5, BUN 8, Creatinine 0.64 L, Estim Creat Clear Calc 60.48, Est GFR (MDRD) Af Amer 156, Est GFR (MDRD) Non-Af 129, BUN/Creatinine Ratio 12.5, Glucose 91, Calcium 8.4 L Micro: Microbiology 11/22/21 Unknown Mucosa - Nose Influenza Types A,B Direct FA ([facility]) - Final Physical Exam Narrative Seen and examined. Patient on 10 L of oxygen through trach collar. He is oxygen, still high BUT 6 L. No fever. Patient had surgery on 11/21. Denies prior history of DVT/PE. Mild cough General: Alert, Oriented x3, Cooperative HEENT: Laryngeal cancer status post tracheostomy. Deep voice. Atraumatic, PERRLA, EOMI, Normocephalic Oral: Deep oropharyngeal structures could not be visualized Neck: Supple, No JVD, Negative Carotid Bruits Lungs: Air entry diminished in bilateral lung bases. Severe hypoxia. No crepitation/rhonchi Cardiovascular: Regular rate, Regular Rhythm, Normal S1, Normal S2, No murmurs Abdomen: Bowel Sounds Present, Soft, Non Tender, Non-Distended : No renal angle tenderness. No suprapubic tenderness. Extremities: No edema, Capillary Refill Less than 3 Seconds Skin: No rashes, No breakdown Musculoskeletal: Right hip surgical dressing is dry. Tiny dot on dressing. No acute tenderness. Neurological: Cranial nerves II-XII grossly intact, DTR 2+/4 and Symmetrical, Neuro grossly intact Psych/Mental Status: Normal Affect, Appropriate. Assessment & Plan Assessment/Plan (1) Closed nondisplaced intertrochanteric fracture of right femur: (2) Injury of right shoulder: (3) Accidental fall: PLAN: Plan 76-year-old male admitted after accidental fall resulting into right hip intertrochanteric fracture. No LOC 1. Closed, mildly displaced intertrochanteric fracture of right femur secondary to accidental fall. -Admit to [facility] floor. Patient has good preop exercise capacity and an independent living, climbing of stairs. Met more than 4. NSQIP in the chart. Orthopedic surgeon Dr. Patrick Farrell consulted. Patient had right hip ORIF, intramedullary nail fixation block. Fracture site was found mildly displaced during surgery. -PT and OT to eval and treat following surgery -Graduated pain management regimen 11/23: Surgical scar healing well. 2. Acute hypoxic respiratory failure probably due to atelectasis/mucous plugging. Patient does not have fever, leukocytosis, acute change in cough, sputum production. On 10 L of oxygen. 11/23: Chest x-ray did not show acute change. COVID-[address] PE ordered to rule out PE. Report pending. Flu antigen negative. Respiratory panel ordered. Hyperlipidemia -Continue atorvastatin 3. Hypothyroidism -Continue levothyroxine 4. Orthostatic hypotension -Continue midodrine 5. 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 -Continue tamsulosin DVT prophylaxis-SCDs Microbiology Past 72 Hours 11/22/21 Unknown Mucosa - Nose Influenza Types A,B Direct FA ([facility]) - Final Laboratory Results 11/22/21 13:05: COVID-19 ([facility]RIELLA) Not Detected 11/23/21 04:51: WBC 5.0, RBC 2.85 L, Hgb 8.3 L, Hct 25.9 L, MCV 90.9, MCH 29.1, MCHC 32.0, RDW Std Deviation 47.0 H, RDW Coeff of Chucho 14.0, Plt Count 133 L, MPV 11.1, Immature Gran % (Auto) 0.200, Neut % (Auto) 71.4 H, Lymph % (Auto) 9.6 L, [place] % (Auto) 15.8 H, Eos % (Auto) 2.8, Baso % (Auto) 0.2, Absolute Neuts (auto) 3.6, Absolute Lymphs (auto) 0.48 L, Nucleated RBC % 0, Platelet Estimate T 11/23/21 04:51: Sodium 142, Potassium 3.6, Chloride 113 H, Carbon Dioxide 24.0, Anion Gap 5, BUN 8, Creatinine 0.64 L, Estim Creat Clear Calc 60.48, Est GFR (MDRD) Af Amer 156, Est GFR (MDRD) Non-Af 129, BUN/Creatinine Ratio 12.5, Glucose 91, Calcium 8.4 L Clinical Impression(s) from Imaging Studies Hip/Pelvis X-Ray 11/20/21 13:55 IMPRESSION: Nondisplaced right intertrochanteric fracture. Electronically Signed: Calvin Lima MD at 14:58 EDT , Shoulder X-Ray 11/20/21 13:55 IMPRESSION: Degenerative changes. No fracture or dislocation. Decreased space between the humeral head and acromion suggestive of rotator cuff pathology. Electronically Signed: Calvin Lima MD at 15:01 EDT , Chest X-Ray 11/20/21 17:25 IMPRESSION: Bibasilar atelectasis without acute abnormality or other interval change. Electronically Signed: Konrad Nogueira DO at 18:22 EDT Reading Location ID and State: [facility] / [place] Tel [phone], Service support , Hip/Pelvis X-Ray 11/21/21 15:34 IMPRESSION: ORIF of a right hip fracture. Electronically Signed: Uri Acosta MD at 23:24 EDT , Chest X-Ray 11/22/21 14:03 IMPRESSION: Progressive left lower lobe infiltrate. Stable increased linear markings at the right lung base. Charges/Coding Visit Charges Inpatient E&M: 35924 Subs Hosp L2
[2021-11-23] MEDS: Ondansetron 4 MG/2 ML Vial IV (15:47)
--- NOTE | 2021-11-23 16:56 | ECHOD_ITS ---
Reason For Study: RML PE Procedure This was a 2D Doppler, Color Flow transthoracic echocardiogram. Exam performed portable in patient room. Left Ventricle Normal LV size. The estimated ejection fraction is 65 %. Normal diastology for age. No regional wall motion abnormalities noted. Right Ventricle Normal RV size. Normal systolic function. Atria Normal left atrium. Normal right atrium. No doppler evidence for ASD. Mitral Valve There is moderate mitral annular calcification. There is no mitral valve stenosis. Trivial mitral valve insufficiency. Tricuspid Valve There is no tricuspid stenosis. Mild tricuspid valve insufficiency. Pulmonary artery systolic pressure is 40 mmHg. Aortic Valve Trisinus/trileaflet aortic valve. There is no aortic stenosis. No aortic valve insufficiency. Pulmonic Valve There is no pulmonic valvular stenosis. No pulmonic valve insufficiency. Great Vessels Normal aortic root. Pericardium/Pleural No pericardial effusion. MMode/2D Measurements & Calculations Ao root diam: 3.2 cm LAV(MOD-bp): 55.9 ml LVAd ap4: 22.9 cm2 LAV(MOD-bp) Indexed: 30.9 ml/m2 LVLd ap4: 7.2 cm LAV(MOD-sp2): 60.7 ml EDV(MOD-sp4): 60.3 ml LAV(MOD-sp4): 39.8 ml EDV(sp4-el): 61.4 ml LVAs ap4: 12.8 cm2 LVLs ap4: 6.1 cm ESV(MOD-sp4): 22.9 ml ESV(sp4-el): 22.6 ml EF(MOD-sp4): 62.0 % EF(sp4-el): 63.2 % LVAd ap2: 17.6 cm2 SV(MOD-sp4): 37.4 ml SV(MOD-sp2): 21.9 ml LVLd ap2: 7.1 cm EDV(MOD-sp2): 34.9 ml EDV(sp2-el): 37.0 ml LVAs ap2: 9.3 cm2 LVLs ap2: 5.6 cm ESV(MOD-sp2): 13.0 ml ESV(sp2-el): 13.2 ml EF(MOD-sp2): 62.9 % SV(sp4-el): 38.8 ml LA dimension(2D): 3.8 cm LA A4 area: 18.1 cm2 Time Measurements MV dec time: 0.17 sec Doppler Measurements & Calculations MV E max obie: 91.1 cm/sec Lat Peak E' Obie: 9.0 cm/sec Med Peak E' Obie: 12.1 cm/sec MV A max obie: 102.7 cm/sec E/E' lat: 10.1 E/E' med: 7.5 MV E/A: 0.89 MV V2 max: 115.1 cm/sec MV dec slope: 581.0 cm/sec2 Ao V2 max: 129.1 cm/sec MV max P.3 mmHg Ao max P.7 mmHg MV V2 mean: 76.8 cm/sec Ao V2 mean: 91.3 cm/sec MV mean P.6 mmHg Ao mean P.8 mmHg MV V2 VTI: 31.4 cm Ao V2 VTI: 28.6 cm LV V1 max: 125.7 cm/sec MR max obie: 513.9 cm/sec PA V2 max: 78.2 cm/sec LV V1 max P.3 mmHg MR max P.7 mmHg LV V1 mean P.4 mmHg LV V1 mean: 86.8 cm/sec LV V1 VTI: 26.9 cm ECHO/Echo Complete Interpretation Summary The estimated ejection fraction is 65 %. Trivial mitral valve insufficiency. Mild tricuspid valve insufficiency. Ordering Physician: Izaiah Ramos Referring Physician: Andreas Evangelista Chi Performed By: Dania Jones RCS
[2021-11-23] MEDS: levoFLOXacin IV 750 MG/150 ML BAG 100 MG IV (17:16)
[2021-11-23 17:33] LABS: BNP,B-Type NATRIURETIC PEPTIDE 56.2 pg/mL (0-100)
[2021-11-23 18:00] LABS: International Normalized Ratio 1.2; Prothrombin Time (Protime)PT. 14.5 SECONDS (11.7-14.9)
[2021-11-23] MEDS: HEPARIN/D5w 25,000 UNITS 25,000 UNITS/250 ML IV.SOLN. 8 UNITS CONT INF (18:17)
[2021-11-23] MEDS: Heparin Injection (Vial) 5,000 UNIT/ML VIAL 4000 UNIT IV (18:17)
[2021-11-23] MEDS: Acetylcysteine 800 MG/4 ML VIAL.NEB. INHALATION (18:55)
--- NOTE | 2021-11-23 19:09 | CPS ---
patient refusing chest vest currently
[2021-11-24] VITALS (13 sets, daily range): BP systolic 116–134; BP diastolic 59–70; PULSE 77–115; RESP 18–24; TEMP 36.9–37.2; O2SAT 93–99
[2021-11-24] MEDS: Acetaminophen 325 MG Tablet 650 MG PO ×4 (00:16→21:28)
[2021-11-24 00:23] LABS: International Normalized Ratio 1.2; Prothrombin Time (Protime)PT. 15.1 SECONDS (11.7-14.9)
[2021-11-24 00:30] LABS: Partial Thromboplast Time 90.8 Seconds (24.1-36.2)
[2021-11-24] MEDS: 0.9% Saline Lock 10 ML Syringe IV ×2 (01:00→15:26)
[2021-11-24] MEDS: Levothyroxine 50 MCG Tablet PO (06:26)
[2021-11-24] MEDS: Ipratropium/Albuterol Sulfate 3 ML AMPUL.NEB INHALATION ×3 (07:27→18:34)
[2021-11-24] MEDS: Acetylcysteine 800 MG/4 ML VIAL.NEB. INHALATION ×3 (07:28→18:34)
--- NOTE | 2021-11-24 07:35 | CPS ---
Pt does not want to try the vest therapy. tried encouragement but he declined.
[2021-11-24 07:50] LABS: Absolute Lymphocyte Count 0.44 X10^3/uL (0.83-4.51); Absolute Neutrophil Count 3.1 X10^3/uL (2.0-7.7); Basophil# 0.03 X10^3/uL; Basophil% 0.7 % (0-1); Eosinophil# 0.16 X10^3/uL; Eosinophils% 3.7 % (0-5); Hemoglobin 7.6 g/dL (13.0-16.5); Lymphocyte # 0.44 X10^3/ul (0.83-4.51); Lymphocyte % 10.3 % (19-41); Mean Corpuscular Volume 90.9 fL (80-94); Mean Platelet Vol. 10.6 fl (6.2-12.0); Monocyte# 0.59 X10^3/uL; Monocyte% 13.8 % (0-10); NRBC Flagged by Analyzer 0 % (0-5); Neutrophil # 3.06 X10^3/uL (2.7-7.7); Neutrophil % 71.3 % (47-70); POSITIVE DIFFERENTIAL YES; Platelet Count 142 K/mm3 (150-450); RBC Distribution Width CV 14.2 % (11.6-14.6); Red Blood Count 2.53 M/mm3 (4.6-6.2); White Blood Count 4.3 K/mm3 (4.4-11.0)
[2021-11-24 07:58] LABS: Differential Indicated SCAN CRITERIA MET
[2021-11-24 08:10] LABS: Anion Gap 4 (5-15); BUN 8 mg/dL (7-18); BUN/Creat Ratio 10.9 RATIO (10-20); Calcium,Total 8.4 mg/dL (8.5-10.1); Chloride 113 mmol/L (98-107); Creatinine, Serum 0.73 mg/dL (0.70-1.30); EST Glomerular Filtration Rate 110 mL/min (>60); Est Glom Filt Rate - Afr Amer 133 mL/min (>60); Estimated Creatinine Clearance 60.48 ml/min; Glucose 105 mg/dL (74-106); Potassium 3.7 mmol/L (3.5-5.1); Sodium Level 143 mmol/L (136-145)
[2021-11-24] MEDS: levoFLOXacin IV 750 MG/150 ML BAG 100 MG IV (09:38)
[2021-11-24] MEDS: Senna/Docusate Sodium 1 Tablet 2 TABLET PO (09:38)
[2021-11-24] MEDS: Pantoprazole Sodium 40 MG Tablet PO ×2 (09:38→21:20)
[2021-11-24] MEDS: Tamsulosin HCl 0.4 MG Capsule PO (09:38)
[2021-11-24] MEDS: Midodrine HCl 5 MG Tablet 10 MG PO ×2 (09:38→17:55)
[2021-11-24 09:59] LABS: Platelet Estimate SLT DEC (ADEQ); Red Cell Morphology NORM C+C NORMAL (NORM C&C)
--- NOTE | 2021-11-24 11:54 | PCM.PN.HOSP ---
Subjective Subjective Follow-up for acute hypoxic respiratory failure complicated with pulmonary embolism and pneumonia Objective Data Objective Data Vital Signs: Vital Signs Temp Pulse Resp BP Pulse Ox O2 Del Method O2 Flow Rate 98.9 F 115 H 20 H 127/59 H 97 Trach Collar 8 11/24/21 09:31 11/24/21 09:31 11/24/21 09:31 11/24/21 09:31 11/24/21 10:53 11/24/21 09:40 11/24/21 10:53 FiO2 35 11/24/21 07:32 Oxygen Flow Rate (L/min) 8 Oxygen Delivery Method Trach Collar Weight: 150 lb 0.005 oz Body Mass Index (BMI) 22.8 Intake & Output: Intake and Output for Last 24 Hours 11/22/21 11/23/21 11/24/21 23:59 23:59 23:59 Intake Total 2660 / 2660 776.75 / 776.75 203.2 / 203.2 Output Total 2075 / 2075 1350 / 1925 1275 / 1275 Balance 585 / 585 -573.25 / -1148.25 -1071.8 / -1071.8 Lab / Micro Data Result Diagrams: 11/24/21 07:34 11/24/21 07:34 Labs: Laboratory Results - last 24 hr 11/23/21 04:51: B-Natriuretic Peptide 56.2 11/23/21 17:40: PT 14.5, INR 1.2, APTT 36.0 11/23/21 23:55: PT 15.1 H, INR 1.2, APTT 90.8 H* 11/24/21 07:34: WBC 4.3 L, RBC 2.53 L, Hgb 7.6 L, Hct 23.0 L, MCV 90.9, MCH 30.0, MCHC 33.0, RDW Std Deviation 47.0 H, RDW Coeff of Chucho 14.2, Plt Count 142 L, MPV 10.6, Immature Gran % (Auto) 0.200, Neut % (Auto) 71.3 H, Lymph % (Auto) 10.3 L, [place] % (Auto) 13.8 H, Eos % (Auto) 3.7, Baso % (Auto) 0.7, Absolute Neuts (auto) 3.1, Absolute Lymphs (auto) 0.44 L, Nucleated RBC % 0, Differential Comment , Diff Path Review May foll, Platelet Estimate SLT DEC, RBC Morphology NORM C+C 11/24/21 07:34: Sodium 143, Potassium 3.7, Chloride 113 H, Carbon Dioxide 26.0, Anion Gap 4 L, BUN 8, Creatinine 0.73, Estim Creat Clear Calc 60.48, Est GFR (MDRD) Af Amer 133, Est GFR (MDRD) Non-Af 110, BUN/Creatinine Ratio 10.9, Glucose 105, Calcium 8.4 L 11/24/21 07:34: APTT 61.0 H Micro: Microbiology 11/23/21 17:12 Mucosa - Nasopharyngeal Respiratory Panel (PCR) - Final 11/22/21 Unknown Mucosa - Nose Influenza Types A,B Direct FA (SIERRA) - Final Radiography Diagnostic Testing: Radiology Impression Chest CTA 11/23/21 13:16 IMPRESSION: Pulmonary emboli within the right middle lobe. Emphysema. Bilateral dependent lower lobe consolidation. Atherosclerosis. Electronically Signed: May Aponte MD at 16:49 EDT , ADDENDUM: 11/23/21 1703 IMPRESSION: Pulmonary emboli within the right middle lobe. Emphysema. Bilateral dependent lower lobe consolidation. Atherosclerosis. N.B. : The above Results were Read Back by May Aponte MD to MD Richard, and understanding confirmed on 11/23/2021 16:56:35 (ET). Electronically Signed: May Aponte MD at 16:49 EDT , Physical Exam Narrative Seen and examined. Patient on 8 L of oxygen. Does not look dyspneic at rest. No fever. . Patient had surgery on 11/21. Denies prior history of DVT/PE. Mild cough General: Alert, Oriented x3, Cooperative HEENT: Laryngeal cancer status post tracheostomy. Deep voice. Atraumatic, PERRLA, EOMI, Normocephalic Oral: Deep oropharyngeal structures could not be visualized Neck: Supple, No JVD, Negative Carotid Bruits Lungs: Air entry diminished in bilateral lung bases. Severe hypoxia. Bibasilar crepitations Cardiovascular: Regular rate, Regular Rhythm, Normal S1, Normal S2, No murmurs Abdomen: Bowel Sounds Present, Soft, Non Tender, Non-Distended : No renal angle tenderness. No suprapubic tenderness. Extremities: No edema, Capillary Refill Less than 3 Seconds Skin: No rashes, No breakdown Musculoskeletal: Right hip surgical dressing is dry. Tiny dot on dressing. No acute tenderness. Neurological: Cranial nerves II-XII grossly intact, DTR 2+/4 and Symmetrical, Neuro grossly intact Psych/Mental Status: Normal Affect, Appropriate. Assessment & Plan Assessment/Plan (1) Closed nondisplaced intertrochanteric fracture of right femur: (2) Injury of right shoulder: (3) Accidental fall: PLAN: Plan 76-year-old male admitted after accidental fall resulting into right hip intertrochanteric fracture. No LOC 1. Closed, mildly displaced intertrochanteric fracture of right femur secondary to accidental fall. -Admit to [facility] floor. Patient has good preop exercise capacity and an independent living, climbing of stairs. Met more than 4. NSQIP in the chart. Orthopedic surgeon Dr. Patrick Farrell consulted. Patient had right hip ORIF, intramedullary nail fixation block. Fracture site was found mildly displaced during surgery. -PT and OT to eval and treat following surgery -Graduated pain management regimen 11/23: Surgical scar healing well. 2. Acute hypoxic respiratory failure probably due to atelectasis/mucous plugging. Patient does not have fever, leukocytosis, acute change in cough, sputum production. On 10 L of oxygen. 11/23: Chest x-ray did not show acute change. COVID-[address] PE ordered to rule out PE. Report pending. Flu antigen negative. Respiratory panel ordered. 11/24: On 11/23 CTPA individually reviewed and agree with right middle lobe segmental and subsegmental pulmonary embolism.? Patient also has bilateral lower lobe consolidation.? The patient was started on IV heparin drip which is changed to apixaban 10 mg p.o. twice daily today. Patient is likely to bleed as he has low hemoglobin 7.6 and platelet 142K. Patient is allergic to penicillin and amoxicillin therefore on Levaquin for pneumonia. 3. Acute blood loss postop anemia on baseline anemia of chronic disease: Patient baseline hemoglobin runs around 11 to 12 g%. Hemoglobin gradually trickling down, most recent 7.6. Stool for occult blood ordered. Protonix 40 mg every 12 hourly. Patient also had mild thrombocytopenia. Monitor CBC daily. Iron work-up, reticulocyte panel and IV iron ordered. 4. Hyperlipidemia -Continue atorvastatin 5. Hypothyroidism -Continue levothyroxine 6. Orthostatic hypotension -Continue midodrine 7. 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 -Continue tamsulosin DVT prophylaxis-SCDs Total time of the visit including total time spent in counseling or coordination of care, (more than 50% of the total time, spent in obtaining medical information from nurses and other ancillary care providers,explaining to the patient about labs, imaging, diagnosis and management), multiple acute medical issues, review of labs and chest x-ray, CTPA imaging is 40 minutes. Clinical Impression(s) from Imaging Studies Hip/Pelvis X-Ray 11/20/21 13:55 IMPRESSION: Nondisplaced right intertrochanteric fracture. Electronically Signed: Calvin Lima MD at 14:58 EDT , Shoulder X-Ray 11/20/21 13:55 IMPRESSION: Degenerative changes. No fracture or dislocation. Decreased space between the humeral head and acromion suggestive of rotator cuff pathology. Electronically Signed: Calvin Lima MD at 15:01 EDT , Chest X-Ray 11/20/21 17:25 IMPRESSION: Bibasilar atelectasis without acute abnormality or other interval change. Electronically Signed: Konrad Nogueira DO at 18:22 EDT Reading Location ID and State: [facility] / [place] Tel [phone], Service support , Hip/Pelvis X-Ray 11/21/21 15:34 IMPRESSION: ORIF of a right hip fracture. Electronically Signed: Uri Acosta MD at 23:24 EDT , Chest X-Ray 11/22/21 14:03 IMPRESSION: Progressive left lower lobe infiltrate. Stable increased linear markings at the right lung base. Charges/Coding Visit Charges Inpatient E&M: 13150 Subs Hosp L3
[2021-11-24 12:47] LABS: Platelet Count 154 K/mm3 (150-450); RET-HE 29.1 pg (30-35)
[2021-11-24 12:54] LABS: Ferritin 69 ng/mL (26-388); Iron 19 ug/dL (65-175); Iron Binding Capacity,Total 242 ug/dL (250-450); PERCENT IRON SATURATION 7.9 % (15.0-55.0)
[2021-11-24] MEDS: Ondansetron 4 MG/2 ML Vial IV (15:26)
[2021-11-24] MEDS: Polyethylene Glycol 3350 17 GM PACKET PO (18:52)
[2021-11-24] MEDS: APIXABAN 5 MG TABLET 10 MG PO (21:20)
[2021-11-25] VITALS (13 sets, daily range): BP systolic 101–129; BP diastolic 57–82; PULSE 76–106; RESP 16–22; TEMP 36.9–37.3; O2SAT 86–99
[2021-11-25 04:52] LABS: Absolute Lymphocyte Count 0.53 X10^3/uL (0.83-4.51); Absolute Neutrophil Count 2.8 X10^3/uL (2.0-7.7); Basophil# 0.04 X10^3/uL; Eosinophil# 0.19 X10^3/uL; Eosinophils% 4.5 % (0-5); Hematocrit 23.3 % (40-54); Hemoglobin 7.7 g/dL (13.0-16.5); Lymphocyte # 0.53 X10^3/ul (0.83-4.51); Lymphocyte % 12.7 % (19-41); Mean Corpuscular Hgb 29.8 pg (27.0-32.0); Mean Corpuscular Volume 90.3 fL (80-94); Mean Platelet Vol. 10.2 fl (6.2-12.0); Monocyte# 0.66 X10^3/uL; Monocyte% 15.8 % (0-10); NRBC Flagged by Analyzer 0 % (0-5); Neutrophil # 2.75 X10^3/uL (2.7-7.7); Neutrophil % 65.8 % (47-70); POSITIVE DIFFERENTIAL YES; Platelet Count 176 K/mm3 (150-450); RBC Distribution Width CV 14.2 % (11.6-14.6); RBC Distribution Width SD 47.2 fl (35.1-43.9); Red Blood Count 2.58 M/mm3 (4.6-6.2); White Blood Count 4.2 K/mm3 (4.4-11.0)
[2021-11-25 04:53] LABS: Differential Indicated SCAN CRITERIA MET
[2021-11-25 05:17] LABS: Anion Gap 5 (5-15); BUN 10 mg/dL (7-18); Calcium,Total 8.4 mg/dL (8.5-10.1); Chloride 111 mmol/L (98-107); Creatinine, Serum 0.77 mg/dL (0.70-1.30); EST Glomerular Filtration Rate 104 mL/min (>60); Est Glom Filt Rate - Afr Amer 126 mL/min (>60); Estimated Creatinine Clearance 60.48 ml/min; Glucose 101 mg/dL (74-106); Potassium 3.7 mmol/L (3.5-5.1); Sodium Level 142 mmol/L (136-145)
[2021-11-25] MEDS: Acetylcysteine 800 MG/4 ML VIAL.NEB. INHALATION ×2 (07:17→19:34)
[2021-11-25] MEDS: Ipratropium/Albuterol Sulfate 3 ML AMPUL.NEB INHALATION ×3 (07:17→19:33)
[2021-11-25] MEDS: Levothyroxine 50 MCG Tablet PO (07:51)
[2021-11-25] MEDS: Tamsulosin HCl 0.4 MG Capsule PO (09:22)
[2021-11-25] MEDS: 0.9% Saline Lock 10 ML Syringe IV ×4 (09:22→14:41)
[2021-11-25] MEDS: APIXABAN 5 MG TABLET 10 MG PO ×2 (09:22→21:29)
[2021-11-25] MEDS: levoFLOXacin IV 750 MG/150 ML BAG 100 MG IV (09:22)
[2021-11-25] MEDS: Pantoprazole Sodium 40 MG Tablet PO ×2 (09:22→21:30)
[2021-11-25] MEDS: Atorvastatin Calcium 40 MG Tablet PO (09:23)
[2021-11-25] MEDS: Polyethylene Glycol 3350 17 GM PACKET PO (09:23)
[2021-11-25] MEDS: Midodrine HCl 5 MG Tablet 10 MG PO ×2 (09:23→18:37)
[2021-11-25] MEDS: Ascorbic Acid 500 MG Tablet PO ×2 (09:23→18:37)
[2021-11-25] MEDS: Acetaminophen 325 MG Tablet 650 MG PO (10:51)
[2021-11-25] MEDS: Senna/Docusate Sodium 1 Tablet 2 TABLET PO (10:51)
--- NOTE | 2021-11-25 11:27 | DCINST_ITS ---
Discharge Instructions Diet Discharge Diet: No restrictions Activity Discharge Activity: May Not Drive Dressing / Incision Call your doctor if you observe: Fever of 101 or Higher, Coldness, Increased Pain, Numbness or Tingling, Change in Color, Inability to urinate, Inability to have a bowel movement, Shortness of breath, Dizziness, Fainting spells, Swelling in the ankles, Chest pain, Prolonged hiccupping, Increased palpitations (irregular heartbeat), Calf discomfort and Uncontrolled pain Follow Up Care Test Results: Test results from this visit will be discussed in further detail at your follow- up appointment, if applicable. Discharge Plan Admission Admit Date/Time: 11/20/21 15:19 Primary Reason for Your Visit: Acute right hip intertrochanteric fracture Attending Provider: Izaiah Ramos Primary Care Provider: Andreas Evangelista Chi Consulting Providers: Marcos Gallegos ; Patrick Farrell Discharge Orders/Prescriptions Prescriptions: New sennosides-docusate sodium [Stool Softener-Stimulant Laxat] 8.6-50 mg Tablet 2 tab PO BID PRN PRN (Reason: Constipation) Qty: 0 0RF Rx Instructions: OTC oxycodone 5 mg Tablet 5 mg PO Q6H PRN PRN (Reason: Pain Score 6-10) 3 Days Qty: 10 0RF Continued levothyroxine 75 mcg tablet 50 mcg PO DAILY Label Comments: TAKE 1 TABLET ORALLY ONCE PER DAY FOR 90 DAYS midodrine 10 mg tablet 10 mg PO BID Rx Instructions: do not give last dose of day after 6PM or within 4 hrs of bedtime atorvastatin 40 MG tablet 40 mg PO DAILY omeprazole 40 MG capsule,delayed release(DR/EC) 40 mg PO DAILY Label Comments: TAKE ONE CAPSULE BY MOUTH ONCE DAILY tamsulosin 0.4 MG capsule 0.4 mg PO DAILY Referrals / Follow Up: Andreas Evangelista Chi, MD [Primary Care Provider] - Disposition Disposition (needs filled in before D/C Order can be placed): Home Health Service
--- NOTE | 2021-11-25 11:35 | PCM.PN.HOSP ---
Subjective Subjective Follow-up for acute hypoxic respiratory failure, PE, bilateral pneumonia after hip surgery Objective Data Objective Data Vital Signs: Vital Signs Temp Pulse Resp BP Pulse Ox O2 Del Method O2 Flow Rate 98.6 F 106 H 18 118/63 96 Trach Collar 6 11/25/21 10:47 11/25/21 10:47 11/25/21 10:47 11/25/21 10:47 11/25/21 10:47 11/25/21 10:47 11/25/21 10:47 FiO2 28 11/25/21 10:47 Oxygen Flow Rate (L/min) 6 Oxygen Delivery Method Trach Collar Weight: 150 lb 0.005 oz Body Mass Index (BMI) 22.8 Intake & Output: Intake and Output for Last 24 Hours 11/23/21 11/24/21 11/25/21 23:59 23:59 23:59 Intake Total 776.75 / 776.75 1860.43 / 2110.43 250 / 250 Output Total 1350 / 1925 2300 / 2800 700 / 700 Balance -573.25 / -1148.25 -439.57 / -689.57 -450 / -450 Lab / Micro Data Result Diagrams: 11/25/21 04:35 11/25/21 04:35 Labs: Laboratory Results - last 24 hr 11/24/21 07:34: Retic Count 1.40, Immature Retic Fraction 15.60, Retic Hgb Equivalent 29.1 L 11/24/21 07:34: Iron 19 L, TIBC 242 L, Iron Saturation 7.9 L, Ferritin 69 11/25/21 04:35: WBC 4.2 L, RBC 2.58 L, Hgb 7.7 L, Hct 23.3 L, MCV 90.3, MCH 29.8, MCHC 33.0, RDW Std Deviation 47.2 H, RDW Coeff of Chucho 14.2, Plt Count 176, MPV 10.2, Immature Gran % (Auto) 0.200, Neut % (Auto) 65.8, Lymph % (Auto) 12.7 L, [place] % (Auto) 15.8 H, Eos % (Auto) 4.5, Baso % (Auto) 1.0, Absolute Neuts (auto) 2.8, Absolute Lymphs (auto) 0.53 L, Nucleated RBC % 0, Diff Path Review August31/22 04:35: Sodium 142, Potassium 3.7, Chloride 111 H, Carbon Dioxide 26.0, Anion Gap 5, BUN 10, Creatinine 0.77, Estim Creat Clear Calc 60.48, Est GFR (MDRD) Af Amer 126, Est GFR (MDRD) Non-Af 104, BUN/Creatinine Ratio 13.0, Glucose 101, Calcium 8.4 L Micro: Microbiology 11/23/21 17:12 Mucosa - Nasopharyngeal Respiratory Panel (PCR) - Final 11/22/21 Unknown Mucosa - Nose Influenza Types A,B Direct FA ([facility]ER[facility]) - Final Radiography Diagnostic Testing: Radiology Impression Echocardiogram 11/23/21 16:56 Interpretation Summary The estimated ejection fraction is 65 %. Trivial mitral valve insufficiency. Mild tricuspid valve insufficiency. Ordering Physician: Izaiah Ramos Referring Physician: Andreas Evangelista Chi Performed By: Dania Jones RCS Physical Exam Narrative Seen and examined. Patient oxygenation is better, require 6 L of oxygen. Does not look dyspneic at rest. No fever. Mild cough. Requires 2 people assist to stand up. Patient had surgery on 11/21. Denies prior history of DVT/PE. General: Alert, Oriented x3, Cooperative HEENT: Laryngeal cancer status post tracheostomy. Deep voice. Atraumatic, PERRLA, EOMI, Normocephalic Oral: Deep oropharyngeal structures could not be visualized Neck: Supple, No JVD, Negative Carotid Bruits Lungs: Air entry diminished in bilateral lung bases. Severe hypoxia. Bibasilar crepitations Cardiovascular: Regular rate, Regular Rhythm, Normal S1, Normal S2, No murmurs Abdomen: Bowel Sounds Present, Soft, Non Tender, Non-Distended : No renal angle tenderness. No suprapubic tenderness. Extremities: No edema, Capillary Refill Less than 3 Seconds Skin: No rashes, No breakdown Musculoskeletal: Right hip surgical dressing is dry. Tiny dot on dressing. No acute tenderness. Neurological: Cranial nerves II-XII grossly intact, DTR 2+/4 and Symmetrical, Neuro grossly intact Psych/Mental Status: Normal Affect, Appropriate. Assessment & Plan Assessment/Plan (1) Closed nondisplaced intertrochanteric fracture of right femur: (2) Injury of right shoulder: (3) Accidental fall: PLAN: Plan 76-year-old male admitted after accidental fall resulting into right hip intertrochanteric fracture. No LOC 1. Closed, mildly displaced intertrochanteric fracture of right femur secondary to accidental fall. -Admit to [facility] floor. Patient has good preop exercise capacity and an independent living, climbing of stairs. Met more than 4. NSQIP in the chart. Orthopedic surgeon Dr. Patrick Farrell consulted. Patient had right hip ORIF, intramedullary nail fixation block. Fracture site was found mildly displaced during surgery. -PT and OT to eval and treat following surgery -Graduated pain management regimen 11/23: Surgical scar healing well. 11/25: Requires 2 people assist to stand up. Not good for home discharge. 2. Acute hypoxic respiratory failure probably due to atelectasis/mucous plugging. Patient does not have fever, leukocytosis, acute change in cough, sputum production. On 10 L of oxygen. 11/23: Chest x-ray did not show acute change. COVID-[address] PE ordered to rule out PE. Report pending. Flu antigen negative. Respiratory panel ordered. 11/24: On 11/23 CTPA individually reviewed and agree with right middle lobe segmental and subsegmental pulmonary embolism.? Patient also has bilateral lower lobe consolidation.? The patient was started on IV heparin drip which is changed to apixaban 10 mg p.o. twice daily today. Patient is likely to bleed as he has low hemoglobin 7.6 and platelet 142K. Patient is allergic to penicillin and amoxicillin therefore on Levaquin for pneumonia. 11/25: Hemoglobin 7.7, platelet count 1 76,000. Continue apixaban with support of PPI 3. Acute blood loss postop anemia on baseline anemia of chronic disease: Patient baseline hemoglobin runs around 11 to 12 g%. Hemoglobin gradually trickling down, most recent 7.6. Stool for occult blood ordered. Protonix 40 mg every 12 hourly. Patient also had mild thrombocytopenia. Monitor CBC daily. Iron work-up, reticulocyte panel and IV iron ordered. 11/25: Anemia work-up shows iron 19, TIBC low, iron saturation 7.9%. Continue iron infusion to 50 mg 1 dose. 4. Hyperlipidemia -Continue atorvastatin 5. Hypothyroidism -Continue levothyroxine 6. Orthostatic hypotension -Continue midodrine 7. 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 -Continue tamsulosin DVT prophylaxis-SCDs I talked to the patient's and gave clinical update regarding multiple complex situation including PE, bilateral pneumonia, acute hypoxic respiratory failure and low functional activity requiring 2 people assist. He is not good for home discharge. She okay with TCU but not other senior living. Total time of the visit including total time spent in counseling or coordination of care, (more than 50% of the total time, spent in obtaining medical information from nurses and other ancillary care providers,explaining to the patient about labs, imaging, diagnosis and management), multiple acute medical issues, review of labs and chest x-ray, CTPA imaging is 40 minutes. Clinical Impression(s) from Imaging Studies Hip/Pelvis X-Ray 11/20/21 13:55 IMPRESSION: Nondisplaced right intertrochanteric fracture. Electronically Signed: Calvin Lima MD at 14:58 EDT , Shoulder X-Ray 11/20/21 13:55 IMPRESSION: Degenerative changes. No fracture or dislocation. Decreased space between the humeral head and acromion suggestive of rotator cuff pathology. Electronically Signed: Calvin Lima MD at 15:01 EDT , Chest X-Ray 11/20/21 17:25 IMPRESSION: Bibasilar atelectasis without acute abnormality or other interval change. Electronically Signed: Konrad Nogueira DO at 18:22 EDT , Hip/Pelvis X-Ray 11/21/21 15:34 IMPRESSION: ORIF of a right hip fracture. Electronically Signed: Uri Acosta MD at 23:24 EDT , Chest X-Ray 11/22/21 14:03 IMPRESSION: Progressive left lower lobe infiltrate. Stable increased linear markings at the right lung base. Charges/Coding Visit Charges Inpatient E&M: 59844 Subs Hosp L3
[2021-11-25] MEDS: HYDROcodone Bitartrate/Apap 5/325 Tablet PO ×2 (14:41→18:37)
[2021-11-25] MEDS: Bisacodyl 10 MG Suppository RC (17:07)
--- NOTE | 2021-11-25 22:14 | NURSING ---
pt sat dropping to 88% increased to 30%7l
[2021-11-26] VITALS (14 sets, daily range): BP systolic 105–148; BP diastolic 59–87; PULSE 77–119; RESP 15–18; TEMP 36.9–37.4; O2SAT 93–96
[2021-11-26] MEDS: Levothyroxine 50 MCG Tablet PO (05:29)
[2021-11-26] MEDS: Polyethylene Glycol 3350 17 GM PACKET PO (08:44)
[2021-11-26] MEDS: Pantoprazole Sodium 40 MG Tablet PO ×2 (08:44→22:35)
[2021-11-26] MEDS: Midodrine HCl 5 MG Tablet 10 MG PO ×2 (08:44→18:00)
[2021-11-26] MEDS: Atorvastatin Calcium 40 MG Tablet PO (08:45)
[2021-11-26] MEDS: APIXABAN 5 MG TABLET 10 MG PO ×2 (08:45→22:44)
[2021-11-26] MEDS: Tamsulosin HCl 0.4 MG Capsule PO (08:51)
[2021-11-26] MEDS: 0.9% Saline Lock 10 ML Syringe IV ×3 (08:51→22:44)
[2021-11-26] MEDS: levoFLOXacin IV 750 MG/150 ML BAG 100 MG IV (08:51)
[2021-11-26] MEDS: Ascorbic Acid 500 MG Tablet PO ×2 (08:51→18:00)
--- NOTE | 2021-11-26 09:22 | CASEMGMT ---
Updated Chloe at [facility] that pt now will need SNF and will not go home.
--- NOTE | 2021-11-26 09:58 | CASEMGMT ---
Addendum entered by Zabrina Martínez 11/26/21 11:15: KAREEM met with pt and his , who was sitting bedside, to inform them that the Inpatient Rehab Unit is agreeable to accepting pt once he is medically ready. SW answered questions of pt's and provided support regarding both of their recent health concerns. SW explained that rehab will be increased therapy which should help pt regain strength quickly. Both pt and his were agreeable to him going there. SW explained that discharge will happen once the Dr's deem him medically ready and pre cert has been obtained for his transfer to the Inpatient Rehab Unit. Addendum entered by Zabrina Martínez 11/26/21 10:38: Opal from Inpatient Rehab contacted KAREEM to update that the Dr. Pedersen is agreeable to accept pt but not until he is more medically stable. Plan: [facility] Inpatient Rehab, pending precert and when medically ready status. Original Note: Social Work SW met with pt in room. He indicated his should have been here already but has not yet showed up. He agreed to discuss discharge planning without her. KAREEM provided pt with a list of SNF and Rehab Unit providers, including quality and resource use data that is consistent with the patient?s preferred geographic region, medical needs, and insurance network. KAREEM was aware pt and his had already indicated they would like TCU, however KAREEM shared knowledge with pt that TCU has no open beds at this time. The patient?s preferred provider is?[facility] Inpatient Rehab Unit. SW informed Opal of patient choice and she discussed intent to inform Dr. Pedersen of pt's request and begin precert if pt is accepted. HARVINDER Gonzalez
--- NOTE | 2021-11-26 11:10 | PCM.DC.SUM ---
Providers Date of Admission: 11/20/21 Primary Care Physician: Dr. Andreas Evangelista MD Consultations 11/20/21 16:29 Consult: Orthopedics Routine Consulting Provider: Patrick Farrell Reason for Consult: Hip fx EMERGENT Consult: No MD Notified: Yes Date Notified: 11/20/21 Time Notified: 15:21 Method of Notification: ED Physician Initiated Reason For Visit: HIP FRACTURE Diagnosis Discharge Diagnosis (1) Closed nondisplaced intertrochanteric fracture of right femur: Status: Acute Code(s): S72.144A - Nondisplaced intertrochanteric fracture of right femur, initial encounter for closed fracture (2) Injury of right shoulder: Status: Acute Code(s): S49.91XA - Unspecified injury of right shoulder and upper arm, initial encounter (3) Accidental fall: Status: Acute Code(s): W19.XXXA - Unspecified fall, initial encounter Plan 76-year-old male admitted after accidental fall resulting into right hip intertrochanteric fracture. No LOC 1. Closed, mildly displaced intertrochanteric fracture of right femur secondary to accidental fall. -Admit to [facility] floor. Patient has good preop exercise capacity and an independent living, climbing of stairs. Met more than 4. NSQIP in the chart. Orthopedic surgeon Dr. Patrick Farrell consulted. Patient had right hip ORIF, intramedullary nail fixation block. Fracture site was found mildly displaced during surgery. -PT and OT to eval and treat following surgery -Graduated pain management regimen 11/23: Surgical scar healing well. 11/25: Requires 2 people assist to stand up. Not good for home discharge. 2. Acute hypoxic respiratory failure probably due to atelectasis/mucous plugging. Patient does not have fever, leukocytosis, acute change in cough, sputum production. On 10 L of oxygen. 11/23: Chest x-ray did not show acute change. COVID-[address] PE ordered to rule out PE. Report pending. Flu antigen negative. Respiratory panel ordered. 11/24: On 11/23 CTPA individually reviewed and agree with right middle lobe segmental and subsegmental pulmonary embolism.? Patient also has bilateral lower lobe consolidation.? The patient was started on IV heparin drip which is changed to apixaban 10 mg p.o. twice daily today. Patient is likely to bleed as he has low hemoglobin 7.6 and platelet 142K. Patient is allergic to penicillin and amoxicillin therefore on Levaquin for pneumonia. 11/25: Hemoglobin 7.7, platelet count 1 76,000. Continue apixaban with support of PPI 3. Acute blood loss postop anemia on baseline anemia of chronic disease: Patient baseline hemoglobin runs around 11 to 12 g%. Hemoglobin gradually trickling down, most recent 7.6. Stool for occult blood ordered. Protonix 40 mg every 12 hourly. Patient also had mild thrombocytopenia. Monitor CBC daily. Iron work-up, reticulocyte panel and IV iron ordered. 11/25: Anemia work-up shows iron 19, TIBC low, iron saturation 7.9%. Continue iron infusion to 50 mg 1 dose. 4. Hyperlipidemia -Continue atorvastatin 5. Hypothyroidism -Continue levothyroxine 6. Orthostatic hypotension -Continue midodrine 7. 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 -Continue tamsulosin DVT prophylaxis-SCDs I talked to the patient's and gave clinical update regarding multiple complex situation including PE, bilateral pneumonia, acute hypoxic respiratory failure and low functional activity requiring 2 people assist. He is not good for home discharge. She okay with TCU but not other longterm. Total time of the visit including total time spent in counseling or coordination of care, (more than 50% of the total time, spent in obtaining medical information from nurses and other ancillary care providers,explaining to the patient about labs, imaging, diagnosis and management), multiple acute medical issues, review of labs and chest x-ray, CTPA imaging is 40 minutes. Clinical Impression(s) from Imaging Studies Hip/Pelvis X-Ray 11/20/21 13:55 IMPRESSION: Nondisplaced right intertrochanteric fracture. Electronically Signed: Calvin Lima MD at 14:58 EDT , Shoulder X-Ray 11/20/21 13:55 IMPRESSION: Degenerative changes. No fracture or dislocation. Decreased space between the humeral head and acromion suggestive of rotator cuff pathology. Electronically Signed: Calvin Lima MD at 15:01 EDT , Chest X-Ray 11/20/21 17:25 IMPRESSION: Bibasilar atelectasis without acute abnormality or other interval change. Electronically Signed: Konrad Nogueira DO at 18:22 EDT , Hip/Pelvis X-Ray 11/21/21 15:34 IMPRESSION: ORIF of a right hip fracture. Electronically Signed: Uri Acosta MD at 23:24 EDT , Chest X-Ray 11/22/21 14:03 IMPRESSION: Progressive left lower lobe infiltrate. Stable increased linear markings at the right lung base. Medications at Discharge Home Medications atorvastatin 40 mg tablet 40 mg PO DAILY cholesterol 05/10/17 omeprazole 40 mg capsule,delayed release 40 mg PO DAILY GERD 06/28/20 tamsulosin 0.4 mg capsule 0.4 mg PO DAILY PROSTATE 06/28/20 levothyroxine 75 mcg tablet 50 mcg PO DAILY 05/30/21 midodrine 10 mg tablet 10 mg PO BID 11/05/21 oxycodone 5 mg tablet 5 mg PO Q6H PRN PRN Pain Score 6-10 3 days #10 tabs 11/22/21 sennosides 8.6 mg-docusate sodium 50 mg tablet (Stool Softener-Stimulant Laxative) 2 tab PO BID PRN PRN Constipation #0 tabs 11/22/21 Weight / BMI Weight Weight: 150 lb 0.005 oz Body Mass Index (BMI) 22.8 ABG / Lab / Microbiology Data Result Diagrams: 11/25/21 04:35 11/25/21 04:35 Microbiology: Microbiology 11/25/21 18:45 Stool Stool Occult Blood ([facility]ER[facility]) - Final 11/23/21 17:12 Mucosa - Nasopharyngeal Respiratory Panel (PCR) - Final 11/22/21 Unknown Mucosa - Nose Influenza Types A,B Direct FA ([facility]) - Final Discharge Plan Admission Admit Date/Time: 11/20/21 15:19 Primary Reason for Your Visit: Acute right hip intertrochanteric fracture Attending Provider: Izaiah Ramos Primary Care Provider: Andreas Evangelista Chi Consulting Providers: Marcos Gallegos ; Patrick Farrell Discharge Orders/Prescriptions Prescriptions: New sennosides-docusate sodium [Stool Softener-Stimulant Laxat] 8.6-50 mg Tablet 2 tab PO BID PRN PRN (Reason: Constipation) Qty: 0 0RF Rx Instructions: OTC oxycodone 5 mg Tablet 5 mg PO Q6H PRN PRN (Reason: Pain Score 6-10) 3 Days Qty: 10 0RF Continued levothyroxine 75 mcg tablet 50 mcg PO DAILY Label Comments: TAKE 1 TABLET ORALLY ONCE PER DAY FOR 90 DAYS midodrine 10 mg tablet 10 mg PO BID Rx Instructions: do not give last dose of day after 6PM or within 4 hrs of bedtime atorvastatin 40 MG tablet 40 mg PO DAILY omeprazole 40 MG capsule,delayed release(DR/EC) 40 mg PO DAILY Label Comments: TAKE ONE CAPSULE BY MOUTH ONCE DAILY tamsulosin 0.4 MG capsule 0.4 mg PO DAILY Referrals / Follow Up: Andreas Evangelista Chi, MD [Primary Care Provider] - Disposition Disposition (needs filled in before D/C Order can be placed): Home Health Service
[2021-11-26] MEDS: Ipratropium/Albuterol Sulfate 3 ML AMPUL.NEB INHALATION ×3 (11:23→19:00)
[2021-11-26] MEDS: Acetylcysteine 800 MG/4 ML VIAL.NEB. INHALATION ×3 (11:24→19:00)
--- NOTE | 2021-11-26 11:30 | PHA.DC.MR ---
Pharmacy Service has performed discharge medication reconciliation for this patient. The patient's discharge medication list was reviewed for discrepancies and discrepancies were resolved. Home Medications atorvastatin 40 mg tablet 40 mg PO DAILY cholesterol 05/10/17 omeprazole 40 mg capsule,delayed release 40 mg PO DAILY GERD 06/28/20 tamsulosin 0.4 mg capsule 0.4 mg PO DAILY PROSTATE 06/28/20 levothyroxine 75 mcg tablet 50 mcg PO DAILY 05/30/21 midodrine 10 mg tablet 10 mg PO BID 11/05/21 oxycodone 5 mg tablet 5 mg PO Q6H PRN PRN Pain Score 6-10 3 days #10 tabs 11/22/21 sennosides 8.6 mg-docusate sodium 50 mg tablet (Stool Softener-Stimulant Laxative) 2 tab PO BID PRN PRN Constipation #0 tabs 11/22/21
[2021-11-26 13:14] LABS: Pathologist Review Reviewed
[2021-11-26 13:15] LABS: Pathologist Review Reviewed
--- NOTE | 2021-11-26 13:23 | PN.HOSP_ITS ---
Subjective Subjective Seen and examined. Heart rate and blood pressure are controlled. Oxygen requirement varies from 6 L to 10 L. No tachypnea. Objective Data Objective Data Vital Signs: Vital Signs Temp Pulse Resp BP Pulse Ox O2 Del Method O2 Flow Rate 98.6 F 77 16 105/62 94 Trach Collar 6 11/26/21 09:54 11/26/21 11:28 11/26/21 11:28 11/26/21 09:54 11/26/21 13:01 11/26/21 13:01 11/26/21 13:01 FiO2 28 11/26/21 13:01 Oxygen Flow Rate (L/min) 6 Oxygen Delivery Method Trach Collar Weight: 150 lb 0.005 oz Body Mass Index (BMI) 22.8 Intake & Output: Intake and Output for Last 24 Hours 11/24/21 11/25/21 11/26/21 23:59 23:59 23:59 Intake Total 1860.43 / 2110.43 1970 / 1970 150 / 150 Output Total 2300 / 2800 1000 / 1500 1000 / 1000 Balance -439.57 / -689.57 970 / 470 -850 / -850 Lab / Micro Data Result Diagrams: 11/25/21 04:35 11/25/21 04:35 Labs: Laboratory Results - last 24 hr 11/24/21 07:34: Diff Path Review Reviewed 11/25/21 04:35: Diff Path Review Reviewed 11/26/21 12:15: Crossmatch See Detail Micro: Microbiology 11/25/21 18:45 Stool Stool Occult Blood ([facility]) - Final 11/23/21 17:12 Mucosa - Nasopharyngeal Respiratory Panel (PCR) - Final 11/22/21 Unknown Mucosa - Nose Influenza Types A,B Direct FA ([facility]) - Final Physical Exam Narrative Seen and examined. Oxygen requirement varies from 6 to 10 L. No dyspnea at rest no fever. Requires 2 people assist to stand up. Patient had surgery on 11/21. Denies prior history of DVT/PE. General: Alert, Oriented x3, Cooperative HEENT: Laryngeal cancer status post tracheostomy. Deep voice. Atraumatic, PERRLA, EOMI, Normocephalic Oral: Deep oropharyngeal structures could not be visualized Neck: Supple, No JVD, Negative Carotid Bruits Lungs: Air entry diminished in bilateral lung bases. Severe hypoxia. Bibasilar crepitations Cardiovascular: Regular rate, Regular Rhythm, Normal S1, Normal S2, No murmurs Abdomen: Bowel Sounds Present, Soft, Non Tender, Non-Distended : No renal angle tenderness. No suprapubic tenderness. Extremities: No edema, Capillary Refill Less than 3 Seconds Skin: Mild bloodstain over right surgical dressing. Small bluish discoloration around dressing, bruise. Musculoskeletal: Right hip surgical dressing is dry. Tiny dot on dressing. No acute tenderness. Neurological: Cranial nerves II-XII grossly intact, DTR 2+/4 and Symmetrical, Neuro grossly intact Psych/Mental Status: Normal Affect, Appropriate. Assessment & Plan Assessment/Plan (1) Closed nondisplaced intertrochanteric fracture of right femur: (2) Injury of right shoulder: (3) Accidental fall: PLAN: Plan 76-year-old male admitted after accidental fall resulting into right hip intertrochanteric fracture. No LOC 1. Closed, mildly displaced intertrochanteric fracture of right femur secondary to accidental fall. -Admit to [facility] floor. Patient has good preop exercise capacity and an independent living, climbing of stairs. Met more than 4. NSQIP in the chart. Orthopedic surgeon Dr. Patrick Farrell consulted. Patient had right hip ORIF, intramedullary nail fixation block. Fracture site was found mildly displaced during surgery. -PT and OT to eval and treat following surgery -Graduated pain management regimen 11/23: Surgical scar healing well. 11/25: Requires 2 people assist to stand up. Not good for home discharge. 11/26: Discussed with the pillowcase cleaner and nursing staff. Patient needs rehab. He agreed for acute rehab. Pending pre-CERT. 2. Acute hypoxic respiratory failure probably due to atelectasis/mucous plugging. Patient does not have fever, leukocytosis, acute change in cough, sputum production. On 10 L of oxygen. 11/23: Chest x-ray did not show acute change. COVID-[address] PE ordered to rule out PE. Report pending. Flu antigen negative. Respiratory panel ordered. 11/24: On 11/23 CTPA individually reviewed and agree with right middle lobe segmental and subsegmental pulmonary embolism.? Patient also has bilateral lower lobe consolidation.? The patient was started on IV heparin drip which is changed to apixaban 10 mg p.o. twice daily today. Patient is likely to bleed as he has low hemoglobin 7.6 and platelet 142K. Patient is allergic to penicillin and amoxicillin therefore on Levaquin for pneumonia. 11/25: Hemoglobin 7.7, platelet count 176,000. Continue apixaban with support of PPI 11/26: Patient tolerating apixaban. Continue PPI twice daily. 3. Acute blood loss postop anemia on baseline anemia of chronic disease, acute iron deficiency anemia: Patient baseline hemoglobin runs around 11 to 12 g%. Hemoglobin gradually trickling down, most recent 7.6. Stool for occult blood ordered. Protonix 40 mg every 12 hourly. Patient also had mild thrombocy topenia. Monitor CBC daily. Iron work-up, reticulocyte panel and IV iron ordered. 11/25: Anemia work-up shows iron 19, TIBC low, iron saturation 7.9%. Continue iron infusion 250 mg 1 dose. 11/26: Discussed with my colleague in acute rehab and agreed on 1 unit of PRBC transfusion. Patient had iron infusion for last 2 days. No significant improvement in hemoglobin. 4. Hyperlipidemia -Continue atorvastatin 5. Hypothyroidism -Continue levothyroxine 6. Orthostatic hypotension -Continue midodrine 7. 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 -Continue tamsulosin DVT prophylaxis-SCDs Total time of the visit including total time spent in counseling or coordination of care, (more than 50% of the total time, spent in obtaining medical information from nurses and other ancillary care providers,explaining to the patient about labs, imaging, diagnosis and management), multiple acute medical issues, review of labs and chest x-ray, CTPA imaging is 40 minutes. Clinical Impression(s) from Imaging Studies Hip/Pelvis X-Ray 11/20/21 13:55 IMPRESSION: Nondisplaced right intertrochanteric fracture. Electronically Signed: Calvin Lima MD at 14:58 EDT , Shoulder X-Ray 11/20/21 13:55 IMPRESSION: Degenerative changes. No fracture or dislocation. Decreased space between the humeral head and acromion suggestive of rotator cuff pathology. Electronically Signed: Calvin Lima MD at 15:01 EDT , Chest X-Ray 11/20/21 17:25 IMPRESSION: Bibasilar atelectasis without acute abnormality or other interval change. Electronically Signed: Konrad Nogueira DO at 18:22 EDT , Hip/Pelvis X-Ray 11/21/21 15:34 IMPRESSION: ORIF of a right hip fracture. Electronically Signed: Uri Acosta MD at 23:24 EDT , Chest X-Ray 11/22/21 14:03 IMPRESSION: Progressive left lower lobe infiltrate. Stable increased linear markings at the right lung base. Charges/Coding Visit Charges Inpatient E&M: 55382 Subs Hosp L2
[2021-11-26] MEDS: HYDROcodone Bitartrate/Apap 5/325 Tablet PO ×2 (15:41→22:44)
--- NOTE | 2021-11-26 16:03 | CASEMGMT ---
Social Work Per Opal from , [facility] is requesting clinicals be faxed to [facility] from the acute staff. Updated Clinicals faxed to Elvi at [facility] fax: [phone]. Will await determination of precbetzy. HARVINDER Bell
[2021-11-27] VITALS (9 sets, daily range): BP systolic 115–155; BP diastolic 53–88; PULSE 76–109; RESP 16–18; TEMP 36.3–37.6; O2SAT 93–99
[2021-11-27 05:07] LABS: Absolute Lymphocyte Count 0.34 X10^3/uL (0.83-4.51); Absolute Neutrophil Count 5.8 X10^3/uL (2.0-7.7); Basophil# 0.01 X10^3/uL; Basophil% 0.2 % (0-1); Hematocrit 32.1 % (40-54); Hemoglobin 10.3 g/dL (13.0-16.5); Lymphocyte # 0.34 X10^3/ul (0.83-4.51); Lymphocyte % 5.3 % (19-41); Mean Corp Hgb Conc 32.1 g/dL (32-36); Mean Corpuscular Volume 90.4 fL (80-94); Mean Platelet Vol. 9.9 fl (6.2-12.0); Monocyte% 3.1 % (0-10); NRBC Flagged by Analyzer 0 % (0-5); Neutrophil # 5.77 X10^3/uL (2.7-7.7); Neutrophil % 90.1 % (47-70); POSITIVE DIFFERENTIAL YES; Platelet Count 265 K/mm3 (150-450); RBC Distribution Width SD 46.2 fl (35.1-43.9); Red Blood Count 3.55 M/mm3 (4.6-6.2); White Blood Count 6.4 K/mm3 (4.4-11.0)
[2021-11-27 05:18] LABS: Differential Indicated SCAN CRITERIA MET
[2021-11-27 05:31] LABS: Anion Gap 6 (5-15); BUN 20 mg/dL (7-18); BUN/Creat Ratio 26.5 RATIO (10-20); Chloride 109 mmol/L (98-107); Creatinine, Serum 0.76 mg/dL (0.70-1.30); EST Glomerular Filtration Rate 106 mL/min (>60); Est Glom Filt Rate - Afr Amer 129 mL/min (>60); Estimated Creatinine Clearance 60.48 ml/min; Glucose 163 mg/dL (74-106); Potassium 4.3 mmol/L (3.5-5.1); Sodium Level 138 mmol/L (136-145)
[2021-11-27 05:45] LABS: Differential Comment SCANNED
[2021-11-27] MEDS: Levothyroxine 50 MCG Tablet PO (05:46)
[2021-11-27] MEDS: 0.9% Saline Lock 10 ML Syringe IV ×3 (05:46→22:37)
--- NOTE | 2021-11-27 07:05 | DCINST_ITS ---
Discharge Instructions Diet Discharge Diet: No restrictions Activity Discharge Activity: May Not Drive Dressing / Incision Call your doctor if you observe: Fever of 101 or Higher, Coldness, Increased Pain, Numbness or Tingling, Change in Color, Inability to urinate, Inability to have a bowel movement, Shortness of breath, Dizziness, Fainting spells, Swelling in the ankles, Chest pain, Prolonged hiccupping, Increased palpitations (irregular heartbeat), Calf discomfort and Uncontrolled pain Follow Up Care Test Results: Test results from this visit will be discussed in further detail at your follow- up appointment, if applicable. Discharge Plan Admission Admit Date/Time: 11/20/21 15:19 Primary Reason for Your Visit: Acute right hip intertrochanteric fracture Attending Provider: Izaiah Ramos Primary Care Provider: Andreas Evangelista Chi Consulting Providers: Marcos Gallegos ; Patrick Farrell Discharge Orders/Prescriptions Prescriptions: New sennosides-docusate sodium [Stool Softener-Stimulant Laxat] 8.6-50 mg Tablet 2 tab PO BID PRN PRN (Reason: Constipation) Qty: 0 0RF Rx Instructions: OTC oxycodone 5 mg Tablet 5 mg PO Q6H PRN PRN (Reason: Pain Score 6-10) 3 Days Qty: 10 0RF acetaminophen [Tylenol] 325 mg Tablet 650 mg PO Q6H PRN PRN (Reason: Pain Score 1-10/Temp > 100.7 F) Qty: 0 0RF ipratropium-albuterol 0.5 mg-3 mg(2.5 mg base)/3 mL Solution For Nebulization 3 ml inhalation Q4H.RT PRN (Reason: SOB) Qty: 0 0RF polyethylene glycol 3350 17 gram Powder In Packet 17 g PO DAILY Qty: 0 0RF Eliquis 5 mg Tablet 10 mg PO BID Qty: 0 0RF Rx Instructions: 10 mg bid, ends on 11/30, then change to 5 mg bid to continue for at least 3 months Eliquis 5 mg Tablet 5 mg PO BID Qty: 0 0RF Rx Instructions: starts on 12/01/21 levofloxacin 500 mg tablet 500 mg PO DAILY Qty: 2 0RF Rx Instructions: STARTING FROM 11/28/21 ferrous sulfate [FeroSul] 325 mg (65 mg iron) tablet 325 mg PO DAILY Qty: 30 2RF prednisone 10 mg tablets,dose pack See Taper PO DAILY Qty: 30 0RF Taper: Prednisone Taper 40 mg WITH BREAKFAST for 3 Days and 0 Hour 30 mg WITH BREAKFAST for 3 Days and 0 Hour 20 mg WITH BREAKFAST for 3 Days and 0 Hour 10 mg WITH BREAKFAST for 3 Days and 0 Hour ascorbic acid (vitamin C) 500 mg tablet 500 mg PO BID Qty: 60 2RF Mucinex 1,200 mg tablet extended release 12hr 1,200 mg PO BID Qty: 14 0RF Continued levothyroxine 75 mcg tablet 50 mcg PO DAILY Label Comments: TAKE 1 TABLET ORALLY ONCE PER DAY FOR 90 DAYS midodrine 10 mg tablet 10 mg PO BID Rx Instructions: do not give last dose of day after 6PM or within 4 hrs of bedtime atorvastatin 40 MG tablet 40 mg PO DAILY omeprazole 40 MG capsule,delayed release(DR/EC) 40 mg PO DAILY Label Comments: TAKE ONE CAPSULE BY MOUTH ONCE DAILY tamsulosin 0.4 MG capsule 0.4 mg PO DAILY Referrals / Follow Up: Andreas Evangelista Chi, MD [Primary Care Provider] - Sandip Taylor DO [Med Staff - Active Staff] - Within 2 Weeks (for acute hypoxic resp failure ) Disposition Disposition (needs filled in before D/C Order can be placed): Home Health Service
--- NOTE | 2021-11-27 07:20 | DS.PCM_ITS ---
Providers Date of Admission: 11/20/21 Date of Discharge: 11/27/21 Primary Care Physician: Dr. Andreas Evangelista MD Consultations 11/20/21 16:29 Consult: Orthopedics Routine Consulting Provider: Patrick Farrell Reason for Consult: Hip fx EMERGENT Consult: No MD Notified: Yes Date Notified: 11/20/21 Time Notified: 15:21 Method of Notification: ED Physician Initiated Reason For Visit: HIP FRACTURE Diagnosis Discharge Diagnosis (1) Closed nondisplaced intertrochanteric fracture of right femur: Status: Acute Code(s): S72.144A - Nondisplaced intertrochanteric fracture of right femur, initial encou nter for closed fracture (2) Injury of right shoulder: Status: Acute Code(s): S49.91XA - Unspecified injury of right shoulder and upper arm, initial encounter (3) Accidental fall: Status: Acute Code(s): W19.XXXA - Unspecified fall, initial encounter Medications at Discharge Home Medications atorvastatin 40 mg tablet 40 mg PO DAILY cholesterol 05/10/17 omeprazole 40 mg capsule,delayed release 40 mg PO DAILY GERD 06/28/20 tamsulosin 0.4 mg capsule 0.4 mg PO DAILY PROSTATE 06/28/20 levothyroxine 75 mcg tablet 50 mcg PO DAILY 05/30/21 midodrine 10 mg tablet 10 mg PO BID 11/05/21 oxycodone 5 mg tablet 5 mg PO Q6H PRN PRN Pain Score 6-10 3 days #10 tabs 11/22/21 sennosides 8.6 mg-docusate sodium 50 mg tablet (Stool Softener-Stimulant Laxative) 2 tab PO BID PRN PRN Constipation #0 tabs 11/22/21 acetaminophen 325 mg tablet (Tylenol) 650 mg PO Q6H PRN PRN Pain Score 1-10/Temp > 100.7 F #0 tabs 11/27/21 apixaban 5 mg tablet (Eliquis) 5 mg PO BID #0 tabs 11/27/21 apixaban 5 mg tablet (Eliquis) 10 mg PO BID #0 tabs 11/27/21 ascorbic acid (vitamin C) 500 mg tablet 500 mg PO BID #60 tabs 11/27/21 ferrous sulfate 325 mg (65 mg iron) tablet (FeroSul) 325 mg PO DAILY #30 tabs 11/27/21 guaifenesin 1,200 mg tablet, extended release 12 hr (Mucinex) 1,200 mg PO BID # #14 11/27/21 ipratropium 0.5 mg-albuterol 3 mg (2.5 mg base)/3 mL nebulization soln 3 ml inhalation Q4H.RT PRN SOB #0 mL 11/27/21 levofloxacin 500 mg tablet 500 mg PO DAILY #2 tabs 11/27/21 polyethylene glycol 3350 17 gram oral powder packet 17 g PO DAILY #0 ea 11/27/21 prednisone 10 mg tablets in a dose pack See Taper PO DAILY #30 tabs 11/27/21 Weight / BMI Weight Weight: 150 lb 0.005 oz Body Mass Index (BMI) 22.8 ABG / Lab / Microbiology Data Result Diagrams: 11/27/21 04:18 11/27/21 04:18 Laboratory: Laboratory Results - last 24 hr 11/24/21 07:34: Diff Path Review Reviewed 11/25/21 04:35: Diff Path Review Reviewed 11/26/21 12:15: Blood Type O POSITIVE, Antibody Screen NEGATIVE, Crossmatch See Detail 11/27/21 04:18: WBC 6.4, RBC 3.55 L, Hgb 10.3 L, Hct 32.1 L, MCV 90.4, MCH 29.0, MCHC 32.1, RDW Std Deviation 46.2 H, RDW Coeff of Chucho 14.0, Plt Count 265, MPV 9.9, Immature Gran % (Auto) 1.300 H, Neut % (Auto) 90.1 H, Lymph % (Auto) 5.3 L, Saunders % (Auto) 3.1, Eos % (Auto) 0.0, Baso % (Auto) 0.2, Absolute Neuts (auto) 5.8, Absolute Lymphs (auto) 0.34 L, Nucleated RBC % 0, Differential Comment SCANNED 11/27/21 04:18: Sodium 138, Potassium 4.3, Chloride 109 H, Carbon Dioxide 23.0, Anion Gap 6, BUN 20 H, Creatinine 0.76, Estim Creat Clear Calc 60.48, Est GFR (MDRD) Af Amer 129, Est GFR (MDRD) Non-Af 106, BUN/Creatinine Ratio 26.5 H, Glucose 163 H, Calcium 9.0 Microbiology: Microbiology 11/25/21 18:45 Stool Stool Occult Blood ([facility]) - Final 11/23/21 17:12 Mucosa - Nasopharyngeal Respiratory Panel (PCR) - Final 11/22/21 Unknown Mucosa - Nose Influenza Types A,B Direct FA ([facility]) - Final D/C Instructions Discharge Diet: No restrictions Call your doctor if you observe: Fever of 101 or Higher, Coldness, Increased Pain, Numbness or Tingling, Change in Color, Inability to urinate, Inability to have a bowel movement, Shortness of breath, Dizziness, Fainting spells, Swelling in the ankles, Chest pain, Prolonged hiccupping, Increased palpitations (irregular heartbeat), Calf discomfort and Uncontrolled pain Discharge Plan Admission Admit Date/Time: 11/20/21 15:19 Primary Reason for Your Visit: Acute right hip intertrochanteric fracture Attending Provider: Izaiah Ramos Primary Care Provider: Andreas Evangelista Chi Consulting Providers: Marcos Gallegos ; Patrick Farrell Discharge Orders/Prescriptions Prescriptions: New sennosides-docusate sodium [Stool Softener-Stimulant Laxat] 8.6-50 mg Tablet 2 tab PO BID PRN PRN (Reason: Constipation) Qty: 0 0RF Rx Instructions: OTC oxycodone 5 mg Tablet 5 mg PO Q6H PRN PRN (Reason: Pain Score 6-10) 3 Days Qty: 10 0RF acetaminophen [Tylenol] 325 mg Tablet 650 mg PO Q6H PRN PRN (Reason: Pain Score 1-10/Temp > 100.7 F) Qty: 0 0RF ipratropium-albuterol 0.5 mg-3 mg(2.5 mg base)/3 mL Solution For Nebulization 3 ml inhalation Q4H.RT PRN (Reason: SOB) Qty: 0 0RF polyethylene glycol 3350 17 gram Powder In Packet 17 g PO DAILY Qty: 0 0RF Eliquis 5 mg Tablet 10 mg PO BID Qty: 0 0RF Rx Instructions: 10 mg bid, ends on 11/30, then change to 5 mg bid to continue for at least 3 months Eliquis 5 mg Tablet 5 mg PO BID Qty: 0 0RF Rx Instructions: starts on 12/01/21 levofloxacin 500 mg tablet 500 mg PO DAILY Qty: 2 0RF Rx Instructions: STARTING FROM 11/28/21 ferrous sulfate [FeroSul] 325 mg (65 mg iron) tablet 325 mg PO DAILY Qty: 30 2RF prednisone 10 mg tablets,dose pack See Taper PO DAILY Qty: 30 0RF Taper: Prednisone Taper 40 mg WITH BREAKFAST for 3 Days and 0 Hour 30 mg WITH BREAKFAST for 3 Days and 0 Hour 20 mg WITH BREAKFAST for 3 Days and 0 Hour 10 mg WITH BREAKFAST for 3 Days and 0 Hour ascorbic acid (vitamin C) 500 mg tablet 500 mg PO BID Qty: 60 2RF Mucinex 1,200 mg tablet extended release 12hr 1,200 mg PO BID Qty: 14 0RF Continued levothyroxine 75 mcg tablet 50 mcg PO DAILY Label Comments: TAKE 1 TABLET ORALLY ONCE PER DAY FOR 90 DAYS midodrine 10 mg tablet 10 mg PO BID Rx Instructions: do not give last dose of day after 6PM or within 4 hrs of bedtime atorvastatin 40 MG tablet 40 mg PO DAILY omeprazole 40 MG capsule,delayed release(DR/EC) 40 mg PO DAILY Label Comments: TAKE ONE CAPSULE BY MOUTH ONCE DAILY tamsulosin 0.4 MG capsule 0.4 mg PO DAILY Referrals / Follow Up: Andreas Evangelista Chi, MD [Primary Care Provider] - Disposition Disposition (needs filled in before D/C Order can be placed): Home Health Service
[2021-11-27] MEDS: APIXABAN 5 MG TABLET 10 MG PO ×2 (10:16→22:36)
[2021-11-27] MEDS: Ascorbic Acid 500 MG Tablet PO ×2 (10:16→17:00)
[2021-11-27] MEDS: Atorvastatin Calcium 40 MG Tablet PO (10:17)
[2021-11-27] MEDS: Midodrine HCl 5 MG Tablet 10 MG PO ×2 (10:17→17:00)
[2021-11-27] MEDS: levoFLOXacin IV 750 MG/150 ML BAG 100 MG IV (10:17)
[2021-11-27] MEDS: Pantoprazole Sodium 40 MG Tablet PO ×2 (10:17→22:35)
[2021-11-27] MEDS: Tamsulosin HCl 0.4 MG Capsule PO (10:17)
[2021-11-27] MEDS: Polyethylene Glycol 3350 17 GM PACKET PO (10:17)
--- NOTE | 2021-11-27 10:36 | CASEMGMT ---
Social Work SW received call from Elvi at [facility] requesting updated therapy notes be faxed. Elvi states she will review pts case with physician at 1100 and physician will make a determination on precert for RU. Clinicals faxed. Will await determination. Plan: RU, pending precert HARVINDER Bell
[2021-11-27] MEDS: Acetylcysteine 800 MG/4 ML VIAL.NEB. INHALATION ×3 (10:56→19:02)
[2021-11-27] MEDS: Ipratropium/Albuterol Sulfate 3 ML AMPUL.NEB INHALATION ×3 (10:57→19:02)
--- NOTE | 2021-11-27 11:15 | PHA.DC.MR ---
Pharmacy Service has performed discharge medication reconciliation for this patient. The patient's discharge medication list was reviewed for discrepancies and discrepancies were resolved. Discharged cancelled yesterday, changes reviewed. Home Medications atorvastatin 40 mg tablet 40 mg PO DAILY cholesterol 05/10/17 omeprazole 40 mg capsule,delayed release 40 mg PO DAILY GERD 06/28/20 tamsulosin 0.4 mg capsule 0.4 mg PO DAILY PROSTATE 06/28/20 levothyroxine 75 mcg tablet 50 mcg PO DAILY 05/30/21 midodrine 10 mg tablet 10 mg PO BID 11/05/21 oxycodone 5 mg tablet 5 mg PO Q6H PRN PRN Pain Score 6-10 3 days #10 tabs 11/22/21 sennosides 8.6 mg-docusate sodium 50 mg tablet (Stool Softener-Stimulant Laxative) 2 tab PO BID PRN PRN Constipation #0 tabs 11/22/21 acetaminophen 325 mg tablet (Tylenol) 650 mg PO Q6H PRN PRN Pain Score 1-10/Temp > 100.7 F #0 tabs 11/27/21 apixaban 5 mg tablet (Eliquis) 5 mg PO BID #0 tabs 11/27/21 apixaban 5 mg tablet (Eliquis) 10 mg PO BID #0 tabs 11/27/21 ascorbic acid (vitamin C) 500 mg tablet 500 mg PO BID #60 tabs 11/27/21 ferrous sulfate 325 mg (65 mg iron) tablet (FeroSul) 325 mg PO DAILY #30 tabs 11/27/21 guaifenesin 1,200 mg tablet, extended release 12 hr (Mucinex) 1,200 mg PO BID ##14 11/27/21 ipratropium 0.5 mg-albuterol 3 mg (2.5 mg base)/3 mL nebulization soln 3 ml inhalation Q4H.RT PRN SOB #0 mL 11/27/21 levofloxacin 500 mg tablet 500 mg PO DAILY #2 tabs 11/27/21 polyethylene glycol 3350 17 gram oral powder packet 17 g PO DAILY #0 ea 11/27/21 prednisone 10 mg tablets in a dose pack See Taper PO DAILY #30 tabs 11/27/21
[2021-11-27] MEDS: HYDROcodone Bitartrate/Apap 5/325 Tablet PO (11:31)
--- NOTE | 2021-11-27 13:57 | PN.HOSP_ITS ---
Objective Data Objective Data Vital Signs: Vital Signs Temp Pulse Resp BP Pulse Ox O2 Del Method O2 Flow Rate 99 F 89 18 149/86 H 99 Trach Collar 6 11/27/21 10:05 11/27/21 10:58 11/27/21 10:58 11/27/21 10:05 11/27/21 11:39 11/27/21 10:06 11/27/21 11:39 FiO2 28 11/27/21 06:54 Oxygen Flow Rate (L/min) 6 Oxygen Delivery Method Trach Collar Weight: 150 lb 0.005 oz Body Mass Index (BMI) 22.8 Intake & Output: Intake and Output for Last 24 Hours 11/25/21 11/26/21 11/27/21 23:59 23:59 23:59 Intake Total 1970 / 1970 550 / 550 300 / 300 Output Total 1000 / 1500 3100 / 3100 900 / 900 Balance 970 / 470 -2550 / -2550 -600 / -600 Lab / Micro Data Result Diagrams: 11/27/21 04:18 11/27/21 04:18 Labs: Laboratory Results - last 24 hr 11/26/21 12:15: Blood Type O POSITIVE, Antibody Screen NEGATIVE, Crossmatch See Detail 11/27/21 04:18: WBC 6.4, RBC 3.55 L, Hgb 10.3 L, Hct 32.1 L, MCV 90.4, MCH 29.0, MCHC 32.1, RDW Std Deviation 46.2 H, RDW Coeff of Chucho 14.0, Plt Count 265, MPV 9.9, Immature Gran % (Auto) 1.300 H, Neut % (Auto) 90.1 H, Lymph % (Auto) 5.3 L, Bent % (Auto) 3.1, Eos % (Auto) 0.0, Baso % (Auto) 0.2, Absolute Neuts (auto) 5.8, Absolute Lymphs (auto) 0.34 L, Nucleated RBC % 0, Differential Comment SCANNED 11/27/21 04:18: Sodium 138, Potassium 4.3, Chloride 109 H, Carbon Dioxide 23.0, Anion Gap 6, BUN 20 H, Creatinine 0.76, Estim Creat Clear Calc 60.48, Est GFR (MDRD) Af Amer 129, Est GFR (MDRD) Non-Af 106, BUN/Creatinine Ratio 26.5 H, Glu cose 163 H, Calcium 9.0 Micro: Microbiology 11/25/21 18:45 Stool Stool Occult Blood ([facility]) - Final 11/23/21 17:12 Mucosa - Nasopharyngeal Respiratory Panel (PCR) - Final 11/22/21 Unknown Mucosa - Nose Influenza Types A,B Direct FA ([facility]) - Final Physical Exam Narrative Seen and examined. Oxygen requirement 6 L positive. No tachypnea.? No dyspnea at rest no fever. ? Requires 2 people assist to stand up. ?Patient had surgery on 11/21.? Denies prior history of DVT/PE. General: Alert, Oriented x3, Cooperative HEENT: Laryngeal cancer status post tracheostomy.? Deep voice. ?Atraumatic, PERRLA, EOMI, Normocephalic Oral: Deep oropharyngeal structures could not be visualized Neck: Supple, No JVD, Negative Carotid Bruits Lungs:? Air entry diminished in bilateral lung bases.? Severe hypoxia.? Bibasilar crepitations Cardiovascular: Regular rate, Regular Rhythm, Normal S1, Normal S2, No murmurs Abdomen: Bowel Sounds Present, Soft, Non Tender, Non-Distended : No renal angle tenderness.? No suprapubic tenderness. Extremities: No edema, Capillary Refill Less than 3 Seconds Skin: Mild bloodstain over right surgical dressing.? Small bluish discoloration around dressing, bruise. Musculoskeletal: Right hip surgical dressing is dry.? Tiny dot on dressing.? No acute tenderness. Neurological: Cranial nerves II-XII grossly intact, DTR? 2+/4 and Symmetrical, Neuro grossly intact Psych/Mental Status: Normal Affect, Appropriate. Assessment & Plan Assessment/Plan (1) Closed nondisplaced intertrochanteric fracture of right femur: PLAN: Plan 76-year-old male admitted after accidental fall resulting into right hip intertrochanteric fracture.? No LOC 1.? Closed, mildly displaced intertrochanteric fracture of right femur secondary to accidental fall. -Admit to [facility] floor.? Patient has good preop exercise capacity and an indepe ndent living, climbing of stairs.? Met more than 4.? NSQIP in the chart.? Orthopedic surgeon Dr. Patrick Farrell consulted.? Patient had right hip ORIF, intramedullary nail fixation block.? Fracture site was found mildly displaced during surgery. -PT and OT to eval and treat following surgery -Graduated pain management regimen 11/23: Surgical scar healing well. 11/25: Requires 2 people assist to stand up.? Not good for home discharge. 11/26: Discussed with the returned case inspector and nursing staff.? Patient needs rehab.? He agreed for acute rehab.? Pending pre-CERT. 11/27: Pending pre-CERT. Needs to change of dressing of right hip. Communicated with Ortho surgeon and okay to change the dressing.. 2.? Acute hypoxic respiratory failure probably due to atelectasis/mucous plugging.? Patient does not have fever, leukocytosis, acute change in cough, sputum production.? On 10 L of oxygen. 11/23: Chest x-ray did not show acute change.? COVID-[address] PE ordered to rule out PE.? Report pending.? Flu antigen negative.? Respiratory panel ordered. 11/24: On 11/23 CTPA individually reviewed and agree with? right middle lobe segmental and subsegmental pulmonary embolism.? Patient also has bilateral lower lobe consolidation.? The patient was started on IV heparin drip which is changed to apixaban 10 mg p.o. twice daily today.? Patient is likely to bleed as he has low hemoglobin 7.6 and platelet 142K.? Patient is allergic to penicillin and amoxicillin therefore on Levaquin for pneumonia. 11/25: Hemoglobin 7.7, platelet count 176,000.? Continue apixaban with support of PPI 11/26: Patient tolerating apixaban.? Continue PPI twice daily. 11/27: Patient persistently on 6 L of oxygen, stable. Continue bronchodilator. 3.? Acute blood loss postop anemia on baseline anemia of chronic disease, acute iron deficiency anemia: Patient baseline hemoglobin runs around 11 to 12 g%.? Hemoglobin gradually trickling down, most recent 7.6.? Stool for occult blood ordered.? Protonix 40 mg every 12 hourly.? Patient also had mild thrombocytopenia.? Monitor CBC daily.? Iron work-up, reticulocyte panel and IV i shasta ordered. 11/25: Anemia work-up shows iron 19, TIBC low, iron saturation 7.9%.? Continue iron infusion 250 mg 1 dose. 11/26: Discussed with my colleague in acute rehab and agreed on 1 unit of PRBC tra nsfusion.? Patient had iron infusion for last 2 days.? No significant improvement in hemoglobin. 11/27: Hemoglobin stable at 10.3. 4.? Hyperlipidemia -Continue atorvastatin 5.? Hypothyroidism -Continue levothyroxine 6.? Orthostatic hypotension -Continue midodrine 7.? 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 -Continue tamsulosin DVT prophylaxis-SCDs Total time of the visit including total time spent in counseling or coordination of care, (more than 50% of the total time, spent in obtaining medical information from nurses and other ancillary care providers,explaining to the patient about labs, imaging, diagnosis and management), multiple acute medical issues, review of labs and chest x-ray, CTPA imaging is? 30 minutes. Charges/Coding Visit Charges Inpatient E&M: 90837 Subs Hosp L2
[2021-11-27] MEDS: Acetaminophen 325 MG Tablet 650 MG PO ×2 (14:30→22:38)
--- NOTE | 2021-11-27 14:30 | CASEMGMT ---
Social Work SW received call from Elvi at [facility]. Pt has been denied admission to Inpatient Rehab as they do not feel pt requires this level of care. KAREEM inquired about SNF approval and Elvi states pt has been approved for SNF level of care with temporary Auth #[id number]. SNF will need to submit for new admission through review link. Pt has requested to go to TCU if [facility] is unable to accept. Opal in TCU updated and states pt can admit tomorrow, after final confirmation is received from [facility]. Physician updated. Plan: TCU tomorrow, pending final authorization. HARVINDER Bell
--- NOTE | 2021-11-27 15:01 | CASEMGMT ---
Social Work SW notified pt that his insurance is not approving him for Inpatient Rehab but that he can go to TCU tomorrow, pending bed availability. Pt and his both voiced understanding. SW answered questions about TCU vs. Rehab unit. Pt wanting to know if he can go to Rehab after his TCU stay. SW explained if all goes well at TCU that he will not need Rehab. SW explained insurance denied pt going to rehab so he will not go unless there is a change in his status and insurance approves. Pt and understand. SW also answered questions about TCU visiting hours. Plan: TCU, 11/28/21, pending bed availability. HARVINDER Vu
[2021-11-28 02:30] VITALS: BP 116/72; PULSE 78; RESP 16; TEMP 37.1; O2SAT 95
[2021-11-28] MEDS: Levothyroxine 50 MCG Tablet PO (05:44)
[2021-11-28] MEDS: HYDROcodone Bitartrate/Apap 5/325 Tablet PO (05:44)
[2021-11-28] MEDS: 0.9% Saline Lock 10 ML Syringe IV (05:45)
[2021-11-28] MEDS: Ipratropium/Albuterol Sulfate 3 ML AMPUL.NEB INHALATION ×2 (07:11→10:47)
[2021-11-28] MEDS: Acetylcysteine 800 MG/4 ML VIAL.NEB. INHALATION ×2 (07:12→10:47)
[2021-11-28 07:20] VITALS: PULSE 97; RESP 20
--- NOTE | 2021-11-28 08:02 | CASEMGMT ---
Addendum entered by Rebecca Lopez 11/28/21 15:34: Social Work Per physician, pt is ready for discharge today. Orders faxed to TCU and Opal updated that pt will discharge today. Pt and updated on discharge plan. Disposition: TCU, skilled level of care HARVINDER Bell Original Note: Social Work Preauth and acceptance for TCU received at this time. Physician updated that pt can discharge to TCU today. HARVINDER Bell
[2021-11-28 09:10] VITALS: O2SAT 93
--- NOTE | 2021-11-28 09:13 | PCM.TXEXTCAR ---
Diet Diet Order/Speech Therapy: 11/22/21 06:24 Diet: Regular - General Type of Dietary Supplement:: Ensure Enlive Is pt able to select menu?: Yes Diet Comments: 4 oz chocolate ensure enlive w/ meals tid Routine Orders/Code Status Suppository Type: Dulcolax 10mg Suppository Frequency: Daily PRN Code Status: Full Code Wound(s) RIGHT HIP, DISTAL: Wound Type: Surgical Incision RIGHT HIP, PROXIMAL: Wound Type: Surgical Incision Therapies Weight Bearing: Weight bearing as tolerated Extremity Affected:: Bilateral Lower Physical Therapy: Eval and Treat Occupational Therapy: Eval and Treat Speech Therapy: Eval and Treat Problem/Diagnosis (1) Closed nondisplaced intertrochanteric fracture of right femur: Status: Acute Code(s): S72.144A - Nondisplaced intertrochanteric fracture of right femur, initial encounter for closed fracture Allergies/Procedures Done in Hospital Allergies Penicillins Allergy (Verified 11/20/21 13:29) UNKNOWN Sulfa (Sulfonamide Antibiotics) Allergy (Verified 11/20/21 13:29) BP drops amoxicillin Adverse Reaction (Verified 11/20/21 13:29) Rash Type of Care/Length of Stay Estimated LOS: Convalescent Care Less Than 30 days Type of Care Needed: Skilled Rehab Potential: Good Prognosis: Good Additional Orders/Day of Discharge Day of Discharge: 11/28/21 Dietary and Speech Recommendations Dietitian Recommendations/Changes: Will continue liberal regular diet Will provide 4 oz ensure enlive w/ meals per pt request Discharge Plan Admission Admit Date/Time: 11/20/21 15:19 Primary Reason for Your Visit: Acute right hip intertrochanteric fracture Attending Provider: Izaiah Ramos Primary Care Provider: Andreas Evangelista [employer] Providers: Marcos Gallegos Rodney Discharge Orders/Prescriptions Prescriptions: New sennosides-docusate sodium [Stool Softener-Stimulant Laxat] 8.6-50 mg Tablet 2 tab PO BID PRN PRN (Reason: Constipation) Qty: 0 0RF Rx Instructions: OTC oxycodone 5 mg Tablet 5 mg PO Q6H PRN PRN (Reason: Pain Score 6-10) 3 Days Qty: 10 0RF acetaminophen [Tylenol] 325 mg Tablet 650 mg PO Q6H PRN PRN (Reason: Pain Score 1-10/Temp > 100.7 F) Qty: 0 0RF ipratropium-albuterol 0.5 mg-3 mg(2.5 mg base)/3 mL Solution For Nebulization 3 ml inhalation Q4H.RT PRN (Reason: SOB) Qty: 0 0RF polyethylene glycol 3350 17 gram Powder In Packet 17 g PO DAILY Qty: 0 0RF Eliquis 5 mg Tablet 10 mg PO BID Qty: 0 0RF Rx Instructions: 10 mg bid, ends on 11/30, then change to 5 mg bid to continue for at least 3 months Eliquis 5 mg Tablet 5 mg PO BID Qty: 0 0RF Rx Instructions: starts on 12/01/21 levofloxacin 500 mg tablet 500 mg PO DAILY Qty: 2 0RF Rx Instructions: STARTING FROM 11/28/21 ferrous sulfate [FeroSul] 325 mg (65 mg iron) tablet 325 mg PO DAILY Qty: 30 2RF prednisone 10 mg tablets,dose pack See Taper PO DAILY Qty: 30 0RF Taper: Prednisone Taper 40 mg WITH BREAKFAST for 3 Days and 0 Hour 30 mg WITH BREAKFAST for 3 Days and 0 Hour 20 mg WITH BREAKFAST for 3 Days and 0 Hour 10 mg WITH BREAKFAST for 3 Days and 0 Hour ascorbic acid (vitamin C) 500 mg tablet 500 mg PO BID Qty: 60 2RF Mucinex 1,200 mg tablet extended release 12hr 1,200 mg PO BID Qty: 14 0RF Continued levothyroxine 75 mcg tablet 50 mcg PO DAILY Label Comments: TAKE 1 TABLET ORALLY ONCE PER DAY FOR 90 DAYS midodrine 10 mg tablet 10 mg PO BID Rx Instructions: do not give last dose of day after 6PM or within 4 hrs of bedtime atorvastatin 40 MG tablet 40 mg PO DAILY omeprazole 40 MG capsule,delayed release(DR/EC) 40 mg PO DAILY Label Comments: TAKE ONE CAPSULE BY MOUTH ONCE DAILY tamsulosin 0.4 MG capsule 0.4 mg PO DAILY Referrals / Follow Up: Sandip Taylor DO [Med Staff - Active Staff] - Within 2 Weeks (for acute hypoxic resp failure ) Andreas Evangelista Chi, MD [Primary Care Provider] - Disposition Disposition (needs filled in before D/C Order can be placed): Home Health Service
[2021-11-28 09:31] VITALS: BP 112/45; PULSE 106; RESP 18; TEMP 36.8; O2SAT 94
[2021-11-28] MEDS: Polyethylene Glycol 3350 17 GM PACKET PO (09:42)
[2021-11-28] MEDS: Atorvastatin Calcium 40 MG Tablet PO (09:42)
[2021-11-28] MEDS: Ascorbic Acid 500 MG Tablet PO (09:42)
[2021-11-28] MEDS: APIXABAN 5 MG TABLET 10 MG PO (09:42)
[2021-11-28] MEDS: Midodrine HCl 5 MG Tablet 10 MG PO (09:42)
[2021-11-28] MEDS: Pantoprazole Sodium 40 MG Tablet PO (09:42)
[2021-11-28] MEDS: Tamsulosin HCl 0.4 MG Capsule PO (09:42)
[2021-11-28] MEDS: levoFLOXacin IV 750 MG/150 ML BAG 100 MG IV (09:46)
[2021-11-28 11:07] VITALS: PULSE 91; RESP 22
--- NOTE | 2021-11-28 11:19 | PCM.DC.SUM ---
Providers Date of Admission: 11/20/21 Date of Discharge: 11/28/21 Primary Care Physician: Dr. Andreas Evangelista MD Consultations 11/20/21 16:29 Consult: Orthopedics Routine Consulting Provider: Patrick Farrell Reason for Consult: Hip fx EMERGENT Consult: No MD Notified: Yes Date Notified: 11/20/21 Time Notified: 15:21 Method of Notification: ED Physician Initiated Reason For Visit: HIP FRACTURE Diagnosis Discharge Diagnosis (1) Closed nondisplaced intertrochanteric fracture of right femur: Status: Acute Code(s): S72.144A - Nondisplaced intertrochanteric fracture of right femur, initial encounter for closed fracture Medications at Discharge Home Medications atorvastatin 40 mg tablet 40 mg PO DAILY cholesterol 05/10/17 omeprazole 40 mg capsule,delayed release 40 mg PO DAILY GERD 06/28/20 tamsulosin 0.4 mg capsule 0.4 mg PO DAILY PROSTATE 06/28/20 levothyroxine 75 mcg tablet 50 mcg PO DAILY 05/30/21 midodrine 10 mg tablet 10 mg PO BID 11/05/21 oxycodone 5 mg tablet 5 mg PO Q6H PRN PRN Pain Score 6-10 3 days #10 tabs 11/22/21 sennosides 8.6 mg-docusate sodium 50 mg tablet (Stool Softener-Stimulant Laxative) 2 tab PO BID PRN PRN Constipation #0 tabs 11/22/21 acetaminophen 325 mg tablet (Tylenol) 650 mg PO Q6H PRN PRN Pain Score 1-10/Temp > 100.7 F #0 tabs 11/27/21 apixaban 5 mg tablet (Eliquis) 5 mg PO BID #0 tabs 11/27/21 apixaban 5 mg tablet (Eliquis) 10 mg PO BID #0 tabs 11/27/21 ascorbic acid (vitamin C) 500 mg tablet 500 mg PO BID #60 tabs 11/27/21 ferrous sulfate 325 mg (65 mg iron) tablet (FeroSul) 325 mg PO DAILY #30 tabs 11/27/21 guaifenesin 1,200 mg tablet, extended release 12 hr (Mucinex) 1,200 mg PO BID ##14 11/27/21 ipratropium 0.5 mg-albuterol 3 mg (2.5 mg base)/3 mL nebulization soln 3 ml inhalation Q4H.RT PRN SOB #0 mL 11/27/21 levofloxacin 500 mg tablet 500 mg PO DAILY #2 tabs 11/27/21 polyethylene glycol 3350 17 gram oral powder packet 17 g PO DAILY #0 ea 11/27/21 prednisone 10 mg tablets in a dose pack See Taper PO DAILY #30 tabs 11/27/21 Hospital Course Summary of Care Provided Hospital Course: 76-year-old male admitted after accidental fall resulting into right hip intertrochanteric fracture.? No LOC 1.? Closed, mildly displaced intertrochanteric fracture of right femur secondary to accidental fall. -Admit to [facility] floor.? Patient has good preop exercise capacity and an independent living, climbing of stairs.? Met more than 4.? NSQIP in the chart.? Orthopedic surgeon Dr. Patrick Farrell consulted.? Patient had right hip ORIF, intramedullary nail fixation block.? Fracture site was found mildly displaced during surgery. -PT and OT to eval and treat following surgery -Graduated pain management regimen 11/23: Surgical scar healing well. 11/25: Requires 2 people assist to stand up.? Not good for home discharge. 11/26: Discussed with the case consultant and nursing staff.? Patient needs rehab.? He agreed for acute rehab.? Pending pre-CERT. 11/27: Pending pre-CERT.? Needs to change of dressing of right hip.? Communicated with Ortho surgeon and okay to change the dressing.. 11/28: Pre-CERT obtained for TCU. Meds reconciliation done. 2.? Acute hypoxic respiratory failure probably due to atelectasis/mucous plugging.? Patient does not have fever, leukocytosis, acute change in cough, sputum production.? On 10 L of oxygen. 11/23: Chest x-ray did not show acute change.? COVID-[address] PE ordered to rule out PE.? Report pending.? Flu antigen negative.? Respiratory panel ordered. 11/24: On 11/23 CTPA individually reviewed and agree with? right middle lobe segmental and subsegmental pulmonary embolism.? Patient also has bilateral lower lobe consolidation.? The patient was started on IV heparin drip which is changed to apixaban 10 mg p.o. twice daily today.? Patient is likely to bleed as he has low hemoglobin 7.6 and platelet 142K.? Patient is allergic to penicillin and amoxicillin therefore on Levaquin for pneumonia. 11/25: Hemoglobin 7.7, platelet count 176,000.? Continue apixaban with support of PPI 11/26: Patient tolerating apixaban.? Continue PPI twice daily. 11/27: Patient persistently on 6 L of oxygen, stable.? Continue bronchodilator. 3.? Acute blood loss postop anemia on baseline anemia of chronic disease, acute iron deficiency anemia: Patient baseline hemoglobin runs around 11 to 12 g%.? Hemoglobin gradually trickling down, most recent 7.6.? Stool for occult blood ordered.? Protonix 40 mg every 12 hourly.? Patient also had mild thrombocytopenia.? Monitor CBC daily.? Iron work-up, reticulocyte panel and IV iron ordered. 11/25: Anemia work-up shows iron 19, TIBC low, iron saturation 7.9%.? Continue iron infusion 250 mg 1 dose. 11/26: Discussed with my colleague in acute rehab and agreed on 1 unit of PRBC transfusion.? Patient had iron infusion for last 2 days.? No significant improvement in hemoglobin. 11/27: Hemoglobin stable at 10.3. 11/29: Repeat hemoglobin is 10.4/31.5%. Platelet count 339,000. Mild increase in WBC count due to steroid. 4.? Hyperlipidemia -Continue atorvastatin 5.? Hypothyroidism -Continue levothyroxine 6.? Orthostatic hypotension -Continue midodrine 7.? 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 -Continue tamsulosin DVT prophylaxis-SCDs Discharge medication reconciliation done. Discharge follow-up instructions completed. Discharge process discussed with the patient and all questions were answered to patient's satisfaction. Discharged to TCU Total time spent, exact 35 minutes on discharge meds reconciliation, examination, coordination of care with nurses and ancillary staff, review of imaging and blood test and discussion with the patient on follow-up instructions. Physical Exam Narrative Seen and examined on the day of discharge. Oxygen requirement is constant for about 6 L for more than 1 day. Not visibly short of breath. General: Alert, Oriented x3, Cooperative HEENT: Laryngeal cancer status post tracheostomy.? Deep voice. ?Atraumatic, PERRLA, EOMI, Normocephalic Oral: Deep oropharyngeal structures could not be visualized Neck: Supple, No JVD, Negative Carotid Bruits Lungs:? Air entry diminished in bilateral lung bases.? Mild bilateral expiratory rhonchi. Cardiovascular: Regular rate, Regular Rhythm, Normal S1, Normal S2, No murmurs Abdomen: Bowel Sounds Present, Soft, Non Tender, Non-Distended : No renal angle tenderness.? No suprapubic tenderness. Extremities: No edema, Capillary Refill Less than 3 Seconds Skin: Surgical dressing changed. Dry. Musculoskeletal: Right hip surgical dressing is dry.? Dressing was changed.? No acute tenderness. Neurological: Cranial nerves II-XII grossly intact, DTR? 2+/4 and Symmetrical, Neuro grossly intact Psych/Mental Status: Normal Affect, Appropriate. Weight / BMI Weight Weight: 150 lb 0.005 oz Body Mass Index (BMI) 22.8 ABG / Lab / Microbiology Data Result Diagrams: 11/28/21 12:30 11/27/21 04:18 Microbiology: Microbiology 11/25/21 18:45 Stool Stool Occult Blood ([facility]) - Final 11/23/21 17:12 Mucosa - Nasopharyngeal Respiratory Panel (PCR) - Final 11/22/21 Unknown Mucosa - Nose Influenza Types A,B Direct FA ([facility]) - Final D/C Instructions Discharge Diet: No restrictions Call your doctor if you observe: Fever of 101 or Higher, Coldness, Increased Pain, Numbness or Tingling, Change in Color, Inability to urinate, Inability to have a bowel movement, Shortness of breath, Dizziness, Fainting spells, Swelling in the ankles, Chest pain, Prolonged hiccupping, Increased palpitations (irregular heartbeat), Calf discomfort and Uncontrolled pain Meaningful Use Info Meaningful Use Diagnoses (Choose all that apply): None applicable Discharge Plan Admission Admit Date/Time: 11/20/21 15:19 Primary Reason for Your Visit: Acute right hip intertrochanteric fracture Attending Provider: Izaiah Ramos Primary Care Provider: Andreas Evangelista Chi Consulting Providers: Marcos Gallegos ; Patrick Farrell Discharge Orders/Prescriptions Prescriptions: New sennosides-docusate sodium [Stool Softener-Stimulant Laxat] 8.6-50 mg Tablet 2 tab PO BID PRN PRN (Reason: Constipation) Qty: 0 0RF Rx Instructions: OTC oxycodone 5 mg Tablet 5 mg PO Q6H PRN PRN (Reason: Pain Score 6-10) 3 Days Qty: 10 0RF acetaminophen [Tylenol] 325 mg Tablet 650 mg PO Q6H PRN PRN (Reason: Pain Score 1-10/Temp > 100.7 F) Qty: 0 0RF ipratropium-albuterol 0.5 mg-3 mg(2.5 mg base)/3 mL Solution For Nebulization 3 ml inhalation Q4H.RT PRN (Reason: SOB) Qty: 0 0RF polyethylene glycol 3350 17 gram Powder In Packet 17 g PO DAILY Qty: 0 0RF Eliquis 5 mg Tablet 10 mg PO BID Qty: 0 0RF Rx Instructions: 10 mg bid, ends on 11/30, then change to 5 mg bid to continue for at least 3 months Eliquis 5 mg Tablet 5 mg PO BID Qty: 0 0RF Rx Instructions: starts on 12/01/21 levofloxacin 500 mg tablet 500 mg PO DAILY Qty: 2 0RF Rx Instructions: STARTING FROM 11/28/21 ferrous sulfate [FeroSul] 325 mg (65 mg iron) tablet 325 mg PO DAILY Qty: 30 2RF prednisone 10 mg tablets,dose pack See Taper PO DAILY Qty: 30 0RF Taper: Prednisone Taper 40 mg WITH BREAKFAST for 3 Days and 0 Hour 30 mg WITH BREAKFAST for 3 Days and 0 Hour 20 mg WITH BREAKFAST for 3 Days and 0 Hour 10 mg WITH BREAKFAST for 3 Days and 0 Hour ascorbic acid (vitamin C) 500 mg tablet 500 mg PO BID Qty: 60 2RF Mucinex 1,200 mg tablet extended release 12hr 1,200 mg PO BID Qty: 14 0RF Continued levothyroxine 75 mcg tablet 50 mcg PO DAILY Label Comments: TAKE 1 TABLET ORALLY ONCE PER DAY FOR 90 DAYS midodrine 10 mg tablet 10 mg PO BID Rx Instructions: do not give last dose of day after 6PM or within 4 hrs of bedtime atorvastatin 40 MG tablet 40 mg PO DAILY omeprazole 40 MG capsule,delayed release(DR/EC) 40 mg PO DAILY Label Comments: TAKE ONE CAPSULE BY MOUTH ONCE DAILY tamsulosin 0.4 MG capsule 0.4 mg PO DAILY Referrals / Follow Up: Sandip Taylor DO [Med Staff - Active Staff] - Within 2 Weeks (for acute hypoxic resp failure ) Andreas Evangelista Chi, MD [Primary Care Provider] - Disposition Disposition (needs filled in before D/C Order can be placed): Home Health Service Charges/Coding Visit Charges Inpatient E&M: 60736 Disch Hosp
[2021-11-28 12:47] LABS: Hematocrit 31.5 % (40-54); Hemoglobin 10.4 g/dL (13.0-16.5); Mean Corpuscular Hgb 29.8 pg (27.0-32.0); Mean Corpuscular Volume 90.3 fL (80-94); Mean Platelet Vol. 9.7 fl (6.2-12.0); Platelet Count 339 K/mm3 (150-450); RBC Distribution Width SD 47.3 fl (35.1-43.9); Red Blood Count 3.49 M/mm3 (4.6-6.2); White Blood Count 12.6 K/mm3 (4.4-11.0)
--- NOTE | 2021-11-28 13:01 | NURSING ---
Called report to TCU nurse. She will call back once room 9 is cleaned and ready for pt.
[2021-11-28 13:59] VITALS: BP 116/56; PULSE 107; RESP 18; TEMP 37.2; O2SAT 94
== END 2021-11-28 15:20 | disposition skilled nursing facility (03) | DRG 480 ==
LOC: ED 16:05 → MS3 16:09
PROVIDERS: Anesthesiology; Family Medicine; Orthopaedic Surgery; Admitting Provider Family Medicine; Emergency Provider Emergency Medicine; PCP Family Medicine Geriatric Medicine; Visit Provider Internal Medicine
PROC: 0QS606Z Reposition Right Upper Femur with Intramedullary Internal Fixation Device, Open Approach (ICD-10-PCS; CPT 27245; principal; 2021-11-21 15:00)
DX: S72.144A Nondisplaced intertrochanteric fracture of right femur, initial encounter for closed fracture (principal); I26.99 Other pulmonary embolism without acute cor pulmonale; J96.01 Acute respiratory failure with hypoxia; J18.9 Pneumonia, unspecified organism; D62 Acute posthemorrhagic anemia; J98.11 Atelectasis; D69.6 Thrombocytopenia, unspecified; Z93.0 Tracheostomy status; I95.1 Orthostatic hypotension; E03.9 Hypothyroidism, unspecified; W19.XXXA Unspecified fall, initial encounter; E78.5 Hyperlipidemia, unspecified; M75.51 Bursitis of right shoulder; S46.009A Unspecified injury of muscle(s) and tendon(s) of the rotator cuff of unspecified shoulder, initial encounter; D50.9 Iron deficiency anemia, unspecified; Z86.16 Personal history of COVID-19; Z87.891 Personal history of nicotine dependence; Z79.01 Long term (current) use of anticoagulants; Z85.21 Personal history of malignant neoplasm of larynx
CPT/HCPCS: 36415; 71045; 71275; 73030; 73501; 73502; 76000; 80048; 82274; 82306; 82728; 83540; 83550; 83880; 84439; 84443; 85025; 85027; 85045; 85610; 85730; 86850; 86900; 86901; 86920; 86922; 87426; 87633; 87635; 87804; 93005; 93306; 94640; 94762; 97110; 97162; 97166; 97530; 97535; 99285; C1713; J7030; J7040; J7050; P9016; Q9957; Q9967; A4216; J2405; J2916; U0003; U0005

== ENCOUNTER 2021-11-28 15:33 | Inpatient (IN) | payer MEDICARE, SELFPAY ==
[2021-11-28 15:38] VITALS: BP 129/67; PULSE 101; RESP 18; RESP 22; TEMP 37.2; O2SAT 93; O2SAT 94; BMI 24.1
[2021-11-28 16:00] VITALS: BP 129/67; PULSE 101; RESP 18; TEMP 37.2; O2SAT 94
--- NOTE | 2021-11-28 16:33 | HP.PCM_ITS ---
[facility] - General General Date of Admission: 11/28/21 Date of Service: 11/28/21 Chief Complaint: Debility due to recent right intertrochanteric fracture of the right hip. HPI Narrative CORA PRESTON, is a 76 YO M with a PMH of laryngeal cancer, prostate cancer, hyperlipidemia, hypothyroidism, orthostatic hypotension, tobacco dependence in remission and laryngectomy/tracheostomy who presented to the ED at [facility] on 11/20/2021 complaining of right hip pain after jumping off a truck bed and falling with the landing. X-ray in the emergency room showed a right intertrochanteric femur fracture. Orthopedics was consulted and he was taken to surgery on 11/21/[address] Patrick Farrell for a right hip open reduction internal fixation/intramedullary nail fixation. Following surgery he had acute hypoxic respiratory failure and was requiring 10 L of oxygen. Chest x-ray on 11/22/2021 showed progressive left lower lobe infiltrate and stable increased linear markings in the right lung base. The patient was afebrile and the white blood cell count was not elevated. He had no acute change in his cough and no sputum production. The hospitalist felt he did not have pneumonia and a CT a of the chest was ordered. The CTA showed pulmonary emboli within the right middle lobe, emphysematous changes and bilateral dependent lower lobe consolidation. COVID-19 rapid antigen was negative. He was started on a heparin drip and then transition to apixaban 10 mg p.o. twice daily. Hemoglobin was low at 7.6 and platelets were low at 142,000. He was started on Levaquin for pneumonia. On 11/26/2021 he was still requiring 6 to 10 L of oxygen to keep him above 90%. He required 2 people to assist him just to stand up. Iron studies were consistent with iron deficiency anemia and the iron saturation was only 7.9%. He was given intravenous iron x2 doses. His hemoglobin was 7.6 and he was transfused with 1 unit of packed red blood cells. Following 1 unit of packed red blood cells the hemoglobin increased to 10.3 and he was transferred to transitional care on 11/28/2021 for PT/OT to strengthen and hopefully get him back home at discharge from TCU. All lab from today was personally reviewed. The white blood cell count is 12.6 and the hemoglobin is stable at 10.4. Platelets are within normal limits. His last TSH was on 11/21/2021 and it was 0.25. The free T4 is normal at 1.34. The medication list was reviewed. He is on Prednisone for suspected acute exacerbation of suspected COPD. He has never had pulmonary function tests and has not seen a custodial operations manager. He has a pulse oximeter at home and states that his pulse ox is usually 95 to 97%. This is the first time he has been on oxygen. [facility] Medical History (Updated 11/28/21 @ 17:[address] Riri Pedersen DO) History of laryngeal cancer History of prostate cancer HLD (hyperlipidemia) Hypothyroidism Orthostatic hypotension Pneumonia due to COVID-19 virus (02/27/20) Pulmonary embolism Home Medications atorvastatin 40 mg tablet 40 mg PO DAILY cholesterol 05/10/17 [History Last Taken 06/28/20] omeprazole 40 mg capsule,delayed release 40 mg PO DAILY GERD 06/28/20 [History Last Taken 06/28/20] tamsulosin 0.4 mg capsule 0.4 mg PO DAILY PROSTATE 06/28/20 [History Last Taken 06/28/20] levothyroxine 75 mcg tablet 50 mcg PO DAILY thyroid 05/30/21 [History Last Taken Unknown] midodrine 10 mg tablet 10 mg PO BID blood pressure 11/05/21 [History Last Taken Unknown] oxycodone 5 mg tablet 5 mg PO Q6H PRN PRN Pain Score 6-10 3 days #10 tabs 11/22/21 [Rx Last Taken Unknown] sennosides 8.6 mg-docusate sodium 50 mg tablet (Stool Softener-Stimulant Laxative) 2 tab PO BID PRN PRN Constipation #0 tabs 11/22/21 [Rx Last Taken Unknown] acetaminophen 325 mg tablet (Tylenol) 650 mg PO Q6H PRN PRN Pain Score 1-10/Temp > 100.7 F #0 tabs 11/27/21 [Rx Last Taken Unknown] ipratropium 0.5 mg-albuterol 3 mg (2.5 mg base)/3 mL nebulization soln 3 ml inhalation Q4H.RT PRN SOB #0 mL 11/27/21 [Rx Last Taken Unknown] apixaban 5 mg tablet (Eliquis) 5 mg PO BID blood thinner 11/28/21 [History Last Taken Unknown] apixaban 5 mg tablet (Eliquis) 10 mg PO BID blood thinner 11/28/21 [History Last Taken Unknown] ascorbic acid (vitamin C) 500 mg tablet 500 mg PO BID vitamin 11/28/21 [History Last Taken Unknown] ferrous sulfate 325 mg (65 mg iron) tablet (FeroSul) 325 mg PO DAILY supplement 11/28/21 [History Last Taken Unknown] guaifenesin 1,200 mg tablet, extended release 12 hr (Mucinex) 1,200 mg PO BID cough 11/28/21 [History Last Taken Unknown] levofloxacin 500 mg tablet 500 mg PO DAILY antibiotic 11/28/21 [History Last Taken Unknown] polyethylene glycol 3350 17 gram oral powder packet 17 g PO DAILY stool softener 11/28/21 [History Last Taken Unknown] prednisone 10 mg tablets in a dose pack See Taper PO DAILY steroid 11/28/21 [History Last Taken Unknown] Allergy/AdvReac Type Severity Reaction Status Date / Time Penicillins Allergy UNKNOWN Verified 11/20/21 13:29 Sulfa (Sulfonamide Allergy BP drops Verified 11/20/21 13:29 Antibiotics) amoxicillin AdvReac Rash Verified 11/20/21 13:29 Family History Other Cancer Surgical History (Updated 11/28/21 @ 17:[address] Riri Pedersen DO) History of bronchoscopy (2019) History of laryngectomy History of tracheostomy Status post open reduction and internal fixation (ORIF) of fracture Social History Smoking Status: Former smoker second hand exposure: No alcohol intake: never what type of physical activity do you participate in: none seatbelt use: always ROS Constitutional Constitutional: Reports weakness; Denies anorexia, change in weight, chills, fatigue, fever(s) or night sweats Eyes Eyes: Denies blurry vision, change in vision, eye pain or loss of vision ENT HEENT: Denies abnormal hearing, dysphagia, headache(s), hearing loss, nasal congestion or sore throat Cardiovascular Cardiovascular: Reports dyspnea at rest and dyspnea on exertion; Denies chest pain, edema, lightheadedness, orthopnea, palpitations, paroxysmal nocturnal dyspnea or syncope Respiratory/Chest Respiratory/Chest: Reports cough, dyspnea, shortness of breath at rest and shortness of breath with exertion; Denies wheezing Gastrointestinal Gastrointestinal: Reports constipation; Denies abdominal pain, diarrhea, dyspepsia, hematemesis, hematochezia, nausea or vomiting Genitourinary Genitourinary: Denies dysuria, hematuria, nocturia, urinary frequency, urinary hesitancy, urinary incontinence or urinary urgency Musculoskeletal Musculoskeletal: Reports joint pain, joint swelling and muscle cramps; Denies back pain or neck pain Integumentary Integumentary: Denies jaundice or rash Neurologic Neurologic: Denies confusion, disequilibrium, dizziness, focal weakness, headache(s), paresthesias, seizures or tremor(s) Psychiatric Psychiatric: Denies anxiety, depression, homicidal ideation or suicidal ideation Endocrine Endocrinology: Denies change in body appearance, polydipsia or polyuria Hematologic/Lymphatic Hematologic/Lymphatic: Denies easy bleeding, easy bruising or lymphadenopathy Allergic/Immunologic Allergic/Immunologic: Denies rhinitis, eczemia or asthma Vital Signs Vital Signs Vital Signs: 11/28/21 15:38 11/28/21 16:00 Temperature 98.9 F 98.9 F Temperature Source Temporal Temporal Pulse Rate 101 H 101 H Respiratory Rate 22 H 18 Blood Pressure 129/67 H 129/67 H Blood Pressure Mean 87 87 Blood Pressure Source Monitor Monitor Blood Pressure Position Sitting Sitting Blood Pressure Location Left Arm Left Arm Pulse Ox 93 94 Oxygen Delivery Method Trach Collar Trach Collar Oxygen Flow Rate (L/min) 6 6 Weight Weight: 158 lb 11.2 oz Body Mass Index (BMI) 24.1 Physical Exam Const alert, oriented x3 and no apparent distress Constitutional Narrative: He is currently on a trach collar. He coughs up some secretions but he swallows them. He occludes his stoma with his finger to talk. General Appearance: cooperative, comfortable and well kempt HEENT normocephalic and moist oral mucous membranes Eyes PERRL and EOMs intact bilaterally Neck supple Resp Resp Narrative: He has no wheezing. There are coarse crackles in both bases but the air exchange is fair to good. He is not using accessory muscles of respiration. Cardio regular rate, regular rhythm, S1 normal heart sound, S2 normal heart sound, no murmurs and no gallops GI normal to inspection, nondistended, normoactive bowel sounds, soft to palpation and non-tender GI Narrative: No guarding with palpation Extremity no calf tenderness Extremity Narrative: No ankle swelling. There is some swelling of the R thigh and he is getting some cramping in the R thigh. Both feet are warm to the touch. General Extremity: Negative for cyanosis Skin Skin Narrative: No rashes Neuro oriented x3, CN's II-XII intact bilaterally and moves all extremities Neuro Narrative: Generalized weakness. Psych mental status grossly normal, thought process normal, cooperative, affect norm al, speech normal, activity/motor behavior normal, denies homicidal ideation and denies suicidal ideation Appearance: grossly normal Attitude: calm Activity / Motor Behavior: appropriate eye contact Mood & Affect: euthymic mood Assessment & Plan Assessment/Plan (1) Debility: (2) Closed nondisplaced intertrochanteric fracture of right femur: (3) Status post open reduction and internal fixation (ORIF) of fracture: (4) Acute respiratory failure with hypoxemia: (5) Pulmonary embolism: (6) Pneumonia: (7) Iron deficiency anemia: (8) Hypothyroidism: (9) HLD (hyperlipidemia): (10) History of prostate cancer: (11) History of laryngeal cancer: (12) Hypertension: (13) Orthostatic hypotension: (14) Accidental fall: PLAN: Plan PLAN PT for gait stability OT for ADL's Analgesics as needed Bowel protocol -schedule Miralx and senna Fall precautions Assess for Anxiety/Depression GI prophylaxis with Protonix Continue apixaban - currently in the middle of the loading doses Follow up with Dr. Evangelista and Dr. Patrick Farrell following DC from Rehab All a.m. lab was personally reviewed. Continue ferrous sulfate and add vitamin C 1000 mg to be given daily with the ferrous sulfate. Recommend follow-up with pulmonary medicine post discharge. May require Oxygen at DC. Because the pulmonary emboli happened less than 24H post op and He has no calf pain, no ankle swelling and no increased warth to touch of the legs I suspect he may have fat emboli but, the tx will not change. Continue Levaquin for a total opf 7 days and then DC IS every hour while awake for 10 breaths. Charges/Coding Visit Charges Inpatient E&M: 68249 SNF Init L2
[2021-11-28] MEDS: Midodrine HCl 5 MG Tablet 10 MG PO (17:24)
[2021-11-28] MEDS: APIXABAN 5 MG TABLET 10 MG PO (17:24)
[2021-11-28] MEDS: Ascorbic Acid 500 MG Tablet PO (17:25)
[2021-11-28] MEDS: Senna/Docusate Sodium 1 Tablet 2 TABLET PO (18:50)
[2021-11-28] MEDS: guaiFENesin 10 ML UDC (200MG/10ML) 20 ML PO ×2 (18:50→23:41)
[2021-11-28] MEDS: Acetaminophen 325 MG Tablet 650 MG PO (23:41)
[2021-11-29] VITALS: PULSE 76; RESP 16; O2SAT 94
[2021-11-29 00:30] VITALS: O2SAT 94
[2021-11-29] MEDS: Midodrine HCl 5 MG Tablet 10 MG PO ×2 (05:21→17:45)
[2021-11-29] MEDS: Bisacodyl 5 MG Tablet 10 MG PO (05:21)
[2021-11-29] MEDS: APIXABAN 5 MG TABLET 10 MG PO ×2 (05:21→17:46)
[2021-11-29] MEDS: Senna/Docusate Sodium 1 Tablet 2 TABLET PO ×2 (05:21→17:45)
[2021-11-29] MEDS: guaiFENesin 10 ML UDC (200MG/10ML) 20 ML PO ×3 (05:22→17:46)
[2021-11-29] MEDS: Polyethylene Glycol 3350 17 GM PACKET PO (05:22)
[2021-11-29] MEDS: levoFLOXacin 500 MG Tablet PO (05:22)
[2021-11-29] MEDS: Pantoprazole Sodium 40 MG Tablet PO (05:22)
[2021-11-29] MEDS: Levothyroxine 50 MCG Tablet PO (05:22)
[2021-11-29] MEDS: 0.9% Saline Lock 10 ML Syringe IV ×2 (05:25→17:47)
[2021-11-29 06:29] LABS: Absolute Lymphocyte Count 0.71 X10^3/uL (0.83-4.51); Absolute Neutrophil Count 7.5 X10^3/uL (2.0-7.7); Basophil# 0.01 X10^3/uL; Basophil% 0.1 % (0-1); Hematocrit 29.5 % (40-54); Hemoglobin 9.6 g/dL (13.0-16.5); Lymphocyte # 0.71 X10^3/ul (0.83-4.51); Lymphocyte % 7.4 % (19-41); Mean Corp Hgb Conc 32.5 g/dL (32-36); Mean Corpuscular Hgb 29.7 pg (27.0-32.0); Mean Corpuscular Volume 91.3 fL (80-94); Mean Platelet Vol. 9.9 fl (6.2-12.0); Monocyte% 12.5 % (0-10); NRBC Flagged by Analyzer 0 % (0-5); Neutrophil # 7.47 X10^3/uL (2.7-7.7); Neutrophil % 78.1 % (47-70); Platelet Count 319 K/mm3 (150-450); RBC Distribution Width CV 15.4 % (11.6-14.6); RBC Distribution Width SD 48.9 fl (35.1-43.9); Red Blood Count 3.23 M/mm3 (4.6-6.2); White Blood Count 9.6 K/mm3 (4.4-11.0)
[2021-11-29 06:30] LABS: Anion Gap 5 (5-15); BUN 35 mg/dL (7-18); BUN/Creat Ratio 38.5 RATIO (10-20); Calcium,Total 8.7 mg/dL (8.5-10.1); Chloride 109 mmol/L (98-107); Creatinine, Serum 0.91 mg/dL (0.70-1.30); EST Glomerular Filtration Rate 86 mL/min (>60); Est Glom Filt Rate - Afr Amer 104 mL/min (>60); Estimated Creatinine Clearance 66.81 ml/min; Glucose 122 mg/dL (74-106); Potassium 4.5 mmol/L (3.5-5.1); Sodium Level 140 mmol/L (136-145)
[2021-11-29 07:20] VITALS: O2SAT 95
[2021-11-29] MEDS: predniSONE 10 MG Tablet PO (09:06)
[2021-11-29] MEDS: Tamsulosin HCl 0.4 MG Capsule PO (09:07)
[2021-11-29 10:00] VITALS: RESP 18; O2SAT 94
[2021-11-29] MEDS: Tuberculin,Purif.prot.deriv. 50 TU/ML Vial 0.1 ML ID (10:41)
--- NOTE | 2021-11-29 10:42 | CASEMGMT ---
Social Work See attached assessment for complete information on social work assessment. This social service assistant met with patient in room. Introduced self and social service assistant role. Patient agreeable to speak with this social service assistant. Patient identifies spouse, Ledy Shook as main contact. Patient plans to discharge to home where patient lives with spouse and 26 year old grandson. This social service assistant educated patient on insurance update process and that next insurance update is due on 12/03/2021. Patient aware that continued stay approval by insurance is not guaranteed. This social service assistant completed MOLST form with patient. Patient wishes to be a Full Code, chart reflects this. This social service assistant able to answer all of patient questions. Patient declined for this social service assistant to call patient spouse to updated on insurance process. This social service assistant communicated importance of family being involved in care, patient voiced understanding and feels that patient is able to provided needed information to family. Support provided. Armando AMAYA, MELISSA
[2021-11-29] MEDS: Ascorbic Acid 500 MG Tablet 1000 MG PO (12:02)
[2021-11-29] MEDS: Ferrous Sulfate 325 MG Tablet PO (12:03)
[2021-11-29] MEDS: Acetaminophen 325 MG Tablet 650 MG PO ×2 (14:02→20:40)
[2021-11-29 15:40] VITALS: BP 113/71; PULSE 105; RESP 18; TEMP 36.1; O2SAT 93
[2021-11-29] MEDS: Atorvastatin Calcium 40 MG Tablet PO (20:40)
--- NOTE | 2021-11-29 20:45 | NURSING ---
Sats 88-90% on RA, placed back on trach collar @6L for overnight.
[2021-11-30 05:56] VITALS: BP 125/66; PULSE 66
[2021-11-30] MEDS: guaiFENesin 10 ML UDC (200MG/10ML) 20 ML PO (05:56)
[2021-11-30] MEDS: levoFLOXacin 500 MG Tablet PO (05:57)
[2021-11-30] MEDS: Senna/Docusate Sodium 1 Tablet 2 TABLET PO (05:57)
[2021-11-30] MEDS: Midodrine HCl 5 MG Tablet 10 MG PO ×2 (05:57→17:19)
[2021-11-30] MEDS: Levothyroxine 50 MCG Tablet PO (05:57)
[2021-11-30] MEDS: Pantoprazole Sodium 40 MG Tablet PO (05:57)
[2021-11-30] MEDS: APIXABAN 5 MG TABLET 10 MG PO ×2 (05:57→17:20)
[2021-11-30] MEDS: Polyethylene Glycol 3350 17 GM PACKET PO (05:58)
[2021-11-30] MEDS: predniSONE 10 MG Tablet PO (08:02)
[2021-11-30] MEDS: Tamsulosin HCl 0.4 MG Capsule PO (08:02)
[2021-11-30 08:50] VITALS: O2SAT 96
[2021-11-30] MEDS: Ferrous Sulfate 325 MG Tablet PO (12:12)
[2021-11-30] MEDS: Ascorbic Acid 500 MG Tablet 1000 MG PO (12:12)
[2021-11-30] MEDS: Acetaminophen 325 MG Tablet 650 MG PO ×2 (13:21→21:23)
[2021-11-30 15:18] VITALS: BP 110/69; PULSE 92; RESP 18; TEMP 36.5; O2SAT 94
[2021-11-30 19:31] VITALS: PULSE 101; RESP 20; O2SAT 93
[2021-11-30] MEDS: Atorvastatin Calcium 40 MG Tablet PO (21:18)
[2021-11-30 21:45] VITALS: O2SAT 94
[2021-12-01] MEDS: Midodrine HCl 5 MG Tablet 10 MG PO ×2 (05:46→17:06)
[2021-12-01] MEDS: Levothyroxine 50 MCG Tablet PO (05:46)
[2021-12-01] MEDS: Pantoprazole Sodium 40 MG Tablet PO (05:46)
[2021-12-01] MEDS: APIXABAN 5 MG TABLET PO ×2 (05:47→17:06)
[2021-12-01] MEDS: levoFLOXacin 500 MG Tablet PO (05:47)
[2021-12-01] MEDS: Tamsulosin HCl 0.4 MG Capsule PO (07:58)
[2021-12-01] MEDS: predniSONE 10 MG Tablet PO (07:58)
[2021-12-01 09:58] VITALS: PULSE 93; RESP 18; O2SAT 97
[2021-12-01] MEDS: Ferrous Sulfate 325 MG Tablet PO (11:34)
[2021-12-01] MEDS: Ascorbic Acid 500 MG Tablet 1000 MG PO (11:34)
[2021-12-01] MEDS: Acetaminophen 325 MG Tablet 650 MG PO (13:28)
[2021-12-01 13:37] VITALS: BP 98/63; PULSE 102; RESP 20; TEMP 36.6; O2SAT 93
[2021-12-01] MEDS: Senna/Docusate Sodium 1 Tablet 2 TABLET PO (17:06)
[2021-12-01] MEDS: Atorvastatin Calcium 40 MG Tablet PO (21:50)
[2021-12-02] MEDS: Polyethylene Glycol 3350 17 GM PACKET PO (04:45)
[2021-12-02] MEDS: Levothyroxine 50 MCG Tablet PO (04:46)
[2021-12-02] MEDS: levoFLOXacin 500 MG Tablet PO (04:47)
[2021-12-02] MEDS: APIXABAN 5 MG TABLET PO ×2 (04:47→17:08)
[2021-12-02] MEDS: Pantoprazole Sodium 40 MG Tablet PO (04:47)
[2021-12-02] MEDS: predniSONE 10 MG Tablet PO (08:02)
[2021-12-02] MEDS: Tamsulosin HCl 0.4 MG Capsule PO (08:02)
[2021-12-02] MEDS: Ascorbic Acid 500 MG Tablet 1000 MG PO (11:59)
[2021-12-02] MEDS: Ferrous Sulfate 325 MG Tablet PO (11:59)
[2021-12-02 14:03] VITALS: BP 99/61; PULSE 99; RESP 18; TEMP 37.1; O2SAT 95
[2021-12-02] MEDS: Midodrine HCl 5 MG Tablet 10 MG PO (17:08)
[2021-12-02] MEDS: Senna/Docusate Sodium 1 Tablet 2 TABLET PO (17:08)
[2021-12-02] MEDS: Atorvastatin Calcium 40 MG Tablet PO (21:39)
[2021-12-02 21:50] VITALS: O2SAT 96
[2021-12-03] MEDS: Pantoprazole Sodium 40 MG Tablet PO (06:36)
[2021-12-03] MEDS: Polyethylene Glycol 3350 17 GM PACKET PO (06:36)
[2021-12-03] MEDS: levoFLOXacin 500 MG Tablet PO (06:36)
[2021-12-03] MEDS: APIXABAN 5 MG TABLET PO ×2 (06:36→17:10)
[2021-12-03] MEDS: Levothyroxine 50 MCG Tablet PO (06:36)
[2021-12-03] MEDS: Senna/Docusate Sodium 1 Tablet 2 TABLET PO ×2 (06:36→17:09)
[2021-12-03] MEDS: Tamsulosin HCl 0.4 MG Capsule PO (08:34)
[2021-12-03] MEDS: predniSONE 10 MG Tablet PO (08:34)
[2021-12-03] MEDS: Acetaminophen 325 MG Tablet 650 MG PO ×2 (11:05→22:39)
[2021-12-03 12:12] VITALS: O2SAT 93
[2021-12-03] MEDS: Ferrous Sulfate 325 MG Tablet PO (12:47)
[2021-12-03] MEDS: Ascorbic Acid 500 MG Tablet 1000 MG PO (12:48)
--- NOTE | 2021-12-03 14:54 | NURSING ---
Resident educated on the COVID 19 Vaccine and does not want to receive it.
[2021-12-03 15:11] VITALS: BP 101/61; PULSE 96; RESP 16; TEMP 36.2; O2SAT 94
[2021-12-03] MEDS: Midodrine HCl 5 MG Tablet 10 MG PO (17:10)
[2021-12-03] MEDS: Atorvastatin Calcium 40 MG Tablet PO (21:48)
[2021-12-04] MEDS: Levothyroxine 50 MCG Tablet PO (06:30)
[2021-12-04] MEDS: levoFLOXacin 500 MG Tablet PO (06:30)
[2021-12-04] MEDS: Pantoprazole Sodium 40 MG Tablet PO (06:31)
[2021-12-04] MEDS: Senna/Docusate Sodium 1 Tablet 2 TABLET PO (06:31)
[2021-12-04] MEDS: Midodrine HCl 5 MG Tablet 10 MG PO ×2 (06:31→17:15)
[2021-12-04] MEDS: APIXABAN 5 MG TABLET PO ×2 (06:32→17:15)
[2021-12-04] MEDS: Polyethylene Glycol 3350 17 GM PACKET PO (06:32)
[2021-12-04] MEDS: predniSONE 10 MG Tablet PO (08:51)
[2021-12-04] MEDS: Tamsulosin HCl 0.4 MG Capsule PO (08:52)
[2021-12-04 11:07] VITALS: O2SAT 95
[2021-12-04] MEDS: Ascorbic Acid 500 MG Tablet 1000 MG PO (12:04)
[2021-12-04] MEDS: Ferrous Sulfate 325 MG Tablet PO (12:04)
--- NOTE | 2021-12-04 12:14 | NURSING ---
message left with Dr Farrell office awaiting return call regarding next f/u appt and dc staple date.
[2021-12-04 14:09] VITALS: BP 126/74; PULSE 92; RESP 18; TEMP 36.1; O2SAT 95
[2021-12-04] MEDS: Atorvastatin Calcium 40 MG Tablet PO (21:34)
[2021-12-05 05:31] VITALS: BP 116/69; PULSE 66
[2021-12-05] MEDS: Midodrine HCl 5 MG Tablet 10 MG PO ×2 (05:37→16:25)
[2021-12-05] MEDS: Polyethylene Glycol 3350 17 GM PACKET PO (05:37)
[2021-12-05] MEDS: Levothyroxine 50 MCG Tablet PO (05:37)
[2021-12-05] MEDS: Senna/Docusate Sodium 1 Tablet 2 TABLET PO (05:37)
[2021-12-05] MEDS: Pantoprazole Sodium 40 MG Tablet PO (05:37)
[2021-12-05] MEDS: levoFLOXacin 500 MG Tablet PO (05:37)
[2021-12-05] MEDS: APIXABAN 5 MG TABLET PO ×2 (05:37→16:25)
--- NOTE | 2021-12-05 05:50 | NURSING ---
pts chris removed by this nurse per order. 16 chris removed. Area dry and intact. Some scabs around area. Pt tolerated removal well.
[2021-12-05] MEDS: Tamsulosin HCl 0.4 MG Capsule PO (08:48)
[2021-12-05] MEDS: predniSONE 10 MG Tablet PO (08:48)
[2021-12-05 09:32] VITALS: PULSE 100; RESP 16; O2SAT 95
--- NOTE | 2021-12-05 10:46 | CASEMGMT ---
Social Work IDT met with patient, , dtr and gdson for care plan meeting. Discussed patient's progress in PT/OT/SN and dietary. Discussed [employer] insurance with [employer] 12/11 and continued stay is not guaranteed. Pt is currently Capo and adlib. IDT recommending setting a DC date. Pt agreeable to set date. DC date set for 12/08. Discussed HHC vs OP and DME needs. Pt requesting OP at [facility]. No DME needs. Family to transport. Referral made to [facility] for PT. Plan: DC home with 12/08, [facility] Mica Vieyra, FINANCIAL CONTROLLER MANAGER CREDIT COLLECTIONS
[2021-12-05] MEDS: Ferrous Sulfate 325 MG Tablet PO (12:05)
[2021-12-05] MEDS: Ascorbic Acid 500 MG Tablet 1000 MG PO (12:05)
--- NOTE | 2021-12-05 14:39 | CASEMGMT ---
Social Work BIMS () and PHQ-9 (07/22 - minimal depression) completed for MDS assessment. was present in room. Pt granted permission for SW to complete assessment with present. Upon pt answering the question for day of the week, the pt answered the date, then the answered for him with the day of the week. Pt appeared to not have heard his 's answer as SW clarified for the pt to answer the day of the week. SW also kindly stated that she cannot answer for him. Pt continued answering the questions and the did exit the room for the remainder of the assessment. SW thanked the as this worker exited the room, where the was standing, at which time the remarked, as this worker exited the patient's hallway, you are the nastiest one yet that I've met at this hospital. Mica Vieyra, MONIQUE INSPECTOR SET UP AND LAY OUT
[2021-12-05 14:54] VITALS: BP 120/65; PULSE 90; RESP 16; TEMP 36.4; O2SAT 93
--- NOTE | 2021-12-05 16:40 | CHAPLAIN ---
Type of Pastoral Visit _x__ Initial Visit ___ Follow-up Visit ___ On-call Visit ___ General Patient Visit ___ Spiritual Assessment ___ Family Conference ___ Bereavement ___ Rapid Response ___ Code Blue ___ Other (describe below) Pastoral Care Referral From _x__ Patient _x__ Family ___ Nurse ___ Physician ___ Tooth Polisher ___ Husbandry Technician ___ Other (describe below) Sacrament/Intervention _x__ Active listening ___ Anointing ___ Church ___ Bereavement ___ Communion ___ Mary exploration ___ ___ Life review _x__ Prayer ___ Reconciliation ___ Sacrament of Sick _x__ Supportive presence ___ Wedding ___ Other (describe below) Pastoral Comments patient and spouse both in room and both welcoming of visit asking we wondered where you have been; this manager pricing explained absence from hospital and apologized for late arrival for initial visit; both express understanding and proceeded to talk and interact; pt expresses pride in that he is going to be released before it was expected; pt talks about his own fault at breaking his hip and this is a warning that I am not 40 years old; this manager pricing gives mostly supportive and affirming responses to comments made by this couple; offer of support and prayer to which both ask for prayers for recovery
--- NOTE | 2021-12-05 16:49 | PCM.PN.DRR ---
TCU RX Drug Regimen Review Subjective: TCU Admission. Resident presented to the ER with right hip pain after jumping off the bed of a truck and falling. Admitted to the hospital for right intertrochanteric femur fracture. Surgery on 11/21/[address] Patrick Farrell for a right hip open reduction internal fixation/intramedullary nail fixation. Complicated by respiratory failure secondary to pneumonia and pulmonary embolism. Admitted to TCU with debility for strengthening and rehabilitation. Objective: Allergies Penicillins Allergy (Verified 11/20/21 13:29) UNKNOWN Sulfa (Sulfonamide Antibiotics) Allergy (Verified 11/20/21 13:29) BP drops amoxicillin Adverse Reaction (Verified 11/20/21 13:29) Rash Current Medications Generic Name Dose Route Start Last Admin Trade Name Freq PRN Reason Stop Dose Admin Acetaminophen 650 mg 11/28/21 16:00 12/03/21 22:39 Acetaminophen 325 Mg Tablet PO 650 mg Q6H PRN PRN Administration Pain Score 1-10/Temp > 100.7 F Albuterol/Ipratropium 3 ml 11/28/21 16:01 Ipratropium/Albuterol Sulfate 3 Ml Ampul.Neb INHALATION Q4H.RT PRN SHORTNESS OF BREATH Apixaban 5 mg 12/01/21 06:00 12/05/21 16:25 Apixaban 5 Mg Tablet PO 5 mg BID SOILA Administration Ascorbic Acid 1,000 mg 11/29/21 12:00 12/05/21 12:05 Ascorbic Acid 500 Mg Tablet PO 1,000 mg LUNCH SOILA Administration Atorvastatin Calcium 40 mg 11/29/21 22:00 12/04/21 21:34 Atorvastatin Calcium 40 Mg Tablet PO 40 mg QHS SOILA Administration Bisacodyl 10 mg 11/28/21 16:11 11/29/21 05:21 Bisacodyl 5 Mg Tablet PO 10 mg DAILY PRN Administration CONSTIPATION Emollient Ointment 1 applic 12/01/21 07:11 12/02/21 04:56 Emollient Combination No.72 500 Ml Lotion TOPICAL 1 each 4X/DAY PRN PRN Administration dry skin Protocol Ferrous Sulfate 325 mg 11/29/21 12:00 12/05/21 12:05 Ferrous Sulfate 325 Mg Tablet PO 325 mg DAILY@1200 SOILA Administration Levothyroxine Sodium 50 mcg 11/29/21 06:00 12/05/21 05:37 Levothyroxine 50 Mcg Tablet PO 50 mcg DAILY SOILA Administration Midodrine 10 mg 11/28/21 18:00 12/05/21 16:25 Midodrine Hcl 5 Mg Tablet PO 10 mg BID SOILA Administration Oxycodone HCl 5 mg 11/28/21 16:01 Oxycodone 5 Mg Tablet PO Q6H PRN PRN Pain Score 6-10 Pantoprazole Sodium 40 mg 11/29/21 06:00 12/05/21 05:37 Pantoprazole Sodium 40 Mg Tablet PO 40 mg DAILY SOILA Administration Polyethylene Glycol 17 gm 11/29/21 06:00 12/05/21 05:37 Polyethylene Glycol 3350 17 Gm Packet PO 17 gm DAILY SOILA Administration Prednisone 20 mg 11/29/21 08:00 12/05/21 08:48 Prednisone 10 Mg Tablet PO 12/11/21 07:59 20 mg BREAKFAST SOILA Administration Taper Senna/Docusate Sodium 2 tablet 11/28/21 18:00 12/05/21 16:24 Senna/Docusate Sodium 1 Tablet PO Not Given BID SOILA Sodium Chloride 10 - 40 ml 11/28/21 15:38 11/29/21 17:47 0.9% Saline Lock 10 Ml Syringe IV 10 ml UD PRN Administration SALINE FLUSH Tamsulosin HCl 0.4 mg 11/29/21 08:30 12/05/21 08:48 Tamsulosin Hcl 0.4 Mg Capsule PO 0.4 mg DAILY@0830 SOILA Administration Tuberculin PPD 0.1 ml 12/06/21 10:00 Tuberculin,Purif.Prot.Deriv. 50 Tu/Ml Vial ID 12/06/21 10:01 X1 ONE Problem List (Last Updated 11/28/21 @ 17:[address] Riri Pedersen DO) Status post open reduction and internal fixation (ORIF) of fracture (Acute) Pneumonia (Acute) Acute respiratory failure with hypoxemia (Acute) Debility (Acute) Iron deficiency anemia (Acute) Pulmonary embolism (Acute) Hypothyroidism (Chronic) HLD (hyperlipidemia) (Chronic) History of prostate cancer (Chronic) History of laryngeal cancer (Chronic) Hypertension (Acute) Closed nondisplaced intertrochanteric fracture of right femur (Acute) Accidental fall (Acute) Orthostatic hypotension (Chronic) Vital Signs Temp Pulse Resp BP Pulse Ox O2 Del Method O2 Flow Rate 97.6 F L 90 16 120/65 93 Room Air 55 12/05/21 14:54 12/05/21 14:54 12/05/21 14:54 12/05/21 14:54 12/05/21 14:54 12/05/21 14:54 11/29/21 07:36 FiO2 28 11/30/21 08:50 Oxygen Flow Rate (L/min) 55 Oxygen Delivery Method Room Air Weight: 70.902 kg Body Mass Index (BMI) 24.1 Sodium 140 mmol/L (136-145) 11/29/21 05:19 Potassium 4.5 mmol/L (3.5-5.1) 11/29/21 05:19 Chloride 109 mmol/L (98-107) H 11/29/21 05:19 Carbon Dioxide 26.0 mmol/L (21.0-32.0) 11/29/21 05:19 Anion Gap 5 (5-15) 11/29/21 05:19 BUN 35 mg/dL (7-18) H 11/29/21 05:19 Creatinine 0.91 mg/dL (0.70-1.30) 11/29/21 05:19 Est GFR (MDRD) Af Amer 104 mL/min (>60) 11/29/21 05:19 Est GFR (MDRD) Non-Af 86 mL/min (>60) 11/29/21 05:19 BUN/Creatinine Ratio 38.5 RATIO (10-20) H 11/29/21 05:19 Glucose 122 mg/dL (74-106) H 11/29/21 05:19 Assessment/Plan: 1. Pain: acetaminophen 650 mg PO Q6H PRN Pain Score 1-10/Temp > 100.7 F (last dose 12/03/21 pain level 8/10), oxycodone 5 mg PO Q6H PRN pain 6-10 (has not used any doses). Please continue to monitor for S/S of increased pain, PRN usage, rash, constipation and respiratory depression. Last documented bowel movement 11/29/21. 2. Acute respiratory failure with hypoxemia/ Pulmonary embolism: apixaban 5 mg PO BID, prednisone taper thru 12/11/21, and Duoneb 3 ml inhalation Q4H.RT PRN SOB (has not used any). Please continue to monitor for S/S of bleeding, hemoglobin (last 9.6g/dL), BP (last 120/65), glucose (last 122mg/dL) and PRN usage. 3. Bowel: bisacodyl 10 mg PO DAILY PRN constipation (last dose 11/29/21), Miralax 17 g PO DAILY and senna/docusate 2T PO BID. Please continue to monitor for constipation and PRN usage. Last bowel movement documented 11/29/21. 4. GI prophylaxis: pantoprazole 40 mg PO DAILY. Please continue to monitor for S/S of GERD and diarrhea.? 5. Orthostatic hypotension: midodrine 10 mg PO BID. Please continue to monitor BP (last 120/65). 6. Hypothyroidism: levothyroxine 50 mcg PO DAILY. Please continue to monitor TSH (last 0.25 on 11/21/21) and for S/S of hypo/hyperthyroidism.? 7. Hyperlipidemia: atorvastatin 40 mg PO DAILY. Please consider ordering a lipid panel now and then annually as clinically appropriate. Patient does not have a lipid panel on file. Thanks. Please continue to monitor for muscle pain and AST/ALT (last 11/07/21). 8. Iron deficiency anemia: ascorbic acid 1000 mg PO LUNCH and ferrous sulfate 325 mg PO LUNCH. Please continue to monitor hemoglobin (last 9.6g/dL), dark stools and constipation 9. History of prostate cancer: tamsulosin 0.4 mg PO DAILY. Please continue to monitor blood pressure. Assessment/Plan for indications treated with psychotropic medications: None Medical chart and medication regimen reviewed. The following medication irregularities or issues were identified: *1. Atorvastatin 40 mg PO DAILY. Please consider ordering a lipid panel now and then annually as clinically appropriate. Patient does not have a lipid panel on file. Thanks. Date of Note:: 12/05/21
--- NOTE | 2021-12-05 17:33 | DS.PCM_ITS ---
Providers Date of Admission: 11/28/21 Primary Care Physician: Dr. Andreas Evangelista MD Reason For Visit: HIP FRACTURE Diagnosis Discharge Diagnosis (1) Debility: Status: Acute Code(s): R53.81 - Other malaise (2) Closed nondisplaced intertrochanteric fracture of right femur: Status: Acute Code(s): S72.144A - Nondisplaced intertrochanteric fracture of right femur, initial encounter for closed fracture (3) Status post open reduction and internal fixation (ORIF) of fracture: Status: Acute Code(s): Z98.890 - Other specified postprocedural states; Z87.81 - Personal history of (healed) traumatic fracture (4) Acute respiratory failure with hypoxemia: Status: Acute Code(s): J96.01 - Acute respiratory failure with hypoxia (5) Pulmonary embolism: Status: Acute Code(s): I26.99 - Other pulmonary embolism without acute cor pulmonale (6) Pneumonia: Status: Acute Code(s): J18.9 - Pneumonia, unspecified organism (7) Iron deficiency anemia: Status: Acute Code(s): D50.9 - Iron deficiency anemia, unspecified (8) Hypothyroidism: Status: Chronic Code(s): E03.9 - Hypothyroidism, unspecified (9) HLD (hyperlipidemia): Status: Chronic Code(s): E78.5 - Hyperlipidemia, unspecified (10) History of prostate cancer: Status: Chronic Code(s): Z85.46 - Personal history of malignant neoplasm of prostate (11) History of laryngeal cancer: Status: Chronic Code(s): Z85.21 - Personal history of malignant neoplasm of larynx (12) Hypertension: Status: Acute Code(s): I10 - Essential (primary) hypertension (13) Orthostatic hypotension: Status: Chronic Code(s): I95.1 - Orthostatic hypotension (14) Accidental fall: Status: Acute Code(s): W19.XXXA - Unspecified fall, initial encounter Medications at Discharge Home Medications atorvastatin 40 mg tablet 40 mg PO DAILY cholesterol 05/10/17 omeprazole 40 mg capsule,delayed release 40 mg PO DAILY GERD 06/28/20 tamsulosin 0.4 mg capsule 0.4 mg PO DAILY PROSTATE 06/28/20 levothyroxine 75 mcg tablet 50 mcg PO DAILY thyroid 05/30/21 midodrine 10 mg tablet 10 mg PO BID blood pressure 11/05/21 acetaminophen 325 mg tablet (Tylenol) 650 mg PO Q6H PRN PRN Pain Score 1-10/Temp > 100.7 F #0 tabs 11/27/21 apixaban 5 mg tablet (Eliquis) 5 mg PO BID blood thinner 30 days #60 tabs ferrous sulfate 325 mg (65 mg iron) tablet (FeroSul) 325 mg PO DAILY supplement 30 days #30 tabs 12/05/21 Hospital Course Operations - (Right hip ORIF intramedullary nail fixation.) Procedures None Summary of Care Provided Minutes Spent on Discharge: 35 Hospital Course: 76 year old male with below past medical history hospitalized for right hip fracture, underwent intramedullary nail fixation, complicated by pulmonary embol ism, postoperative anemia requiring transfusion, admitted to TCU with debility, here for rehabilitation, strengthening, prior to discharge home with . Discharge home with 12/08/2021, [facility]. Physical Exam Const alert General Appearance: cooperative HEENT normocephalic Eyes PERRL and EOMs intact bilaterally Neck supple, no JVD and no carotid bruits Resp normal respiratory effort, normal air movement and clear to auscultation bilaterally Cardio regular rate and regular rhythm GI normal to inspection, nondistended, normoactive bowel sounds, non-tender and non-distended Extremity normal capillary refill General Extremity: Negative for edema Skin no rashes or lesions noted General Skin Exam: no breakdown Psych affect normal Appearance: appropriate Weight / BMI Weight Weight: 70.902 kg Body Mass Index (BMI) 24.1 ABG / Lab / Microbiology Data Result Diagrams: 11/29/21 05:19 11/29/21 05:19 Microbiology: Microbiology 12/05/21 09:40 Nasal Secretion SARS-CoV-2 Antigen (Rapid) - Final D/C Instructions Discharge Diet: No restrictions Discharge Activity: Return to Normal Activity, May Shower and Use Walker Weight Bearing Status: Weight bearing as tolerated Call your doctor if you observe: Fever of 101 or Higher, Inability to urinate, Inability to have a bowel movement, Shortness of breath, Dizziness, Fainting spells, Swelling in the ankles, Chest pain and Uncontrolled pain Additional Instructions: Discharge home with 12/08/2021, [facility]. Please Follow Up With: Patrick Farrell MD When: As scheduled. Meaningful Use Info Meaningful Use Diagnoses (Choose all that apply): None applicable Discharge Plan Admission Admit Date/Time: 11/28/21 15:33 Primary Reason for Your Visit: Debility. Attending Provider: Riri Pedersen Primary Care Provider: Andreas Evangelista Chi Instructions Additional Instructions / Restrictions: Discharge home with 12/08/2021, [facility]. Discharge Orders/Prescriptions Prescriptions: Continued levothyroxine 75 mcg tablet 50 mcg PO DAILY Label Comments: TAKE 1 TABLET ORALLY ONCE PER DAY FOR 90 DAYS midodrine 10 mg tablet 10 mg PO BID Rx Instructions: do not give last dose of day after 6PM or within 4 hrs of bedtime atorvastatin 40 MG tablet 40 mg PO DAILY omeprazole 40 MG capsule,delayed release(DR/EC) 40 mg PO DAILY Label Comments: TAKE ONE CAPSULE BY MOUTH ONCE DAILY tamsulosin 0.4 MG capsule 0.4 mg PO DAILY acetaminophen [Tylenol] 325 mg Tablet 650 mg PO Q6H PRN PRN (Reason: Pain Score 1-10/Temp > 100.7 F) Qty: 0 0RF ferrous sulfate [FeroSul] 325 mg (65 mg iron) tablet 325 mg PO DAILY 30 Days Qty: 30 0RF Eliquis 5 mg tablet 5 mg PO BID MDD Blood thinner 30 Days Qty: 60 0RF Rx Instructions: starts on 12/01/21 Discontinued sennosides-docusate sodium [Stool Softener-Stimulant Laxat] 8.6-50 mg Tablet 2 tab PO BID PRN PRN (Reason: Constipation) Qty: 0 0RF Rx Instructions: OTC oxycodone 5 mg Tablet 5 mg PO Q6H PRN PRN (Reason: Pain Score 6-10) 3 Days Qty: 10 0RF ipratropium-albuterol 0.5 mg-3 mg(2.5 mg base)/3 mL Solution For Nebulization 3 ml inhalation Q4H.RT PRN (Reason: SOB) Qty: 0 0RF polyethylene glycol 3350 17 gram powder in packet 17 g PO DAILY prednisone 10 mg tablets,dose pack See Taper PO DAILY Taper: Prednisone Taper 40 mg WITH BREAKFAST for 3 Days and 0 Hour 30 mg WITH BREAKFAST for 3 Days and 0 Hour 20 mg WITH BREAKFAST for 3 Days and 0 Hour 10 mg WITH BREAKFAST for 3 Days and 0 Hour ascorbic acid (vitamin C) 500 mg tablet 500 mg PO BID levofloxacin 500 mg tablet 500 mg PO DAILY Rx Instructions: STARTING FROM 11/28/21 Mucinex 1,200 mg tablet extended release 12hr 1,200 mg PO BID Eliquis 5 mg tablet 10 mg PO BID Rx Instructions: 10 mg bid, ends on 11/30, then change to 5 mg bid to continue for at least 3 months Referrals / Follow Up: Sandip Taylor DO [Med Staff - Active Staff] - Within 2 Weeks Andreas Evangelista Chi, MD [Primary Care Provider] - Within 1 Week Disposition Disposition (needs filled in before D/C Order can be placed): Home, Self Care
[2021-12-05] MEDS: Atorvastatin Calcium 40 MG Tablet PO (22:09)
[2021-12-05] MEDS: Acetaminophen 325 MG Tablet 650 MG PO (22:09)
[2021-12-06] MEDS: Polyethylene Glycol 3350 17 GM PACKET PO (05:35)
[2021-12-06 05:36] LABS: Absolute Lymphocyte Count 1.13 X10^3/uL (0.83-4.51); Absolute Neutrophil Count 6.7 X10^3/uL (2.0-7.7); Basophil# 0.02 X10^3/uL; Basophil% 0.2 % (0-1); Eosinophil# 0.18 X10^3/uL; Hematocrit 30.7 % (40-54); Hemoglobin 10.1 g/dL (13.0-16.5); Lymphocyte # 1.13 X10^3/ul (0.83-4.51); Lymphocyte % 12.7 % (19-41); Mean Corp Hgb Conc 32.9 g/dL (32-36); Mean Corpuscular Hgb 30.4 pg (27.0-32.0); Mean Corpuscular Volume 92.5 fL (80-94); Mean Platelet Vol. 9.4 fl (6.2-12.0); Monocyte# 0.76 X10^3/uL; Monocyte% 8.5 % (0-10); NRBC Flagged by Analyzer 0 % (0-5); Neutrophil # 6.66 X10^3/uL (2.7-7.7); Neutrophil % 74.6 % (47-70); Platelet Count 352 K/mm3 (150-450); RBC Distribution Width CV 17.7 % (11.6-14.6); RBC Distribution Width SD 57.3 fl (35.1-43.9); Red Blood Count 3.32 M/mm3 (4.6-6.2); White Blood Count 8.9 K/mm3 (4.4-11.0)
[2021-12-06] MEDS: Pantoprazole Sodium 40 MG Tablet PO (05:36)
[2021-12-06] MEDS: Midodrine HCl 5 MG Tablet 10 MG PO ×2 (05:36→17:14)
[2021-12-06] MEDS: APIXABAN 5 MG TABLET PO ×2 (05:36→17:14)
[2021-12-06] MEDS: Senna/Docusate Sodium 1 Tablet 2 TABLET PO (05:37)
[2021-12-06] MEDS: Levothyroxine 50 MCG Tablet PO (05:37)
[2021-12-06 06:00] LABS: Anion Gap 5 (5-15); BUN 22 mg/dL (7-18); BUN/Creat Ratio 29.1 RATIO (10-20); Calcium,Total 8.1 mg/dL (8.5-10.1); Chloride 108 mmol/L (98-107); Creatinine, Serum 0.76 mg/dL (0.70-1.30); EST Glomerular Filtration Rate 107 mL/min (>60); Est Glom Filt Rate - Afr Amer 129 mL/min (>60); Glucose 85 mg/dL (74-106); Potassium 4.1 mmol/L (3.5-5.1); Sodium Level 140 mmol/L (136-145)
[2021-12-06] MEDS: predniSONE 10 MG Tablet PO (07:54)
[2021-12-06] MEDS: Tamsulosin HCl 0.4 MG Capsule PO (07:54)
[2021-12-06 08:03] VITALS: O2SAT 93
[2021-12-06] MEDS: Ferrous Sulfate 325 MG Tablet PO (12:13)
[2021-12-06] MEDS: Ascorbic Acid 500 MG Tablet 1000 MG PO (12:13)
[2021-12-06] MEDS: Tuberculin,Purif.prot.deriv. 50 TU/ML Vial 0.1 ML ID (12:14)
[2021-12-06 13:49] VITALS: BP 100/53; PULSE 89; RESP 16; TEMP 36.3; O2SAT 93
[2021-12-06] MEDS: Acetaminophen 325 MG Tablet 650 MG PO (14:12)
[2021-12-06 21:15] VITALS: O2SAT 95
[2021-12-06] MEDS: Atorvastatin Calcium 40 MG Tablet PO (21:15)
[2021-12-07 06:42] VITALS: BP 127/72; PULSE 74
[2021-12-07] MEDS: Midodrine HCl 5 MG Tablet 10 MG PO ×2 (06:42→17:58)
[2021-12-07] MEDS: APIXABAN 5 MG TABLET PO ×2 (06:42→17:58)
[2021-12-07] MEDS: Polyethylene Glycol 3350 17 GM PACKET PO (06:43)
[2021-12-07] MEDS: Pantoprazole Sodium 40 MG Tablet PO (06:43)
[2021-12-07] MEDS: Levothyroxine 50 MCG Tablet PO (06:43)
[2021-12-07] MEDS: Acetaminophen 325 MG Tablet 650 MG PO (06:46)
[2021-12-07 07:48] VITALS: O2SAT 95
[2021-12-07] MEDS: predniSONE 10 MG Tablet PO (08:14)
[2021-12-07] MEDS: Tamsulosin HCl 0.4 MG Capsule PO (08:14)
[2021-12-07] MEDS: Ferrous Sulfate 325 MG Tablet PO (11:54)
[2021-12-07] MEDS: Ascorbic Acid 500 MG Tablet 1000 MG PO (11:54)
[2021-12-07 14:49] VITALS: BP 109/61; PULSE 87; RESP 18; TEMP 35.9; O2SAT 94
[2021-12-07] MEDS: Atorvastatin Calcium 40 MG Tablet PO (21:24)
[2021-12-07 22:27] VITALS: PULSE 65; RESP 14
[2021-12-08] MEDS: Polyethylene Glycol 3350 17 GM PACKET PO (05:36)
[2021-12-08] MEDS: APIXABAN 5 MG TABLET PO (05:37)
[2021-12-08] MEDS: Levothyroxine 50 MCG Tablet PO (05:37)
[2021-12-08] MEDS: Pantoprazole Sodium 40 MG Tablet PO (05:38)
[2021-12-08] MEDS: Midodrine HCl 5 MG Tablet 10 MG PO (05:38)
[2021-12-08] MEDS: Tamsulosin HCl 0.4 MG Capsule PO (08:40)
[2021-12-08] MEDS: predniSONE 10 MG Tablet PO (08:40)
[2021-12-08 08:45] VITALS: PULSE 83; RESP 18; O2SAT 96
[2021-12-08 08:53] VITALS: BP 117/56; PULSE 83; RESP 18; TEMP 36.3; O2SAT 96
[2021-12-08] MEDS: Acetaminophen 325 MG Tablet 650 MG PO (10:27)
--- NOTE | 2021-12-11 09:47 | MDS.RN ---
Information for the mds was obtained from review of the clinical record, interview of resident, staff, and direct observation of resident's care.
--- NOTE | 2021-12-13 11:30 | NURSING ---
milieu coordinator Note: initial activity assessment completed on paper by interim recreation coordinator.
== END 2021-12-08 11:18 | disposition home or self-care (01) | DRG 559 ==
PROVIDERS: Admitting Provider Internal Medicine; PCP Family Medicine Geriatric Medicine; Visit Provider Internal Medicine
DX: S72.144D Nondisplaced intertrochanteric fracture of right femur, subsequent encounter for closed fracture with routine healing (principal); I26.99 Other pulmonary embolism without acute cor pulmonale; D50.9 Iron deficiency anemia, unspecified; E03.9 Hypothyroidism, unspecified; W19.XXXD Unspecified fall, subsequent encounter; I10 Essential (primary) hypertension; E78.5 Hyperlipidemia, unspecified; Z86.711 Personal history of pulmonary embolism; Z87.891 Personal history of nicotine dependence; Z86.16 Personal history of COVID-19; Z79.01 Long term (current) use of anticoagulants; Z79.899 Other long term (current) drug therapy; Z79.890 Hormone replacement therapy
CPT/HCPCS: 36415; 80048; 85025; 87426; 87811; 92610; 97110; 97116; 97162; 97166; 97530; 97535; 97802; A4216

== ENCOUNTER → 2021-12-20 | Outpatient (CLI) | payer MEDICARE, SELFPAY ==
--- NOTE | 2021-12-20 16:20 | RAD_ITS ---
STUDY: X-RAY CHEST REASON FOR EXAM: Male, 76 years old. Cough. TECHNIQUE: PA and lateral views of the chest. COMPARISON: 11/22/2021. FINDINGS: There is chronic interstitial changes in the lungs without acute infiltrate or mass. A linear density seen at the lung bases on the previous study have resolved. There is no demonstrated pleural abnormality. Normal size heart. Normal mediastinum and jinny. Normal visualized pulmonary arteries. There is atherosclerotic calcification of the aortic arch with tortuosity. No osseous changes. There is no demonstrated abnormality of the visualized soft tissue structures of the upper abdomen. RAD/Chest PA and Lateral IMPRESSION: No acute cardiopulmonary disease. Electronically Signed: Konrad Nogueira DO at 19:45 EDT ,
[2021-12-20 16:55] LABS: Absolute Lymphocyte Count 0.37 X10^3/uL (0.83-4.51); Absolute Neutrophil Count 1.8 X10^3/uL (2.0-7.7); Basophil# 0.02 X10^3/uL; Basophil% 0.7 % (0-1); Eosinophil# 0.19 X10^3/uL; Eosinophils% 6.4 % (0-5); Hemoglobin 11.3 g/dL (13.0-16.5); Lymphocyte # 0.37 X10^3/ul (0.83-4.51); Lymphocyte % 12.4 % (19-41); Mean Corp Hgb Conc 32.3 g/dL (32-36); Mean Corpuscular Hgb 31.4 pg (27.0-32.0); Mean Corpuscular Volume 97.2 fL (80-94); Mean Platelet Vol. 10.3 fl (6.2-12.0); Monocyte# 0.59 X10^3/uL; Monocyte% 19.7 % (0-10); NRBC Flagged by Analyzer 0 % (0-5); Neutrophil # 1.81 X10^3/uL (2.7-7.7); Neutrophil % 60.5 % (47-70); POSITIVE DIFFERENTIAL YES; Platelet Count 157 K/mm3 (150-450); RBC Distribution Width CV 17.3 % (11.6-14.6); RBC Distribution Width SD 62.3 fl (35.1-43.9)
[2021-12-20 17:02] LABS: Differential Indicated SCAN CRITERIA MET
[2021-12-20 17:19] LABS: Anion Gap 7 (5-15); BUN 14 mg/dL (7-18); BUN/Creat Ratio 17.1 RATIO (10-20); Calcium,Total 8.8 mg/dL (8.5-10.1); Chloride 110 mmol/L (98-107); Creatinine, Serum 0.82 mg/dL (0.70-1.30); EST Glomerular Filtration Rate 97 mL/min (>60); Est Glom Filt Rate - Afr Amer 117 mL/min (>60); Glucose 97 mg/dL (74-106); Sodium Level 141 mmol/L (136-145)
[2021-12-21 15:15] LABS: Pathologist Review Reviewed
== END | disposition home or self-care (01) ==
PROVIDERS: PCP Family Medicine Geriatric Medicine; Referring Provider Family Medicine Geriatric Medicine; Visit Provider Family Medicine Geriatric Medicine
DX: R05.1 Acute cough (principal); J18.9 Pneumonia, unspecified organism
CPT/HCPCS: 36415; 71046; 80048; 85025; 87070; 87077; 87186; 87205

== ENCOUNTER → 2021-12-24 | Outpatient (CLI) | payer MEDICARE, SELFPAY | END | disposition home or self-care (01) | LOC: PSN 11:49 | PROVIDERS: PCP Family Medicine Geriatric Medicine; Referring Provider Family Medicine Geriatric Medicine; Visit Provider Family Medicine Geriatric Medicine | DX: R68.83 Chills (without fever) (principal); Z20.822 Contact with and (suspected) exposure to COVID-19 | CPT/HCPCS: 87635; 87804; 87807; C9803; U0003; U0005 ==

== ENCOUNTER 2022-03-04 13:30 | Outpatient (RCR) | payer MEDICARE, SELFPAY ==
--- NOTE | 2021-12-13 14:31 | HP.PTEVAL ---
Patient's Visit Information CORA PRESTON is a 76 year old M referred to Physical Therapy by Dr. Andreas Evangelista MD with a diagnosis of Right Hip Nailing 11/21/21. Date of Evaluation: 12/13/21 Physical Therapist: Vonnie Martinez DPT - Visit Plan Frequency: 2-3x /Week Duration: 4 Weeks Plan: Right Hip Nailing 11/21/21- Focus on LE and Core strength/stabilization- Functional mobility- (Pt has STOMA). HEP Reviewed from TCU - Subjective Patient reports that he tried to jump out of the back of a pickup truck and broke his right hip. took him to the ER- it was broken and Dr. Farrell performed surgery on the hip. They placed two nails in the hip- and is weight bearing as tolerated. Went to TCU for 3 days and then they sent him home. Lives with in a single story home with no stairs to enter. He is using a standard walker. He was allowed to be up ad marcio in his room after the second day. He has been caring for his and retired in July. He is a very active vy so its hard for him to sit around. Saw the surgeon yesterday and he is happy with the healing through x-rays but wants him to be up and moving more. Best: 0/10 Eases: sitting and resting. Worst: 4/10 Agg: moving around, sitting on the toilet seat. Reports that pain is dull and achy. No falls or loss of balance. Sleep: not disturbed. PMHx/Meds: no change since at hospital - Objective Posture: FH, RS can correct but does not maintain. Gait: FWW- step to pattern- decreased stance on the right LE. HR/TR: able without pain- does require UE A. Stairs: asc/desc 8 non recip with 2 HR. SLS: weight shift is unable to SLS. ROM: WFL in all planes of the lumbar spine and hip. Strength: Core: fair minus, Hip: Flexion: 2+/5, Abd: 3/5, Add: 4+/5, Extn: 4/5, IR/ER: tested in neutral 4/5, Knee: 4/5, Ankle: 5/5. Flex: HS: severe, Gastroc: moderate. - Balance/Special Test Scores Lower Extremity Functional Score: 5 TUG Test Time Seconds: 31.10 - Goals Goal 1:: Patient will be I with HEP and progression Goal Time Frame: 4-6 Weeks Goal 2:: Patient will ambulate >300 feet with a normalized gait pattern and LRD Goal Time Frame: 4-6 Weeks Goal 3:: Patient will asc/desc 8 stairs recip with 1 HR Goal Time Frame: 4-6 Weeks Goal 4:: Patient will report 80% improvement Goal Time Frame: 4-6 Weeks - Rehabilitation Potential Physical Therapy Diagnosis: Patient presents with hypomobility- he has decreased LE and core strength/stabilization, flex, proprioception and muscular endurance s/p right hip nailing 11/21/21 leading to abnormal gait and decreased ability to perform ADL's Rehabilitation Potential: Good - Anticipated Interventions Patient/Client Instruction: Educate patient on: Benefits of Fitness Program Therapeutic Exercise to Include: Strength training, Endurance training, Balance training, Coordination, Agility training, Body mechanics, Postural training, Flexibilty training, Gait and locomotor training, Neuromotor development, Dynamic Lumbar Stabilization, Scapular Strength/Stabilization For the Purpose of:: To improve muscle performance and motor function Cryotherapy (ice pack, ice massage): Yes Thermo therapy (hot pack): Yes Ultrasound (thermal/non thermal): No Thank you for the opportunity to evaluate your patient. For Medicare and Medicare HMO plans, please review the plan of care and approve it. It will need to be FAXED BACK to us at [phone] for Medicare purposes. For Medicare only, by signing this I certify the plan of care. Please let me know if there are questions or concerns regarding this plan of care. Physician Signature: Date:
--- NOTE | 2022-01-10 14:33 | HP.PTREVAL ---
Dr. Andreas Evangelista MD, It has been my pleasure to treat CORA PRESTON over the last 8 visits for Right Hip Nailing 11/21/21. Please see the progress note below for an update on the physical therapy plan of care! Subjective: patient reports he is doing well- still walking with a walker at home Objective/Function: Posture: FH, RS can correct but does not maintain. Gait: Rollerator- normal gait pattern HR/TR: able without pain- does require UE A. Stairs: asc/desc 8 recip with 2 HR. SLS: weight shift is unable to SLS. ROM: WFL in all planes of the lumbar spine and hip. Strength: Core: fair minus, Hip: Flexion: 4-/5, Abd: 4/5, Add: 4+/5, Extn: 4/5, IR/ER: tested in neutral 4/5, Knee: 4+/5, Ankle: 5/5. Flex: HS: severe, Gastroc: moderate. Plan Plan: Continue 1x a week- focus on ambulation and strength. Right Hip Nailing 11/21/21- Focus on LE and Core strength/stabilization- Functional mobility- (Pt has STOMA). HEP Reviewed from TCU Balance/Gait/Functional tests - Balance/Special Test Scores Lower Extremity Functional Score: 30 TUG Test Time Seconds: 12 Tug Test: <20 sec.=mostly independent Goals Goal 1:: Patient will be I with HEP and progression Goal Time Frame: 4-6 Weeks Goal 2:: Patient will ambulate >300 feet with a normalized gait pattern and LRD Goal Time Frame: 4-6 Weeks Goal 3:: Patient will asc/desc 8 stairs recip with 1 HR Goal Time Frame: 4-6 Weeks Goal 4:: Patient will report 80% improvement Goal Time Frame: 4-6 Weeks Anticipated Interventions Patient/Client Instruction: Educate patient on: Benefits of Fitness Program Therapeutic Exercise to Include: Strength training, Endurance training, Balance training, Coordination, Agility training, Body mechanics, Postural training, Flexibilty training, Gait and locomotor training, Neuromotor development, Dynamic Lumbar Stabilization, Scapular Strength/Stabilization For the Purpose of:: To improve muscle performance and motor function Cryotherapy (ice pack, ice massage): Yes Thermo therapy (hot pack): Yes Ultrasound (thermal/non thermal): No Please do not hesitate to contact me at [phone] by phone or if you have questions or concerns regarding this new plan of care! Sincerely, DAVID TejadaT
--- NOTE | 2022-03-04 13:51 | HP.PTDCSUM ---
It has been my pleasure to treat CORA PRESTON referred by Dr. Andreas Evangelista MD, with the diagnosis of Right Hip Nailing 11/21/21 for a total of 12 visit(s). Discharge Date: Please see the following information for a summary of their discharge status. Subjective: Patient reports he is doing great- there is nothing he can't do. Has not used the cane in a few weeks. Little sore after he sits for an hour and gets up R anterior hip Pain Intensity (Out of 10): 2 % Improvement: 90 Objective/Function: Posture: good throughout. Gait: no AD- no significant deviation noted. Stairs: asc/desc 8 recip. ROM: WFL. Strength: Core: good, Hip: 4+/5, Knee: 5/5, Ankle: 5/5 Goal 1:: Patient will be I with HEP and progression Goal Progress: Goal Met Goal 2:: Patient will ambulate >300 feet with a normalized gait pattern and LRD Goal Progress: Goal Met Goal 3:: Patient will asc/desc 8 stairs recip with 1 HR Goal Progress: Goal Met Goal 4:: Patient will report 80% improvement Goal Progress: Goal Met Plan: Discharge to HEP- encouraged to call if questions or concerns If there are questions or concerns regarding this patient's physical therapy, please feel free to call me at [phone]. Thank you for the referral of this patient. Sincerely, Vonnie Martinez, DPT Balance/Gait/Functional tests - Balance/Special Test Scores Lower Extremity Functional Score: 64 TUG Test Time Seconds: 12 Tug Test: <10 sec.=free mobile
== END 2022-03-04 19:00 | disposition home or self-care (01) ==
LOC: PT 13:30
PROVIDERS: PCP Family Medicine Geriatric Medicine; Referring Provider Family Medicine Geriatric Medicine; Visit Provider Family Medicine Geriatric Medicine
DX: S72.91XD Unspecified fracture of right femur, subsequent encounter for closed fracture with routine healing (principal); X58.XXXD Exposure to other specified factors, subsequent encounter
CPT/HCPCS: 97110; 97162; 97164

== ENCOUNTER → 2022-05-13 | Outpatient (CLI) | payer MEDICARE, SELFPAY ==
[2022-05-13 18:13] LABS: Absolute Lymphocyte Count 0.63 X10^3/uL (0.83-4.51); Absolute Neutrophil Count 2.6 X10^3/uL (2.0-7.7); Basophil# 0.04 X10^3/uL; Eosinophil# 0.14 X10^3/uL; Eosinophils% 3.6 % (0-5); Hematocrit 38.3 % (40-54); Hemoglobin 12.4 g/dL (13.0-16.5); Lymphocyte # 0.63 X10^3/ul (0.83-4.51); Mean Corp Hgb Conc 32.4 g/dL (32-36); Mean Corpuscular Hgb 29.5 pg (27.0-32.0); Mean Corpuscular Volume 91.2 fL (80-94); Mean Platelet Vol. 10.7 fl (6.2-12.0); Monocyte# 0.51 X10^3/uL; NRBC Flagged by Analyzer 0 % (0-5); Neutrophil # 2.61 X10^3/uL (2.7-7.7); Neutrophil % 66.4 % (47-70); Platelet Count 233 K/mm3 (150-450); RBC Distribution Width CV 13.1 % (11.6-14.6); RBC Distribution Width SD 42.7 fl (35.1-43.9); White Blood Count 3.9 K/mm3 (4.4-11.0)
[2022-05-13 18:53] LABS: Vitamin D,25 Hydroxy 13.6 ng/mL
[2022-05-13 18:56] LABS: AST(SGOT) 12 U/L (15-37); Alanine Aminotransfer ALT/SGPT 16 U/L (16-61); Albumin, Serum 3.5 g/dL (3.2-5.0); Alkaline Phosphatase 93 U/L (45-117); Anion Gap 10 (5-15); BUN 11 mg/dL (7-18); BUN/Creat Ratio 12.2 RATIO (10-20); Calcium,Total 8.8 mg/dL (8.5-10.1); Chloride 111 mmol/L (98-107); EST Glomerular Filtration Rate 87 mL/min (>60); Est Glom Filt Rate - Afr Amer 105 mL/min (>60); Globulin 3.4 g/dL (2.2-4.2); Glucose 93 mg/dL (74-106); Potassium 3.6 mmol/L (3.5-5.1); Protein, Total 6.9 g/dL (6.4-8.2); Sodium Level 146 mmol/L (136-145); Thyroid Stim Hormone (TSH) 7.36 uIU/mL (0.358-3.74)
== END | disposition home or self-care (01) ==
LOC: POLAB3 14:45
PROVIDERS: PCP Family Medicine Geriatric Medicine; Visit Provider Family Medicine Geriatric Medicine
DX: I10 Essential (primary) hypertension (principal); E55.9 Vitamin D deficiency, unspecified
CPT/HCPCS: 36415; 80053; 82306; 84443; 85025

== ENCOUNTER → 2022-06-05 | Outpatient (CLI) | payer MEDICARE, SELFPAY ==
[2022-06-05 17:34] LABS: Thyroid Stim Hormone (TSH) 7.02 uIU/mL (0.358-3.74)
== END | disposition home or self-care (01) ==
LOC: POLAB3 14:38
PROVIDERS: PCP Family Medicine Geriatric Medicine; Visit Provider Family Medicine Geriatric Medicine
DX: E78.5 Hyperlipidemia, unspecified (principal)
CPT/HCPCS: 36415; 84443

== ENCOUNTER → 2022-07-03 | Outpatient (CLI) | payer MEDICARE, SELFPAY ==
[2022-07-03 17:56] LABS: Thyroid Stim Hormone (TSH) 1.82 uIU/mL (0.358-3.74)
== END | disposition home or self-care (01) ==
LOC: POLAB3 15:58
PROVIDERS: PCP Family Medicine Geriatric Medicine; Visit Provider Family Medicine Geriatric Medicine
DX: E03.9 Hypothyroidism, unspecified (principal)
CPT/HCPCS: 36415; 84443

== ENCOUNTER → 2022-11-07 | Outpatient (CLI) | payer MEDICARE, SELFPAY ==
[2022-11-07 17:51] LABS: Absolute Lymphocyte Count 0.77 X10^3/uL (0.83-4.51); Absolute Neutrophil Count 2.6 X10^3/uL (2.0-7.7); Basophil# 0.04 X10^3/uL; Eosinophil# 0.12 X10^3/uL; Hematocrit 38.2 % (40-54); Hemoglobin 12.3 g/dL (13.0-16.5); Lymphocyte # 0.77 X10^3/ul (0.83-4.51); Lymphocyte % 19.4 % (19-41); Mean Corp Hgb Conc 32.2 g/dL (32-36); Mean Corpuscular Hgb 30.4 pg (27.0-32.0); Mean Corpuscular Volume 94.3 fL (80-94); Mean Platelet Vol. 11.1 fl (6.2-12.0); Monocyte# 0.46 X10^3/uL; Monocyte% 11.6 % (0-10); NRBC Flagged by Analyzer 0 % (0-5); Neutrophil # 2.57 X10^3/uL (2.7-7.7); Neutrophil % 64.7 % (47-70); Platelet Count 228 K/mm3 (150-450); RBC Distribution Width CV 13.7 % (11.6-14.6); RBC Distribution Width SD 47.4 fl (35.1-43.9); Red Blood Count 4.05 M/mm3 (4.6-6.2)
[2022-11-07 18:04] LABS: Vitamin D,25 Hydroxy 60.1 ng/mL
[2022-11-07 18:40] LABS: ALB/GLOB Ratio 1.3 RATIO (0.9-2.4); AST(SGOT) 25 U/L (15-37); Alanine Aminotransfer ALT/SGPT 29 U/L (16-61); Alkaline Phosphatase 92 U/L (45-117); Anion Gap 8 (5-15); BUN 25 mg/dL (7-18); BUN/Creat Ratio 28.2 RATIO (10-20); Chloride 113 mmol/L (98-107); Creatinine, Serum 0.89 mg/dL (0.70-1.30); EST Glomerular Filtration Rate 88 mL/min (>60); Est Glom Filt Rate - Afr Amer 107 mL/min (>60); Globulin 3.1 g/dL (2.2-4.2); Glucose 103 mg/dL (74-106); Protein, Total 7.1 g/dL (6.4-8.2); Sodium Level 144 mmol/L (136-145)
== END | disposition home or self-care (01) ==
LOC: POLAB3 13:07
PROVIDERS: PCP Family Medicine Geriatric Medicine; Visit Provider Family Medicine Geriatric Medicine
DX: I10 Essential (primary) hypertension (principal); E55.9 Vitamin D deficiency, unspecified
CPT/HCPCS: 36415; 80053; 82306; 84443; 85025

== ENCOUNTER 2022-12-16 20:55 | Emergency (ER) | payer MEDICARE, SELFPAY ==
[2022-12-16 20:57] VITALS: BP 151/75; PULSE 103; RESP 22; TEMP 36.5; O2SAT 93; BMI 23.3
--- NOTE | 2022-12-16 22:13 | RAD_ITS ---
STUDY: X-RAY CHEST REASON FOR EXAM: Male, 77 years old. chest pain TECHNIQUE: Single AP portable view of the chest. COMPARISON: 12/20/2021. FINDINGS: Normal lung volumes. Focal pulmonary density consistent with atelectasis or infiltrate in the left lung. Lungs otherwise clear. No effusions. Normal size heart. Normal mediastinum and jinny. Normal visualized pulmonary arteries. Normal visualized aortic arch and descending thoracic aorta. Normal visualized thoracic spine. Normal visualized ribs, clavicles, and shoulders. There is no demonstrated abnormality of the visualized soft tissue structures of the upper abdomen. RAD/Chest 1 View (Portable) IMPRESSION: Focal pulmonary density consistent with atelectasis or infiltrate in the left lung. Electronically Signed: Peña Webb MD at 22:32 EDT ,
[2022-12-16] MEDS: Aspirin 81 MG TAB.CHEW 324 MG PO (22:17)
[2022-12-16 22:24] LABS: Absolute Lymphocyte Count 0.66 X10^3/uL (0.83-4.51); Absolute Neutrophil Count 6.2 X10^3/uL (2.0-7.7); Basophil# 0.03 X10^3/uL; Basophil% 0.4 % (0-1); Eosinophil# 0.04 X10^3/uL; Eosinophils% 0.5 % (0-5); Hematocrit 34.4 % (40-54); Hemoglobin 11.3 g/dL (13.0-16.5); Lymphocyte # 0.66 X10^3/ul (0.83-4.51); Lymphocyte % 7.9 % (19-41); Mean Corp Hgb Conc 32.8 g/dL (32-36); Mean Corpuscular Hgb 30.1 pg (27.0-32.0); Mean Corpuscular Volume 91.5 fL (80-94); Mean Platelet Vol. 10.6 fl (6.2-12.0); Monocyte# 1.42 X10^3/uL; NRBC Flagged by Analyzer 0 % (0-5); Neutrophil # 6.19 X10^3/uL (2.7-7.7); Neutrophil % 73.8 % (47-70); Platelet Count 185 K/mm3 (150-450); RBC Distribution Width CV 13.3 % (11.6-14.6); RBC Distribution Width SD 45.1 fl (35.1-43.9); Red Blood Count 3.76 M/mm3 (4.6-6.2); White Blood Count 8.4 K/mm3 (4.4-11.0)
--- NOTE | 2022-12-16 22:42 | EDS_ITS ---
HPI History of Present Illness Chief Complaint: Weakness Narrative Narrative: 77-year-old male with a couple of days of weakness, shortness of breath. 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 He had a tracheostomy at 1 point but this has been removed. He states he is got some clotting in his stoma due to some hemoptysis. He is status post radiation therapy over 1 year. Patient does have a history of prostate cancer admission as well. Patient does have history of blood clot in the past but is not having any chest pain. He does state that he has a little bit of dyspnea. He has history of COPD but does not feel tight or wheezy. He is not anticoagulated currently. He does state that he feels generally ill. [facility] Medical History History of laryngeal cancer History of prostate cancer HLD (hyperlipidemia) Hypothyroidism Orthostatic hypotension Pneumonia due to COVID-19 virus (02/27/20) Pulmonary embolism Home Medications atorvastatin 40 mg tablet 40 mg PO DAILY cholesterol 05/10/17 [History Last Taken 06/28/20] omeprazole 40 mg capsule,delayed release 40 mg PO DAILY GERD 06/28/20 [History Last Taken 06/28/20] tamsulosin 0.4 mg capsule 0.4 mg PO DAILY PROSTATE 06/28/20 [History Last Taken 06/28/20] acetaminophen 325 mg tablet (Tylenol) 650 mg (2 x 325 mg) PO Q6H PRN PRN Pain Score 1-10/Temp > 100.7 F #0 tabs 11/27/21 [Rx Last Taken Unknown] levothyroxine 50 mcg tablet 50 mcg PO DAILY 01/18/22 [History Last Taken Unknown] cholecalciferol (vitamin D3) 1,250 mcg (50,000 unit) capsule 1,250 mcg PO QWEEK #4 caps 09/04/22 [Rx Last Taken Unknown] levofloxacin 500 mg tablet 500 mg PO DAILY #7 tabs 12/17/22 [Rx Last Taken Unknown] Allergy/AdvReac Type Severity Reaction Status Date / Time Penicillins Allergy UNKNOWN Verified 12/16/22 20:56 Sulfa (Sulfonamide Allergy BP drops Verified 12/16/22 20:56 Antibiotics) amoxicillin AdvReac Rash Verified 12/16/22 20:56 Family History Father Lung cancer Other Cancer Surgical History History of bronchoscopy (2019) History of laryngectomy History of tracheostomy Status post open reduction and internal fixation (ORIF) of fracture Social History Smoking Status: Former smoker second hand exposure: No alcohol intake: never what type of physical activity do you participate in: none stephanie/anabaptist: None seatbelt use: always ROS ROS ED Constitutional Constitutional ED: Denies chills, fever(s) or sweats Eyes Eyes: Denies blurry vision or change in vision ENT ENT ED: Denies ear pain or sore throat Cardiovascular Cardiovascular: Reports chest pain; Denies palpitations or racing heartbeat Respiratory/Chest Respiratory/Chest: Reports dyspnea and other Details: Blood clotting and stoma to mopped ; Denies cough or sputum Gastrointestinal Gastrointestinal: Reports abdominal pain; Denies constipation, diarrhea, nausea or vomiting Genitourinary Genitourinary ED: Denies dysuria, hematuria or urinary frequency Musculoskeletal Musculoskeletal: Reports myalgias; Denies arthralgias or neck pain Integumentary Denies abscess, Abrasions or rash Neurologic Neurologic: Denies headache(s), paresthesias or weakness Psychiatric Psychiatric: Denies anxiety, depression, suicidal ideation or suicidal thoughts Endocrine Endocrinology: Denies polydipsia or polyuria EXAM Physical Exam Const Vital Signs: 12/16/22 20:57 12/16/22 22:04 12/16/22 22:06 Temperature 97.7 F L Temperature Source Temporal Pulse Rate 103 H Respiratory Rate 22 H Respiratory Effort Normal Respiratory Pattern Normal Blood Pressure 151/75 H Blood Pressure Mean 100 Pulse Ox 93 Oxygen Delivery Method Room Air Room Air Positive well nourished General Appearance ED: NAD; Negative for pallor HEENT Reports moist mucous membranes atraumatic Eyes PERRL and EOMs intact bilaterally Neck Neck Narrative: Blood clotting within stoma. No stridor Resp normal respiratory effort and clear to auscultation bilaterally Auscultation: Negative for rales, rhonchi or wheezes Extremity normal to inspection Neuro oriented x3 and CN's II-XII intact bilaterally Sensorium / Orientation: alert Motor Exam: strength 5/5 throughout Psych mental status grossly normal Skin no wounds and skin turgor normal General Skin Exam: Negative for jaundice or pallor MDM MDM MDM Narrative Medical decision making narrative: Patient presenting with shortness of breath and dyspnea. Has a history of laryngeal cancer and has had a tracheostomy and has a previous stoma which was left. It is no longer as patent as it used to be. He sees a surgeon outside facility. He is status post radiation therapy and never had chemotherapy. His laryngeal cancer is in remission. Differential includes pneumonia, PE, ACS, CHF, viral syndrome, dehydration, electrolyte abnormalities, bronchitis. Patient also stating he is some abdominal cramping but his abdominal exam is benign. Patient denies analgesia or antiemetics. I will have respiratory therapy deep suction him. CBC shows no leukocytosis. Hemoglobin hematocrit are stable. Platelets are normal. Renal function electrolytes within normal limits. High-sensitivity troponin less 5. EKG sinus rhythm with a ventricular rate of 94 beats minute without sign of ischemic change or ectopy. BNP is normal at 54.8. D-dimer negative at 0.53 when age-adjusted. Chest x-ray my interpretation shows left lower lobe infiltrate versus atelectasis. Since the patient is symptomatic I will start him on Levaquin first dose in the ED. Return precautions were discussed. Impression: 1. Pneumonia 2. Hemoptysis Lab Data Attestation: I reviewed the patient's lab results. Labs: Laboratory Results - last 24 hr 12/16/22 22:00 WBC 8.4 RBC 3.76 L Hgb 11.3 L Hct 34.4 L MCV 91.5 MCH 30.1 MCHC 32.8 RDW Std Deviation 45.1 H RDW Coeff of [place] 13.3 Plt Count 185 MPV 10.6 Immature Gran % (Auto) 0.400 Neut % (Auto) 73.8 H Lymph % (Auto) 7.9 L [place] % (Auto) 17.0 H Eos % (Auto) 0.5 Baso % (Auto) 0.4 Absolute Neuts (auto) 6.2 Absolute Lymphs (auto) 0.66 L Nucleated RBC % 0 D-Dimer Quant (PE/DVT) 0.53 H* Sodium 140 Potassium 3.6 Chloride 112 H Carbon Dioxide 23.0 Anion Gap 5 BUN 18 Creatinine 0.86 Estim Creat Clear Calc 69.59 Est GFR (MDRD) Af Amer 110 Est GFR (MDRD) Non-Af 91 BUN/Creatinine Ratio 20.9 H Glucose 103 Calcium 8.7 Troponin I High Sens 5 B-Natriuretic Peptide 54.8 Radiography Diagnostic Testing: Clinical Impression(s) from Imaging Studies Chest X-Ray 12/16/22 22:13 IMPRESSION: Focal pulmonary density consistent with atelectasis or infiltrate in the left lung. Electronically Signed: Peña Webb MD at 22:32 EDT , Discharge Plan Triage Chief Complaint: Weakness ED Provider: Shiv Sutton Dx/Rx/DC Orders Instructions: ED Pneumonia (Adult) Prescriptions: New levofloxacin 500 mg tablet 500 mg PO DAILY Qty: 7 0RF No Action levothyroxine 50 mcg tablet 50 mcg PO DAILY Patient Comments: Take 1 Tablet orally once per Day for 90 Days cholecalciferol (vitamin D3) 1,250 mcg (50,000 unit) capsule 1,250 mcg PO QWEEK Qty: 4 6RF atorvastatin 40 MG tablet 40 mg PO DAILY omeprazole 40 MG capsule,delayed release(DR/EC) 40 mg PO DAILY Patient Comments: TAKE ONE CAPSULE BY MOUTH ONCE DAILY tamsulosin 0.4 MG capsule 0.4 mg PO DAILY acetaminophen [Tylenol] 325 mg Tablet 650 mg PO Q6H PRN PRN (Reason: Pain Score 1-10/Temp > 100.7 F) Qty: 0 0RF Primary Care Provider: Andreas Evangelista Chi Referrals: Andreas Evangelista Chi, MD [Primary Care Provider] - Disposition Disposition: Home, Self Care
[2022-12-16 22:46] LABS: BNP,B-Type NATRIURETIC PEPTIDE 54.8 pg/mL (0-100)
[2022-12-16 22:47] LABS: Anion Gap 5 (5-15); BUN 18 mg/dL (7-18); BUN/Creat Ratio 20.9 RATIO (10-20); Calcium,Total 8.7 mg/dL (8.5-10.1); Chloride 112 mmol/L (98-107); Creatinine, Serum 0.86 mg/dL (0.70-1.30); EST Glomerular Filtration Rate 91 mL/min (>60); Est Glom Filt Rate - Afr Amer 110 mL/min (>60); Estimated Creatinine Clearance 69.59 ml/min; Glucose 103 mg/dL (74-106); Potassium 3.6 mmol/L (3.5-5.1); Sodium Level 140 mmol/L (136-145); Troponin-I HS (w/2H Reflex) 5 pg/mL (3.0-78.0)
[2022-12-16 23:01] LABS: D-Dimer Quantitative (DVT/PE) 0.53 FEU/ug/m (0.27-0.49)
[2022-12-17 00:21] LABS: Reflex Troponin-HS? (from REC) Y
[2022-12-17] MEDS: levoFLOXacin 750 MG Tablet PO (00:33)
[2022-12-17 00:44] VITALS: BP 145/70; PULSE 70; RESP 18; O2SAT 94
== END 2022-12-17 00:56 | disposition home or self-care (01) ==
PROVIDERS: Emergency Provider Student in an Organized Health Care Education/Training Program; PCP Family Medicine Geriatric Medicine; Visit Provider Student in an Organized Health Care Education/Training Program
DX: R53.1 Weakness (principal); J44.9 Chronic obstructive pulmonary disease, unspecified; J18.9 Pneumonia, unspecified organism; Z87.891 Personal history of nicotine dependence; R04.2 Hemoptysis; E78.5 Hyperlipidemia, unspecified; Z92.3 Personal history of irradiation; R07.9 Chest pain, unspecified; Z85.21 Personal history of malignant neoplasm of larynx
CPT/HCPCS: 71045; 80048; 83880; 84484; 85025; 85379; 87428; 93005; 99284; A4216

== ENCOUNTER → 2023-05-19 | Outpatient (CLI) | payer MEDICARE, SELFPAY ==
[2023-05-19 15:19] LABS: Absolute Lymphocyte Count 0.81 X10^3/uL (0.83-4.51); Basophil# 0.05 X10^3/uL; Basophil% 1.1 % (0-1); Eosinophil# 0.11 X10^3/uL; Eosinophils% 2.4 % (0-5); Hematocrit 40.2 % (40-54); Hemoglobin 12.9 g/dL (13.0-16.5); Lymphocyte # 0.81 X10^3/ul (0.83-4.51); Lymphocyte % 17.8 % (19-41); Mean Corp Hgb Conc 32.1 g/dL (32-36); Mean Corpuscular Hgb 29.3 pg (27.0-32.0); Mean Corpuscular Volume 91.4 fL (80-94); Mean Platelet Vol. 10.7 fl (6.2-12.0); Monocyte# 0.51 X10^3/uL; Monocyte% 11.2 % (0-10); NRBC Flagged by Analyzer 0 % (0-5); Neutrophil # 3.04 X10^3/uL (2.7-7.7); Neutrophil % 67.1 % (47-70); Platelet Count 231 K/mm3 (150-450); RBC Distribution Width CV 13.1 % (11.6-14.6); RBC Distribution Width SD 43.2 fl (35.1-43.9); White Blood Count 4.5 K/mm3 (4.4-11.0)
[2023-05-19 16:09] LABS: AST(SGOT) 23 U/L (15-37); Alanine Aminotransfer ALT/SGPT 25 U/L (16-61); Albumin, Serum 3.6 g/dL (3.2-5.0); Alkaline Phosphatase 93 U/L (45-117); Anion Gap 6 (5-15); BUN 17 mg/dL (7-18); BUN/Creat Ratio 19.4 RATIO (10-20); Calcium,Total 9.1 mg/dL (8.5-10.1); Chloride 115 mmol/L (98-107); Creatinine, Serum 0.88 mg/dL (0.70-1.30); EST Glomerular Filtration Rate 89 mL/min (>60); Est Glom Filt Rate - Afr Amer 108 mL/min (>60); Globulin 3.5 g/dL (2.2-4.2); Glucose 94 mg/dL (74-106); Protein, Total 7.1 g/dL (6.4-8.2); Sodium Level 142 mmol/L (136-145); Thyroid Stim Hormone (TSH) 0.15 uIU/mL (0.358-3.74)
[2023-05-19 16:25] LABS: Vitamin D,25 Hydroxy 86.7 ng/mL
== END | disposition home or self-care (01) ==
PROVIDERS: PCP Family Medicine Geriatric Medicine; Referring Provider Family Medicine Geriatric Medicine; Visit Provider Family Medicine Geriatric Medicine
DX: I10 Essential (primary) hypertension (principal); E55.9 Vitamin D deficiency, unspecified
CPT/HCPCS: 36415; 80053; 82306; 84443; 85025

== ENCOUNTER → 2023-06-19 | Outpatient (CLI) | payer MEDICARE, SELFPAY ==
--- NOTE | 2023-06-19 07:20 | CT_ITS ---
STUDY: CT CHEST WITHOUT CONTRAST REASON FOR EXAM: Male, 78 years old. COncern for bronchiectasis s/p laryngectomy -- Please include HRCT RADIATION DOSAGE (If Supplied By Facility): CTDIvol = ( 10.47 ) mGy, DLP = ( 390.44 ) mGycm TECHNIQUE: Transaxial imaging was performed without the administration of intravenous contrast material. Individualized dose optimization techniques were used for this CT. COMPARISON: Comparison is made with prior study dated November 23, 2021. FINDINGS: CHEST The patient is status post laryngectomy. Multiple surgical clips are seen at the operative site. Segments of the right apical scarring. Minimal residual bibasilar scarring. Residual atelectasis and/or focal infiltrate in the posterior medial segment of the right lower lobe as compared to prior study. There is no demonstrated pleural abnormality. There are calcifications of the coronary arteries. Normal mediastinum. Normal hilar regions. Normal unenhanced pulmonary arteries. There is atherosclerotic calcification of the aortic arch. There are multi-level degenerative changes of the thoracic spine. There is a small hiatal hernia. CT/Chest without Contrast IMPRESSION: Improved aeration of the right lung base with mild residual atelectasis and/or infiltrate. Stable mild linear scarring at the lung bases as well as at the left lung apex. Electronically Signed: Calvin Lima MD at 9:07 EST ,
--- OUTSIDE RECORDS SUMMARY | 2023-06-19 07:22 | XMS RPT_ITS | CCD ---
Author Name Unknown Address [address] [facility] [address] [place] [address] Organization [facility] Care Team Providers Care Cruise Consultant Name Role Phone Jose A, Cecilia Chi Primary Care Provider [phone] MELLO WONG Attending Unavailable JOSE A, CECILIA CHI Primary Care Unavailable JOSE A, CECILIA CHI Primary Care Unavailable MELLO WONG Referring Unavailable KAHNERTAMBERLY Attending Unavailabl e KAHNERT, AMBERLY DE DIOS Referring Unavailabl e JOSE A, CECILIA CHI Primary Care Unavailable KAHNERTAMBERLY Referring Unavailabl e JOSE A, CECILIA CHI Primary Care Unavailable KAHNERT, AMBERLY DE DIOS Referring Unavailabl e JOSE A, CECILIA CHI Primary Care Unavailable KAHNERTAMBERLY Referring Unavailabl e JOSE A, CECILIA CHI Primary Care Unavailable Allergies Allergy Classification Reported Allergen(s) Allergy Type Date of Onset Reaction(s) Facility (2 sources) Penicillins; Translations: [PENICILLINS] Propensity to adverse reactions 04-12-2004 [facility] Work Phone: (4 sources) Penicillins Propensity to adverse reactions 04-12-2004 [facility] Work Phone: Medications Completed/Discontinued Medications Medication Drug Class(es) Dates Sig (Normalized) Sig (Original) atorvastatin 40 mg oral tablet (5 sources) HMG-CoA Reductase Inhibitor Start: 08-10-2015 atorvastatin (LIPITOR) 40 mg tablet COMPOUNDED PRESCRIPTION (5 sources) Start: 05-28-2018 COMPOUNDED PRESCRIPTION 3cc saline bullets (100 tubes) 100 Tube 11 05/28/2018 Active Problems Active Problems Problem Classification Problem Date Documented Da te Episodic/Chronic Cancer of head and neck (5 sources) Malignant tumor of larynx; Translations: [Malignant neoplasm of larynx, unspecified] Onset: 05-28-2010 05-28-2010 Chronic Melanomas of skin (5 sources) Malignant melanoma of skin of face; Translations: [Malignant melanoma of unspecified part of face] Onset: 04-17-2004 04-17-2004 Chronic Other gastrointestinal disorders (3 sources) Dysphagia; Translations: [Dysphagia, unspecified] Episodic Other lower respiratory disease (2 sources) Multiple nodules of lung; Translations: [Other nonspecific abnormal finding of lung field] Episodic Other upper respiratory disease (4 sources) Change in voice; Translations: [Unspecified voice and resonance disorder] Onset: 04-01-2022 Episodic Residual codes; unclassified (9 sources) History of laryngectomy; Translations: [Acquired absence of larynx] Onset: 12-02-2011 Episodic Residual codes; unclassified (1 source) H/O: radiation exposure; Translations: [Personal history of irradiation] Episodic Unclassified (1 source) Established Patient Onset: 02-26-2022 Past or Other Problems Problem Classification Problem Date Documented Date Episodic/Chronic Cancer of head and neck (11 sources) History of malignant neoplasm of larynx; Translations: [Personal history of malignant neoplasm of larynx] Onset: 1 Episodic Melanomas of skin (5 sources) H/O Malignant melanoma; Translations: [Personal history of malignant melanoma of skin] Onset: 3 07-29-2012 Episodic Neoplasms of unspecified nature or uncertain behavior (5 sources) Neoplasm of uncertain behavior of skin; Translations: [Neoplasm of uncertain behavior of skin] Onset: 5 10-03-2004 Episodic Other gastrointestinal disorders (1 source) Dysphagia, unspecified; Translations: [Dysphagia, unspecified type] Onset: 2 Episodic Other gastrointestinal disorders (1 source) Dysphagia, pharyngoesophageal phase; Translations: [Pharyngoesophageal dysphagia] Onset: 2 Episodic Other lower respiratory disease (5 sources) Hemoptysis; Translations: [Hemoptysis] Onset: 8 07-24-2017 Episodic Other lower respiratory disease (1 source) Other nonspecific abnormal finding of lung field; Translations: [Lung nodules] Onset: 2 Episodic Other skin disorders (5 sources) Disorder of skin pigmentation; Translations: [Disorder of pigmentation, unspecified] Onset: 5 11-06-2004 Episodic Other skin disorders (5 sources) Lentiginosis; Translations: [Other melanin hyperpigmentation] Onset: 3 07-29-2012 Episodic Other skin disorders (5 sources) Seborrheic keratosis; Translations: [Other seborrheic keratosis] Onset: 3 07-29-2012 Episodic Other upper respiratory disease (7 sources) Loss of voice; Translations: [Aphonia] Onset: 7 09-11-2016 Episodic Other upper respiratory disease (1 source) Unspecified voice and resonance disorder; Translations: [Change in voice] Onset: 2 Episodic Other upper respiratory disease (1 source) Aphonia; Translations: [Aphonia] Onset: 7 Episodic Residual codes; unclassified (1 source) Acquired absence of larynx; Translations: [S/P laryngectomy] Onset: 2 Episodic Results Test Name Value Interpretation Reference Range Facil ity Vital Signs Date Time Vital Sign Value Performing Clinician Maryi lity 09-27-2021 14:21-0400 Body height 166.3 cm Amberly Grimm APRN.CNP Work Phone: [facility] 09-27-2021 14:21-0400 Body temperature 97.81 [degF] Amberly Grimm APRN.CNP Work Phone: [facility] 09-27-2021 14:21-0400 Body weight 70.76 kg Amberly Grimm APRN.CNP Work Phone: [facility] 09-27-2021 14:21-0400 Diastolic blood pressure 70 mm[Hg] Amberly Grimm APRN.CNP Work Phone: [facility] 09-27-2021 14:21-0400 Heart rate 93 /min Amberly Grimm APRN.CNP Work Phone: [facility] 09-27-2021 14:21-0400 Respiratory rate 18 /min Amberly Grimm APRN.CNP Work Phone: [facility] 09-27-2021 14:21-0400 SaO2% (BldA) [Mass fraction] 94 % Amberly Grimm APRN.CNP Work Phone: [facility] 09-27-2021 14:21-0400 Systolic blood pressure 109 mm[Hg] Amberly Grimm APRN.HYDROELECTRIC STATION OPERATOR CHIEF Work Phone: [facility] Encounters Encounter Date Encounter Type Care Provider Facility Start: 02-26-2022 End: 02-27-2022 ambulatory MELLO WONG Facility:[facility] Start: 02-26-2022 End: 02-26-2022 Patient encounter procedure Mello Wong MD Work Phone: Otolaryngology Procedures Date Procedure Procedure Detail Performing Clinician Start: 11-15-2021 Ct soft tissue neck w/contrast material Amberly Grimm APRN.HYDROELECTRIC STATION OPERATOR CHIEF Work Phone: Start: 11-15-2021 Ct thorax w/contrast material Amberly Grimm APRN.HYDROELECTRIC STATION OPERATOR CHIEF Work Phone: Start: 11-15-2021 Creatinine [Mass/vol ume] in Serum or Plasma [facility] Provider Plan of Treatment Date Care Activity Detail Author Start: 04-10-2027 Urine microalbumin profile DTAP,TDAP,TD (2 - Td or Tdap) [facility] Start: 11-15-2022 Influenza vaccination LUNG CANCER SC [facility] Start: 12-27-2021 Influenza vaccination INFLUENZA (#1) [facility] Start: 09-27-2021 End: 11-27-2021 CREATININE BLD CREATININE BLD Lab Routine Lung nodules Expected: 09/27/2021, Expires: 11/27/2021 [facility] Work Phone: Immunizations Immunization Date Immunization Notes Care Provider Fa kim 04-10-2017 tetanus toxoid, redu iam diphtheria toxoid, and acellular pertussis vaccine, adsorbed Amberly Grimm APRN.HYDROELECTRIC STATION OPERATOR CHIEF Work Phone: [facility] Payers Date Payer Category Payer Medicare MMO MEDICARE MMO MEDADVANTAGE O [id number] 2021-Present [phone] [address] [place] [address] [facility] [id number] 2021 Medicare MMO MEDICARE MMO MEDADVANTAGE O [id number] 2021-Present [phone] [address] [place] [address] [facility] [id number] 2021 Unknown [id number] Social History Date Type Detail Facility Start: 07-25-2010 End: 08-25-2012 Tobacco smoking status NHIS Ex-smoker [facility] End: 06-11-2010 History of tobacco use Current smoker [facility] End: 06-11-2010 History of tobacco use Cigarette Smoker [facility] Start: 07-25-2010 End: 08-25-2012 Cigarettes smoked current (pack per day) - Reported 2 [facility] Start: 07-25-2010 End: 08-25-2012 Tobacco use and exposure Smokeless tobacco non-user [facility] Start: 09-27-2021 End: 02-26-2022 Alcohol intake Current non-drinker of alcohol (finding) [facility] Start: 1945 Sex Assigned At Male C [facility] Start: 09-17-2021 End: 02-26-2022 Exposure to SARS-CoV-2 (event) Not sure [facility] Clinical Notes 09-27-2021 to 02-26-2022 Mello Wong MD - 02/26/2022 4:13 PM Ru Liriano MA - 02/26/2022 4:01 PM Daniel Lopez CCC-PERFORMANCE ANALYST - 11/15/2021 9:41 AM RT Maynor(Eze) - 11/15/2021 9:30 AM EDT Note Date & Type Note Facility 02-26-2022 Note HNO ID: [id number] Author: Mello Wong MD Service: ? 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 Today he reports that his only concern is that his TEP voice occasionally goes out. This does not improve with swallowing liquids or cleaning the TEP. He cleans his TEP daily and changes it once per month. He has no new neck masses or lesions in his throat. He swallows well, however has noticed that sometimes food feels like it gets stuck mid chest and he struggles to regurgitate it. MBS 11/15/2021: Functional oral phase. Mild pharyngoesophageal dysphagia s/p total laryngectomy in 2010. Use of effortful swallow and liquid washes were effective to clear bolus through reconstructed pharynx and esophagus CT neck 11/15/2021: Expected post-treatment changes in the neck without evidence of recurrent disease in the primary site. No evidence of abnormal lymph nodes. Current Outpatient Medications Medication Sig Dispense Refill tamsulosin (FLOMAX) 0.4 mg Take 0.4 mg by mouth once daily. midodrine (PROAMITINE) 5 mg tablet TAKE 1 TABLET BY MOUTH 3 TIMES PER DAY COMPOUNDED PRESCRIPTION 3cc saline bullets (100 tubes) 100 Tube 11 atorvastatin (LIPITOR) 40 mg tablet Omeprazole 40 mg capsule levothyroxine (SYNTHROID) 100 mcg tablet Take 75 mcg by mouth once daily. No current facility-administered medications for this visit. EXAM: Constitutional - General Appearance: well developed, well nourished, without obvious deformities Communication: speaks with a good TEP voice Head AND Face - Overall: no obvious scars, lesions or masses Parotid and submandibular glands: no masses or tenderness Facial strength: normal and equal bilaterally Ear, Nose, Mouth AND Throat - Ears: both left and right external auditory canals and TM's are normal, no external deformities Nasal exam: mucosa is pink, septum is midline, visible turbinates are normal on anterior rhinoscopy Mastication: edentulous Oral Cavity and oropharynx: mucosa, hard and soft palates, tongue, tonsil area, posterior pharyngeal wall, lips and gums are none lesions Neck: appears symmetric, and on palpation is without masses or lymphadenopathy. Well healed stoma. Thyroid: no asymmetry, thyromegaly, or thyroid nodules on palpation Neuro: CN III - CN XII grossly intact Larynx - mirror limited by post-op anatomy FLEXIBLE Nasopharyngoscopy and tracheoscopy Indications: history larynx cancer. Mirror limited by post-op anatomy Procedure: With the patient sitting upright, informed consent was obtained. Topical anesthesia and vasoconstriction was applied with spray to the right side(s) of the nose. After waiting an appropriate period of time for anesthesia/vasoconstriction to become effective, a flexible laryngoscope was passed through the right side(s) of the nose and the nose, nasopharynx, oropharynx, neopharynx and cervical esophagus were examined. The scope was removed and passed through the laryngectomy stoma and the trachea was examined. The patient tolerated the procedure without complications. Findings: The nasal passageways and nasopharynx appear normal without edema or erythema. The oropharynx, shows a well-healed base of tongue with no masses or lesions. The Esophagus was widely patent, however the inner flange of the TEP was not visible. No masses or lesions visualized. With the scope passed through the stoma the trachea was clear to the boaz without any lesions. I was present for the entirety of the endoscopy/procedure and discussed the results with the patient. Mello Wong MD IMAGIN11/15/2021 CT neck Postsurgical: Status post total laryngectomy. Status post tracheostomy and reconstruction. Aerodigestive tract: No abnormal enhancement. No recurrent mass. The oral cavity is partially obscured by artifact from dental amalgam. The nasal cavities, naso-oropharynx, pharyngeal mucosal space, laryngeal structures and infraglottic trachea are within normal limits. Lymph nodes: No cervical lymphadenopathy by size criteria, number or morphology. Small nonspecific lymph nodes are scattered throughout the neck. Major salivary glands: Within normal limits. Thyroid gland: Normal appearance of remnant thyroid in the left anterior superior resection bed Carotid space: Mild atherosclerotic narrowing of the left cervical ICA, grossly 26% by NASCET criteria. Moderate narrowing of the midportion of the left common carotid artery, with eccentric soft tissue thickening and calcifications.. Intracranial contents: Imaged portions within (more content not included)... 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 Today he reports that his only concern is that his TEP voice occasionally goes out. This does not improve with swallowing liquids or cleaning the TEP. He cleans his TEP daily and changes it once per month. He has no new neck masses or lesions in his throat. He swallows well, however has noticed that sometimes food feels like it gets stuck mid chest and he struggles to regurgitate it. MBS 11/15/2021: Functional oral phase. Mild pharyngoesophageal dysphagia s/p total laryngectomy in 2010. Use of effortful swallow and liquid washes were effective to clear bolus through reconstructed pharynx and esophagus CT neck 11/15/2021: Expected post-treatment changes in the neck without evidence of recurrent disease in the primary site. No evidence of abnormal lymph nodes. Current Outpatient Medications Medication Sig Dispense Refill tamsulosin (FLOMAX) 0.4 mg Take 0.4 mg by mouth once daily. midodrine (PROAMITINE) 5 mg tablet TAKE 1 TABLET BY MOUTH 3 TIMES PER DAY COMPOUNDED PRESCRIPTION 3cc saline bullets (100 tubes) 100 Tube 11 atorvastatin (LIPITOR) 40 mg tablet Omeprazole 40 mg capsule levothyroxine (SYNTHROID) 100 mcg tablet Take 75 mcg by mouth once daily. No current facility-administered medications for this visit. EXAM: Constitutional - General Appearance: well developed, well nourished, without obvious deformities Communication: speaks with a good TEP voice Head & Face - Overall: no obvious scars, lesions or masses Parotid and submandibular glands: no masses or tenderness Facial strength: normal and equal bilaterally Ear, Nose, Mouth & Throat - Ears: both left and right external auditory canals and TM's are normal, no external deformities Nasal exam: mucosa is pink, septum is midline, visible turbinates are normal on anterior rhinoscopy Mastication: edentulous Oral Cavity and oropharynx: mucosa, hard and soft palates, tongue, tonsil area, posterior pharyngeal wall, lips and gums are none lesions Neck: appears symmetric, and on palpation is without masses or lymphadenopathy. Well healed stoma. Thyroid: no asymmetry, thyromegaly, or thyroid nodules on palpation Neuro: CN III - CN XII grossly intact Larynx - mirror limited by post-op anatomy FLEXIBLE Nasopharyngoscopy and tracheoscopy Indications: history larynx cancer. Mirror limited by post-op anatomy Procedure: With the patient sitting upright, informed consent was obtained. Topical anesthesia and vasoconstriction was applied with spray to the right side(s) of the nose. After waiting an appropriate period of time for anesthesia/vasoconstriction to become effective, a flexible laryngoscope was passed through the right side(s) of the nose and the nose, nasopharynx, oropharynx, neopharynx and cervical esophagus were examined. The scope was removed and passed through the laryngectomy stoma and the trachea was examined. The patient tolerated the procedure without complications. Findings: The nasal passageways and nasopharynx appear normal without edema or erythema. The oropharynx, shows a well-healed base of tongue with no masses or lesions. The Esophagus was widely patent, however the inner flange of the TEP was not visible. No masses or lesions visualized. With the scope passed through the stoma the trachea was clear to the boaz without any lesions. I was present for the entirety of the endoscopy/procedure and discussed the results with the patient. Mello Wong MD IMAGIN11/15/2021 CT neck Postsurgical: Status post total laryngectomy. Status post tracheostomy and reconstruction. Aerodigestive tract: No abnormal enhancement. No recurrent mass. The oral cavity is partially obscured by artifact from dental amalgam. The nasal cavities, naso-oropharynx, pharyngeal mucosal space, laryngeal structures and infraglottic trachea are within normal limits. Lymph nodes: No cervical lymphadenopathy by size criteria, number or morphology. Small nonspecific lymph nodes are scattered throughout the neck. Major salivary glands: Within normal limits. Thyroid gland: Normal appearance of remnant thyroid in the left anterior superior resection bed Carotid space: Mild atherosclerotic narrowing of the left cervical ICA, grossly 26% by NASCET criteria. Moderate narrowing of the midportion of the left common carotid artery, with eccentric soft tissue thickening and calcifications.. Intracranial contents: Imaged portions within normal limits. Paranasal sinuses, middle ears, mastoids: Clear. [id number] nasal septal deviation. Orbits: Within normal limits. Bones: No suspicious osseous lesions in the imaged calvarium, skull base and spine. There is new grade 2 anterolisthesis of C2 on C3. Severe spondylolytic changes. Temporomandibular joints are maintained. Lungs: A chest CT was performed concurrently and is dictated separately. 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 Today he is doing well other than the intermittent loss of his TEP voice. The scope today did not show the esophageal portion of the flange, which has me concerned that there is a flap of tissue over the TEP. I discussed going to the OR for esophagoscopy and further evaluation of the area. The patient would like to try increasing the size of his TEP to a 12 Fr and continue working with PERFORMANCE ANALYST. He will update me if he continues to have intermittent loss of voice, and we can pursue further evaluation. On examination today, I see no evidence of recurrence. PLAN AND RECOMMENDATIONS: PERFORMANCE ANALYST Patient will update to 12fr prosthesis, if he does not improve, we will schedule esophagoscopy for further evaluation. Medical Decision Making: Problems: Low: Stable chronic illness Data: Unique source(s) for external note(s) reviewed: 1 Unique test result(s) reviewed: 1 Risk: Low: Low risk from testing/treatment Medical Decision Making Level: 3 - Low Otolaryngology Staff Attestation Details as per Dr. Farrell's note which I have reviewed and edited. I performed a history and physical examination of the patient and discussed the patient's management with the resident. I agree with the documented findings and treatment plan. The patient is overall doing very well now 12 years out from total laryngectomy and radial forearm free flap reconstruction. His only complaint is some intermittent trouble with his TEP voice. He swallows well for the most part with intermittent sticking of pulp drier more solid things. Exam shows well-appearing male no acute distress his stoma is well formed he has a well-positioned TEP externally postradiation changes of the neck without masses or lymphadenopathy. The scope examination shows a widely patent esophagus but I cannot obviously see the edge of the TEP within the esophagus. There is no evidence of masses or lesions. The TEP may be somewhat buried in the mucosa. Externally the scope passed through the stoma to the boaz shows no evidence of recurrent disease. A/P SREEDHAR now 12 years out from surgery. I discussed with him that we will see if the change of his TEP today will improve his voice. If he continues to have intermittent problems we could always do a esophagoscopy to see if there is a mucosal flap in the esophagus that is somewhat obstructing his TEP at times. He will let me know how his voicing is going. Follow-up in 1 year if otherwise doing well. MD Mello Marrero MD documented in this encounter [facility] 02-26-2022 Nurse Note Tobacco Use: 2 packs/day, for 50 years. Quit 06/11/2010. Types: Cigarettes Was smoking cessation packet given? N/A - Patient is a non-smoker or quit >1 year ago. Was a referral initiated?N/A Patient is a non-smoker documented in this encounter [facility] 11-15-2021 Note HNO ID: [id number] Author: Raissa Lopez [facility]-PERFORMANCE ANALYST Service: ? Author Type: Speech Language Pathologist Type: Progress Notes Filed: 11/16/2021 6:45 AM Note Text: [facility] Speech Pathology Consult Modified Barium Swallow 11/15/2021 IMPRESSIONS: Functional oral phase. Mild pharyngoesophageal dysphagia s/p total laryngectomy in 2010. Use of effortful swallow and liquid washes were effective to clear bolus through reconstructed pharynx and esophagus. PROGNOSIS: Favorable for safe and adequate oral intake with some diet modifications and use of strategies RECOMMENDATIONS: - Dental Soft diet with thin liquid. Add moisture to foods (sauces or gravies). - Swallowing controls: Effortful/Hard swallows Sit upright Alternate solids / liquids to wash food down Eat at slow rate Small bites / sips PLAN: Patient to follow-up with Amberly Grimm M.S. CCC-PERFORMANCE ANALYST Clinical Speech Pathologist Pager: [phone] Voicemail: [phone] DIAGNOSIS / HISTORY: Cora Shook is a 76 year old man referred by Amberly Grimm for a modified barium swallow study to assess oropharyngeal swallow function. History of total laryngectomy in 2011 with TEP for speech. Patient reported the following dysphagia symptoms: - foods get stuck - sometimes has to cough food back up, occurs daily. Feels this may be due to taking too much at one time. 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 Repetitions often needed. BEHAVIORAL OBSERVATIONS: Alert, Cooperative, Oriented MANAGEMENT OF SECRETIONS: Clear, dry oral cavity PRESENT FEEDING METHOD: Oral Diet Level: Regular Diet with thin liquids Dentition: Edentulous Tracheostomy: No O2: Room Air ORAL MECHANISM EVALUATION Facial Symmetry at Rest: Within Functional Limits LABIAL Pursing: Within Functional Limits Retraction: Within Functional Limits VELAR Elevation / AH: Within Functional Limits Gag Reflex: Did not test LARYNGEAL Wet Vocal Quality: Could not test Cough: Within Functional Limits Clear Throat: Could not test LINGUAL Protrusion: Within Functional Limits Retraction: Did not test Lateralization: Within Functional Limits Elevate / Depress: Within Functional Limits SPEECH PRODUCTION Articulation: Within Functional Limits Intelligibility: Impaired - mildly impaired at times, especially with face mask on Vocal Quality: Impaired - TEP voice, good Vocal Intensity: Impaired - TEP voice Rate / Prosody: Impaired - TEP voice COMMENTS: Patient is s/p total laryngectomy and speaks using tracheoesophageal puncture (TEP) voice. Reported voice has consistently improved after TEP change a few days ago to a smaller size. POSITION OF PATIENT: Seated in chair VIEW: Lateral, A-P CONSISTENCIES GIVEN: Fran cracker coated with pudding / Barium mixture Pudding mixed with Barium [place] thick Barium liquid Thin Barium liquid LIQUIDS GIVEN VIA: Cup Oral Phase: Lip Closure: 1 = Interlabial escape; no progression to anterior lip Tongue Control: 3 = Posterior escape of greater than half of bolus Bolus Preparation/Mastication: 2 = Disorganized chewing/mashing with solid pieces of bolus unchewed, piecemeal transfer of bolus (divided into 2 swallows with additional chewing between likely compensatory). Chewing pattern appeared normal but patient lacks teeth and masticates with gums. Bolus Transport/Lingual Motion: 2 = Slowed tongue motion Oral Residue: 2 = Residue collection on oral structures , piecemeal transfer of bolus, likely compensatory, only trace residuals after reswallow. Initiation of Pharyngeal Swallow: 3 = Bolus head in pyriform (at level in reconstructed pharynx) Pharyngeal Phase: Soft Palate Elevation: 0 = No bolus between soft palate / pharyngeal wall Pharyngeal Stripping Wave: (more content not included)... [facility] 11-15-2021 Note HNO ID: [id number] Author: RT Urvashi(R) Service: Radiology Author Type: Technologist Type: Progress Notes Filed: 11/15/2021 9:33 AM Note Text: Radiology Service Progress Note PATIENT NAME: Cora Shook DATE OF SERVICE: November 15, 2021 TIME: 9:33 AM PATIENT IDENTITY VERIFICATION COMPLETED USING TWO (2) IDENTIFIERS: Name and Date of confirmed by patient verbally and Name and Date of confirmed by identification band. FALL SCREENING: Has the patient had 2 falls in the last year or 1 fall with injury or currently using an Ambulatory Assistive Device (Walker, Cane, Wheelchair, Crutches, etc.)? No PATIENT GENDER DATA: Male PATIENT RELEVANT IMPLANT DATA REVIEWED: Yes RADIOLOGY DEPARTMENT: CT; Exam(s) Completed: Chest and Neck PERIPHERAL IV DATA: Site assessment: Clean,Dry and Intact, Site disposition Discontinued SIGNED BY: RT Kiersten(R) November 15, 2021 9:33 AM [facility] 11-15-2021 Note HNO ID: [id number] Author: Akanksha Rubio RN Service: ? Author Type: Registered Nurse Type: Progress Notes Filed: 11/15/2021 9:28 AM Note Text: Radiology Service Progress Note DATE OF SERVICE: November 15, 2021 TIME: 9:17 AM PATIENT WEIGHT: 156LBS PATIENT IDENTITY VERIFICATION COMPLETED USING TWO (2) STANDARD IDENTIFIERS: Name and Date of confirmed by patient verbally and Name and Date of confirmed by identification band. FALL SCREENING: Has the patient had 2 falls in the last year or 1 fall with injury or currently using an Ambulatory Assistive Device (Walker, Cane, Wheelchair, Crutches, etc.)? Yes, Patient High Risk for Falls What interventions were put in place to prevent falls during this visit? Non-Skid Socks Used, Yellow Falls Risk Wristband Applied, Instructed Patient to Call for Help if Needed, Offered Assistance with Transfers/Clothing, Instructed Patient to Remain Seated (Not on Exam Table) Until Exam and Increased Observations by Caregivers PATIENT GENDER DATA: Male ALLERGIES: Reviewed and unchanged CONTRAST ALLERGY: No EXAM: CT -CONTRAST INDUCED NEPHROPATHY RISK FACTORS: Patient age > 60 years CREATININE: Creatinine Date Value Ref Range Status 11/25/2018 0.99 0.73 - 1.22 mg/dL Final Creatinine (POCT) Date Value Ref Range Status 11/15/2021 0.80 0.7 - 1.4 mg/dL Final 03/12/2011 0.89 0.6 - 1.5 mg/dL Final eGFR (POCT) Date Value Ref Range Status 11/15/2021 >60 mL/min/1.73 m2 Final eGFR- Date Value Ref Range Status 11/25/2018 >60 Final P.O.C.T. RESULTS: POC done: Yes, See Lab Tab November 15, 2021 TREATMENT: N/A IV SITE: Ambulatory: A peripheral IV was started in the Right forearm with a Angio cath: 22 gauge. IV SITE APPEARANCE: Clean,Dry and Intact SIGNATURE: Akanksha Rubio RN PATIENT NAME: Cora Shook DATE: November 15, 2021 TIME: 9:17 AM [facility] 11-15-2021 Note HNO ID: [id number] Author: Eva Hernandez, RT(R) Service: Radiology Author Type: Technologist Type: Progress Notes Filed: 11/15/2021 9:58 AM Note Text: Radiology Service Progress Note PATIENT NAME: Cora Shook DATE OF SERVICE: November 15, 2021 TIME: 9:57 AM PATIENT IDENTITY VERIFICATION COMPLETED USING TWO (2) IDENTIFIERS: Name and Date of confirmed by patient verbally. FALL SCREENING: Has the patient had 2 falls in the last year or 1 fall with injury or currently using an Ambulatory Assistive Device (Walker, Cane, Wheelchair, Crutches, etc.)? No PATIENT GENDER DATA: Male PATIENT RELEVANT IMPLANT DATA REVIEWED: Not Applicable RADIOLOGY DEPARTMENT: General X-ray: Exam(s) Completed: GI/ Procedure(s): Modified barium swallow with barium contrast PERIPHERAL IV DATA: Not applicable SIGNED BY: RT Ekaterina(R) November 15, 2021 9:57 AM [facility] 11-15-2021 History of Present illness Narrative Images from the original note were not included. [facility] Speech Pathology Consult Modified Barium Swallow 11/15/2021 IMPRESSIONS: Functional oral phase. Mild pharyngoesophageal dysphagia s/p total laryngectomy in 2010. Use of effortful swallow and liquid washes were effective to clear bolus through reconstructed pharynx and esophagus. PROGNOSIS: Favorable for safe and adequate oral intake with some diet modifications and use of strategies RECOMMENDATIONS: - Dental Soft diet with thin liquid. Add moisture to foods (sauces or gravies). - Swallowing controls: Effortful/Hard swallows Sit upright Alternate solids / liquids to wash food down Eat at slow rate Small bites / sips PLAN: Patient to follow-up with Amebrly Grimm M.S. [facility]-PERFORMANCE ANALYST Clinical Speech Pathologist Pager: [phone] Voicemail: [phone] DIAGNOSIS / HISTORY: Cora Shook is a 76 year old man referred by Amberly Grimm for a modified barium swallow study to assess oropharyngeal swallow function. History of total laryngectomy in 2010 with TEP for speech. Patient reported the following dysphagia symptoms: - foods get stuck - sometimes has to cough food back up, occurs daily. Feels this may be due to taking too much at one time. 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 Repetitions often needed. BEHAVIORAL OBSERVATIONS: Alert, Cooperative, Oriented MANAGEMENT OF SECRETIONS: Clear, dry oral cavity PRESENT FEEDING METHOD: Oral Diet Level: Regular Diet with thin liquids Dentition: Edentulous Tracheostomy: No O2: Room Air ORAL MECHANISM EVALUATION Facial Symmetry at Rest: Within Functional Limits LABIAL Pursing: Within Functional Limits Retraction: Within Functional Limits VELAR Elevation / AH: Within Functional Limits Gag Reflex: Did not test LARYNGEAL Wet Vocal Quality: Could not test Cough: Within Functional Limits Clear Throat: Could not test LINGUAL Protrusion: Within Functional Limits Retraction: Did not test Lateralization: Within Functional Limits Elevate / Depress: Within Functional Limits SPEECH PRODUCTION Articulation: Within Functional Limits Intelligibility: Impaired - mildly impaired at times, especially with face mask on Vocal Quality: Impaired - TEP voice, good Vocal Intensity: Impaired - TEP voice Rate / Prosody: Impaired - TEP voice COMMENTS: Patient is s/p total laryngectomy and speaks using tracheoesophageal puncture (TEP) voice. Reported voice has consistently improved after TEP change a few days ago to a smaller size. POSITION OF PATIENT: Seated in chair VIEW: Lateral, A-P CONSISTENCIES GIVEN: Fran cracker coated with pudding / Barium mixture Pudding mixed with Barium [place] thick Barium liquid Thin Barium liquid LIQUIDS GIVEN VIA: Cup Oral Phase: Lip Closure: 1 = Interlabial escape; no progression to anterior lip Tongue Control: 3 = Posterior escape of greater than half of bolus Bolus Preparation/Mastication: 2 = Disorganized chewing/mashing with solid pieces of bolus unchewed, piecemeal transfer of bolus (divided into 2 swallows with additional chewing between likely compensatory). Chewing pattern appeared normal but patient lacks teeth and masticates with gums. Bolus Transport/Lingual Motion: 2 = Slowed tongue motion Oral Residue: 2 = Residue collection on oral structures , piecemeal transfer of bolus, likely compensatory, only trace residuals after reswallow. Initiation of Pharyngeal Swallow: 3 = Bolus head in pyriform (at level in reconstructed pharynx) Pharyngeal Phase: Soft Palate Elevation: 0 = No bolus between soft palate / pharyngeal wall Pharyngeal Stripping Wave: 1 = Present - diminished Some pharyngeal wall movement noted. Pharyngeal Contraction: Incomplete Pharyngoesophageal Segment Opening: Gets good opening at reconstructed upper esophageal sphincter, but does not always have enough propulsion to push bolus through. Effortful swallow and liquid were helpful. Tongue Base Retraction:Fairly good contact between base of tongue and posterior pharyngeal wall Pharyngeal Residue: Yes - small amounts with liquid / puree. 100% of solid bolus retained in uriel-pharynx until reswallow. Esophageal Screening: Esophageal Clearance Upright Position: Cleared with time Penetration Aspiration Scale (PAS): NOT APPLICABLE - patient is s/p total laryngectomy, no longer has connection between pharynx and airway. COMMENTS: Small amount of liquid / puree and 100% of cracker bolus was retained in uriel-pharynx at reconstructed upper esophageal sphincter level. With liquid, needed one reswallow to clear. With solid, he reswallowed and cleared cracker from pharynx but then bolus returned to uriel-pharynx with cough (in lateral view). Suspect bolus caught at level of TEP where there is some narrowing (likely expected narrowing) and patient felt it and coughed. He fully cleared cracker after multiple reswallows (see image series 7). Cue to use an effortful swallow was helpful and he successfully cleared cracker through level of narrowing / TEP without a liquid wash (see image series 9 in AP view). Do not suspect any significant stricture beyond anatomical changes from laryngectomy. Image series 7 - cracker retained Image series 10. Results and Recommendations discussed with: Patient, Provided handout with written recommendations and contact information. Onset of Illness: 06/11/10 Initial Date of Treatment: 11/15/2021 Treatment Plan Date: 11/15/2021 Raissa Lopez M.S., CCC-PERFORMANCE ANALYST Clinical Speech Pathologist Pager: [phone] Voicemail: [phone] documented in this encounter [facility] 11-15-2021 History of Present illness Narrative Radiology Service Progress Note PATIENT NAME: Cora Shook DATE OF SERVICE: November 15, 2021 TIME: 9:33 AM PATIENT IDENTITY VERIFICATION COMPLETED USING TWO (2) IDENTIFIERS: Name and Date of confirmed by patient verbally and Name and Date of confirmed by identification band. FALL SCREENING: Has the patient had 2 falls in the last year or 1 fall with injury or currently using an Ambulatory Assistive Device (Walker, Cane, Wheelchair, Crutches, etc.)? No PATIENT GENDER DATA: Male PATIENT RELEVANT IMPLANT DATA REVIEWED: Yes RADIOLOGY DEPARTMENT: CT; Exam(s) Completed: Chest and Neck PERIPHERAL IV DATA: Site assessment: Clean,Dry and Intact, Site disposition Discontinued SIGNED BY: RT Kiersten(R) November 15, 2021 9:33 AM Radiology Service Progress Note DATE OF SERVICE: November 15, 2021 TIME: 9:17 AM PATIENT WEIGHT: 156LBS PATIENT IDENTITY VERIFICATION COMPLETED USING TWO (2) STANDARD IDENTIFIERS: Name and Date of confirmed by patient verbally and Name and Date of confirmed by identification band. FALL SCREENING: Has the patient had 2 falls in the last year or 1 fall with injury or currently using an Ambulatory Assistive Device (Walker, Cane, Wheelchair, Crutches, etc.)? Yes, Patient High Risk for Falls What interventions were put in place to prevent falls during this visit? Non-Skid Socks Used, Yellow Falls Risk Wristband Applied, Instructed Patient to Call for Help if Needed, Offered Assistance with Transfers/Clothing, Instructed Patient to Remain Seated (Not on Exam Table) Until Exam and Increased Observations by Caregivers PATIENT GENDER DATA: Male ALLERGIES: Reviewed and unchanged CONTRAST ALLERGY: No EXAM: CT -CONTRAST INDUCED NEPHROPATHY RISK FACTORS: Patient age > 60 years CREATININE: Creatinine Date Value Ref Range Status 11/25/2018 0.99 0.73 - 1.22 mg/dL Final Creatinine (POCT) Date Value Ref Range Status 11/15/2021 0.80 0.7 - 1.4 mg/dL Final 03/12/2011 0.89 0.6 - 1.5 mg/dL Final eGFR (POCT) Date Value Ref Range Status 11/15/2021 >60 mL/min/1.73 m2 Final eGFR- Date Value Ref Range Status 11/25/2018 >60 Final P.O.C.T. RESULTS: POC done: Yes, See Lab Tab November 15, 2021 TREATMENT: N/A IV SITE: Ambulatory: A peripheral IV was started in the Right forearm with a Angio cath: 22 gauge. IV SITE APPEARANCE: Clean,Dry and Intact SIGNATURE: Akanksha Rubio RN PATIENT NAME: Cora Shook DATE: November 15, 2021 TIME: 9:17 AM documented in this encounter [facility] 11-13-2021 Note HNO ID: [id number] Author: Laura Arteaga [facility]NA[facility] Service: ? Author Type: Speech Language Pathologist Type: Progress Notes Filed: 11/13/2021 11:51 AM Note Text: Onset of Illness: 06/11/10 Initial Date of Treatment: 11/13/2021 Treatment Plan Date: 11/13/2021 ? TEP FITTING (Re-fit) Date of TL/TEP: 06/11/10 Secondary fit: 07/25/10 Referral: Sven RT and/or Chemo Status: RT completed post-op ?? Pain Level (1-10): 0 Patient notes that his [employer] is consistently looking over-fit; c/o deterioration in voice also. Has gained weight; eating solids and reminded of strategies for smaller bites alternated by liquid sips. NiD Voice Prosthesis Fitted: Type: 20fr Provox Length: 10mm Modifications: resumed shorter length ? Impressions: Improved voice to patient's baseline good to excellent TE voice fluency and rough quality. Reviewed dilation procedures and provided 12fr and 18fr catheters to assist if struggling to place Atos Dilator. No leak with 10mm; changes out device about once monthly. Will revise / update script for new size [employer]. ? Plan: F/U for annual surveillance or prn. ??? Laura Arteaga MA/JARET Clinical Speech Pathologist Head AND Neck Specialist Pager [phone] [facility] 11-13-2021 History of Present illness Narrative Onset of Illness: 06/11/10 Initial Date of Treatment: 11/13/2021 Treatment Plan Date: 11/13/2021 TEP FITTING (Re-fit) Date of TL/TEP: 06/11/10 Secondary fit: 07/25/10 Referral: Sven RT and/or Chemo Status: RT completed post-op Pain Level (1-10): 0 Patient notes that his [employer] is consistently looking over-fit; c/o deterioration in voice also. Has gained weight; eating solids and reminded of strategies for smaller bites alternated by liquid sips. NiD Voice Prosthesis Fitted: Type: 20fr Provox Length: 10mm Modifications: resumed shorter length Impressions: Improved voice to patient's baseline good to excellent TE voice fluency and rough quality. Reviewed dilation procedures and provided 12fr and 18fr catheters to assist if struggling to place Atos Dilator. No leak with 10mm; changes out device about once monthly. Will revise / update script for new size [employer]. Plan: F/U for annual surveillance or prn. Laura Arteaga MA/JARET Clinical Speech Pathologist Head & Neck Specialist Pager [phone] documented in this encounter [facility] 09-27-2021 Note HNO ID: [id number] Author: Amberly Grimm APRN.HYDROELECTRIC STATION OPERATOR CHIEF Service: ? Author Type: Nurse Practitioner Type: Progress Notes Filed: 09/28/2021 4:33 PM Note Text: Answers for HPI/ROS submitted by the patient on 09/26/2021 Post-Nasal Drip: Yes Breathing pauses during sleep: Yes A Cough: Yes Shortness of Breath: Yes Indigestion: Yes Increase in urinary frequency: Yes Joint Pain or Stiffness: Yes Muscle Weakness: Yes Decreased Range of Motion /Motion Restriction: Yes Episodes of Loss of Consciousness: Yes Easy bruising: Yes Hearing Loss: Yes Ringing in Ears: Yes Runny Nose: Yes Loss of Smell: Yes [facility] CC: oncologic follow up Patient of Dr. 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 questions/concerns today include: pt feels that his speech is not what it used to be he changes out his TEP on his own he is not eating as well as he used to, he feels things are getting stuck he has no history of esphageal dilation he tries smaller bites and tries to avoid foods like breads/meats that he knows cause him more difficulty smoking: No Last 2 Encounter Wt Readings: Date: Wt: 09/27/2021 70.8 kg (156 lb) 08/13/2018 65.3 kg (144 lb) BP 109/70 (BP Site: Left Arm, BP Position: Sitting, BP Cuff Size: Regular Adult) Pulse 93 Temp 36.6 ?C (97.8 ?F) (Temporal) Resp 18 Ht 166.3 cm (5' 5.47 ) Wt 70.8 kg (156 lb) SpO2 94% BMI 25.59 kg/m? Current Outpatient Medications Medication Sig Dispense Refill - tamsulosin (FLOMAX) 0.4 mg Take 0.4 mg by mouth once daily. - atorvastatin (LIPITOR) 40 mg tablet - Omeprazole 40 mg capsule - levothyroxine (SYNTHROID) 100 mcg tablet Take 75 mcg by mouth once daily. - midodrine (PROAMITINE) 5 mg tablet TAKE 1 TABLET BY MOUTH 3 TIMES PER DAY - COMPOUNDED PRESCRIPTION 3cc saline bullets (100 tubes) 100 Tube 11 No current facility-administered medications for this visit. EXAM: Constitutional - General Appearance: well developed, well nourished, without obvious deformities Communication: speaks with a TEP voice with good finger occlusion Head AND Face - Overall: no obvious scars, lesions or masses Parotid and submandibular glands: no masses or tenderness Facial strength: normal and equal bilaterally Ear, Nose, Mouth AND Throat - Ears: both left and right external auditory canals and TM's are normal, no external deformities Nasal exam: mucosa is pink, septum is without perforation, visible turbinates are normal on anterior rhinoscopy Mastication: teeth appear edentulous Oral Cavity and oropharynx: mucosa, hard and soft palates, tongue, tonsil area, posterior pharyngeal wall, lips and gums are without lesions Neck: woody bilaterally with anterior neck stoma, well patent and without crusting or obstructions Thyroid: no asymmetry, thyromegaly, or thyroid nodules on palpation Neuro: CN III - CN XII grossly intact Procedure: Flexible laryngoscopy was performed because of the following indication: hx laryngeal cancer, voice changes After spraying the nose with xylocaine/neosynephrine, the flexible scope was placed in a transnasal fashion via right nares and stoma The nasopharynx, oropharynx, and neopharynx were normal. The base of tongue showed no gross lesions. behind the TEP appears WNL as well. Exam recorded on [facility] Procedure performed by Amberly Grimm APRN.CNP and reviewed with patient TSH (uU/mL) Date Value 09/11/2016 0.017 09/11/2015 1.000 CMP Latest Ref Rng AND Units 06/19/2010 03/12/2011 11/25/2018 SODIUM 135 - 146 mmol/L 139 - - SODIUM, ROYCE 135 - 146 mmol/L - - - SODIUM, ROYCE 135 - 146 mmol/L - - - POTASSIUM 3.5 - 5.0 mmol/L 3.9 - - POTASSIUM, ROYCE 3.5 - 5.0 mmol/L - - - CHLORIDE 98 - 110 mmol/L 107 - - CHLORIDE, ROYCE 98 - 110 mmol/L - - - CO2 23 - 32 mmol/L 24 - - CO2, ROYCE 23.0 - 32.0 mmol/L - - - GLUCOSE 65 - 100 mg/dL 107(H) - - GLUCOSE, ROYCE 65 - 100 mg/dL - - - BUN 10 - 25 mg/dL 20 - - BUN, ROYCE 10 - 25 mg/dL - - - CREATININE 0.73 - 1.22 mg/dL 0.58(L) - 0.99 CREATININE (POCT) 0.6 - 1.5 mg/dL - 0.89 - CREATININE, ROYCE 0.7 - 1.4 mg/dL - - - EGFR-ALL OTHER RACES . - - >60 GFR ESTIMATED (POCT) <60 - NA mL/min per 1.73 m2 - >60 - EGFR- - - - >60 PROTEIN, TOTAL 6.0 - 8.4 g/dL 5.3(L) - - TOTAL PROTEIN, ROYCE 6.0 - 8.4 g/dL - - - ALBUMIN 3.5 - 5.0 g/dL 3.1(L) - - ALBUMIN, ROYCE 3.5 - 5.0 g/dL - - - CALCIUM, ROYCE 8.5 - 10.5 mg/dL - - - CALCIUM, TOTAL 8.5 - 10.5 mg/dL 8.2(L) - - BILIRUBIN, TOTAL 0.0 - 1.5 mg/dL 0.6 - - AST 7 - 40 U/L 34 - - AST, ROYCE 7 - 40 U/L - - - ALT 5 - 50 U/L 61(H) - - ALT, ROYCE 5 - 50 U/L - - - ALKALINE PHOSPHA (more content not included)... [facility] 09-27-2021 History of Present illness Narrative Answers for HPI/ROS submitted by the patient on 09/26/2021 Post-Nasal Drip: Yes Breathing pauses during sleep: Yes A Cough: Yes Shortness of Breath: Yes Indigestion: Yes Increase in urinary frequency: Yes Joint Pain or Stiffness: Yes Muscle Weakness: Yes Decreased Range of Motion /Motion Restriction: Yes Episodes of Loss of Consciousness: Yes Easy bruising: Yes Hearing Loss: Yes Ringing in Ears: Yes Runny Nose: Yes Loss of Smell: Yes [facility] Note CC: oncologic follow up Patient of Dr. 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 questions/concerns today include: pt feels that his speech is not what it used to be he changes out his TEP on his own he is not eating as well as he used to, he feels things are getting stuck he has no history of esphageal dilation he tries smaller bites and tries to avoid foods like breads/meats that he knows cause him more difficulty smoking: No Last 2 Encounter Wt Readings: Date: Wt: 09/27/2021 70.8 kg (156 lb) 08/13/2018 65.3 kg (144 lb) BP 109/70 (BP Site: Left Arm, BP Position: Sitting, BP Cuff Size: Regular Adult) Pulse 93 Temp 36.6 C (97.8 F) (Temporal) Resp 18 Ht 166.3 cm (5' 5.47 ) Wt 70.8 kg (156 lb) SpO2 94% BMI 25.59 kg/m Current Outpatient Medications Medication Sig Dispense Refill tamsulosin (FLOMAX) 0.4 mg Take 0.4 mg by mouth once daily. atorvastatin (LIPITOR) 40 mg tablet Omeprazole 40 mg capsule levothyroxine (SYNTHROID) 100 mcg tablet Take 75 mcg by mouth once daily. midodrine (PROAMITINE) 5 mg tablet TAKE 1 TABLET BY MOUTH 3 TIMES PER DAY COMPOUNDED PRESCRIPTION 3cc saline bullets (100 tubes) 100 Tube 11 No current facility-administered medications for this visit. EXAM: Constitutional - General Appearance: well developed, well nourished, without obvious deformities Communication: speaks with a TEP voice with good finger occlusion Head & Face - Overall: no obvious scars, lesions or masses Parotid and submandibular glands: no masses or tenderness Facial strength: normal and equal bilaterally Ear, Nose, Mouth & Throat - Ears: both left and right external auditory canals and TM's are normal, no external deformities Nasal exam: mucosa is pink, septum is without perforation, visible turbinates are normal on anterior rhinoscopy Mastication: teeth appear edentulous Oral Cavity and oropharynx: mucosa, hard and soft palates, tongue, tonsil area, posterior pharyngeal wall, lips and gums are without lesions Neck: woody bilaterally with anterior neck stoma, well patent and without crusting or obstructions Thyroid: no asymmetry, thyromegaly, or thyroid nodules on palpation Neuro: CN III - CN XII grossly intact Procedure: Flexible laryngoscopy was performed because of the following indication: hx laryngeal cancer, voice changes After spraying the nose with xylocaine/neosynephrine, the flexible scope was placed in a transnasal fashion via right nares and stoma The nasopharynx, oropharynx, and neopharynx were normal. The base of tongue showed no gross lesions. behind the TEP appears WNL as well. Exam recorded on [facility] Procedure performed by Amberly Grimm APRN.CNP and reviewed with patient TSH (uU/mL) Date Value 09/11/2016 0.017 09/11/2015 1.000 CMP Latest Ref Rng & Units 06/19/2010 03/12/2011 11/25/2018 SODIUM 135 - 146 mmol/L 139 - - SODIUM, ROYCE 135 - 146 mmol/L - - - SODIUM, ROYCE 135 - 146 mmol/L - - - POTASSIUM 3.5 - 5.0 mmol/L 3.9 - - POTASSIUM, ROYCE 3.5 - 5.0 mmol/L - - - CHLORIDE 98 - 110 mmol/L 107 - - CHLORIDE, ROYCE 98 - 110 mmol/L - - - CO2 23 - 32 mmol/L 24 - - CO2, ROYCE 23.0 - 32.0 mmol/L - - - GLUCOSE 65 - 100 mg/dL 107(H) - - GLUCOSE, ROYCE 65 - 100 mg/dL - - - BUN 10 - 25 mg/dL 20 - - BUN, ROYCE 10 - 25 mg/dL - - - CREATININE 0.73 - 1.22 mg/dL 0.58(L) - 0.99 CREATININE (POCT) 0.6 - 1.5 mg/dL - 0.89 - CREATININE, ROYCE 0.7 - 1.4 mg/dL - - - EGFR-ALL OTHER RACES . - - >60 GFR ESTIMATED (POCT) <60 - NA mL/min per 1.73 m2 - >60 - EGFR- - - - >60 PROTEIN, TOTAL 6.0 - 8.4 g/dL 5.3(L) - - TOTAL PROTEIN, ROYCE 6.0 - 8.4 g/dL - - - ALBUMIN 3.5 - 5.0 g/dL 3.1(L) - - ALBUMIN, ROYCE 3.5 - 5.0 g/dL - - - CALCIUM, ROYCE 8.5 - 10.5 mg/dL - - - CALCIUM, TOTAL 8.5 - 10.5 mg/dL 8.2(L) - - BILIRUBIN, TOTAL 0.0 - 1.5 mg/dL 0.6 - - AST 7 - 40 U/L 34 - - AST, ROYCE 7 - 40 U/L - - - ALT 5 - 50 U/L 61(H) - - ALT, ROYCE 5 - 50 U/L - - - ALKALINE PHOSPHATASE 40 - 150 U/L 56 - - CBC Latest Ref Rng & Units 06/18/2010 06/19/2010 06/21/2010 WBC 3.70 - 11.00 k/uL 12.10(H) 8.85 8.68 RBC 4.20 - 6.00 m/uL 3.58(L) 3.34(L) 3.88(L) HEMOGLOBIN 13.0 - 17.0 g/dL 10.8(L) 10.0(L) 11.6(L) HEMOGLOBIN TOTAL, WHOLE BLOOD 13.0 - 17.0 g/dL - - - HEMOGLOBIN, ROYCE 13.0 - 17.0 g/dL - - - HEMATOCRIT 39.0 - 51.0 % 32.2(L) 30.7(L) 35.5(L) MCV 80.0 - 100.0 fL 89.9 91.9 91.5 MCV, ROYCE 80.0 - 100.0 fL - - - MCH 26.0 - 34.0 pG 30.2 29.9 29.9 MCH, ROYCE 26.0 - 34.0 pg - - - MCHC 30.5 - 36.0 g/dL 33.5 32.6 32.7 MCHC, ROYCE 30.5 - 36.0 g/dL - - - RDW, ROYCE 11.5 - 15.0 % - - - RDW-CV 11.5 - 15.0 % 14.6 14.7 14.1 PLATELETS 150 - 400 k/uL 285 333 484(H) MPV 9.0 - 12.7 fL 10.4 10.2 9.6 MPV, ROYCE 9.0 - 12.7 fL - - - NEUT%, ROYCE 39.5 - 74.0 % - - - MONO%, ROYCE 0.0 - 12.0 % - - - EOS%, ROYCE 0.0 - 6.6 % - - - BASO% 0.0 - 1.2 % - - - BASO%, ROYCE 0.0 - 1.2 % - - - ABS NEUT (ANC) 1.45 - 7.50 k/uL - - - ABS NEUT, ROYCE 1.45 - 7.50 k/uL - - - ABS LYMP, ROYCE 1.00 - 4.00 k/uL - - - ABS LYMPH 1.00 - 4.00 k/uL - - - ABS MONO 0.00 - 0.86 k/uL - - - ABS MONO, ROYCE 0.00 - 0.86 k/uL - - - ABS EOS, ROYCE 0.00 - 0.45 k/uL - - - ABS EOSIN 0.00 - 0.45 k/uL - - - ABS BASO 0.00 - 0.10 k/uL - - - ABS BASO, ROYCE 0.00 - 0.10 k/uL - - - ASSESSMENT: Cora Shook is a 76 year old male with 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 Pt is currently 11 yrs out from treatment and not seen since 05/27/2019. Accompanied by his today and she advised it is hard to get here d/t the distance they travel PLAN AND RECOMMENDATIONS: (Z85.21) History of cancer of larynx (primary encounter diagnosis)/ (Z90.02) S/P laryngectomy Comment: feels he has a change in voice production Plan: CT NECK SOFT TISSUE W IVCON, iv contrast (will be provided with radiology test), CONSULT TO SPEECH THERAPY (R91.8) Lung nodules Comment: due for repeat, was recommended follow up Plan: CT CHEST W IVCON, CREATININE BLD (Z92.3) History of radiation to head and neck region Comment: 11yrs post radiation Plan: CANCELED: US CAROTID [facility] he states he has had a carotid ultrasound with his outside providers (R13.10) Dysphagia, unspecified type/ R49.9) Change in voice Comment: increased Plan: CT NECK SOFT TISSUE W IVCON, iv contrast (will be provided with radiology test), CONSULT TO SPEECH THERAPY, XR MODIFIED BARIUM SWALLOW W SPEECH THERAPY Amberly Grimm APRN.CNP Elements of this note, including HPI, ROS, Physical Exam, Assessment and Plan were copied and pasted from Dr Wong's last office visit on 05/27/2019. Updates have been made where needed and reflect current exam and medical decision making from 09/27/2021 I spent a total of 45 minutes on the date of the service which included preparing to see the patient, [id number] patient care, completing clinical documentation, obtaining and/or reviewing separately obtained history, performing a medically appropriate examination, counseling and educating the patient/family/caregiver, ordering medications, tests, or procedures and communicating with other HCPs (not separately reported). documented in this encounter [facility] 09-27-2021 Nurse Note Additional intake questions: Has the patient had fever, nausea, vomiting, diarrhea, constipation, fatigue for > 1 week? Yes, fatigue Does the patient have a decreased appetite? No Does patient want to see a Cylinder Machine Operator Pulp Drier? No (yes to any of above refer patient to schedulers for dietitian appointment) ) Does patient have any new or increased numbness or tingling of extremities? No Is patient interested in fertility information? No Does patient need any prescription refills? No Does patient have an advanced directive in place? No, Patient referred to [facility] documented in this encounter [facility] Diagnosis History of laryngeal cancer- Primary Personal history of malignant neoplasm of larynx S/P laryngectomy Other postprocedural status Aphonia [facility]* Diagnosis Lung nodules Other nonspecific abnormal finding of lung field History of cancer of larynx Personal history of malignant neoplasm of larynx Dysphagia, unspecified type Change in voice Other voice and resonance disorders [facility] [place] [facility] Diagnosis S/P laryngectomy- Primary Other postprocedural status Pharyngoesophageal dysphagia Dysphagia, pharyngoesophageal phase History of laryngeal cancer Personal history of malignant neoplasm of larynx Aphonia [facility] Diagnosis S/P laryngectomy- Primary Other postprocedural status Change in voice Other voice and resonance disorders [facility])* Diagnostic Procedure Only (Routine) - Authorized Specialty Diagnoses / Procedures Referred By Eric moon Referred To Contact XR IMAGING Diagnoses Dysphagia, unspecified type Procedures XR MODIFIED BARIUM SWALLOW W SPEECH THERAPY RADIOLOGIC EXAM SWALLOW FUNCTION CONTRAST STUDY Amberly Grimm APRN.CNP [address] [id number] Xr Imaging Referral ID Status Reason Start Date Expiration Date Visits Requested Visits Authorized [id number] Authorized Auto-Generat ed Referral 09/27/2021 10/27/2022 1 1 * Speech Therapy (Routine) - Pending Review Specialty Diagnoses / Procedures Referred By Eric moon Referred To Contact [facility] Diagnoses History of cancer of larynx S/P laryngectomy Dysphagia, unspecified type Change in voice Procedures CONSULT TO SPEECH THERAPY OFFICE/OUTPATIENT [facility] 60-74 MINUTES Amberly Grimm APRN.HYDROELECTRIC STATION OPERATOR CHIEF [address] [phone] [facility] [place] [address] [id number] Referral ID Status Reason Start Date Expiration Date Visits Requested Visits Authorized [id number] Pending Review Auto-Generat ed Referral 09/27/2021 09/27/2022 1 1 * MRI/CT (Routine) - Pending Review Specialty Diagnoses / Procedures Referred By Eric moon Referred To Contact CT IMAGING Diagnoses History of cancer of larynx Dysphagia, unspecified type Change in voice Procedures CT NECK SOFT TISSUE W IVCON CT SOFT TISSUE NECK W/CONTRAST MATERIAL Amberly Grimm APRN.HYDROELECTRIC STATION OPERATOR CHIEF [address] [place] [address] Ct Imaging Referral ID Status Reason Start Date Expiration Date Visits Requested Visits Authorized [id number] Pending Review Auto-Generat ed Referral 09/27/2021 10/27/2022 1 1 * MRI/CT (Routine) - Pending Review Specialty Diagnoses / Procedures Referred By Contac t Referred To Contact CT IMAGING Diagnoses Lung nodules Procedures CT CHEST W IVCON DIAGNOSTIC COMPUTED TOMOGRAPHY THORAX W/CONTRAST Amberly Grimm APRN.HYDROELECTRIC STATION OPERATOR CHIEF [address] [id number] [address] Imaging Referral ID Status Reason Start Date Expiration Date Visits Requested Visits Authorized [id number] Pending Review Auto-Generat ed Referral 09/27/2021 10/27/2022 1 1 [facility] Reason for Referral Specialty Diagnoses / Procedures Referred By Contac t Referred To Contact CT IMAGING Diagnoses History of cancer of larynx Dysphagia, unspecified type Change in voice Procedures CT NECK SOFT TISSUE W IVCON CT SOFT TISSUE NECK W/CONTRAST MATERIAL Amberly Grimm APRN.HYDROELECTRIC STATION OPERATOR CHIEF [address] [address] [id number] [address] Imaging Referral ID Status Reason Start Date Expiration Date V isits Requested Visits Authorized [id number] Closed Auto-Generate d Referral 09/27/2021 11/22/2021 1 1 Specialty Diagnoses / Procedures Referred By Contac t Referred To Contact CT IMAGING Diagnoses Lung nodules Procedures CT CHEST W IVCON DIAGNOSTIC COMPUTED TOMOGRAPHY THORAX W/CONTRAST Amberly Grimm APRN.HYDROELECTRIC STATION OPERATOR CHIEF [address] [place] [address] Ct Imaging Referral ID Status Reason Start Date Expiration Date V isits Requested Visits Authorized [id number] Closed Auto-Generate d Referral 09/27/2021 11/22/2021 1 1 Summary Purpose Family History No Family History Records Found Advance Directives No Advanced Directives Records Found Additional Source Comments Source Comments (unrecognize d section and content) In the event this informatio n is protected by the Federal Confidentiality of Alcohol and Drug Abuse Patient Records regulations: The Federal rules restrict any use of the information to criminally investigate or prosecute any alcohol or drug abuse patient.[facility] the event this information is protected by the Federal Confidentiality of Alcohol and Drug Abuse Patient Records regulations: The Federal rules restrict any use of the information to criminally investigate or prosecute any alcohol or drug abuse patient.[facility] the event this information is protected by the Federal Confidentiality of Alcohol and Drug Abuse Patient Records regulations: The Federal rules restrict any use of the information to criminally investigate or prosecute any alcohol or drug abuse patient.[facility] the event this information is protected by the Federal Confidentiality of Alcohol and Drug Abuse Patient Records regulations: The Federal rules restrict any use of the information to criminally investigate or prosecute any alcohol or drug abuse patient.[facility] Healthcare[facility] the event this information is protected by the Federal Confidentiality of Alcohol and Drug Abuse Patient Records regulations: The Federal rules restrict any use of the information to criminally investigate or prosecute any alcohol or drug abuse patient.[facility] Reason for Visit (unrecogniz ed section and content) Reason Comments aphonia / TEP Specialty Diagnoses / Procedures Referred By Eric moon Referred To Contact [facility] Diagnoses History of cancer of larynx S/P laryngectomy Dysphagia, unspecified type Change in voice Procedures CONSULT TO SPEECH THERAPY OFFICE/OUTPATIENT [facility] 60-74 MINUTES Amberly Grimm, PLATFORM POWER TECHNICIAN.HYDROELECTRIC STATION OPERATOR CHIEF [address] [place] [address] [facility] [place] [address] [place] [address] Referral ID Status Reason Start Date Expiration Date Visits Requested Visits Authorized [id number] Authorized Auto-Generat ed Referral 04/28/2021 04/27/2022 99 [address] Specialty Diagnoses / Procedures Referred By Eric moon Referred To Contact CT IMAGING Diagnoses History of cancer of larynx Dysphagia, unspecified type Change in voice Procedures CT NECK SOFT TISSUE W IVCON CT SOFT TISSUE NECK W/CONTRAST MATERIAL Amberly Grimm, PLATFORM POWER TECHNICIAN.HYDROELECTRIC STATION OPERATOR CHIEF [address] [place] [address] Ct Imaging Referral ID Status Reason Start Date Expiration Date V isits Requested Visits Authorized [id number] Closed Auto-Generate d Referral 09/27/2021 11/22/2021 1 1 Reason Comments Dysphagia Specialty Diagnoses / Procedures Referred By Eric moon Referred To Contact XR IMAGING Diagnoses Dysphagia, unspecified type Procedures XR MODIFIED BARIUM SWALLOW W SPEECH THERAPY RADIOLOGIC EXAM SWALLOW FUNCTION CONTRAST STUDY Amberly Grimm Vidhi, PLATFORM POWER TECHNICIAN.HYDROELECTRIC STATION OPERATOR CHIEF [address] [address] Xr Imaging Referral ID Status Reason Start Date Expiration Date V isits Requested Visits Authorized [id number] Closed Auto-Generate d Referral 09/27/2021 10/27/2022 1 1 Reason Comments Established Patient Pt. States he is hav ing trouble speaking. Care Teams (unrecognized sec tion and content) Cruise Consultant Relationship Specialty Start Date End Date Jose A Thrill On PCP - General Gerontology 09/11/15 Cruise Consultant Relationship Specialty Start Date End Date Jose A, Thrill On PCP - General Gerontology 09/11/15 Cruise Consultant Relationship Specialty Start Date End Date Jose A, Thrill On PCP - General Gerontology 09/11/15 Cruise Consultant Relationship Specialty Start Date End Date Jose A Thrill On PCP - General Gerontology 09/11/15 (unrecognized sect ion and content) No Status Records Found INFORMATION SOURCE (unrecogn ized section and content) FOR RECORDS PERTAINING TO PATIENTS WHO ARE OR HAVE BEEN ENROLLED IN A CHEMICAL DEPENDENCY/SUBSTANCEABUSE PROGRAM, SOME INFORMATION MAY BE OMITTED. This clinical summary was aggregated from multiple sources. Caution should be exercised in using it in the provision of clinical care. This summary normalizes information from multiple sources, and as a consequence, information in this document may materially change the coding, format and clinical context of patient data. In addition, data may be omitted in some cases. CLINICAL DECISIONS SHOULD BE BASED ON THE PRIMARY CLINICAL RECORDS. [employer] provides no warranty or guarantee of the accuracy or completeness of information in this document.
[2023-06-19 07:30] VITALS: PULSE 102; PULSE 104; PULSE 105; PULSE 80; PULSE 84; PULSE 99; O2SAT 92; O2SAT 94; O2SAT 96; O2SAT 97; O2SAT 98
--- NOTE | 2023-06-20 09:19 | PCM.PSN.6M ---
PSN 6 Minute Walk Test 6 Minute Walk Test 6 Minute Walk Test: 6 Minute Walk Test PSN:6-Minute Walk Test Start: 06/19/23 07:40 Freq: Status: Active Protocol: RESP.6MINW Document 06/19/23 07:30 AE (Rec: 06/19/23 07:44 [facility] Desktop) 6 Minute Walk Test Date Performed 06/19/23 Time Performed 07:30 Height 5 ft 8 in Weight: 155 lb Weight in Pounds 155.[address]: Dr Castro Assistive device used: None Pre-test Oxygen Delivery Method Room Air Pulse Ox 97 Pulse Rate (60-100) 80 Dyspnea Thad Scale (0-10) 0 Exertion Thad Scale (6-20) 6 1st minute Oxygen Delivery Method Room Air Pulse Ox 97 Pulse Rate (60-100) 99 2nd minute Oxygen Delivery Method Room Air Pulse Ox 94 Pulse Rate (60-100) 105 H 3rd minute Oxygen Delivery Method Room Air Pulse Ox 92 Pulse Rate (60-100) 104 H 4th minute Oxygen Delivery Method Room Air Pulse Ox 96 Pulse Rate (60-100) 105 H 5th minute Oxygen Delivery Method Room Air Pulse Ox 98 Pulse Rate (60-100) 102 H 6th minute Oxygen Delivery Method Room Air Pulse Ox 97 Pulse Rate (60-100) 102 H Dyspnea Thad Scale (0-10) 0 Exertion Thad Scale (6-20) 8 Post-test Oxygen Delivery Method Room Air Pulse Ox 98 Pulse Rate (60-100) 84 Full Laps Walked 20 Partial Lap, Number of Tiles Walked 37 Total Distance Walked (ft) 1217 Interpretation Interpretation: The patient ambulated 1217 feet over the course of 6 minutes beginning on room air without assistive devices. Pretesting oxygen saturation was noted to be 97% on room air. With ambulation, the aleena oxygen saturation was 92%. This represents a significant exertional oxygen desaturation. Recommendations Recommendations: There is no indication for the use of supplemental oxygen at this time.
== END | disposition home or self-care (01) ==
PROVIDERS: PCP Family Medicine Geriatric Medicine; Referring Provider Internal Medicine Critical Care Medicine; Visit Provider Internal Medicine Critical Care Medicine
DX: R06.00 Dyspnea, unspecified (principal); Z90.02 Acquired absence of larynx
CPT/HCPCS: 71250; 94618

== ENCOUNTER → 2023-07-30 | Outpatient (CLI) | payer MEDICARE, SELFPAY ==
[2023-07-30 15:18] LABS: Thyroid Stim Hormone (TSH) 1.32 uIU/mL (0.358-3.74)
== END | disposition home or self-care (01) ==
LOC: POLAB3 13:50
PROVIDERS: PCP Family Medicine Geriatric Medicine; Visit Provider Family Medicine Geriatric Medicine
DX: E03.9 Hypothyroidism, unspecified (principal)
CPT/HCPCS: 36415; 84443

== ENCOUNTER → 2023-08-21 | Outpatient (CLI) | payer MEDICARE, SELFPAY ==
[2023-08-21 12:39] LABS: PSA,Total- Diagnostic < 0.01 ng/mL (0.0-4.0)
== END | disposition home or self-care (01) ==
PROVIDERS: PCP Family Medicine Geriatric Medicine; Referring Provider Urology; Visit Provider Urology
DX: C61 Malignant neoplasm of prostate (principal)
CPT/HCPCS: 36415; 84153

== ENCOUNTER → 2023-11-18 | Outpatient (CLI) | payer MEDICARE, SELFPAY ==
[2023-11-18 14:19] LABS: Absolute Lymphocyte Count 0.85 X10^3/uL (0.83-4.51); Absolute Neutrophil Count 4.1 X10^3/uL (2.0-7.7); Basophil# 0.04 X10^3/uL; Basophil% 0.7 % (0-1); Eosinophil# 0.12 X10^3/uL; Eosinophils% 2.1 % (0-5); Hematocrit 38.1 % (40-54); Hemoglobin 12.6 g/dL (13.0-16.5); Lymphocyte # 0.85 X10^3/ul (0.83-4.51); Lymphocyte % 14.6 % (19-41); Mean Corp Hgb Conc 33.1 g/dL (32-36); Mean Corpuscular Hgb 30.4 pg (27.0-32.0); Mean Corpuscular Volume 91.8 fL (80-94); Monocyte# 0.71 X10^3/uL; Monocyte% 12.2 % (0-10); NRBC Flagged by Analyzer 0 % (0-5); Neutrophil # 4.11 X10^3/uL (2.7-7.7); Neutrophil % 70.2 % (47-70); Platelet Count 233 K/mm3 (150-450); RBC Distribution Width CV 13.8 % (11.6-14.6); RBC Distribution Width SD 46.9 fl (35.1-43.9); Red Blood Count 4.15 M/mm3 (4.6-6.2); White Blood Count 5.8 K/mm3 (4.4-11.0)
[2023-11-18 14:55] LABS: Vitamin D,25 Hydroxy 39.9 ng/mL
[2023-11-18 15:05] LABS: ALB/GLOB Ratio 1.1 RATIO (0.9-2.4); AST(SGOT) 24 U/L (15-37); Alanine Aminotransfer ALT/SGPT 28 U/L (16-61); Albumin, Serum 3.8 g/dL (3.2-5.0); Alkaline Phosphatase 96 U/L (45-117); Anion Gap 7 (5-15); BUN 21 mg/dL (7-18); BUN/Creat Ratio 21.7 RATIO (10-20); Chloride 111 mmol/L (98-107); Cholesterol 166 mg/dL (200); Creatinine, Serum 0.97 mg/dL (0.70-1.30); EST Glomerular Filtration Rate 80 mL/min (>60); Est Glom Filt Rate - Afr Amer 97 mL/min (>60); Globulin 3.5 g/dL (2.2-4.2); Glucose 102 mg/dL (74-106); High Density Lipoprotein 75 mg/dL; Potassium 4.1 mmol/L (3.5-5.1); Protein, Total 7.3 g/dL (6.4-8.2); Sodium Level 141 mmol/L (136-145); Thyroid Stim Hormone (TSH) 2.61 uIU/mL (0.358-3.74); Triglycerides 63 mg/dL; Very Low Density Lipoprotein 13 mg/dL (5-40)
== END | disposition home or self-care (01) ==
LOC: LAB 13:55
PROVIDERS: PCP Family Medicine Geriatric Medicine; Visit Provider Family Medicine Geriatric Medicine
DX: I10 Essential (primary) hypertension (principal); E55.9 Vitamin D deficiency, unspecified; E78.5 Hyperlipidemia, unspecified
CPT/HCPCS: 36415; 80053; 80061; 82306; 84443; 85025

== ENCOUNTER → 2024-05-20 | Outpatient (CLI) | payer MEDICARE, SELFPAY ==
[2024-05-20 16:28] LABS: Absolute Neutrophil Count 3.2 X10^3/uL (2.0-7.7); Basophil# 0.04 X10^3/uL; Basophil% 0.8 % (0-1); Eosinophil# 0.08 X10^3/uL; Eosinophils% 1.7 % (0-5); Hematocrit 38.3 % (40-54); Hemoglobin 12.6 g/dL (13.0-16.5); Lymphocyte % 18.9 % (19-41); Mean Corp Hgb Conc 32.9 g/dL (32-36); Mean Corpuscular Hgb 29.5 pg (27.0-32.0); Mean Corpuscular Volume 89.7 fL (80-94); Mean Platelet Vol. 10.5 fl (6.2-12.0); Monocyte# 0.57 X10^3/uL; Monocyte% 11.9 % (0-10); NRBC Flagged by Analyzer 0 % (0-5); Neutrophil # 3.17 X10^3/uL (2.7-7.7); Neutrophil % 66.5 % (47-70); Platelet Count 233 K/mm3 (150-450); RBC Distribution Width CV 13.8 % (11.6-14.6); RBC Distribution Width SD 44.7 fl (35.1-43.9); Red Blood Count 4.27 M/mm3 (4.6-6.2); White Blood Count 4.8 K/mm3 (4.4-11.0)
[2024-05-20 16:58] LABS: Vitamin D,25 Hydroxy 30.1 ng/mL
[2024-05-20 17:13] LABS: AST(SGOT) 23 U/L (15-37); Alanine Aminotransfer ALT/SGPT 22 U/L (16-61); Albumin, Serum 3.7 g/dL (3.2-5.0); Alkaline Phosphatase 84 U/L (45-117); Anion Gap 5 (5-15); BUN 18 mg/dL (7-18); BUN/Creat Ratio 22.1 RATIO (10-20); Calcium,Total 9.1 mg/dL (8.5-10.1); Chloride 112 mmol/L (98-107); Cholesterol 179 mg/dL (200); Creatinine, Serum 0.82 mg/dL (0.70-1.30); EST Glomerular Filtration Rate 97 mL/min (>60); Est Glom Filt Rate - Afr Amer 117 mL/min (>60); Globulin 3.6 g/dL (2.2-4.2); Glucose 94 mg/dL (74-106); High Density Lipoprotein 82 mg/dL; Potassium 3.9 mmol/L (3.5-5.1); Protein, Total 7.3 g/dL (6.4-8.2); Sodium Level 141 mmol/L (136-145); Triglycerides 61 mg/dL; Very Low Density Lipoprotein 12 mg/dL (5-40)
== END | disposition home or self-care (01) ==
PROVIDERS: PCP Family Medicine Geriatric Medicine; Visit Provider Family Medicine Geriatric Medicine
DX: I10 Essential (primary) hypertension (principal); E78.5 Hyperlipidemia, unspecified; E55.9 Vitamin D deficiency, unspecified
CPT/HCPCS: 36415; 80053; 80061; 82306; 84443; 85025

== ENCOUNTER → 2024-06-12 | Outpatient (CLI) | payer MEDICARE, SELFPAY ==
--- NOTE | 2024-06-12 09:56 | CT_ITS ---
PROCEDURE: LOW DOSE CT LUNG SCREENING REASON FOR EXAM: Quit smoking 2010 TECHNIQUE: Low Dose CT Lung Screening without contrast COMPARISON: 06/19/2023 FINDINGS: Lower neck: Postoperative changes are present in the anterior lower neck with a tracheostomy defect noted. Lungs/Pleura:Mild emphysematous disease is present with biapical and bibasilar scarring. There is a stable nodule along the right minor fissure measuring 2.4 mm. A nodule in the right middle lobe is unchanged measuring 5 mm on image 180 of series 2.no pleural effusion or pneumothorax. Cardiovascular:The heart is normal in size.Moderate coronary artery calcifications are present.The aorta and pulmonary arteries are unremarkable. Pericardium:No effusion. Mediastinum:Unremarkable. Lymph nodes:No lymph node enlargement identified on this noncontrast CT. Bones:No acute osseous abnormality. Soft tissues:Unremarkable. Upper abdomen:Unremarkable. CT/Low Dose CT Lung Screening IMPRESSION: 1. Stable pulmonary nodules. Lung-RADS category 2: Benign. Low-dose screening protocol recommended in 12 months. 2. Mild emphysematous disease with biapical and bibasilar scarring. 3. Postoperative changes in the anterior lower neck with a tracheostomy defect noted. Reading Location: [facility]
== END | disposition home or self-care (01) ==
PROVIDERS: PCP Family Medicine Geriatric Medicine; Referring Provider Nurse Practitioner Acute Care; Visit Provider Nurse Practitioner Acute Care
DX: F17.210 Nicotine dependence, cigarettes, uncomplicated (principal)
CPT/HCPCS: 71271

== ENCOUNTER 2024-10-04 13:36 | Emergency (ER) | payer MEDICARE, SELFPAY ==
[2024-10-04] VITALS (10 sets, daily range): BP systolic 69–184; BP diastolic 46–169; PULSE 75–122; RESP 7–30; TEMP 36.4–36.6; O2SAT 86–100; BMI 24.4
[2024-10-04] MEDS: Propofol 200 MG/20 ML Vial 20 MG IV BOLUS (14:11)
[2024-10-04] MEDS: Lidocaine Jelly 2% 20 ML Syringe (URO-JET) 1 APPLIC (14:12)
--- NOTE | 2024-10-04 14:28 | EDS_ITS ---
HPI History of Present Illness Chief Complaint: Foreign Body Narrative Narrative: 79-year-old male past medical history of laryngectomy with stoma, presents after aspirating a piece of gauze. He states that he was sanding a board and had taped a 2 x 2 piece of gauze over his stoma. He inhaled, and ended up aspirating the piece of gauze. Per EMS, they attempted suctioning but was unsuccessful. He has foreign body sensation in his trachea and difficulty breathing. Foreign body has been in place for approximately 1 hour. [facility] Medical History Pulmonary embolism Orthostatic hypotension HLD (hyperlipidemia) Hypothyroidism History of laryngeal cancer History of prostate cancer Pneumonia due to COVID-19 virus (02/27/20) Home Medications ?Medication ?Instructions ?Recorded ?Last Taken ?Type atorvastatin 40 mg tablet 40 mg PO DAILY cholesterol 0 05/10/17 10/03/24 History omeprazole 40 mg capsule,delayed 40 mg PO DAILY GERD 0 06/28/20 10/04/24 History release tamsulosin 0.4 mg capsule 0.4 mg PO DAILY PROSTATE 07/1610/04/24 History cholecalciferol (vitamin D3) 1,250 1,250 mcg PO QWEEK #4 caps 09/04/22 10/04/24 Rx mcg (50,000 unit) capsule levothyroxine 75 mcg tablet 75 mcg PO DAILY 10/04/24 0 10/04/24 History Allergy/AdvReac Type Severity Reaction Status Date / Time Penicillins Allergy UNKNOWN Verified 07/06/24 13:44 Sulfa (Sulfonamide Allergy BP drops Verified 07/06/24 13:44 Antibiotics) amoxicillin AdvReac Rash Verified 07/06/24 13:44 Family History Father Lung cancer Other Cancer Surgical History Status post open reduction and internal fixation (ORIF) of fracture History of tracheostomy History of laryngectomy History of bronchoscopy (2019) Social History Smoking Status: Former smoker second hand exposure: No alcohol intake: never what type of physical activity do you participate in: none stephanie/bahai: None seatbelt use: always ROS ROS ED ROS Narrative Review of systems positive for foreign body trachea. Positive difficulty breathing. Denies other injury or problems. No chest pain. EXAM Physical Exam Narrative Exam Narrative: Afebrile. Vital signs noted. Tracheal stoma without erythema, no visualized foreign body. Cardiovascular examination reveals a regular tachycardia. Coarse breath sounds bilaterally. Const Vital Signs: 10/04/24 13:37 10/04/24 13:41 10/04/24 13:49 Temperature 97.6 F L Temperature Source Axillary Pulse Rate 122 H Pulse Rate [1 (Initial Baseline)] Respiratory Rate 30 H Respiratory Rate [1 (Initial Baseline)] Respiratory Effort Normal Non-Labored Respiratory Pattern Stridor Blood Pressure 184/169 H Blood Pressure [1 (Initial Baseline)] Blood Pressure Mean 174 Baseline BP Pulse Ox 88 91 Oxygen Delivery Method Room Air Oxygen Delivery Method [1 (Initial Baseline)] Oxygen Flow Rate (L/min) 10/04/24 14:06 10/04/24 14:08 10/04/24 14:17 Temperature 97.6 F L Temperature Source Pulse Rate 107 H 94 Pulse Rate [1 (Initial Baseline)] 112 H Respiratory Rate 19 H 16 Respiratory Rate [1 (Initial Baseline)] 21 H Respiratory Effort Respiratory Pattern Blood Pressure 159/81 H 69/46 L Blood Pressure [1 (Initial Baseline)] 169/95 H Blood Pressure Mean Baseline BP 159/81 Pulse Ox 88 86 Oxygen Delivery Method Room Air Room Air Oxygen Delivery Method [1 (Initial Baseline)] Room Air Oxygen Flow Rate (L/min) 10/04/24 14:22 10/04/24 14:27 10/04/24 14:32 Temperature Temperature Source Pulse Rate 84 85 93 Pulse Rate [1 (Initial Baseline)] Respiratory Rate 20 H 7 L 17 Respiratory Rate [1 (Initial Baseline)] Respiratory Effort Respiratory Pattern Blood Pressure 76/49 L 87/57 L 125/63 H Blood Pressure [1 (Initial Baseline)] Blood Pressure Mean Baseline BP Pulse Ox 98 100 100 Oxygen Delivery Method Non-Rebreather Non-Rebreather Non-Rebreather Oxygen Delivery Method [1 (Initial Baseline)] Oxygen Flow Rate (L/min) 15 15 10 MDM MDM MDM Narrative Medical decision making narrative: Concern is for foreign body aspiration. It is unknown how deep it is into the lungs or if it is caught in the trachea. Patient placed on a equipment monitor phototypesetting. His pulse ox initially was in the 80s but he is maintaining at around 92%. He states he cannot receive nasal cannula oxygen or mask as his larynx has been removed surgically. I discussed patient with Dr. Taylor with pulmonology critical care. Initially he wanted the patient admitted to the ICU and then taken to the endoscopy suite. However, endoscopy team is available to come to the bedside. Patient was consented by Dr. Taylor for bronchoscopy and procedural sedation. I do feel that this is somewhat more of an emergent process as well. Patient received total of 140 mg of propofol. He experienced transient desaturation and transient low blood pressure/hypotension. He was administered IV fluids and oxygen via tracheal mask. Patient tolerated procedure well. As the foreign body was removed by Dr. Taylor and was not deep into the bronchioles or lung and was more in the trachea, was not felt antibiotics are indicated. Patient was monitored then discharged. He was told not to tape gauze over his stoma and to use something much larger that if partially aspirated could be removed easily such as a scarf or bandanna. Disposition is discharged home in improved and stable condition. History & Record Review Discussion w/independent historian: Patient and Family Procedures Procedural Sedation Bronchoscopy for foreign body removal: Consent Signed: Yes Any Problems With Anesthesia: No You/Your family experience fever (hyperthermia) w/anesthesia: Unknown Sedation medication: Propofol Dose: 140 Route: IV Total Moderate Sedation Units: 4 Maliampati Score: Class III ASA Classification: III Comment:: Mallampati score not applicable as patient has had laryngectomy. Transient hypotension and transient hypoxia. Patient tolerated procedure well. Discharge Plan Triage Chief Complaint: Foreign Body ED Provider: Pantera Alejo Dx/Rx/DC Orders Clinical Impression: Aspiration of foreign body in respiratory tract, History of laryngectomy Instructions: Laryngectomy Dc, ED Choking Spell (Adult), ED Procedural Sedation, (Adult) Prescriptions: No Action cholecalciferol (vitamin D3) 1,250 mcg (50,000 unit) capsule 1,250 mcg PO QWEEK Qty: 4 6RF atorvastatin 40 MG tablet 40 mg PO DAILY omeprazole 40 MG capsule,delayed release(DR/EC) 40 mg PO DAILY Patient Comments: TAKE ONE CAPSULE BY MOUTH ONCE DAILY tamsulosin 0.4 MG capsule 0.4 mg PO DAILY levothyroxine 75 mcg tablet 75 mcg PO DAILY Primary Care Provider: Andreas Evangelista Chi Referrals: Andreas Evangelista Chi, MD [Primary Care Provider] - As Needed Activity Restrictions/Additional Instructions: Do not tape gauze over your tracheal stoma. Instead, use a scarf or bandanna or something longer they cannot be completely aspirated. Follow-up with your primary care provider as needed. Return with increased difficulty breathing, new or worsening symptoms. Print Language: Ukrainian Disposition Disposition: Home, Self Care
--- NOTE | 2024-10-04 14:35 | OP.BRONCH_ITS ---
Patient Name: Madhav Shook Procedure Date: 10/04/2024 2:10 PM Date of : 1945 Age: 79 Procedure: Bronchoscopy Indications: Trachea foreign body Providers: Sandip Taylor MD Medicines: Propofol administered per ED Complications: No immediate complications Procedure: Pre-Anesthesia Assessment: - A History and Physical has been performed. Patient meds and allergies have been reviewed. The risks and benefits of the procedure and the sedation options and risks were discussed with the patient. All questions were answered and informed consent was obtained. Patient identification and proposed procedure were verified prior to the procedure by the physician and the nurse in the procedure room. Mental Status Examination: alert and oriented. Airway Examination: Stoma. Respiratory Examination: poor air movement. CV Examination: normal. ASA Grade Assessment: II - A patient with mild systemic disease. After reviewing the risks and benefits, the patient was deemed in satisfactory condition to undergo the procedure. The anesthesia plan was to use moderate sedation / analgesia (conscious sedation). Immediately prior to administration of medications, the patient was re-assessed for adequacy to receive sedatives. The heart rate, respiratory rate, oxygen saturations, blood pressure, adequacy of pulmonary ventilation, and response to care were monitored throughout the procedure. The physical status of the patient was re-assessed after the procedure. After I obtained informed consent, the scope was passed under direct vision. Throughout the procedure, the patient's blood pressure, pulse, and oxygen saturations were monitored continuously. The bronchoscope was introduced through the stoma and advanced until a foregin body was encountered. The procedure was accomplished without difficulty. The patient tolerated the procedure well. Findings: Trachea/Amairani Abnormalities: Gauze was found in the trachea. The foreign body was successfully removed using alligator forceps. Impression: - Trachea foreign body - Gauze was found in the trachea. - Foreign body removal was successful. Recommendation: - Discharge patient to home. Procedure Code(s): --- Professional --- 27415, Bronchoscopy, rigid or flexible, including fluoroscopic guidance, when performed; with removal of foreign body Diagnosis Code(s): --- Professional --- T17.408A, Unspecified foreign body in trachea causing other injury, initial encounter CPT copyright 2021 [employer]. All rights reserved. The codes documented in this report are preliminary and upon real estate instructor review may be revised to meet current compliance requirements. DO Sandip Mcmanus MD 10/04/2024 2:34:35 PM This report has been signed electronically. Number of Addenda: 0 Note Initiated On: 10/04/2024 2:10 PM
--- NOTE | 2024-10-04 16:20 | ED.RN ---
Unable to monitor ECO2, pt has tracheal stoma
== END 2024-10-04 16:20 | disposition home or self-care (01) ==
PROVIDERS: Internal Medicine Critical Care Medicine; Emergency Provider Emergency Medicine; PCP Family Medicine Geriatric Medicine; Visit Provider Emergency Medicine
PROC: 0BJ08ZZ Inspection of Tracheobronchial Tree, Via Natural or Artificial Opening Endoscopic (ICD-10-PCS; CPT 31622; principal; 2024-10-04 14:00)
DX: T17.490A Other foreign object in trachea causing asphyxiation, initial encounter (principal); E78.5 Hyperlipidemia, unspecified; Z87.891 Personal history of nicotine dependence; Z90.02 Acquired absence of larynx; W44.G9XA Other non-organic objects entering into or through a natural orifice, initial encounter; E03.9 Hypothyroidism, unspecified; Z79.890 Hormone replacement therapy; Z79.899 Other long term (current) drug therapy
CPT/HCPCS: 31622; 99252; 99285; A4216; G0463

== ENCOUNTER → 2024-11-16 | Outpatient (CLI) | payer MEDICARE, SELFPAY ==
[2024-11-16 13:14] LABS: Hematocrit 39.6 % (40-54); Hemoglobin 13.0 g/dL (13.0-16.5); Immature Granulocytes Count 0.010 X10^3/uL (0.0-0.0); Mean Corp Hgb Conc 32.8 g/dL (32-36); Mean Corpuscular Volume 90.6 fL (80-94); Mean Platelet Vol. 9.9 fl (6.2-12.0); NRBC Flagged by Analyzer 0 % (0-5); Platelet Count 226 K/mm3 (150-450); RBC Distribution Width CV 13.8 % (11.6-14.6); RBC Distribution Width SD 46.4 fl (35.1-43.9); Red Blood Count 4.37 M/mm3 (4.6-6.2); White Blood Count 4.9 K/mm3 (4.4-11.0)
[2024-11-16 14:43] LABS: AST(SGOT) 23 U/L (<=37); Alanine Aminotransfer ALT/SGPT 18 U/L (<=46); Albumin, Serum 4.2 g/dL (3.4-4.8); Alkaline Phosphatase 86 U/L (40-129); Anion Gap 11 (5-15); BUN 17 mg/dL (4-19); BUN/Creat Ratio 17.9 RATIO (10-20); Calcium,Total 9.3 mg/dL (7.6-11.0); Carbon Dioxide 21.0 mmol/L (21.0-32.0); Chloride 108 mmol/L (98-108); Cholesterol 193 mg/dL (<=200); Globulin 2.8 g/dL (2.2-4.2); Glucose 104 mg/dL (70-99); Low Density Lipoprotein Calc. 103 mg/dL; Potassium 4.6 mmol/L (3.3-5.1); Triglycerides 83 mg/dL; Very Low Density Lipoprotein 17 mg/dL (5-40); Vitamin D,25 Hydroxy 31.6 ng/mL (30-100); cholesterol:hdl ratio screen 2.61
[2024-11-16 20:59] LABS: Xtra Tube Kwok EXTRA TUBE
== END | disposition home or self-care (01) ==
LOC: POLAB3 12:57
PROVIDERS: PCP Family Medicine Geriatric Medicine; Visit Provider Family Medicine Geriatric Medicine
DX: E78.5 Hyperlipidemia, unspecified (principal); I10 Essential (primary) hypertension; E55.9 Vitamin D deficiency, unspecified
CPT/HCPCS: 36415; 80053; 80061; 82306; 84443; 85025

== ENCOUNTER → 2024-11-29 | Outpatient (CLI) | payer MEDICARE, SELFPAY ==
[2024-11-29 15:54] LABS: PSA,Total- Diagnostic < 0.02 ng/mL (0.00-4.00)
== END | disposition home or self-care (01) ==
LOC: LAB 14:23
PROVIDERS: PCP Family Medicine Geriatric Medicine; Referring Provider Urology; Visit Provider Urology
DX: C61 Malignant neoplasm of prostate (principal)
CPT/HCPCS: 36415; 84153